=== PATIENT | female | born 1935 | race Caucasian/White ===

== ENCOUNTER 2018-04-29 09:46 | Inpatient (IN) | payer MEDICARE ==
--- NOTE | 2018-04-29 10:28 | ED ---
GI/ HPI - HPI Summary HPI Summary: An 82 y/o female presents to [facility] with a chief complaint of blood in her stool since 04/17/18. She describes the color of her blood as bright-red. She rates her pain as 0/10. She also c/o diarrhea, but states that she has had formed stools as well. She also c/o rectal pain and intermittent abd pain which she describes as cramping. She notes that this pain usually starts before she has a bowel movement. She denies blood without stool or N/V. She has a Hx of GI bleed and ulcer. She had a colonoscopy done 3 years [employer]. Hx of GI bleed and ulcer. - History of Current Complaint Chief Complaint: EDRectalPain Stated Complaint: RECTAL BLEEDING Hx Obtained From: Patient Onset/Duration: Started Days Ago, Still Present Timing: Intermittent, Lasting Days Severity: Mild Current Severity: Mild Pain Intensity: 0 - out of 10 Location of Pain: Diffuse Pain Characteristics: Cramping - abd pain Associated Signs and Symptoms: Positive: Rectal Pain, Blood w/Stool, Diarrhea, Abdominal Pain. Negative: Hematemesis, Nausea, Vomiting, Fever - Allergy/Home Medications Allergies/Adverse Reactions: Allergies Allergy/AdvReac Type Severity Reaction Status Date / Time Egg Derived AdvReac Intermediate Stomach Verified 04/29/18 09:50 Cramps Penicillins AdvReac Intermediate See Comment Verified 04/29/18 09:50 crab Allergy Vomiting Uncoded 04/29/18 09:50 lexascan Allergy cardiac Uncoded 04/29/18 09:50 issue, "flatlined" stress test med Allergy Unknown Uncoded 04/29/18 09:50 Reaction Details Home Medications: Home Medications Acetaminophen with Codeine [Acetaminophen-Cod #2 Tablet] 1 tab PO Q6H 04/29/18 [ History Confirmed 04/29/18] Aspirin [Aspirin EC] 81 mg PO DAILY 04/29/18 [History Confirmed 04/29/18] Atenolol 75 mg PO DAILY 04/29/18 [History Confirmed 04/29/18] Biotin 1 tab PO DAILY 04/29/18 [History Confirmed 04/29/18] Cyclobenzaprine TAB* [Flexeril 10 MG TAB*] 10 mg PO BEDTIME PRN 04/29/18 [ History Confirmed 04/29/18] Hydrochlorothiazide TAB* [Hydrodiuril TAB*] 25 mg PO DAILY 04/29/18 [History Confirmed 04/29/18] Omeprazole 20 mg PO DAILY 04/29/18 [History Confirmed 04/29/18] Sitagliptin Phosphate [Januvia] 100 mg PO DAILY 04/29/18 [History Confirmed ] Warfarin Sodium 4 - 6 mg PO SEE INSTRUCTIONS 04/29/18 [History Confirmed ] PMH/Surg Hx/FS Hx/Imm Hx Endocrine/Hematology History: Reports: Hx Anticoagulant Therapy, Hx Blood Transfusions, Hx Diabetes, Hx Anemia, Hx Unexplained Bleeding - GI Bleed admission Dx Denies: Hx Systemic Lupus Erythematosus, Hx Sickle Cell Disease, Hx Thyroid Disease, Other Endocrine/Hematological Disorders Cardiovascular History: Reports: Hx Angioplasty, Hx Coronary Artery Disease, Hx Hypercholesterolemia, Hx Hypertension Denies: Hx Aneurysm, Hx Angina, Hx Auto Implanted Cardiovert Defib, Hx Cardiac Arrest, Hx Cardiomegaly, Hx Congenital Heart Disease, Hx Congestive Heart Failure, Hx Deep Vein Thrombosis, Hx Embolism, Hx Hypotension, Hx Pacemaker/ICD, Hx Peripheral Vascular Disease, Hx Rheumatic Fever, Hx Syncope, Hx Valvular Heart Disease Respiratory History: Reports: Hx Pneumonia Denies: Hx Asthma, Hx Chronic Bronchitis, Hx Chronic Obstructive Pulmonary Disease (COPD), Hx Cystic Fibrosis, Hx Lung Cancer, Hx Pleural Effusion, Hx Pulmonary Edema, Hx Pulmonary Embolism, Hx Seasonal Allergies, Hx Sleep Apnea, Other Respiratory Problems/Disorders GI History: Reports: Hx Gastrointestinal Bleed - Admission Dx, Hx Ulcer Denies: Hx Cirrhosis, Hx Crohn's Disease, Hx Diverticulosis, Hx Gall Bladder Disease, Hx Gastroesophageal Reflux Disease, Hx Hiatal Hernia, Hx Irritable Bowel, Hx Jaundice, Hx Obstructive Bowel, Hx Ileostomy, Hx Pyloric Stenosis, Other GI Disorders History: Reports: Other Problems/Disorders - urinary urgency Denies: Hx Acute Renal Failure, Hx Benign Prostatic Hyperplasia, Hx Chronic Renal Failure, Hx Dialysis, Hx Kidney Infection, Hx Kidney Stones Musculoskeletal History: Reports: Hx Arthritis, Hx Back Problems, Hx Bursitis Denies: Hx Rheumatoid Arthritis, Hx Congenital Bone Abnormalities, Hx Fibromyalgia, Hx Gout, Hx Orthopedic Injury - right hip replaced, Hx Osteoporosis, Hx Scoliosis, Hx Tendonitis Sensory History: Reports: Hx Contacts or Glasses Denies: Hx Cataracts, Hx Eye Injury, Hx Eye Prosthesis, Hx Glaucoma, Hx Legally Blind, Hx Macular Degeneration, Hx Vision Problem, Hx Deafness, Hx Hearing Aid, Hx Hearing Problem, Other Sensory Impairments Opthamlomology History: Reports: Hx Contacts or Glasses Denies: Hx Cataracts, Hx Eye Injury, Hx Eye Prosthesis, Hx Glaucoma, Hx Legally Blind, Hx Macular Degeneration, Hx Vision Problem, Other Sensory Impairments Psychiatric History: Reports: Hx Anxiety - Cancer History Hx Chemotherapy: No Hx Radiation Therapy: No Hx Palliative Cancer Treatment: No - Surgical History Surgery Procedure, Year, and Place: right hip replacement several years ago, angiogram. barium study of intestines 10/27/14 Hx Anesthesia Reactions: No Infectious Disease History: No Infectious Disease History: Denies: Hx Clostridium Difficile, Hx Hepatitis, Hx Human Immunodeficiency Virus (HIV), Hx of Known/Suspected MRSA, Hx Shingles, Hx Tuberculosis, Hx Known/ Suspected VRE, Hx Known/Suspected VRSA, History Other Infectious Disease, Traveled Outside the [place] in Last 30 Days - Family History Known Family History: Positive: Cardiac Disease - father Negative: Diabetes - Social History Alcohol Use: None Substance Use Type: Reports: None Smoking Status (MU): Former Smoker Type: Cigarettes Amount Used/How Often: 2 PPD Length of Time of Smoking/Using Tobacco: 15 years Have You Smoked in the Last Year: No Review of Systems Negative: Fever Gastrointestinal: Negative - bleeding without stool Positive: Abdominal Pain, Diarrhea, Other - Positive: Blood in stool, rectal pain. Negative: Vomiting, Nausea All Other Systems Reviewed And Are Negative: Yes Physical Exam - Summary Physical Exam Summary: Appearance: The patient is well-nourished in no acute distress and in no acute pain. Skin: The skin is warm and dry and skin color reflects adequate perfusion. HEENT: The head is normocephalic and atraumatic. The pupils are equal and reactive. The conjunctivae are clear and without drainage. Nares are patent and without drainage. Mouth reveals moist mucous membranes and the throat is without erythema and exudate. The external ears are intact. The ear canals are patent and without drainage. The tympanic membranes are intact. Neck: The neck is supple with full range of motion and non-tender. There are no carotid bruits. There is no neck vein distension. Respiratory: Chest is non-tender. Lungs are clear to auscultation and breath sounds are symmetrical and equal. Cardiovascular: Heart is regular rate and rhythm. There is no murmur or rub auscultated. There is no peripheral edema and pulses are symmetrical and equal. Abdomen: The abdomen is soft and non-tender. There are normal bowel sounds heard in all four quadrants and there is no organomegaly palpated. Musculoskeletal: There is no back tenderness noted. Extremities are non-tender with full range of motion. There is good capillary refill. There is no peripheral edema or calf tenderness elicited. Neurological: Patient is alert and oriented to person, place and time. The patient has symmetrical motor strength in all four extremities. Cranial nerves are grossly intact. Deep tendon reflexes are symmetrical and equal in all four extremities. Psychiatric: The patient has an appropriate affect and does not exhibit any anxiety or depression. Triage Information Reviewed: Yes Vital Signs On Initial Exam: Initial Vitals Temp Pulse Resp BP Pulse Ox 98.0 F 66 20 128/85 97 04/29/18 09:50 04/29/18 09:50 04/29/18 09:50 04/29/18 09:50 04/29/18 09:50 Vital Signs Reviewed: Yes Diagnostics - Vital Signs Vital Signs Temp Pulse Resp BP Pulse Ox 04/29/18 09:50 98.0 F 66 20 128/85 97 - Laboratory Result Diagrams: 04/29/18 17:59 04/29/18 10:43 Lab Statement: Any lab studies that have been ordered have been reviewed, and results considered in the medical decision making process. - CT abdomen/pelvis CT Interpretation Completed By: Radiologist Summary of CT Findings: 1. No renal calculi or signs of obstructive uropathy are identified. 2. Diverticulosis, most severely affecting the rectosigmoid colon without definite focal. inflammatory change characteristic of acute diverticulitis. There is no definite wall. thickening or pericolonic drainable fluid. 3. Questionable identification of the appendix. Please correlate to details of the. patient's surgical history. 4. Calcified atherosclerosis of the aortoiliac arteries. 5. Additional chronic, degenerative and iatrogenic findings described in body the report. unlikely to be related to the patient's current clinical presentation. ED provider has reviewed this imaging report. - EKG 11:18 Cardiac Rate: Other Rate - Atrial Fibrillation at 64 bpm EKG Rhythm: Atrial Fibrillation Summary of EKG Findings: Atrial Fibrillation at 64 bpm with diffuse T wave inversion and ST depressions consistent with EKGs done on 10/23/14 and 09/27/14. Re-Evaluation - Re-Evaluation First Eval Re-Evaluation Time: 13:10 Change: Unchanged Comment: Informed patient of results and plan. GIGU Course/Dx - Course Course Of Treatment: Ms. Coughlin presented to the emergency department with episodes of crampy low left quadrant pain, diarrhea and hematochezia. She was nontoxic in appearance, her vitals are stable and she had no episodes of stool here. She was found to be significantly anemic compared to last summer and the hospitalists were contacted for admission. Dr. Giron was contacted for GI for background information when he gets consulted. She has a history of atrial fibrillation and is on Coumadin. Her INR was 4.5 and she was given subcutaneous vitamin K. - Diagnoses Provider Diagnoses: GI bleed - Physician Notifications Discussed Care Of Patient With: Yaquelin Jean-Baptiste Time Discussed With Above Provider: 12:55 Instructed by Provider To: Admit As Inpatient - Critical Care Time Critical Care Time: 30-74 min Discharge - Sign-Out/Discharge Documenting (check all that apply): Patient Departure - admit - Discharge Plan Condition: Fair Disposition: ADMITTED TO [facility] - Billing Disposition and Condition Condition: FAIR Disposition: Admitted to [facility] - Attestation Statements Document Initiated by Scribe: Yes Documenting Scribe: Abdiel Velázquez Provider For Whom Lady is Documenting (Include Credential): Aaron Thornton MD Scribe Attestation: Abdiel Foss, scribed for Aaron Thornton MD on 04/29/18 at 2059. Scribe Documentation Reviewed: Yes Provider Attestation: The documentation as recorded by the Abdiel blancas accurately reflects the service I personally performed and the decisions made by me, Aaron Thornton MD Status of Scribe Document: Viewed Consult Consult: At 13:[address] Giron, Gastro, about the patient.
[2018-04-29 10:57] LABS: ABS Basophils 0.1 10^3/ul (0-0.2); ABS Eosinophils 0 10^3/ul (0-0.6); ABS Lymphocytes 1.1 10^3/ul (1.0-4.8); ABS Monocytes 0.5 10^3/ul (0-0.8); ABS Neutrophils 6.1 10^3/ul (1.5-7.7); ABS Nucleated RBC 0 10^3/ul; Eosinophil % 0.5 %; Hematocrit 26 % (35-47); Hemoglobin 8.4 g/dl (12.0-16.0); Lymphocyte % 14.4 %; Mean Corpuscular HGB Conc 33 g/dl (31-36); Mean Corpuscular Hemoglobin 29 pg (27-31); Mean Corpuscular Volume 88 fL (80-97); Mean Platelet Volume 9.2 fL (7.4-10.4); Nucleated Red Blood Cells % 0; Platelet Count 220 10^3/ul (150-450); Red Blood Count 2.92 10^6/ul (4.00-5.40); Red Cell Distribution Width 15 % (10.5-15); White Blood Count 7.9 10^3/ul (3.5-10.8)
[2018-04-29 11:09] LABS: INR 4.56 (0.77-1.02)
[2018-04-29 11:16] LABS: Albumin 3.7 g/dL (3.2-5.2); Albumin/Globulin Ratio 1.3 (1-3); BUN/Creatinine Ratio 28.4 (8-20); C Reactive Protein 4.06 mg/L (<8.01); Calcium 11.8 mg/dL (8.6-10.3); EGFR Non-African American 52.1 (>60); Globulin 2.8 g/dL (2-4); Total Bilirubin 0.8 mg/dL (0.2-1.0); Total Protein 6.5 g/dL (6.4-8.9)
[2018-04-29] MEDS ORDERED: Phytonadione SUBCUT/IM Adult* 10 MG/ML AMP (IM or SQ not preferred route) SUBCUT ONE (11:22)
[2018-04-29 12:39] LABS: Urine Appearance Clear; Urine Bacteria Absent (Absent); Urine Bilirubin Negative (Negative); Urine Blood 1+ (Negative); Urine Color Yellow; Urine Glucose Negative (Negative); Urine Ketones Negative (Negative); Urine Nitrite Negative (Negative); Urine Protein Negative (Negative); Urine Red Blood Cell Trace(0-2/hpf) (Absent); Urine Urobilinogen Negative (Negative); Urine White Blood Cell Trace(0-5/hpf) (Absent)
[2018-04-29] MEDS ORDERED: Acetaminophen TAB* 325 MG PO PRN (13:37)
[2018-04-29] MEDS ORDERED: Cyclobenzaprine TAB* 10 MG PO PRN (13:38)
[2018-04-29] MEDS ORDERED: Dextrose 50% Syringe 50 ML* 25 GM/50 ML SYRINGE IV PUSH PRN (13:38)
[2018-04-29] MEDS ORDERED: Ondansetron INJ* 2 MG/ML VIAL IV PRN (13:39)
[2018-04-29] MEDS: NS 0.9% 1000 ML* 1,000 ML IV SCH (16:03)
--- NOTE | 2018-04-29 17:14 | CONS ---
CONSULTATION REPORT: DATE OF CONSULT: 04/29/18 REQUESTING PHYSICIAN: Dr. Thornton in the emergency room. TIME OF CONSULT: A consult was performed in the emergency room at approximately 2:25 p.m. NARRATIVE: Ms. Coughlin is an 82-year-old female who has a history of atrial fibrillation, type 2 diabetes, hypertension, history of prepyloric gastric ulcer and anemia, who presents with 3 to 4 days of bright red blood per rectum. She states that 3 days ago she developed left lower quadrant abdominal cramping and an urge to have a bowel movement and passed bright red blood per rectum. The pain continued for 1 to 2 days intermittently. It was colicky in nature. It was located in the left lower quadrant. She continued to have bowel movement. They were loose in nature. They all contained bright red blood per rectum. There had been no black stools. No maroon or darker stools. She denies any dizziness or lightheadedness. Today, she has had 2 bowel movements; the first one was a large amount of blood and this prompted her to come to the emergency room. She denies pain currently. Her past medical history is significant for gastrointestinal bleeding in 2014 and 2015. At that time, she was found to be anemic. She was now passing blood per rectum. She underwent an endoscopy initially in 2014, which revealed a prepyloric channel ulcer. It was felt that this could be cause of her anemia; however, repeat exam a month or two later showed at least a 50% healing and at that point it was felt that there was some other cause for her anemia. At that point, she underwent a colonoscopy, which revealed diverticulosis and a small polyp. Dr. Dickens did not feel that the source could be from either of those. Thus, he pursued with a capsule endoscope. The capsule endoscopy revealed proximal jejunal bleeding. She underwent a balloon enteroscopy at that time and a polyp was seen and removed. She had a followup enteroscopy in 2016, which showed a healed jejunal polyp. In 2016, she had her Coumadin restarted. She has been doing well she tells me up until just a few days ago. She states that her INR is checked every month and it has been stable between 2 and 2.5. She denies any leafy green vegetables or new antibiotics. Currently, her INR is 4.56. Again, at this point, she is denying any abdominal pain. She is still passing bright red blood per rectum. She takes a baby aspirin every day. She denies any other nonsteroidals. No other new medications. PAST MEDICAL HISTORY: Please see the HPI. PAST SURGICAL HISTORY: Includes a right hip replacement. MEDICATIONS UPON ADMISSION: Include, 1. Aspirin. 2. Atenolol. 3. Atorvastatin. 4. Detrol. 5. Glimepiride. 6. Hydrochlorothiazide. 7. Lisinopril. 8. Omeprazole. 9. Tramadol. ALLERGIES: To PENICILLIN. FAMILY HISTORY: Significant for cardiovascular disease, no GI malignancies in the family. SOCIAL HISTORY: She denies any recent tobacco, rare alcohol. REVIEW OF SYSTEMS: Twelve systems reviewed, other than that mentioned in the HPI were unremarkable. PHYSICAL EXAM: Temperature is 98.0, blood pressure is 149/56, pulse is 65. General: Well-appearing female, appears younger than her stated age, alert, oriented, pleasant, fluent. HEENT: Mucous membranes are moist without lesions , ulcers, or exudate. Neck is supple. Trachea is midline. Head is normocephalic, atraumatic. Heart: Irregular rate and rhythm. No murmurs, rubs or gallops. Lungs: Clear to auscultation bilaterally. No wheezes, rales or rhonchi. Abdomen is obese. Positive bowel sounds. Soft, nontender, nondistended. No hepatosplenomegaly, masses, rebound or guarding. Skin is warm and dry. Musculoskeletal: No CVA or spinal tenderness to palpation. DIAGNOSTIC STUDIES/LAB DATA: Of note, her hemoglobin is 8.4, down from 13.8, 13.8 was in November 2016; platelets of 220. INR is 4.56. BUN is 29, up from 22 in January of this year; creatinine is 1.02. She also has abdominal CT, which shows diverticulosis. ASSESSMENT AND PLAN: This is a pleasant 82-year-old female who has been having bright red blood per rectum over the past few days, initially some crampy abdominal pain that has resolved. She comes in now with an INR of 4.56 and a hemoglobin of 8.4. Her BUN is likely elevated. She does have a history of peptic ulcer disease in the past in addition to small bowel polyps that had bled in the past. She also has diverticulosis. At this point, her deferential is very broad. Given the bright red blood per rectum, my first thought would be diverticular bleeding, usually this is painless. She did have some pain a couple of days ago and intermittent cramping, it could be ischemic colitis. I doubt anything more ominous within the colon given the fact she had a colonoscopy in September 2014. This could be a small bowel pathology or small bowel lesion. She has had polyps in the past, which had bled significantly. She is hemodynamically stable, which points somewhat against it given the fact that the stool is bright red blood, not maroon or black. Additionally, peptic ulcer disease should be in the differential but again, that should give her black stools. Vital signs seem too good for this to be a brisk upper gastrointestinal bleed. Likely, all of this is complicated by the fact that her INR is 4.56. At this point, I recommend that we correct her abnormal INR. She will need frequent CBC checks. She may need some blood in the future. I would like to see how she does over the next 24 hours. She may benefit from a flexible sigmoidoscopy to evaluate her diverticulosis for any diverticular bleeding and/or ischemic colitis. At this point, she can have clears today, but then n.p.o. after midnight and the GI doctor on-call tomorrow will follow up with the patient. Obviously, aspirin should be held also. We will continue to follow along. [id number]/[facility] #: [id number] LEMUEL
[2018-04-29 18:05] LABS: Hematocrit 26 % (35-47); Hemoglobin 8.7 g/dl (12.0-16.0)
[2018-04-29] MEDS: Insulin LISPRO* 1 UNITS UNIT SUBCUT SCH (18:25)
--- NOTE | 2018-04-29 19:33 | HP ---
CC: Dr. Lai; Dr. Nickerson * HOSPITAL MEDICINE HISTORY AND PHYSICAL: DATE OF ADMISSION: 04/29/18 PRIMARY CARE PHYSICIAN: Dr. Lai. HOLD WORKER: Dr. Nickerson. ATTENDING PHYSICIAN: Dr. Yaquelin Lea * (dictation provided by Rubia Ch NP ) CHIEF COMPLAINT: Bright red blood per rectum. HISTORY OF PRESENT ILLNESS: Ms. Coughlin is an 82-year-old female with a past medical history of AFib, on Coumadin therapy as well as history of a GI bleed attributed to an ulcer in 2014, which had required blood transfusion and diabetes, who presents today to the hospital with concern for bight red blood per rectum. Ms. Coughlin states that she has been in her normal state of health. She confirms that she had a GI bleed back in 2014 that was attributed to an ulcer. 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 The patient states she has done well on that for the past 2 years and has been therapeutic with her INR. Ms. Coughlin states that 2 to 3 days ago, she started developing bright red blood per rectum. She has had up to 2 to 3 bowel movements per day. She denies any dizziness or lightheadedness. She has had some left lower quadrant crampy pain, but no other abdominal pain and no nausea or vomiting. She has had no chest pain or shortness of breath. She reviewed this bleeding with her daughter today and they decided that she should come to the hospital for evaluation. In the emergency room, Ms. Coughlin had labs, which showed her hemoglobin was 8.4. Her last check with us was on 11/28/16 and at that time, it was 13.8. Her INR was 4.56 on last check here. On 04/09/18, it was 2.36. Her BUN and creatinine are very mildly elevated at 29 and 1.02 respectively. Her vitals were stable with blood pressure running systolically 110s to 130s and a heart rate in the 60s. PAST MEDICAL HISTORY: 1. GI bleed in 2014 requiring blood transfusion. 2. Atrial fibrillation, on Coumadin therapy. 3. History of diabetes. 4. History of chronic hip pain. 5. Hypertension. MEDICATIONS OUTPATIENT: 1. Aspirin 81 mg p.o. daily. 2. Sitagliptin 100 mg p.o. daily. 3. [place]-3 fatty acids 3000 mg p.o. daily. 4. Biotin 1 tab p.o. daily. 5. Atorvastatin 10 mg p.o. q.p.m. 6. Atenolol 75 mg p.o. daily. 7. Magnesium oxide 400 mg p.o. daily. 8. Cyanocobalamin 500 mcg p.o. daily. 9. Cholecalciferol 400 units p.o. daily. 10. Tylenol With Codeine 1 tab p.o. q.6 hours. 11. Glimepiride one and a half tabs in the a.m. and half tab in the p.m. 12. Detrol LA 4 mg p.o. daily. 13. Hydrochlorothiazide 25 mg p.o. daily. 14. Lisinopril 20 mg p.o. daily. 15. Cyclobenzaprine 10 mg p.o. at bedtime p.r.n. 16. Omeprazole 20 mg p.o. daily. 17. Warfarin 4 mg on Sunday, Sunday, Sunday, Sunday, Sunday and 6 mg on Sunday and . ALLERGIES: To EGGS, PENICILLIN, CRAB, LEXISCAN. FAMILY HISTORY: The patient reports her father at 82 after gallbladder surgery. Mother related to an unknown sickness. SOCIAL HISTORY: The patient smoked briefly for many, many years ago. No report of alcohol or drug use. The patient states that her daughter, Betty and her daughter, Emilie would be the healthcare proxies. REVIEW OF SYSTEMS: A 14-point review of systems was completed with Ms. Coughlin and all those not mentioned above were negative. PHYSICAL EXAMINATION GENERAL: Ms. Coughlin is lying in the bed with her daughter, Betty at the bedside. She is in no acute distress. VITAL SIGNS: Temperature 98.0, pulse rate 55, respiratory rate 17, O2 saturation 96% on room air, blood pressure 113/59. LUNGS: Clear to auscultation bilaterally with no accessory muscle use and good aeration. HEART: S1, S2. No murmur, rub, or gallop and irregular. ABDOMEN: Soft, nontender with bowel sounds positive x4. EXTREMITIES: No cyanosis or edema. NEURO: She is alert. She is oriented x3. She moves all extremities equally. There is no facial asymmetry or focal weakness. Extraocular movements are intact. SKIN: Intact. DIAGNOSTIC STUDIES/LAB DATA: Abdomen and pelvis CT shows no renal calculi or signs of obstructive uropathy identified, diverticulosis most severely affecting the rectosigmoid colon without definite focal inflammatory change, characteristic of acute diverticulitis. There is no definite wall thickening or pericolonic drainable fluid, questionable identification of the appendix, calcified atherosclerosis of the aortoiliac arteries. Labs show urine with no evidence of infection. White blood cell count of 7, hemoglobin 8.4, hematocrit 26, platelet count 220. INR 4.56. Sodium 138, potassium 4.0, chloride 103, serum bicarbonate 28, BUN 29, creatinine 1.02, glucose 170. Lactic acid 1.1. CRP 4.06. EKG shows atrial fibrillation with T-wave inversions that are unchanged from previous and a heart rate of about 60. ASSESSMENT AND PLAN: Ms. Coughlin is an 82-year-old female with a past medical history of [id number] diabetes, gastrointestinal bleed in 2014 requiring blood transfusion and atrial fibrillation, currently on Coumadin who presents to the hospital with concern for bright red blood per rectum. Our plans are for inpatient admission as expected length of stay to be greater than 2 days for the followin. Gastrointestinal bleed: The patient has bright red blood per rectum, likely consistent with a lower gastrointestinal bleed. Plan is for 2 large- bore IVs at all time. The patient will have normal saline at 75 mL per hour. If her hemoglobin falls below 8, we will initiate blood transfusion. Her next hemoglobin check is for 1800 hours today. The patient is currently asymptomatic. She has a stable blood pressure and she is not tachycardic, though she is on a beta-girma chronically. Dr. Prescott has been contacted by Dr. Thornton from the emergency department. The patient does have a supratherapeutic INR and vitamin K has been administered appropriately here in the ED. We will follow up with repeat INR in the a.m. If the patient has more significant bleeding or become symptomatic, we can consider the initiation of FFP or additional vitamin K as needed. The patient will also be on pantoprazole IV b.i.d. 2. Atrial fibrillation, on Coumadin. Again, discontinue Coumadin. Plan to continue atenolol with hold parameters. The patient has never had a history of transient ischemic attack or stroke. 3. Type 2 diabetes. Plan to hold glimepiride and Januvia. The patient will have blood glucoses q.a.c. with lispro sliding scale. Low dose Lantus starting at 5 units tonight as the patient's oral intake is likely to be low as she will be on clear liquids. 4. Hypertension. Plan to continue atenolol, but hold hydrochlorothiazide and lisinopril. 5. Gastroesophageal reflux disease. The patient will be on pantoprazole. 6. Incontinence. The patient will have Detrol LA provided from home per her request. 7. Chronic hip pain. Continue Flexeril p.r.n. 8. Code status is full code. This was reviewed with the patient and her daughter at the bedside. 9. Disposition to medical floor with telemetry monitoring. TIME SPENT: Approximately 60 minutes was spent on the admission of this patient , more than half the time spent with her at the bedside reviewing the events leading up to this hospitalization, performing the physical examination, and reviewing my plan of care. RUBIA CH NP [id number]/[facility] #: [id number] LEMUEL
--- NOTE | 2018-04-29 19:33 | PN ---
Progress Note - Progress Note Date of Service: 04/29/18 Note: Called regarding asymptomatic bradycardia with 2 second pauses. Atenolol held for now. K > 4, checking mag now.
[2018-04-29 20:03] LABS: Magnesium 1.5 mg/dL (1.9-2.7)
[2018-04-29] MEDS: Pantoprazole IV* 40 MG IV SCH (20:45)
[2018-04-29] MEDS: Insulin GLARGINE(*) 1 UNITS UNIT SUBCUT SCH (20:46)
[2018-04-29] MEDS ORDERED: Magnesium Sulfate IV* 3 GM in NS 0.9% 100 ML* 100 ML IVPB ONE (21:00)
[2018-04-29] MEDS ORDERED: NS 0.9% 100 ML* 100 ML ONE (22:02)
[2018-04-30] MEDS: NS 0.9% 1000 ML* 1,000 ML IV SCH (06:06)
[2018-04-30 06:13] LABS: INR 2.71 (0.77-1.02)
[2018-04-30 06:14] LABS: ABS Basophils 0 10^3/ul (0-0.2); ABS Eosinophils 0.1 10^3/ul (0-0.6); ABS Lymphocytes 1.2 10^3/ul (1.0-4.8); ABS Monocytes 0.5 10^3/ul (0-0.8); ABS Neutrophils 4.5 10^3/ul (1.5-7.7); ABS Nucleated RBC 0 10^3/ul; Eosinophil % 1.2 %; Hematocrit 21 % (35-47); Hemoglobin 7.1 g/dl (12.0-16.0); Lymphocyte % 19.3 %; Mean Corpuscular HGB Conc 33 g/dl (31-36); Mean Corpuscular Hemoglobin 29 pg (27-31); Mean Corpuscular Volume 89 fL (80-97); Mean Platelet Volume 9.5 fL (7.4-10.4); Nucleated Red Blood Cells % 0; Platelet Count 177 10^3/ul (150-450); Red Blood Count 2.42 10^6/ul (4.00-5.40); Red Cell Distribution Width 15 % (10.5-15); White Blood Count 6.3 10^3/ul (3.5-10.8)
[2018-04-30 06:25] LABS: BUN/Creatinine Ratio 29.8 (8-20); Calcium 10.7 mg/dL (8.6-10.3); EGFR Non-African American 57.3 (>60); Magnesium 2.2 mg/dL (1.9-2.7); Potassium 3.5 mmol/L (3.5-5.0)
[2018-04-30] MEDS: Insulin LISPRO* 1 UNITS UNIT SUBCUT SCH ×3 (08:15→17:47)
[2018-04-30] MEDS ORDERED: Atenolol TAB* 25 MG PO SCH (09:00)
[2018-04-30] MEDS: Pantoprazole IV* 40 MG IV SCH ×2 (09:41→20:51)
[2018-04-30] MEDS: Oxybutynin XL TAB* 5 MG PO SCH ×2 (09:41→09:43)
[2018-04-30] MEDS: Acetaminop/Codeine 30 MG TAB* 1 TAB (300 MG/30 MG) PO PRN ×2 (10:40→18:32)
--- NOTE | 2018-04-30 13:45 | PN ---
Progress Note - Progress Note Date of Service: 04/30/18 Note: GASTROENTEROLOGY FOLLOW-UP Reviewed chart and spoke with primary team. Met with patient. IE: Bleeding has lessened significantly. Some trips to bathroom now with no or only few drops of blood. Few episodes with some more bleeding resulting in pink- tinged liquid in toilet. Hct down from 26 to 21. Receiving 2 units of blood. VSS. S: No significant abdominal pain. No other complaints. O: VS: AF. VS WNL. Gen: Tired-appearing woman. NAD. CV: RRR Pulm: Breathing comfortably. Abd: +BS. Soft, non-tender, non-distended. LABS: Reviewed. Hct down from 26 to 21. INR 2.71 (from 4.56 after Vit K 5 mg). BUN 28 (from 29). Cr 0.94 (from 1.02). A/P: 82yF with history of GIB in 2015 (gastric ulcer on EGD, diverticulosis on colonoscopy, VCE: jejunal bleeding with subsequent balloon enteroscopy with removal of jejunal polyp), who is admitted with hematochezia and LLQ pain. Hematochezia seems to have lessened significantly. Hct now down to 21, which may represent re-equilibration from earlier heavier bleeding vs ongoing blood loss. Patient remains hemodynamically stable. - Agree with blood transfusions (2 units pending). Monitor CBC every 8 hours. - Monitor INR daily. - Recommend starting colonoscopy prep this afternoon. Clear diet today OK (no red liquids). - Will tentatively plan for colonoscopy +/- EGD tomorrow to evaluate for possible sources of blood loss. INR will hopefully be lower tomorrow. GI will continue to follow. Jennifer Prescott MD
--- NOTE | 2018-04-30 14:26 | PN ---
Subjective Date of Service: 04/30/18 Interval History: HOSPITALIST PROGRESS NOTE Patient seen and examined at bedside. Care reviewed and d/w Leighann Salmon RN. She had 2 small bloody BMs earlier today. Denies abdominal pain or any other complaints. Family History: Unchanged from Admission Social History: Unchanged from Admission Past Medical History: Unchanged from Admission Objective Active Medications: Acetaminophen (Tylenol Tab*) 650 mg PO Q6H PRN PRN Reason: PAIN Acetaminophen/Codeine Phosphate (Tylenol/Codeine 30 Mg Tab*) 1 tab PO Q6H PRN PRN Reason: PAIN Last Admin: 04/30/18 10:40 Dose: 1 tab Cyclobenzaprine HCl (Flexeril Tab*) 10 mg PO BEDTIME PRN PRN Reason: SPASMS Dextrose (D50w Syringe 50 Ml*) 12.5 gm IV PUSH .FOR FS < 60 - SS PRN PRN Reason: FS < 60 Sodium Chloride (Ns 0.9% 1000 Ml*) 1,000 mls @ 75 mls/hr IV PER RATE ON [facility] OF [facility] Last Admin: 04/30/18 06:06 Dose: 75 mls/hr Insulin Glargine (Lantus(*)) 5 units SUBCUT BEDTIME ON LICENSE OF [facility] Last Admin: 04/29/18 20:46 Dose: 5 units Insulin Human Lispro (Humalog*) 0 units SUBCUT AC ON LICENSE OF [facility]; Protocol Last Admin: 04/30/18 08:15 Dose: Not Given Ondansetron HCl (Zofran Inj*) 4 mg IV Q6H PRN PRN Reason: NAUSEA Oxybutynin Chloride (Ditropan Xl Tab*) 10 mg PO DAILY ON [facility] OF [facility] Last Admin: 04/30/18 09:43 Dose: Not Given Pantoprazole Sodium (Protonix Iv*) 40 mg IV BID ON LICENSE OF [facility] Last Admin: 04/30/18 09:41 Dose: 40 mg Vital Signs - 8 hr 04/30/18 04/30/18 04/30/18 07:23 08:00 10:40 Temperature 97.7 F Pulse Rate 62 Respiratory 16 18 20 Rate Blood Pressure 127/40 (mmHg) O2 Sat by Pulse 100 Oximetry Oxygen Devices in Use Now: None Appearance: Pleasant elderly lady lying in bed in NAD. Eyes: No Scleral Icterus Ears/Nose/Mouth/Throat: Mucous Membranes Moist Neck: Trachea Midline Respiratory: Symmetrical Chest Expansion and Respiratory Effort, Clear to Auscultation Cardiovascular: RRR - Normal S1 and S2 Abdominal: NL Sounds; No Tenderness; No Distention Neurological: Alert and Oriented x 3, NL Muscle Strength and Tone Result Diagrams: 04/30/18 05:48 04/30/18 05:48 Assess/Plan/Problems-Billing Assessment: Mrs Coughlin is an 82yo F with PMH of Afib on Warfarin, GI bleed in 2014 ( gastric ulcer on EGD, diverticulosis on colonoscopy, jejunal bleeding on capsule endoscopy with enteroscopy with removal of jejunal polyp), HTN, type 2 DM, chronic pain, who presented to ED with c/o bright red blood per rectum. - Patient Problems (1) Lower GI bleed Comment: - Patient presents with painless hematochezia, suspect diverticular in nature. - GI input appreciated - plan for colonoscopy +/- EGD tomorrow. (2) Blood loss anemia Comment: - H/H down to 7/ - will transfuse 2 PRBC and monitor H/H. (3) Type 2 diabetes mellitus Comment: - Continue low dose Lantus and Lispro SS. (4) HTN (hypertension) Comment: - BP low normal - antihypertensives on hold. (5) Afib Comment: - Coumadin held due to acute bleed. - Got vitamin K in the ED and INR is 2.7 today - will allow it to drift down. (6) DVT prophylaxis Comment: - Pharmacological prophylaxis contraindicated in the setting of GI bleed. - SCDs. (7) Full code status
[2018-04-30] MEDS ORDERED: Oxybutynin XL TAB* 5 MG PO SCH (16:00)
[2018-04-30] MEDS ORDERED: PEG 3000 GI LAVAGE* 1 GALLON PO ONE (17:00)
[2018-04-30] MEDS: TOLTERODINE 4 MG PO SCH (17:04)
[2018-04-30 18:59] LABS: Hematocrit 28 % (35-47); Hemoglobin 9.3 g/dl (12.0-16.0)
[2018-04-30] MEDS: Insulin GLARGINE(*) 1 UNITS UNIT SUBCUT SCH (20:51)
[2018-05-01 06:35] LABS: ABS Basophils 0.1 10^3/ul (0-0.2); ABS Eosinophils 0.1 10^3/ul (0-0.6); ABS Lymphocytes 1.6 10^3/ul (1.0-4.8); ABS Monocytes 0.5 10^3/ul (0-0.8); ABS Neutrophils 5.7 10^3/ul (1.5-7.7); ABS Nucleated RBC 0 10^3/ul; Eosinophil % 1.7 %; Hematocrit 31 % (35-47); Hemoglobin 10.4 g/dl (12.0-16.0); Lymphocyte % 19.6 %; Mean Corpuscular HGB Conc 34 g/dl (31-36); Mean Corpuscular Hemoglobin 29 pg (27-31); Mean Corpuscular Volume 87 fL (80-97); Mean Platelet Volume 8.8 fL (7.4-10.4); Nucleated Red Blood Cells % 0; Platelet Count 187 10^3/ul (150-450); Red Blood Count 3.55 10^6/ul (4.00-5.40); Red Cell Distribution Width 15 % (10.5-15)
[2018-05-01] MEDS: NS 0.9% 1000 ML* 1,000 ML IV SCH (06:51)
[2018-05-01] MEDS ORDERED: PEG 3000 GI LAVAGE* 1 GALLON PO ONE (07:00)
[2018-05-01 07:31] LABS: BUN/Creatinine Ratio 24.1 (8-20); Calcium 10.8 mg/dL (8.6-10.3); EGFR Non-African American 62.6 (>60); Potassium 3.3 mmol/L (3.5-5.0)
[2018-05-01] MEDS: Insulin LISPRO* 1 UNITS UNIT SUBCUT SCH ×3 (08:05→18:37)
[2018-05-01] MEDS: Pantoprazole IV* 40 MG IV SCH ×2 (08:22→20:27)
[2018-05-01] MEDS ORDERED: Potassium Chloride LIQUID* 20 MEQ PACKET PO ONE (09:06)
[2018-05-01] MEDS: KCL 10 MEQ/50 ML IVPREMIX* 10 MEQ/50 ML BAG IV SCH ×2 (09:58→11:03)
[2018-05-01 10:10] LABS: INR 1.4 (0.77-1.02)
[2018-05-01] MEDS ORDERED: fentaNYL* 50 MCG/ML 2 ML VIAL (100 MCG VIAL) ONE (14:26)
[2018-05-01] MEDS ORDERED: Midazolam* 1 MG/ML 10 ML VIAL (10 MG) ONE (14:27)
--- NOTE | 2018-05-01 17:26 | PN ---
Subjective Date of Service: 05/01/18 Interval History: HOSPITALIST PROGRESS NOTE Patient seen and examined at bedside. Care reviewed and d/w Mirela Cartwright RN. She offers no new complaints today. Family History: Unchanged from Admission Social History: Unchanged from Admission Past Medical History: Unchanged from Admission Objective Active Medications: Acetaminophen (Tylenol Tab*) 650 mg PO Q6H PRN PRN Reason: PAIN Acetaminophen/Codeine Phosphate (Tylenol/Codeine 30 Mg Tab*) 1 tab PO Q6H PRN PRN Reason: PAIN Last Admin: 04/30/18 18:32 Dose: 1 tab Aspirin (Aspirin Ec Tab*) 81 mg PO DAILY [facility] Cyclobenzaprine HCl (Flexeril Tab*) 10 mg PO BEDTIME PRN PRN Reason: SPASMS Dextrose (D50w Syringe 50 Ml*) 12.5 gm IV PUSH .FOR FS < 60 - SS PRN PRN Reason: FS < 60 Sodium Chloride (Ns 0.9% 1000 Ml*) 1,000 mls @ 75 mls/hr IV PER RATE [facility] Last Admin: 05/01/18 06:51 Dose: 75 mls/hr Insulin Glargine (Lantus(*)) 5 units SUBCUT BEDTIME [facility] Last Admin: 04/30/18 20:51 Dose: 5 units Insulin Human Lispro (Humalog*) 0 units SUBCUT AC [facility]; Protocol Last Admin: 05/01/18 11:59 Dose: Not Given Ondansetron HCl (Zofran Inj*) 4 mg IV Q6H PRN PRN Reason: NAUSEA Pantoprazole Sodium (Protonix Iv*) 40 mg IV BID [facility] Last Admin: 05/01/18 08:22 Dose: 40 mg Tolterodine Tartrate (Detrol La (Nf)) 4 mg PO DAILY@1500 [facility]; Protocol Last Admin: 04/30/18 17:04 Dose: 4 mg Vital Signs - 8 hr 05/01/18 11:14 Temperature 97.8 F Pulse Rate 93 Respiratory 16 Rate Blood Pressure 136/48 (mmHg) O2 Sat by Pulse 99 Oximetry Oxygen Devices in Use Now: None Appearance: Elderly pleasant lady sitting up in bed in NAD. Eyes: No Scleral Icterus Ears/Nose/Mouth/Throat: Mucous Membranes Moist Neck: Trachea Midline Respiratory: Symmetrical Chest Expansion and Respiratory Effort, Clear to Auscultation Cardiovascular: RRR - Normal S1 and S2 Abdominal: NL Sounds; No Tenderness; No Distention Neurological: Alert and Oriented x 3, NL Muscle Strength and Tone Result Diagrams: 05/01/18 06:18 05/01/18 06:18 Assess/Plan/Problems-Billing Assessment: Mrs Coughlin is an 82yo F with PMH of Afib on Warfarin, GI bleed in 2014 ( gastric ulcer on EGD, diverticulosis on colonoscopy, jejunal bleeding on capsule endoscopy with enteroscopy with removal of jejunal polyp), HTN, type 2 DM, chronic pain, who presented to ED with c/o bright red blood per rectum. - Patient Problems (1) Lower GI bleed Comment: - Patient presents with painless hematochezia, suspect diverticular in nature. - GI input appreciated - colonoscopy showed some old blood, no active bleeding. - Plan for EGD tomorrow. (2) Acute blood loss anemia Comment: - H/H down to 11/17, received 2 PRBC and now up to 02/27. - Continue to monitor H/H. (3) Hypercalcemia Comment: - Present on prior admission, with normal PTH, felt to be secondary to thiazide use and dehydration at that time. - This could be the same explanation this time - check PTH intact. (4) Type 2 diabetes mellitus Comment: - Continue low dose Lantus and Lispro SS. (5) HTN (hypertension) Comment: - BP trending up - resume low dose Atenolol and monitor. (6) Afib Comment: - Coumadin held due to acute bleed. - Got vitamin K in the ED and INR is 1.4. (7) DVT prophylaxis Comment: - Pharmacological prophylaxis contraindicated in the setting of GI bleed. - SCDs. (8) Full code status
[2018-05-01] MEDS: Acetaminop/Codeine 30 MG TAB* 1 TAB (300 MG/30 MG) PO PRN (17:38)
[2018-05-01] MEDS: TOLTERODINE 4 MG PO SCH (17:38)
[2018-05-01 17:52] LABS: Hematocrit 30 % (35-47)
[2018-05-01 17:58] LABS: BUN/Creatinine Ratio 19.5 (8-20); Calcium 10.8 mg/dL (8.6-10.3); EGFR Non-African American 67.1 (>60); Potassium 3.8 mmol/L (3.5-5.0)
[2018-05-01] MEDS ORDERED: Atenolol TAB* 25 MG PO SCH (18:00)
[2018-05-01] MEDS: Insulin GLARGINE(*) 1 UNITS UNIT SUBCUT SCH (20:30)
--- NOTE | 2018-05-01 22:50 | PN ---
Progress Note - Progress Note Date of Service: 05/01/18 Note: Patient here for GI bleed - Tele showing HR <40 with frequent pauses, afib. Will hold AM atenolol
--- NOTE | 2018-05-02 01:04 | PRO ---
CC: Dr. Lea; Sudarshan Lai MD * DATE OF PROCEDURE: 05/01/2018 - ROOM #411 PROCEDURE: Colonoscopy. REQUESTING PROVIDER: Dr. Lea PRIMARY CARE PROVIDER: Sudarshan Lai MD * INDICATION: Patient presents with rectal bleeding and anemia requiring transfusions. She has a history of bleeding in the past with upper endoscopy demonstrating gastric ulcer, colonoscopy demonstrating diverticulosis, and a video capsule endoscopy demonstrating jejunal bleeding with followup enteroscopy notable for a jejunal polyp. This last episode of bleeding was in [id number]. Blood counts have responded to transfusions overnight. MEDICATIONS GIVEN: Midazolam 7 mg IV, Fentanyl 100 mcg IV. DESCRIPTION OF PROCEDURE: Full disclosure of risks was reviewed with the patient as detailed on the consent form. The patient was placed in the left lateral decubitus position and monitored with continuous pulse oximetry, capnography, interval blood pressure monitoring, and direct observation. After anorectal examination was performed, the pediatric colonoscope was inserted into the rectum and advanced under direct observation to the level of the terminal ileum. Cecum was fully inflated allowing complete view including the medial wall between the IC valve and the appendiceal orifice. Quality of the prep was fair to poor with areas of retained clot and old blood as well as food debris. Careful inspection was made as the colonoscope was withdrawn. Retroflex view of the rectum was performed. Findings and interventions are described below. FINDINGS: Anorectal exam was unremarkable. Scope was slowly and carefully advanced to the level of the cecum. Abdominal pressure was required to help the scope to move forward in the colon. The patient was quite sensitive in the area of the left colon within segment of diverticulosis. There was old blood with fibrous clot-like material and scattered food and stool debris seen throughout the colon. There seemed to be more old blood and clot in the right colon as compared to the left colon. There was no fresh or active bleeding. Once in the cecum, the terminal ileum was intubated. The terminal ileum was normal in appearance without any evidence of old blood. Scope was then withdrawn into cecum and then throughout length of colon. The mucosa underlying the areas of clotted material was washed extensively and no sources were identified. In the left colon, patient had moderate diverticulosis. Each diverticulum was washed, and there was no evidence of clot or active bleeding seen. Retroflexion in the rectum was largely remarkable. There were no significant internal hemorrhoids. Scope was then withdrawn from the patient. The patient tolerated the procedure well and was recovered in the GI recovery area. IMPRESSION: Evidence of old blood with clot seen throughout colon, particularly on the right side. There does not appear to be any fresh or active bleeding, so I suspect the bleeding has stopped. The terminal ileum did not demonstrate any old blood; however, I am suspicious that patient may have small bowel source of bleeding given the distribution of old blood seen on today 's exam. I am doubtful that diverticular-related bleeding could account for the concentration of old blood seen in the right colon. FOLLOWUP: 1. Can restart diet now. Keep n.p.o. after midnight. 2. Will plan for an EGD tomorrow to ensure no upper GI source of bleeding given history of PUD. 3. If tomorrow's EGD is negative, then we will plan for an outpatient capsule to evaluate for possible small bowel source of bleeding, particularly given history of bleeding jejunal polyp. 4. Continue to monitor CBC. 5. Continue aspirin for now, Coumadin on hold. Thank you very much for this consult. GI will continue to follow. [id number]/[facility] #: [id number] LEMUEL
[2018-05-02] MEDS: NS 0.9% 1000 ML* 1,000 ML IV SCH ×2 (01:28→15:49)
[2018-05-02 08:09] LABS: ABS Basophils 0.1 10^3/ul (0-0.2); ABS Eosinophils 0.2 10^3/ul (0-0.6); ABS Lymphocytes 1.1 10^3/ul (1.0-4.8); ABS Monocytes 0.6 10^3/ul (0-0.8); ABS Nucleated RBC 0 10^3/ul; Eosinophil % 2.1 %; Hematocrit 28 % (35-47); Hemoglobin 9.5 g/dl (12.0-16.0); Lymphocyte % 14.5 %; Mean Corpuscular HGB Conc 34 g/dl (31-36); Mean Corpuscular Hemoglobin 29 pg (27-31); Mean Corpuscular Volume 87 fL (80-97); Mean Platelet Volume 8.9 fL (7.4-10.4); Nucleated Red Blood Cells % 0.1; Platelet Count 171 10^3/ul (150-450); Red Blood Count 3.24 10^6/ul (4.00-5.40); Red Cell Distribution Width 15 % (10.5-15); White Blood Count 7.9 10^3/ul (3.5-10.8)
[2018-05-02] MEDS: Pantoprazole IV* 40 MG IV SCH ×2 (08:13→21:03)
[2018-05-02] MEDS: Insulin LISPRO* 1 UNITS UNIT SUBCUT SCH ×3 (08:13→17:08)
[2018-05-02 08:19] LABS: BUN/Creatinine Ratio 16.7 (8-20); Calcium 10.5 mg/dL (8.6-10.3); EGFR Non-African American 55.9 (>60); Potassium 3.9 mmol/L (3.5-5.0)
--- NOTE | 2018-05-02 13:44 | PN ---
Subjective Date of Service: 05/02/18 Interval History: HOSPITALIST PROGRESS NOTE Patient seen and examined at bedside. Care reviewed and d/w Roque Sanchez RN. She offers no new complaints today. No bowel movements after colonoscopy. Tolerating diet well. Family History: Unchanged from Admission Social History: Unchanged from Admission Past Medical History: Unchanged from Admission Objective Active Medications: Acetaminophen (Tylenol Tab*) 650 mg PO Q6H PRN PRN Reason: PAIN Acetaminophen/Codeine Phosphate (Tylenol/Codeine 30 Mg Tab*) 1 tab PO Q6H PRN PRN Reason: PAIN Last Admin: 05/01/18 17:38 Dose: 1 tab Aspirin (Aspirin Ec Tab*) 81 mg PO DAILY [facility] Cyclobenzaprine HCl (Flexeril Tab*) 10 mg PO BEDTIME PRN PRN Reason: SPASMS Dextrose (D50w Syringe 50 Ml*) 12.5 gm IV PUSH .FOR FS < 60 - SS PRN PRN Reason: FS < 60 Sodium Chloride (Ns 0.9% 1000 Ml*) 1,000 mls @ 75 mls/hr IV PER RATE [facility] Last Admin: 05/02/18 01:28 Dose: 75 mls/hr Insulin Glargine (Lantus(*)) 5 units SUBCUT BEDTIME [facility] Last Admin: 05/01/18 20:30 Dose: 5 units Insulin Human Lispro (Humalog*) 0 units SUBCUT AC [facility]; Protocol Last Admin: 05/02/18 11:52 Dose: Not Given Ondansetron HCl (Zofran Inj*) 4 mg IV Q6H PRN PRN Reason: NAUSEA Pantoprazole Sodium (Protonix Iv*) 40 mg IV BID [facility] Last Admin: 05/02/18 08:13 Dose: 40 mg Tolterodine Tartrate (Detrol La (Nf)) 4 mg PO DAILY@1500 [facility]; Protocol Last Admin: 05/01/18 17:38 Dose: 4 mg Vital Signs - 8 hr 05/02/18 05/02/18 05/02/18 07:52 08:00 11:28 Temperature 98.6 F 98.1 F Pulse Rate 79 92 Respiratory 16 16 16 Rate Blood Pressure 136/48 138/55 (mmHg) O2 Sat by Pulse 97 99 Oximetry Oxygen Devices in Use Now: None Appearance: Pleasant elderly lady sitting up in bed in NAD. Eyes: No Scleral Icterus Ears/Nose/Mouth/Throat: Mucous Membranes Moist Neck: Trachea Midline Respiratory: Symmetrical Chest Expansion and Respiratory Effort, Clear to Auscultation Cardiovascular: - - Normal S1 and S2, irregularly irregular Abdominal: NL Sounds; No Tenderness; No Distention Extremities: - - Bilateral LE edema Neurological: Alert and Oriented x 3, NL Muscle Strength and Tone Result Diagrams: 05/02/18 07:44 05/02/18 07:44 Assess/Plan/Problems-Billing Assessment: Mrs Coughlin is an 82yo F with PMH of Afib on Warfarin, GI bleed in 2014 ( gastric ulcer on EGD, diverticulosis on colonoscopy, jejunal bleeding on capsule endoscopy with enteroscopy with removal of jejunal polyp), HTN, type 2 DM, chronic pain, who presented to ED with c/o bright red blood per rectum. - Patient Problems (1) Lower GI bleed Comment: - Patient presents with painless hematochezia, suspect diverticular in nature. - GI input appreciated - colonoscopy showed some old blood, no active bleeding. - Plan for EGD today. (2) Acute blood loss anemia Comment: - H/H stable at 9.5/28. - Continue to monitor. (3) Hypercalcemia Comment: - Present in the past - PTH elevated now - Endocrinology consult requested with Dr Jane. (4) Type 2 diabetes mellitus Comment: - Continue low dose Lantus and Lispro SS. (5) HTN (hypertension) Comment: - Continue low dose Atenolol. (6) Afib Comment: - Coumadin held due to acute bleed. - Got vitamin K in the ED and INR is 1.4. - Tentative plan for capsule endoscopy next week to then decide when to resume Warfarin. (7) DVT prophylaxis Comment: - Pharmacological prophylaxis contraindicated in the setting of GI bleed. - SCDs. (8) Full code status
[2018-05-02] MEDS ORDERED: Midazolam* 1 MG/ML 10 ML VIAL (10 MG) ONE (14:32)
[2018-05-02] MEDS ORDERED: fentaNYL* 50 MCG/ML 2 ML VIAL (100 MCG VIAL) ONE (14:32)
[2018-05-02] MEDS: Aspirin EC TAB* 81 MG TAB.EC PO SCH (15:49)
[2018-05-02] MEDS: TOLTERODINE 4 MG PO SCH (17:09)
[2018-05-02] MEDS: Acetaminop/Codeine 30 MG TAB* 1 TAB (300 MG/30 MG) PO PRN (17:09)
[2018-05-02] MEDS: Insulin GLARGINE(*) 1 UNITS UNIT SUBCUT SCH (21:05)
--- NOTE | 2018-05-02 22:19 | PN ---
Progress Note - Progress Note Date of Service: 05/02/18 Note: called for 4 second pause while patient is sleeping
--- NOTE | 2018-05-02 22:56 | PRO ---
CC: Dr. Hugo Schaffer; Dr. Jennifer Prescott * EGD REPORT: DATE OF SERVICE: 05/02/18 - ROOM #411 INDICATION FOR PROCEDURE: Rectal bleeding, history of peptic ulcer disease. PROCEDURE PERFORMED: Complete esophagogastroduodenoscopy. MEDICATIONS GIVEN: Include IV midazolam 5 mg, IV fentanyl 50 mcg. DESCRIPTION OF PROCEDURE: After the EGD procedure including the risks, benefits , and alternatives with the risks not limited to perforation, surgery, missed lesions, and/or were explained to the patient, written informed consent was obtained. IV medication was given and a bite-block was placed between the teeth. The adult Olympus gastroscope was inserted into the patient's oropharynx and advanced very carefully through the entirety of the tubular esophagus into the lower esophageal sphincter. This was grossly normal in appearance. The GE junction was at 40 cm. The scope was advanced through the lower esophageal sphincter into the stomach. The stomach had mild wang gastritis. On retroflexion, there was a small Patel erosion that was evident and a 2-cm hiatal hernia appreciated. There was no active bleeding. The scope was then advanced to the widely patent pylorus into the duodenal bulb, C-loop, distal duodenum. I then pushed as far as I could into the small bowel. There was no evidence of fresh or old blood that was visualized. The scope was then removed from the patient. She tolerated the procedure well. She returned to the recovery room in stable condition. IMPRESSION: 1. Complete esophagogastroduodenoscopy. 2. A 2-cm hiatal hernia. 3. Non-bleeding Patel erosions. 4. Mild gastritis. RECOMMENDATIONS: No etiology of the patient's hematochezia was identified. At this point, her hemoglobin has remained stable. There has been no evidence of re- bleeding. I suspect that her acute GI bleeding has resolved and was likely secondary to her supratherapeutic INR. I would recommend close monitoring of INR as outpatient, consideration of just pure observation alone versus consideration for repeat capsule endoscopy; however, the patient had 2 enteroscopies in the past for a small bowel polyp that was removed. Likely sources of anemia would be diverticular versus AVM versus the Dieulafoy lesion that opened up. I discussed with the family that we unlikely would not find the acute source on this admission and observation versus capsule endoscopy would be prudent. [id number]/CPS #: [id number] MTDMeg
[2018-05-03] MEDS: NS 0.9% 1000 ML* 1,000 ML IV SCH (05:48)
[2018-05-03 07:14] LABS: Hematocrit 29 % (35-47); Hemoglobin 9.5 g/dl (12.0-16.0)
[2018-05-03] MEDS: Aspirin EC TAB* 81 MG TAB.EC PO SCH (08:12)
[2018-05-03] MEDS: Insulin LISPRO* 1 UNITS UNIT SUBCUT SCH ×3 (08:12→16:53)
[2018-05-03] MEDS: Pantoprazole IV* 40 MG IV SCH ×2 (08:12→21:15)
[2018-05-03] MEDS: Acetaminop/Codeine 30 MG TAB* 1 TAB (300 MG/30 MG) PO PRN (11:51)
--- NOTE | 2018-05-03 15:52 | PN ---
Subjective Date of Service: 05/03/18 Interval History: Pt seen and examined. Meds and labs reviewed. Other than asymptomatic 4 second pause reported, no other O/N issues. CC: N/A ROS: Denied PARKS/dizziness, F/C, N/V, CP, SOB, increased cough, sputum production , abd pain, diarrhea, constipation, dysuria, myalgias, arthralgias, throat pain , and new skin lesions. The rest of the 14 point ROS are unremarkable. PHYSICAL EXAM: GEN APPEARANCE: Awake, not in acute distress HEENT: NC/AT, PERRLA, moist oral mucosa, (-) throat erythema NECK: Soft, supple, (-) cervical LAD, (-)JVD HEART: S1S2 WNL, RRR, No MRG CHEST: CTA, BL, GAE, No W/R/R ABD: Soft, ND/NT, NABS 4x Q EXT: No C/C/BLLE edema +2 SKIN: Warm to touch PSYCH: No active psychosis, hallucinations, depression, SI/HI Family History: Unchanged from Admission Social History: Unchanged from Admission Past Medical History: Unchanged from Admission Objective Active Medications: Acetaminophen (Tylenol Tab*) 650 mg PO Q6H PRN PRN Reason: PAIN Acetaminophen/Codeine Phosphate (Tylenol/Codeine 30 Mg Tab*) 1 tab PO Q6H PRN PRN Reason: PAIN Last Admin: 05/03/18 11:51 Dose: 1 tab Aspirin (Aspirin Ec Tab*) 81 mg PO DAILY [facility] Last Admin: 05/03/18 08:12 Dose: 81 mg Atenolol (Tenormin Tab*) 75 mg PO DAILY [facility] Cyclobenzaprine HCl (Flexeril Tab*) 10 mg PO BEDTIME PRN PRN Reason: SPASMS Dextrose (D50w Syringe 50 Ml*) 12.5 gm IV PUSH .FOR FS < 60 - SS PRN PRN Reason: FS < 60 Sodium Chloride (Ns 0.9% 1000 Ml*) 1,000 mls @ 75 mls/hr IV PER RATE [facility] Last Admin: 05/03/18 05:48 Dose: 75 mls/hr Insulin Glargine (Lantus(*)) 5 units SUBCUT BEDTIME [facility] Last Admin: 05/02/18 21:05 Dose: 5 units Insulin Human Lispro (Humalog*) 0 units SUBCUT AC [facility]; Protocol Last Admin: 05/03/18 11:52 Dose: 3 units Ondansetron HCl (Zofran Inj*) 4 mg IV Q6H PRN PRN Reason: NAUSEA Pantoprazole Sodium (Protonix Iv*) 40 mg IV BID [facility] Last Admin: 05/03/18 08:12 Dose: 40 mg Tolterodine Tartrate (Detrol La (Nf)) 4 mg PO DAILY@1500 [facility]; Protocol Last Admin: 05/02/18 17:09 Dose: 4 mg Vital Signs - 8 hr 05/03/18 05/03/18 11:51 11:53 Temperature 97.7 F Pulse Rate 91 Respiratory 16 18 Rate Blood Pressure 180/71 (mmHg) O2 Sat by Pulse 99 Oximetry Oxygen Devices in Use Now: None Result Diagrams: 05/03/18 06:57 05/02/18 07:44 Microbiology and Other Data: Microbiology 04/29/18 10:38 Urine Culture - Final Urine No Growth (<1,000 CFU/mL) Assess/Plan/Problems-Billing Assessment: Mrs Coughlni is an 82yo F with PMH of Afib on Warfarin, GI bleed in 2014 ( gastric ulcer on EGD, diverticulosis on colonoscopy, jejunal bleeding on capsule endoscopy with enteroscopy with removal of jejunal polyp), HTN, type 2 DM, chronic pain, who presented to ED with c/o bright red blood per rectum. - Patient Problems (1) GI bleed Current Visit: Yes Status: Acute Code(s): K92.2 - GASTROINTESTINAL HEMORRHAGE, UNSPECIFIED SNOMED Code(s): 36807686 Comment: -Per Dr. Khan assessment, likely due to diverticular bleed vs. AVM in the setting of mildly supratherapeutic INR -EGD, however, reveals mild gastritis and non-bleeding Patel erosions (2) Afib Current Visit: Yes Status: Chronic Code(s): I48.91 - UNSPECIFIED ATRIAL FIBRILLATION SNOMED Code(s): 11714397 Comment: -Off of Coumadin for now given above -Continue ASA for now given H&H is stable despite being on it -Will re-start Atenolol today. Please see discussion below. (3) Diabetes 1.5, managed as type 2 Current Visit: Yes Status: Acute Code(s): E13.9 - OTHER SPECIFIED DIABETES MELLITUS WITHOUT COMPLICATIONS SNOMED Code(s): 101492245 Comment: -Well-controlled -Continue current regimen -Continue watchful waiting (4) HTN (hypertension) Current Visit: Yes Status: Chronic Code(s): I10 - ESSENTIAL (PRIMARY) HYPERTENSION SNOMED Code(s): 88020257 Comment: -Uncontrolled -Will re-order Atenolol with appropriate holding orders -Will continue watchful waiting (5) DVT prophylaxis Current Visit: Yes Status: Acute Code(s): RJD8925 - SNOMED Code(s): 519073115 Comment: -Continue SCDs Status and Disposition: -Appreciate PT eval; PT recommends to continue PT at this time and re-eval in AM
[2018-05-03] MEDS ORDERED: Atenolol TAB* 25 MG PO SCH (16:00)
[2018-05-03] MEDS: TOLTERODINE 4 MG PO SCH (16:54)
[2018-05-03] MEDS: Insulin GLARGINE(*) 1 UNITS UNIT SUBCUT SCH (21:14)
--- NOTE | 2018-05-03 22:18 | PN ---
Hospitalist Progress Note Date of Service: 05/03/18 Notified by [facility] staff of a 4.1 second pause while sleeping. Patient is asymptomatic. She was started on atenolol today and then this was discontinued. Will continue to monitor.
[2018-05-04] MEDS: NS 0.9% 1000 ML* 1,000 ML IV SCH ×2 (04:46→21:54)
[2018-05-04 07:02] LABS: ABS Basophils 0 10^3/ul (0-0.2); ABS Eosinophils 0.2 10^3/ul (0-0.6); ABS Monocytes 0.7 10^3/ul (0-0.8); ABS Neutrophils 6.2 10^3/ul (1.5-7.7); ABS Nucleated RBC 0 10^3/ul; Eosinophil % 1.9 %; Hematocrit 29 % (35-47); Hemoglobin 9.6 g/dl (12.0-16.0); Lymphocyte % 12.7 %; Mean Corpuscular HGB Conc 33 g/dl (31-36); Mean Corpuscular Hemoglobin 29 pg (27-31); Mean Corpuscular Volume 88 fL (80-97); Nucleated Red Blood Cells % 0; Platelet Count 168 10^3/ul (150-450); Red Cell Distribution Width 15 % (10.5-15); White Blood Count 8.1 10^3/ul (3.5-10.8)
[2018-05-04 07:20] LABS: Albumin 3.1 g/dL (3.2-5.2); Albumin/Globulin Ratio 1.1 (1-3); Calcium 10.6 mg/dL (8.6-10.3); EGFR Non-African American 74.4 (>60); Globulin 2.8 g/dL (2-4); Magnesium 1.3 mg/dL (1.9-2.7); Phosphorus 1.8 mg/dL (2.5-5.0); Potassium 4.2 mmol/L (3.5-5.0); Total Bilirubin 0.8 mg/dL (0.2-1.0); Total Protein 5.9 g/dL (6.4-8.9)
[2018-05-04] MEDS: Insulin LISPRO* 1 UNITS UNIT SUBCUT SCH ×3 (09:15→16:10)
[2018-05-04] MEDS: Lisinopril TAB* 10 MG PO SCH (09:15)
[2018-05-04] MEDS: Aspirin EC TAB* 81 MG TAB.EC PO SCH (09:15)
[2018-05-04] MEDS: Acetaminop/Codeine 30 MG TAB* 1 TAB (300 MG/30 MG) PO PRN ×2 (09:15→17:40)
[2018-05-04] MEDS: Pantoprazole IV* 40 MG IV SCH ×2 (09:16→20:39)
[2018-05-04] MEDS ORDERED: Sodium Phosphate INJ* 15 MMOLE in NS 0.9% 250 ML* 250 ML IVPB ONE (09:34)
[2018-05-04] MEDS ORDERED: Magnesium Sulf 4 GM/100 ML IV* 4,000 MG/100 ML BAG IVPB ONE (09:34)
[2018-05-04] MEDS: TOLTERODINE 4 MG PO SCH (15:59)
--- NOTE | 2018-05-04 16:47 | PN ---
Subjective Date of Service: 05/04/18 Interval History: Pt seen and examined. Meds and labs reviewed. CC: N/A ROS: Denied PARKS/dizziness, F/C, N/V, CP, SOB, increased cough, sputum production , abd pain, diarrhea, constipation, dysuria, myalgias, arthralgias, throat pain , and new skin lesions. The rest of the 14 point ROS are unremarkable. PHYSICAL EXAM: GEN APPEARANCE: Awake, not in acute distress HEENT: NC/AT, PERRLA, moist oral mucosa, (-) throat erythema NECK: Soft, supple, (-) cervical LAD, (-)JVD HEART: S1S2 WNL, RRR, No MRG CHEST: CTA, BL, GAE, No W/R/R ABD: Soft, ND/NT, NABS 4x Q EXT: No C/C/BLLE edema +2 SKIN: Warm to touch PSYCH: No active psychosis, hallucinations, depression, SI/H Family History: Unchanged from Admission Social History: Unchanged from Admission Past Medical History: Unchanged from Admission Objective Active Medications: Acetaminophen (Tylenol Tab*) 650 mg PO Q6H PRN PRN Reason: PAIN Acetaminophen/Codeine Phosphate (Tylenol/Codeine 30 Mg Tab*) 1 tab PO Q6H PRN PRN Reason: PAIN Last Admin: 05/04/18 09:15 Dose: 1 tab Aspirin (Aspirin Ec Tab*) 81 mg PO DAILY [facility] Last Admin: 05/04/18 09:15 Dose: 81 mg Cyclobenzaprine HCl (Flexeril Tab*) 10 mg PO BEDTIME PRN PRN Reason: SPASMS Dextrose (D50w Syringe 50 Ml*) 12.5 gm IV PUSH .FOR FS < 60 - SS PRN PRN Reason: FS < 60 Sodium Chloride (Ns 0.9% 1000 Ml*) 1,000 mls @ 75 mls/hr IV PER RATE [facility] Last Admin: 05/04/18 04:46 Dose: 75 mls/hr Insulin Glargine (Lantus(*)) 5 units SUBCUT BEDTIME [facility] Last Admin: 05/03/18 21:14 Dose: 5 units Insulin Human Lispro (Humalog*) 0 units SUBCUT AC [facility]; Protocol Last Admin: 05/04/18 16:10 Dose: Not Given Lisinopril (Prinivil Tab*) 20 mg PO DAILY [facility] Last Admin: 05/04/18 09:15 Dose: 20 mg Ondansetron HCl (Zofran Inj*) 4 mg IV Q6H PRN PRN Reason: NAUSEA Pantoprazole Sodium (Protonix Iv*) 40 mg IV BID [facility] Last Admin: 05/04/18 09:16 Dose: 40 mg Tolterodine Tartrate (Detrol La (Nf)) 4 mg PO DAILY@1500 [facility]; Protocol Last Admin: 05/04/18 15:59 Dose: 4 mg Vital Signs - 8 hr 05/04/18 05/04/18 05/04/18 09:15 11:45 12:15 Temperature 98.5 F Pulse Rate 67 Respiratory 18 20 18 Rate Blood Pressure 129/59 (mmHg) O2 Sat by Pulse 100 Oximetry 05/04/18 15:34 Temperature 97.9 F Pulse Rate 62 Respiratory 20 Rate Blood Pressure 138/53 (mmHg) O2 Sat by Pulse 99 Oximetry Oxygen Devices in Use Now: None Result Diagrams: 05/04/18 06:42 05/04/18 06:42 Microbiology and Other Data: Microbiology 04/29/18 10:38 Urine Culture - Final Urine No Growth (<1,000 CFU/mL) Assess/Plan/Problems-Billing Assessment: Mrs Coughlin is an 82yo F with PMH of Afib on Warfarin, GI bleed in 2014 ( gastric ulcer on EGD, diverticulosis on colonoscopy, jejunal bleeding on capsule endoscopy with enteroscopy with removal of jejunal polyp), HTN, type 2 DM, chronic pain, who presented to ED with c/o bright red blood per rectum. - Patient Problems (1) GI bleed Current Visit: Yes Status: Acute Code(s): K92.2 - GASTROINTESTINAL HEMORRHAGE, UNSPECIFIED SNOMED Code(s): 73848128 Comment: -Per Dr. Khan assessment, likely due to diverticular bleed vs. AVM in the setting of mildly supratherapeutic INR -EGD, however, reveals mild gastritis and non-bleeding Patel erosions (2) Afib Current Visit: Yes Status: Chronic Code(s): I48.91 - UNSPECIFIED ATRIAL FIBRILLATION SNOMED Code(s): 85045915 Comment: -Off of Coumadin for now given above -Continue ASA for now given H&H is stable despite being on it -D/Cd Atenolol yesterday due to pauses that subsequently became symptomatic and placed on Lisinopril instead for uncontrolled HTN -Touch base w/GI in AM prior to planned D/C to determine when Coumadin can be best restarted (3) Diabetes 1.5, managed as type 2 Current Visit: Yes Status: Acute Code(s): E13.9 - OTHER SPECIFIED DIABETES MELLITUS WITHOUT COMPLICATIONS SNOMED Code(s): 291079345 Comment: -Well-controlled -Continue current regimen -Continue watchful waiting (4) HTN (hypertension) Current Visit: Yes Status: Chronic Code(s): I10 - ESSENTIAL (PRIMARY) HYPERTENSION SNOMED Code(s): 64310570 Comment: -Improved -Please see above discussion -Continue Lisinopril as discussed above -Will continue watchful waiting (5) DVT prophylaxis Current Visit: Yes Status: Acute Code(s): BFX0272 - SNOMED Code(s): 530963129 Comment: -Continue SCDs Status and Disposition: -Appreciate PT eval; PT recommends to continue PT at this time and re-eval in AM -Possible D/C in AM
[2018-05-04] MEDS: Insulin GLARGINE(*) 1 UNITS UNIT SUBCUT SCH (20:39)
[2018-05-05] MEDS: Insulin LISPRO* 1 UNITS UNIT SUBCUT SCH ×3 (08:29→17:27)
[2018-05-05] MEDS: Aspirin EC TAB* 81 MG TAB.EC PO SCH (08:29)
[2018-05-05] MEDS: Lisinopril TAB* 10 MG PO SCH (08:29)
[2018-05-05] MEDS: Pantoprazole IV* 40 MG IV SCH (08:30)
[2018-05-05] MEDS: Acetaminop/Codeine 30 MG TAB* 1 TAB (300 MG/30 MG) PO PRN (08:42)
[2018-05-05 08:50] LABS: ABS Basophils 0.1 10^3/ul (0-0.2); ABS Eosinophils 0.1 10^3/ul (0-0.6); ABS Lymphocytes 0.8 10^3/ul (1.0-4.8); ABS Monocytes 0.7 10^3/ul (0-0.8); ABS Neutrophils 7.3 10^3/ul (1.5-7.7); ABS Nucleated RBC 0 10^3/ul; Eosinophil % 0.8 %; Hematocrit 30 % (35-47); Hemoglobin 9.9 g/dl (12.0-16.0); Lymphocyte % 8.5 %; Mean Corpuscular HGB Conc 33 g/dl (31-36); Mean Corpuscular Hemoglobin 29 pg (27-31); Mean Corpuscular Volume 88 fL (80-97); Mean Platelet Volume 8.8 fL (7.4-10.4); Nucleated Red Blood Cells % 0.1; Platelet Count 178 10^3/ul (150-450); Red Blood Count 3.36 10^6/ul (4.00-5.40); Red Cell Distribution Width 15 % (10.5-15); White Blood Count 8.9 10^3/ul (3.5-10.8)
[2018-05-05 09:04] LABS: Albumin 3.2 g/dL (3.2-5.2); Albumin/Globulin Ratio 1.1 (1-3); BUN/Creatinine Ratio 17.3 (8-20); Calcium 10.2 mg/dL (8.6-10.3); EGFR Non-African American 74.4 (>60); Magnesium 1.6 mg/dL (1.9-2.7); Phosphorus 1.7 mg/dL (2.5-5.0); Total Protein 6.2 g/dL (6.4-8.9)
[2018-05-05] MEDS ORDERED: Potassium & Sodium Phos 250MG* = 1 PACKET PO STA (14:46)
[2018-05-05] MEDS ORDERED: Magnesium Oxide TAB* 400 MG PO STA (14:47)
[2018-05-05] MEDS: TOLTERODINE 4 MG PO SCH (15:22)
[2018-05-05 15:56] VITALS: BP 124/90
--- NOTE | 2018-05-06 01:12 | DS ---
CC: Dr. Ma; Dr. Aaron Thornton; Dr. Jennifer Prescott; Dr. Gardner; Dr. Giron; Dr. Donte Jane; Dr. Hugo Schaffer * DISCHARGE SUMMARY: DATE OF ADMISSION: 04/29/18 DATE OF DISCHARGE: 05/05/18 DISCHARGE DIAGNOSES: 1. Gastrointestinal bleed, likely due to diverticular cause versus arteriovenous malformation in the setting of mildly supratherapeutic INR on admission. 2. Mild gastritis and nonbleeding Patel erosions on EGD. 3. History of atrial fibrillation, the patient instructed to continue to hold Coumadin until reevaluated by patient's PCP. 4. Type 2 diabetes mellitus. 5. History of hypertension. DISCHARGE MEDICATIONS: Are as follows: 1. Aspirin 81 mg p.o. daily. 2. Cyclobenzaprine 10 mg p.o. q.h.s. 3. Tylenol with codeine No. 2 one tab p.o. q.6. 4. Atorvastatin 10 mg p.o. daily. 5. Biotin 1 tab p.o. daily. 6. Cholecalciferol 400 units p.o. daily. 7. Cyanocobalamin 500 mcg p.o. daily. 8. Glimepiride 1 tablet p.o. daily. 9. HCTZ 25 mg p.o. daily 10. Lisinopril 20 mg p.o. daily. 11. Magnesium oxide 400 mg p.o. daily. 12. [place]-3 fatty acids 3000 mg p.o. daily. 13. Pantoprazole 40 mg p.o. b.i.d. 90 tabs dispensed with 0 refills. 14. Sitagliptin 100 mg p.o. daily. 15. Tolterodine tartrate 4 mg p.o. daily. 16. Polyethylene glycol 17 g p.o. daily p.r.n. 17. Senna plus 2 tabs p.o. daily. HISTORY OF PRESENT ILLNESS AND HOSPITAL COURSE: The patient is an 82-year-old lady with a history of AFib, on Coumadin, as well as history of GI bleed attributed to an ulcer back in 2014, who was admitted for bright red blood per rectum on 04/29/18. She was seen in consultation by Dr. Giron and Dr. Gardner as well as Dr. Prescott of GI service and upon EGD on 05/02/18, nonbleeding Patel erosions as well as 2 cm hiatal hernia with mild gastritis was found, although this was thought not to be the source of bright red blood per rectum but likely due to AVM versus Dieulafoy lesion versus a diverticular cause given the Patel erosions as well as mild gastritis were not found to be bleeding at the time of EGD. Her Coumadin was withheld throughout her hospitalization stay and upon transfusion with subsequent stabilization of H and H, aspirin was reordered although Coumadin was continued to be withheld. I have touched base with Dr. Giron in regards to her Coumadin therapy, who mentioned an advice that the patient should continue to hold Coumadin until reevaluated by patient's PCP and will thus defer until such evaluation transpires. The patient is aware of this plan and agrees with the above assessment and plan. She was also seen by physical therapy two days prior to this discharge who recommended to continue to work with patient with physical as an inpatient prior to planned discharge as well as further correction of her electrolytes. Her electrolytes, especially her magnesium was repleted prior to her discharge as well as her phosphorus and she will be placed back on her magnesium supplementations and patient is also aware that she will have a repeat blood draw to determine if anymore supplementations are necessary. Patient was advised to follow up and call her PCP within 3 days post discharge, to continue to hold her Coumadin until reevaluated by her PCP and I told her to restart it. She was advised to make sure to repeat her blood draws in 3 days to check her magnesium levels and to make sure to call her PCP to discuss the results to see if see needs further supplementation. She was advised to continue holding her atenolol until she is reevaluated by her PCP. This is because her BP and heart rates sometimes may be in the lower limits of normal and her HCTZ is currently just being restarted on her discharge. She was advised that if her symptoms resume or develop new ones or feel unwell for any reason to call her PCP first and if her PCP cannot entertain her due to scheduling issues alone, to call [facility] if the issue is not emergent. She was advised to call my office regarding any questions, concerns, or further clarifications regarding her discharge plans and her prescriptions and to take her medications as prescribed. REVIEW OF SYSTEMS: The patient denied any recent headaches, dizziness, fevers, chills, nausea, vomiting, chest pain, shortness of breath, increased coughing or sputum production, abdominal pain, diarrhea, pain, and/or increased frequency on urination, myalgias, arthralgias, throat pain, or new skin lesions. The patient complained of constipation for the first time. She has not had a bowel movement since she was admitted. Unfortunately, this is the first time that she had mentioned this despite previous enquiries in the past. Hence, she will be placed on Senna plus as well as MiraLAX daily p.r.n. The rest of the 14-point review of systems are otherwise unremarkable. PHYSICAL EXAMINATION: Shows the most recent vital signs of records with blood pressure of 146/81 from 110/30, 99.1 degrees Fahrenheit, 91 beats per minute heart rate, 20 per minute respiratory rate, saturating at 96% at room air. General Appearance: The patient is awake, alert, and oriented x3; not in acute distress. HEENT: Normocephalic and atraumatic. PERRLA. Extraocular muscles intact. Negative for icterus. Moist oral mucosa. Negative throat erythema. Neck: Soft, supple with no cervical lymphadenopathy, no JVD. Heart: S1 and S2 within normal limits. Regular rate and rhythm. No murmurs, rubs, or gallops. Chest: Clear to auscultation bilaterally. Good air entry. No wheezes, rales, or rhonchi. Abdomen: Soft, nondistended, nontender. Normoactive bowel sounds x4 quadrants. Extremities: No cyanosis, clubbing, or edema. Psychiatric: No active psychoses, depression, suicidal or homicidal ideation. Skin is warm to touch. TIME SPENT: The total time spent evaluating the patient, reviewing pertinent data and appropriate documentation is 65 minutes. [id number]/CPS #: [id number] MTDD
== END 2018-05-05 18:35 | disposition home or self-care (01) | DRG 378 ==
LOC: ED 09:46 → MED 13:34
PROVIDERS: ADMIT Internal Medicine; ATTEND Student in an Organized Health Care Education/Training Program
PROC: 30233N1 Transfusion of Nonautologous Red Blood Cells into Peripheral Vein, Percutaneous Approach (ICD-10-PCS; principal; 2018-04-30)
PROC: 0DJD8ZZ Inspection of Lower Intestinal Tract, Via Natural or Artificial Opening Endoscopic (ICD-10-PCS; 2018-05-01)
PROC: 0DJ08ZZ Inspection of Upper Intestinal Tract, Via Natural or Artificial Opening Endoscopic (ICD-10-PCS; 2018-05-02)
DX: K57.31 Diverticulosis of large intestine without perforation or abscess with bleeding (principal); D62 Acute posthemorrhagic anemia; K92.1 Melena; I48.91 Unspecified atrial fibrillation; E83.52 Hypercalcemia; E11.9 Type 2 diabetes mellitus without complications; R00.1 Bradycardia, unspecified; I10 Essential (primary) hypertension; K21.9 Gastro-esophageal reflux disease without esophagitis; M25.559 Pain in unspecified hip; K29.70 Gastritis, unspecified, without bleeding; R79.1 Abnormal coagulation profile; K44.9 Diaphragmatic hernia without obstruction or gangrene; Q27.33 Arteriovenous malformation of digestive system vessel; Z79.01 Long term (current) use of anticoagulants; Z96.641 Presence of right artificial hip joint; Z88.0 Allergy status to penicillin; Z82.49 Family history of ischemic heart disease and other diseases of the circulatory system; Z79.1 Long term (current) use of non-steroidal anti-inflammatories (NSAID); Z79.82 Long term (current) use of aspirin; Z79.899 Other long term (current) drug therapy; Z88.8 Allergy status to other drugs, medicaments and biological substances; Z91.012 Allergy to eggs; Z91.013 Allergy to seafood; Z87.891 Personal history of nicotine dependence; Z79.84 Long term (current) use of oral hypoglycemic drugs; R32 Unspecified urinary incontinence
CPT/HCPCS: 36415; 74176; 80048; 80053; 81003; 81015; 83605; 83690; 83735; 83970; 84100; 85014; 85018; 85025; 85610; 86078; 86140; 86850; 86900; 86901; 86922; 87086; 93005; 99156; 99157; 99284; A9270-GY; G8978-GP-CJ; G8979-GP-CH; J2250; J3010; J3430; J3475; J3480; P9016

== ENCOUNTER 2018-05-08 18:19 | Inpatient (IN) | payer MEDICARE ==
[2018-05-08 19:14] LABS: Urine Appearance Clear; Urine Bilirubin Negative (Negative); Urine Blood Negative (Negative); Urine Color Yellow; Urine Glucose Negative (Negative); Urine Ketones Negative (Negative); Urine Nitrite Negative (Negative); Urine Protein Negative (Negative); Urine Specific Gravity 1.006 (1.010-1.030); Urine Urobilinogen Negative (Negative)
--- NOTE | 2018-05-08 19:32 | ED ---
Lower Extremity - HPI Summary HPI Summary: The patient is an 82 y/o F presenting to [facility] arriving by ambulance with a chief complaint of gradual onset BLE edema with pain starting approximately three days ago. She was admitted to [facility] for GI bleed last week, and since discharge, her legs have began to swell. The aching pain is currently rated 8/ 10 in severity. She additionally c/o SOB, but she denies CP. She has hx of Afib , HTN, HLD, and diabetes, and she is currently not taking blood thinners due to the recent admission. - History of Current Complaint Chief Complaint: EDExtremityLower Stated Complaint: SHORT OF BREATH Time Seen by Provider: 05/08/18 19:06 Hx Obtained From: Patient Mechanism Of Injury: Unknown Onset of Pain: Days Onset/Duration: Days Severity Initially: Mild Severity Currently: Moderate Pain Intensity: 8 Pain Scale Used: 0-10 Numeric Timing: Lasting Days - three Location: Is Discrete @ - BLE Character Of Pain: Aching Associated Signs And Symptoms: Positive: Swelling - BLE Aggravating Factor(s): Nothing Alleviating Factor(s): Nothing - Allergies/Home Medications Allergies/Adverse Reactions: Allergies Allergy/AdvReac Type Severity Reaction Status Date / Time regadenoson [From Lexiscan] Allergy See Comment Verified 05/05/18 14:05 Egg Derived AdvReac Intermediate Stomach Verified 04/29/18 09:50 Cramps Penicillins AdvReac Intermediate See Comment Verified 04/29/18 09:50 crab AdvReac Vomiting Verified 05/05/18 14:04 stress test med Allergy Unknown Uncoded 04/29/18 09:50 Reaction Details PMH/Surg Hx/FS Hx/Imm Hx Endocrine/Hematology History: Reports: Hx Anticoagulant Therapy, Hx Blood Transfusions, Hx Diabetes, Hx Anemia, Hx Unexplained Bleeding - GI Bleed admission Dx Denies: Hx Systemic Lupus Erythematosus, Hx Sickle Cell Disease, Hx Thyroid Disease, Other Endocrine/Hematological Disorders Cardiovascular History: Reports: Hx Angioplasty, Hx Coronary Artery Disease, Hx Hypercholesterolemia, Hx Hypertension Denies: Hx Aneurysm, Hx Angina, Hx Auto Implanted Cardiovert Defib, Hx Cardiac Arrest, Hx Cardiomegaly, Hx Congenital Heart Disease, Hx Congestive Heart Failure, Hx Deep Vein Thrombosis, Hx Embolism, Hx Hypotension, Hx Pacemaker/ICD, Hx Peripheral Vascular Disease, Hx Rheumatic Fever, Hx Syncope, Hx Valvular Heart Disease Respiratory History: Reports: Hx Pneumonia Denies: Hx Asthma, Hx Chronic Bronchitis, Hx Chronic Obstructive Pulmonary Disease (COPD), Hx Cystic Fibrosis, Hx Lung Cancer, Hx Pleural Effusion, Hx Pulmonary Edema, Hx Pulmonary Embolism, Hx Seasonal Allergies, Hx Sleep Apnea, Other Respiratory Problems/Disorders GI History: Reports: Hx Gastrointestinal Bleed - Admission Dx, Hx Ulcer Denies: Hx Cirrhosis, Hx Crohn's Disease, Hx Diverticulosis, Hx Gall Bladder Disease, Hx Gastroesophageal Reflux Disease, Hx Hiatal Hernia, Hx Irritable Bowel, Hx Jaundice, Hx Obstructive Bowel, Hx Ileostomy, Hx Pyloric Stenosis, Other GI Disorders History: Reports: Other Problems/Disorders - urinary urgency Denies: Hx Acute Renal Failure, Hx Benign Prostatic Hyperplasia, Hx Chronic Renal Failure, Hx Dialysis, Hx Kidney Infection, Hx Kidney Stones Musculoskeletal History: Reports: Hx Arthritis, Hx Back Problems, Hx Bursitis Denies: Hx Rheumatoid Arthritis, Hx Congenital Bone Abnormalities, Hx Fibromyalgia, Hx Gout, Hx Orthopedic Injury - right hip replaced, Hx Osteoporosis, Hx Scoliosis, Hx Tendonitis Sensory History: Reports: Hx Contacts or Glasses Denies: Hx Cataracts, Hx Eye Injury, Hx Eye Prosthesis, Hx Glaucoma, Hx Legally Blind, Hx Macular Degeneration, Hx Vision Problem, Hx Deafness, Hx Hearing Aid, Hx Hearing Problem, Other Sensory Impairments Opthamlomology History: Reports: Hx Contacts or Glasses Denies: Hx Cataracts, Hx Eye Injury, Hx Eye Prosthesis, Hx Glaucoma, Hx Legally Blind, Hx Macular Degeneration, Hx Vision Problem, Other Sensory Impairments Psychiatric History: Reports: Hx Anxiety - Cancer History Hx Chemotherapy: No Hx Radiation Therapy: No Hx Palliative Cancer Treatment: No - Surgical History Surgery Procedure, Year, and Place: right hip replacement several years ago, angiogram. barium study of intestines 10/27/14 Hx Anesthesia Reactions: No Infectious Disease History: No Infectious Disease History: Denies: Hx Clostridium Difficile, Hx Hepatitis, Hx Human Immunodeficiency Virus (HIV), Hx of Known/Suspected MRSA, Hx Shingles, Hx Tuberculosis, Hx Known/ Suspected VRE, Hx Known/Suspected VRSA, History Other Infectious Disease, Traveled Outside the [place] in Last 30 Days - Family History Known Family History: Positive: Cardiac Disease - father Negative: Diabetes - Social History Alcohol Use: None Hx Substance Use: No Substance Use Type: Reports: None Hx Tobacco Use: Yes Smoking Status (MU): Former Smoker Type: Cigarettes Amount Used/How Often: 2 PPD Length of Time of Smoking/Using Tobacco: 15 years Have You Smoked in the Last Year: No Review of Systems Negative: Chest Pain Positive: Shortness Of Breath Positive: Edema - with pain in BLE All Other Systems Reviewed And Are Negative: Yes Physical Exam - Summary Physical Exam Summary: VITAL SIGNS: Reviewed. GENERAL: Patient is a well-developed and nourished female who is lying comfortable in the stretcher. Patient is not in any acute respiratory distress. HEAD AND FACE: No signs of trauma. No ecchymosis, hematomas or skull depressions. No sinus tenderness. EYES: PERRLA, EOMI x 2, No injected conjunctiva, no nystagmus. EARS: Hearing grossly intact. Ear canals and tympanic membranes are within normal limits. MOUTH: Oropharynx within normal limits. NECK: Supple, trachea is midline, no adenopathy, no JVD, no carotid bruit, no c- spine tenderness, neck with full ROM. CHEST: Symmetric, no tenderness at palpation LUNGS: Clear to auscultation bilaterally. No wheezing or crackles. CVS: Regular rate and rhythm, S1 and S2 present, no murmurs or gallops appreciated. ABDOMEN: Soft, non-tender. No signs of distention. No rebound no guarding, and no masses palpated. Bowel sounds are normal. EXTREMITIES: FROM in all major joints, 2+ BLE edema, no cyanosis or clubbing. NEURO: Alert and oriented x 3. No acute neurological deficits. Speech is normal and follows commands. SKIN: Dry and warm. Triage Information Reviewed: Yes Vital Signs On Initial Exam: Initial Vitals Temp Pulse Resp BP Pulse Ox 98.2 F 96 18 163/65 96 05/08/18 18:26 05/08/18 18:26 05/08/18 18:26 05/08/18 18:26 05/08/18 18:26 Vital Signs Reviewed: Yes Diagnostics - Vital Signs Vital Signs Temp Pulse Resp BP Pulse Ox 05/08/18 18:26 98.2 F 96 18 163/65 96 - Laboratory Lab Results: Lab Results 05/08/18 Range/Units 16:05 Urine Color Yellow Urine Appearance Clear Urine pH 5.0 (5-9) Ur Specific [place] 1.006 L (1.010-1.030) Urine Protein Negative (Negative) Urine Ketones Negative (Negative) Urine Blood Negative (Negative) Urine Nitrate Negative (Negative) Urine Bilirubin Negative (Negative) Urine Urobilinogen Negative (Negative) Ur Leukocyte Esterase Negative (Negative) Urine Glucose Negative (Negative) Result Diagrams: 05/08/18 18:48 05/08/18 18:48 Lab Statement: Any lab studies that have been ordered have been reviewed, and results considered in the medical decision making process. - Radiology CXR Radiology Interpretation Completed By: Radiologist Summary of Radiographic Findings: Interstitial congestion. ED physician has reviewed this report. - Ultrasound No standard instances Ultrasound Interpretation Completed By: Radiologist Summary of Ultrasound Findings: US Bilateral Duplex Lower Extremity Veins: No evidence of DVT in the right or left leg. However, somewhat limited by swelling and patient's inability to tolerate pain. ED physician has reviewed this report. - EKG 20:37 Cardiac Rate: NL - 91 BPM EKG Rhythm: Atrial Fibrillation EKG Comparison: No Significant Change - Similar to 04/29/18 EKG reading. Summary of EKG Findings: ST depressions in 1, 3, aVF, and V4-V6 leads. Lower Extremity Course/Dx - Course Course Of Treatment: The patient was found to have increased BP in the ED. Assessment/Plan: The patient is an 82 y/o F presenting to [facility] arriving by ambulance with a chief complaint of gradual onset BLE edema with pain starting approximately three days ago. She was admitted to [facility] for GI bleed last week, and since discharge, her legs have began to swell. The aching pain is currently rated 8/10 in severity. She additionally c/o SOB, but she denies CP. She has hx of Afib, HTN, HLD, and diabetes, and she is currently not taking blood thinners due to the recent admission. Blood work shows a hemoglobin of 10.2 hematocrit of 31, calcium 11.9, troponin 0.3, CRP of 10.9. EKG shows atrial fibrillation. Chest x-ray impression: interstitial congestion. I discussed the case with Dr. Mendiola from cardiology and he really does not recommend anticoagulation at this point. He recommends chest CT to rule out PE since the patient has history of fibrillation, and she is not taking any blood thinners. Patient was also given Lasix for the CHF exacerbation of bilateral lower extremity edema. She was given Aspirin and Lopressor. Held the nitroglycerin since patient is not complaining of CP. I discussed the case with Dr. Cedeño from in hospital services who will admit the patient to his services for further workup and management. DR. Cedeño will F/U CTA chest result - Diagnoses Provider Diagnoses: NSTEMI (non-ST elevated myocardial infarction), CHF exacerbation - Physician Notifications Discussed Care Of Patient With: Maykel Mendiola - cardiology Time Discussed With Above Provider: 20:35 Instructed by Provider To: Other - I consulted with Dr. Mendiola concerning patient 's condition; he recommends chest CT. I also spoke with Dr. Cedeño, hospitalist, who accepts the patient for admission at 20:51. - Critical Care Time Critical Care Time: 75-104 min Discharge - Sign-Out/Discharge Documenting (check all that apply): Patient Departure - Patient will be admitted to [facility] for further care by Dr. Cedeño. - Discharge Plan Condition: Stable Disposition: ADMITTED TO [facility] Referrals: Sudarshan Lai MD [Primary Care Provider] - 3 Days Additional Instructions: FOLLOW UP WITH YOUR PRIMARY CARE PROVIDER WITHIN 2-3 DAYS FOR HIGH BLOOD PRESSURE NOTED TODAY. RETURN TO THE ED FOR ANY WORSENING OR NEW SYMPTOMS. - Billing Disposition and Condition Condition: STABLE Disposition: Admitted to [facility] - Attestation Statements Document Initiated by Lady: Yes Documenting Scribe: Marilou Pride Provider For Whom Lady is Documenting (Include Credential): Dr. Kranthi Izaguirre MD Scribe Attestation: Marilou Foss, scribed for Dr. Kranthi Izaguirre MD on 05/08/18 at 2152. Scribe Documentation Reviewed: Yes Provider Attestation: The documentation as recorded by the Marilou blancas accurately reflects the service I personally performed and the decisions made by me, Dr. Kranthi Izaguirre MD Status of Scribgladis Document: Viewed
[2018-05-08 19:50] LABS: ABS Basophils 0.1 10^3/ul (0-0.2); ABS Eosinophils 0.2 10^3/ul (0-0.6); ABS Lymphocytes 1.4 10^3/ul (1.0-4.8); ABS Monocytes 0.8 10^3/ul (0-0.8); ABS Neutrophils 5.5 10^3/ul (1.5-7.7); ABS Nucleated RBC 0 10^3/ul; Hematocrit 31 % (35-47); Hemoglobin 10.2 g/dl (12.0-16.0); Lymphocyte % 17.3 %; Mean Corpuscular HGB Conc 33 g/dl (31-36); Mean Corpuscular Hemoglobin 29 pg (27-31); Mean Corpuscular Volume 88 fL (80-97); Mean Platelet Volume 8.7 fL (7.4-10.4); Nucleated Red Blood Cells % 0; Platelet Count 219 10^3/ul (150-450); Red Cell Distribution Width 15 % (10.5-15); White Blood Count 7.8 10^3/ul (3.5-10.8)
[2018-05-08 20:03] LABS: Albumin 3.6 g/dL (3.2-5.2); Albumin/Globulin Ratio 1.3 (1-3); BUN/Creatinine Ratio 13.6 (8-20); C Reactive Protein 10.97 mg/L (<8.01); Calcium 11.9 mg/dL (8.6-10.3); Globulin 2.8 g/dL (2-4); Total Bilirubin 0.9 mg/dL (0.2-1.0); Total Protein 6.4 g/dL (6.4-8.9)
[2018-05-08] MEDS ORDERED: Furosemide IV* 10 MG/ML VIAL (40 MG) IV ONE (20:36)
[2018-05-08] MEDS ORDERED: Iodixanol* (CONTRAST) 320 MG/ML 100 ML SDV IV ONE (20:39)
[2018-05-08] MEDS ORDERED: Aspirin 81 mg CHEW TAB* 81 MG TAB.CHEW PO ONE (20:53)
[2018-05-08] MEDS ORDERED: Metoprolol Tartrate TAB* 25 MG PO ONE (20:54)
[2018-05-08] MEDS ORDERED: Acetaminop/Codeine 30 MG TAB* 1 TAB (300 MG/30 MG) PO ONE (20:59)
[2018-05-08] MEDS ORDERED: Aspirin EC TAB* 81 MG TAB.EC ONE (21:08)
[2018-05-08] MEDS: CMCS:Glimepiride (NF) 2 MG TAB PO SCH (23:52)
[2018-05-09] MEDS: Oxybutynin XL TAB* 5 MG PO SCH ×2 (00:01→09:08)
--- NOTE | 2018-05-09 01:47 | HP ---
HISTORY AND PHYSICAL: DATE OF ADMISSION: 05/08/18 ADMITTING PROVIDER: Minh Cedeño MD PRIMARY CARE PHYSICIAN: Margot Dolan MD OUTPATIENT MANAGER REIMBURSEMENT: Dr. Nickerson. CHIEF COMPLAINT: Lower extremity edema, dyspnea on exertion and orthopnea. HISTORY OF PRESENT ILLNESS: Avelina Coughlin is an 82-year-old female with past medical history of atrial fibrillation (on Coumadin), hypertension, non-insulin dependent diabetes type 2, left hip osteoarthritis, diverticulosis, GIB(2013- 2014 w/ proximal jejunal bleeding polyp on enteroscopy) and recent admission for GI bleed 04/29/18-05/05/18 where EGD demonstrated 2cm hiatal hernia,non- bleeding Patel erosions, and mild gastritis. The etiology was suspected diverticular vs AVM vs Dieulafoy's lesion; in setting of supratherapeutic INR 4.6; no colonoscopy performed]. Her Coumadin has since been held. She states that she noticed her legs getting swollen on the third day of last admission(05/01) and notably, her hydrochlorothiazide had been held during that time in the setting of the GI bleed. Of note there were no actual measured weights during that admission, instead just a stated suspected weight of 175 pounds. Since discharge she has had much more difficulty ambulating especially with stairs which she attributes to by far the worst lower extremity edema she has ever had. Complaints of dyspnea on exertion and orthopnea. She props head up with 3 pillows. Day of admission, she had discharge follow up with PCP Dr. Margot Dolan , who suspected acute CHF exacerbation and referred directly to [facility] via EMS. Outpatient office weights climbed to 178 pounds and 8 ounces today compared to 169 pounds on 04/17/18. Initial workup was significant for a BNP of 1238 and a troponin of 0.30. She had chronic EKG changes including ST depressions including in V4 through V6, I, II - similar 04/29/18 and prior 2014 studies. Given elevated tropoin, [employer] Dr. Mendiola was consulted by emergency room physician, Dr. Izaguirre, and he recommended getting a CT chest angiogram to rule out a pulmonary embolism. She has been ruled out for DVT with b/l duplex Dopplers and was referred to hospitalist service for admission for suspected acute CHF exacerbation. Her CTA has since returned negative for pulmonary embolism. She is not hypoxic. She does have a scale at home but does not use. On review of outpatient cardiology records - she had echocardiogram on 11/02/17 which showed ejection fraction of 60% to 65%, moderate aortic valve stenosis, mild to moderate mitral valve regurgitation, and mild to moderate pulmonary hypertension with RVSP of 44.8. PAST MEDICAL HISTORY: Includes: 1. Hypertension. 2. Cre-aogypfr-jwsriifgm diabetes. 3. Atrial fibrillation, previously on Coumadin but held in the setting of recent GI bleed. 4. Chronic left hip osteoarthritis & status post right hip replacement. 5. Moderate aortic valve stenosis. 6. Mild to moderate pulmonary hypertension. 7. GIB (1150-8442); diverticulosis; bleeding proximal jejunal polyp 8. 2 cm hiatal hernia with Patel Lesions(nonbleeding) MEDICATIONS: Include: 1. Tolterodine tartrate 4 mg p.o. daily. 2. Sitagliptin phosphate 100 mg p.o. daily. 3. Pantoprazole 40 mg p.o. b.i.d. 4. [place]-3 DHA EPA fish oil 500 softgel 3000 mg p.o. daily. 5. Magnesium oxide 400 mg p.o. daily. 6. Lisinopril 20 mg p.o. daily. 7. Hydrochlorothiazide 25 mg p.o. daily. 8. Glimepiride 1 and 1-1/2 tab in a.m., 1-1/2 tab in p.m. 9. Flexeril 10 mg at bedtime p.r.n. 10. Cyanocobalamin 500 mcg p.o. daily. 11. Cholecalciferol 400 units p.o. daily. 12. Atorvastatin 10 mg p.o. nightly. 13. Aspirin 81 mg daily. 14. Acetaminophen with codeine 1 tab p.o. q.6 hours. ALLERGIES: Include PENICILLIN (syncope), CRAB (vomiting), EGG (stomach cramps) , and LEXISCAN (asystole). FAMILY HISTORY: Father at approximately age 83, complications of a gallbladder surgery. He also had hypertension. Mother age 65, they do not know why. SOCIAL HISTORY: The patient smoked 15-pack years, quit 30 years ago. No alcohol or drug use. Does desire to be full code. Her daughter, Betty Mcclelland , is in agreement and is her medical surrogate. REVIEW OF SYSTEMS: Complete 14-point review of systems negative except as per HPI. She denies any fevers, chills, abdominal pain, rectal bleeding, headaches, sick contacts. Does attest to orthopnea, dyspnea on exertion, lower extremity edema which has been painful and poor mobility including required 3 people to help assist her to her doctor's appointment today. PHYSICAL EXAMINATION GENERAL APPEARANCE: No acute distress, lying in the [facility]. VITAL SIGNS: Temperature 98.2, heart rate 85, respiratory rate 19, satting 96% on room air, blood pressure 156/117. HEENT: Normocephalic, atraumatic. Pupils equally round and reactive to light. Extraocular motions intact. No scleral icterus. Moist mucous membranes. NECK: Supple. No cervical lymphadenopathy. LUNGS: Slight rales at right base, otherwise clear to auscultation with no rhonchi or wheezing. CARDIOVASCULAR: Irregularly irregular with a 3/6 pansystolic murmur across the precordium. No rubs or gallops. ABDOMEN: Soft, nontender. EXTREMITIES: Warm, well perfused. 3+ pitting edema bilaterally. NEUROLOGIC: Cranial nerves II through XII intact. Moving all extremities. SKIN: no lesions. LABORATORY DATA: White count 7.8, hemoglobin 10.2, hematocrit 31, platelets 219,000. Sodium 140, potassium 4.0, chloride 106, carbon dioxide 29, BUN 11, creatinine 0.81, glucose 84, lactic acid 1.1, calcium 11.9, AST 23, ALT 23, troponin 0.30, CRP 10.9, BNP 1238. Urinalysis within normal limits except specific gravity 1.006 which is low. IMAGING: Chest x-ray pending direct read. No acute infiltrates noted. Venous Doppler: No DVTs in the right or left but limited study due to pain and swelling. CT chest angiogram: No pulmonary embolism but evidence of probable early CHF with some ground-glass opacities mainly in the bases likely representing edema. EKG demonstrating atrial fibrillation with ST depressions in V4 through V5, I, II, and ST elevations in aVR. Similar to 04/29/18 study. T-wave inversions in those same distributions + aVL, aVF. Rate 91. ASSESSMENT AND PLAN: 1. Avelina Coughlin is an 82-year-old female with past medical history of hypertension, snz-jgexfql-ujhtqtkrx diabetes mellitus, atrial fibrillation, off Coumadin recently in the setting of setting of GI bleed, presenting with 10- pound weight gain since 3 weeks ago, lower extremity edema, elevated BNP, dyspnea, orthopnea with likely acute congestive heart failure exacerbation in the setting of holding her hydrochlorothiazide during the 7 day admission (was restarted on d/c) and along with IV fluid resuscitated in the setting of a GI bleed. She is going to get 40 of intravenous Lasix now and continue b.i.d dosing., strict I's and O's, daily weights. She had a recent echo on 11/02/17 with EF of 60% to 65% and moderate aortic valve stenosis, mild to moderate pulmonary hypertension, no note of diastolic dysfunction at that study, but she likely has a component of that. Her outpatient assistant import manager is Dr. Nickerson. Will repeat echocardiogram given the acute congestive heart failure exacerbation - It has been 5 months since the last one. 2. Atrial fibrillation. Telemonitor. Keep lytes, magnesium above 2, potassium above 4 4. Continue to hold Coumadin as per PCP's plan in the setting of recent GI bleed. She has a high CHADS/VASc of 5 score given her age, female sex, hypertension, and congestive heart failure. 3. Hypertension. Continue her lisinopril. She is, of note, on no beta- blockers which would be indicated if systolic dysfunction found on ECHO. Holding her hydrochlorothiazide and start giving her loop diuretics twice a day. 4. Tqt-bczcfwv-zvrclrhyk diabetes mellitus. Continue her glimepiride and sitagliptin. Get xexti-tj-oumo testing glucose daily in the [facility]. Her last A1c was 7.1 on 12/06/17. She will continue to get consistent carbohydrate diet along with heart healthy as well. 5. GI bleed(recent but resolved). Continue her pantoprazole 40 mg p.o. b.i.d. Continue to hold her Coumadin. Get CBC daily. 6. Continue her home medications of tolterodine, aspirin 81 mg daily, acetaminophen/codeine, cholecalciferol,Flexeril, aspirin 81 daily. 7. DVT PPx: will cautiously start heparin 5000 TID. 8. She is a full code. Medical surrogate is daughter, Betty Mcclelland. [id number]/CPS #: [id number] LEMUEL
[2018-05-09 06:15] LABS: ABS Basophils 0 10^3/ul (0-0.2); ABS Eosinophils 0.1 10^3/ul (0-0.6); ABS Lymphocytes 1.1 10^3/ul (1.0-4.8); ABS Monocytes 0.7 10^3/ul (0-0.8); ABS Neutrophils 4.4 10^3/ul (1.5-7.7); ABS Nucleated RBC 0 10^3/ul; Eosinophil % 2.2 %; Hematocrit 26 % (35-47); Hemoglobin 8.9 g/dl (12.0-16.0); Lymphocyte % 16.5 %; Mean Corpuscular HGB Conc 34 g/dl (31-36); Mean Corpuscular Hemoglobin 29 pg (27-31); Mean Corpuscular Volume 87 fL (80-97); Mean Platelet Volume 9.3 fL (7.4-10.4); Nucleated Red Blood Cells % 0; Platelet Count 202 10^3/ul (150-450); Red Blood Count 3.04 10^6/ul (4.00-5.40); Red Cell Distribution Width 15 % (10.5-15); White Blood Count 6.4 10^3/ul (3.5-10.8)
[2018-05-09 06:30] LABS: BUN/Creatinine Ratio 12.2 (8-20); Calcium 11.1 mg/dL (8.6-10.3); EGFR Non-African American 54.6 (>60); Magnesium 1.4 mg/dL (1.9-2.7); Potassium 3.5 mmol/L (3.5-5.0)
[2018-05-09] MEDS ORDERED: Magnesium Sulfate IV* 3 GM in NS 0.9% 100 ML* 100 ML IVPB ONE (07:22)
[2018-05-09] MEDS ORDERED: Aspirin EC TAB* 81 MG TAB.EC PO SCH (09:00)
[2018-05-09] MEDS ORDERED: Lisinopril TAB* 10 MG PO SCH (09:00)
[2018-05-09] MEDS: Cyanocobalamin TAB* 500 MCG PO SCH (09:05)
[2018-05-09] MEDS: Cholecalciferol TAB* 400 UNIT PO SCH (09:05)
[2018-05-09] MEDS: Magnesium Oxide TAB* 400 MG PO SCH (09:05)
[2018-05-09] MEDS: Pantoprazole TAB * 40 MG TAB PO SCH ×2 (09:06→21:09)
[2018-05-09] MEDS: CMCS:Glimepiride (NF) 2 MG TAB PO SCH ×2 (09:07→17:16)
[2018-05-09] MEDS: CMCS:SitaGLIPtin (NF) 100 MG TAB PO SCH (09:08)
[2018-05-09] MEDS: Furosemide IV* 10 MG/ML VIAL (40 MG) IV SCH ×2 (09:09→15:31)
--- NOTE | 2018-05-09 09:17 | ECHO ---
Patient: NICOLE CROW [facility] Rec#: [id number] : 1935 Date: 05/09/2018 Age: 82y Height: 152 cm / 59.8 in Weight: 82.2 kg / 181.2 lbs Sex: F BSA: 1.79 Room#: 433 Admit Date#: 05/08/2018 Type: Inpatient Referring: Minh Cedeño Reading: Jamal Alexander DO Retail Performance Coach: Padmini Wiggins RDCS CC: Sudarshan Lai MD Transthoracic Echocardiogram Indication: Congestive heart failure, shortness of breath, edema BP: 104/33 HR: 69 Rhythm: A-Fib Findings History: HTN, HLD, DM, , a-fib, CAD, hiatal hernia, former smoker. Technical Comments: The study quality is fair. Completed at 0850. Left Ventricle: The left ventricular chamber size is normal. Moderate concentric left ventricular hypertrophy is observed. There is normal left ventricular systolic function. The estimated ejection fraction is 60-65%. There is septal flattening of the interventricular septum consistent with right ventricular volume or pressure overload. The assessment of diastolic function is non-diagnostic. Left Atrium: The left atrium is severely dilated. Right Ventricle: The right ventricle is moderately dilated. The right ventricular global systolic function is moderately reduced. Right Atrium: The right atrial cavity size is severely dilated. Aortic Valve: Moderate aortic leaflet calcification is visualized. Systolic excursion of the aortic valve cusps is reduced. There is trace to mild aortic regurgitation. There is severe aortic stenosis. The mean gradient of the aortic valve is 26.93 mmHg. Mitral Valve: There is mitral annular calcification. Mild mitral leaflet calcification is visualized. There is mild to moderate mitral regurgitation. There is no evidence of mitral stenosis. Tricuspid Valve: The tricuspid valve leaflets are normal. There is mild tricuspid regurgitation. The right ventricular systolic pressure is estimated at 42 mmHg. There is evidence of mild pulmonary hypertension. There is no tricuspid stenosis. Pulmonic Valve: The pulmonic valve appears normal. There is a trace pulmonic regurgitation. There is no pulmonic stenosis. Pericardium: There is no significant pericardial effusion. Aorta: There is no dilatation of the ascending aorta. The aortic arch is not well visualized. The aortic root is normal in size. Pulmonary Artery: The main pulmonary artery is not well visualized. Venous: The inferior vena cava is dilated. There is less than 50% respiratory change in the inferior vena cava dimension. Conclusions The left ventricular chamber size is normal. Moderate concentric left ventricular hypertrophy is observed. There is normal left ventricular systolic function. The estimated ejection fraction is 60-65%. There is septal flattening of the interventricular septum consistent with right ventricular volume or pressure overload. The left atrium is severely dilated. The right ventricle is moderately dilated. The right ventricular global systolic function is moderately reduced.' There is severe, normal LVEF, low gradient aortic stenosis. Peak velocity 4.1 m/s, mean gradient 27 mmHg Compared to prior study from 10/2017, the peak velocity/mean gradient has increased from 3.3 m/s and 23 mmHg respectively. Measurements Name Value Normal Range RVIDd (AP) 2D 3.6 cm (0.9 - 2.6) RVDdMajor (2D) 4.8 cm (2.2 - 4.4) RVAW (2D) 0.9 cm (0.2 - 0.5) RAd ISD 4CH 6.4 cm (3.4 - 4.9) RA (A4C)W 5 cm (2.9 - 4.6) IVSd (2D) 1.4 cm (0.6 - 1) LVPWd (2D) 1.5 cm (0.6 - 1) LVIDd (2D) 3.8 cm (3.6 - 5.4) LVIDs (2D) 2.7 cm - LV FS (2D) 31 % (25 - 45) Aortic Annulus 1.9 cm (1.4 - 2.6) Ao root diameter (2D) 2.8 cm (2.1 - 3.5) Ascending Ao 3.2 cm (2.1 - 3.4) LA dimension (AP) 2D 5.2 cm (2.3 - 3.8) LAd ISD 4CH 6.9 cm (2.9 - 5.3) LA ISD 4CH W 5.6 cm (2.5 - 4.5) Name Value Normal Range LA ESV BP (A/L) index 73 ml/m2 - Name Value Normal Range MV E-wave Vmax 1.24 m/sec - MV deceleration time 134 msec - LV septal e' Vmax 0.04 m/sec - LV lateral e' Vmax 0.05 m/sec - LV E:e' septal ratio 31 ratio - LV E:e' lateral ratio 24.8 ratio - Name Value Normal Range AV Vmax 4.1 m/sec - AV VTI 92.38 cm - AV peak gradient 64.99 mmHg - AV mean gradient 26.93 mmHg - LVOT diameter 2 cm - LVOT Vmax 0.7 m/sec - LVOT VTI 20.5 cm - LVOT peak gradient 2 mmHg - LVOT mean gradient 1 mmHg - DOI (VTI) 0.22 ratio - IFTIKHAR Vmax 1 m/sec - Name Value Normal Range MV Vmax 1.3 m/sec - MV VTI 34 cm - MV peak gradient 7 mmHg - MV mean gradient 1 mmHg - MV PHT 90 msec - MVA (PHT) 2.4 cm2 - Name Value Normal Range TR Vmax 2.6 m/sec - TR peak gradient 27 mmHg - RAP 15 mmHg - RVSP 42 mmHg - IVC diameter 2.2 cm - Name Value Normal Range PV Vmax 0.8 m/sec - PV peak gradient 3 mmHg -
[2018-05-09] MEDS: Acetaminop/Codeine 30 MG TAB* 1 TAB (300 MG/30 MG) PO PRN (09:21)
--- NOTE | 2018-05-09 11:08 | PN ---
Subjective Date of Service: 05/09/18 Interval History: Pt feels "bad" . Has gained approx 20 lbs in the past 2 weeks. Legs very swollen and painful due to that Objective Active Medications: Acetaminophen/Codeine Phosphate (Tylenol/Codeine 30 Mg Tab*) 1 tab PO Q6H PRN PRN Reason: PAIN Last Admin: 05/09/18 09:21 Dose: 1 tab Aspirin (Aspirin Ec Tab*) 81 mg PO DAILY [facility] Last Admin: 05/09/18 09:04 Dose: 81 mg Atorvastatin Calcium (Lipitor*) 10 mg PO 2100 [facility] Cholecalciferol (Vitamin D Tab*) 400 unit PO DAILY [facility] Last Admin: 05/09/18 09:05 Dose: 400 unit Cyanocobalamin (Vitamin B12 Tab*) 500 mcg PO DAILY [facility] Last Admin: 05/09/18 09:05 Dose: 500 mcg Cyclobenzaprine HCl (Flexeril Tab*) 10 mg PO BEDTIME PRN PRN Reason: SPASMS Furosemide (Lasix Iv*) 40 mg IV 0800,1500 [facility] Last Admin: 05/09/18 09:09 Dose: 40 mg Glimepiride (Glimepiride (Nf)) 1 mg PO QPM [facility]; Protocol Last Admin: 05/08/18 23:52 Dose: 1 mg Glimepiride (Glimepiride (Nf)) 3 mg PO QAM [facility] Last Admin: 05/09/18 09:07 Dose: 3 mg Heparin Sodium (Porcine) (Heparin Vial(*)) 5,000 units SUBCUT Q8HR [facility] Lisinopril (Prinivil Tab*) 20 mg PO DAILY [facility] Last Admin: 05/09/18 09:05 Dose: 20 mg Magnesium Oxide (Magox 400 Tab*) 400 mg PO DAILY [facility] Last Admin: 05/09/18 09:05 Dose: 400 mg Oxybutynin Chloride (Ditropan Xl Tab*) 10 mg PO DAILY [facility]; Protocol Last Admin: 05/09/18 09:08 Dose: 10 mg Pantoprazole Sodium (Protonix Tab *) 40 mg PO BID [facility] Last Admin: 05/09/18 09:06 Dose: 40 mg Sitagliptin Phosphate (Januvia (Nf)) 100 mg PO DAILY [facility]; Protocol Last Admin: 05/09/18 09:08 Dose: 100 mg Vital Signs - 8 hr 05/09/18 05/09/18 03:27 09:21 Temperature 98.5 F Pulse Rate 62 Respiratory 16 14 Rate Blood Pressure 104/33 (mmHg) O2 Sat by Pulse 95 Oximetry Oxygen Devices in Use Now: None Appearance: 82 yo F in nAD, AAOx3 Eyes: No Scleral Icterus, PERRLA Ears/Nose/Mouth/Throat: NL Teeth, Lips, Gums, Mucous Membranes Moist Neck: NL Appearance and Movements; NL JVP, Trachea Midline Respiratory: Symmetrical Chest Expansion and Respiratory Effort, Clear to Auscultation, - - faint bibasiliar crackles Cardiovascular: - - irregular Abdominal: NL Sounds; No Tenderness; No Distention, No Hepatosplenomegaly Lymphatic: No Cervical Adenopathy Extremities: No Clubbing, Cyanosis, - - large b/l entire LE's edema +2 Skin: No Rash or Ulcers, No Nodules or Sclerosis Neurological: Alert and Oriented x 3, NL Muscle Strength and Tone Result Diagrams: 05/09/18 05:28 05/09/18 05:28 Additional Lab and Data: Lab Results 05/08/18 Range/Units 16:05 Urine Color Yellow Urine Appearance Clear Urine pH 5.0 (5-9) Ur Specific [place] 1.006 L (1.010-1.030) Urine Protein Negative (Negative) Urine Ketones Negative (Negative) Urine Blood Negative (Negative) Urine Nitrate Negative (Negative) Urine Bilirubin Negative (Negative) Urine Urobilinogen Negative (Negative) Ur Leukocyte Esterase Negative (Negative) Urine Glucose Negative (Negative) Assess/Plan/Problems-Billing Assessment: Mrs Coughlin is an 82yo F with PMH of Afib on Warfarin till it was stopped last week due to GI bleed. H/o GI bleed in 2014 (gastric ulcer on EGD, diverticulosis on colonoscopy, jejunal bleeding on capsule endoscopy with enteroscopy with removal of jejunal polyp), HTN, type 2 DM, chronic pain, who presented to ED with c/o leg edema - Patient Problems (1) Acute diastolic (congestive) heart failure Comment: cont Lasix IV BID. Echo pending Elevated troponin likely due to demand ischemia, but will await Echo (2) GI bleed Comment: Per Dr. Khan assessment, likely due to diverticular bleed vs. AVM in the setting of mildly supratherapeutic INR EGD- mild gastritis and non-bleeding Patel erosions. Pt c/o no more blood in stool since d/c. will obtain stool guiaiac (3) Type 2 diabetes mellitus Comment: - Continue home meds PO. morning sugars well controlled (4) Afib Comment: -Off of Coumadin for now , as per d/w Dr. Alexander pt can be started on Eliguis 2.5 mg BID once tool neg for blod (5) Hypomagnesemia Comment: replacing PO and IV (6) DVT prophylaxis Comment: HSQ Status and Disposition: inpatient
--- NOTE | 2018-05-09 11:19 | CONSULT ---
Subjective Date of Service: 05/09/18 Interval History: PMD: Dr. Lai [employer] Supervisor Dr. Nickerson Service: Hospitalist CC: edema, dysnea, orthopnea Reason for consult: CHF HPI: Avelina Coughlin is an 82 year old woman with a history as below. She was admitted with dyspnea, orthopnea and edema and is receiving IV diuresis for CHF. Her echocardiogram showed a normal LVEF, low gradient severe and RV dysfunction. She was recently admitted with a GIB (on coumadin with inr 4.6 and aspirin - coumadin held, suspected diverticular vs. avm vs. dieulafoy) and coumadin was stopped and medications were changed (hctz held). No palpitations , chest discomfort or recent syncope PAST MEDICAL HISTORY: Includes: 1. Hypertension. 2. Tcd-hxammnq-decwdpgru diabetes. 3. Atrial fibrillation, chronic 4. Chronic left hip osteoarthritis & status post right hip replacement. 5. aortic valve stenosis. 6. pulmonary hypertension with RV failure 7. GIB ([id number]); diverticulosis; bleeding proximal jejunal polyp 8. 2 cm hiatal hernia with Patel Lesions(nonbleeding) ALLERGIES: Include PENICILLIN (syncope), CRAB (vomiting), EGG (stomach cramps) , and LEXISCAN (asystole). FAMILY HISTORY: Father at approximately age 83, complications of a gallbladder surgery. He also had hypertension. Mother age 65, they do not know why. SOCIAL HISTORY: The patient smoked 15-pack years, quit 30 years ago. No alcohol or drug use. Does desire to be full code. Her daughter, Betty Mcclelland, is in agreement and is her medical surrogate. Allergies: Penicillins 07/18/12 Lexiscan 08/13/14 - asystole Crab 08/25/14 Eggs or Egg-derived Products 09/10/14 allergy list reviewed on 10/12/2017 FH: Father: Diabetes, Non Insulin Dependent, Hypertension. due to GI Disorder - complications cholecystectomy. Mother: due to Unknown Causes - (age 62 Years). Siblings:1 - now . Medications Active Medications: Acetaminophen/Codeine Phosphate (Tylenol/Codeine 30 Mg Tab*) 1 tab PO Q6H PRN PRN Reason: PAIN Last Admin: 05/09/18 09:21 Dose: 1 tab Aspirin (Aspirin Ec Tab*) 81 mg PO DAILY [facility] Last Admin: 05/09/18 09:04 Dose: 81 mg Atorvastatin Calcium (Lipitor*) 10 mg PO 2100 [facility] Cholecalciferol (Vitamin D Tab*) 400 unit PO DAILY [facility] Last Admin: 05/09/18 09:05 Dose: 400 unit Cyanocobalamin (Vitamin B12 Tab*) 500 mcg PO DAILY [facility] Last Admin: 05/09/18 09:05 Dose: 500 mcg Cyclobenzaprine HCl (Flexeril Tab*) 10 mg PO BEDTIME PRN PRN Reason: SPASMS Furosemide (Lasix Iv*) 40 mg IV 0800,1500 [facility] Last Admin: 05/09/18 09:09 Dose: 40 mg Glimepiride (Glimepiride (Nf)) 1 mg PO QPM [facility]; Protocol Last Admin: 05/08/18 23:52 Dose: 1 mg Glimepiride (Glimepiride (Nf)) 3 mg PO QAM [facility] Last Admin: 05/09/18 09:07 Dose: 3 mg Heparin Sodium (Porcine) (Heparin Vial(*)) 5,000 units SUBCUT Q8HR [facility] Lisinopril (Prinivil Tab*) 20 mg PO DAILY [facility] Last Admin: 05/09/18 09:05 Dose: 20 mg Magnesium Oxide (Magox 400 Tab*) 400 mg PO DAILY [facility] Last Admin: 05/09/18 09:05 Dose: 400 mg Oxybutynin Chloride (Ditropan Xl Tab*) 10 mg PO DAILY [facility]; Protocol Last Admin: 05/09/18 09:08 Dose: 10 mg Pantoprazole Sodium (Protonix Tab *) 40 mg PO BID [facility] Last Admin: 05/09/18 09:06 Dose: 40 mg Sitagliptin Phosphate (Januvia (Nf)) 100 mg PO DAILY [facility]; Protocol Last Admin: 05/09/18 09:08 Dose: 100 mg Home Medications: Cholecalciferol TAB* [Vitamin D TAB*] 400 unit PO DAILY 10/23/14 [History Confirmed 05/08/18] Cyanocobalamin (Vitamin B-12) [Vitamin B-12] 500 mcg PO DAILY 10/23/14 [History Confirmed 05/08/18] [place]-3/Dha/Epa/Fish Oil [Fish Oil 500 mg Softgel] 3,000 mg PO DAILY 10/23/14 [ History Confirmed 05/08/18] Tolterodine Tartrate [Detrol LA] 4 mg PO DAILY 10/23/14 [History Confirmed 05/08] Magnesium Oxide TAB* [MagOx 400 TAB*] 400 mg PO DAILY 10/28/14 [History Confirmed 05/08/18] Atorvastatin* [Lipitor 10 MG*] 10 mg PO 2100 11/26/14 [History Confirmed ] Glimepiride [Amaryl] 1 tab PO SEE INSTRUCTIONS 11/26/14 [History Confirmed 05/08] Lisinopril TAB* [Prinivil TAB 10 MG*] 20 mg PO DAILY 12/23/14 [History Confirmed 05/08/18] Acetaminophen with Codeine [Acetaminophen-Cod #2 Tablet] 1 tab PO Q6H 04/29/18 [ History Confirmed 05/08/18] Aspirin [Aspirin EC] 81 mg PO DAILY 04/29/18 [History Confirmed 05/08/18] Cyclobenzaprine TAB* [Flexeril 10 MG TAB*] 10 mg PO BEDTIME PRN 04/29/18 [ History Confirmed 05/08/18] Sitagliptin Phosphate [Januvia] 100 mg PO DAILY 04/29/18 [History Confirmed 01/16] Pantoprazole TAB * [Protonix TAB *] 40 mg PO BID #90 tab 05/05/18 [Rx Confirmed 05/08/18] Review of Systems - Measurements Intake and Output: Intake and Output Last 24 Hours 05/07/18 05/08/18 05/09/18 05/10/18 06:59 06:59 06:59 06:59 Intake Total 0 120 Output Total 200 Balance -200 120 Weight 185 lb 9.6 oz Intake: Oral 0 120 Output: Urine 200 - Review of Systems Constitutional Symptoms: Positive: Fatigue Negative: Unexplained Falls Dermatology: Negative: Rash, Skin Lesions HEENT: Negative: Change in Hearing, Vertigo Eyes: Negative: Change in Vision, Double Vision Thyroid: Negative: Weight Loss, Weight Gain, Change in Skin/Hair Pulmonary: Positive: Shortness of Breath, Exercise Intolerance Negative: Sputum, Hemoptysis, COPD, Asthma, Home Oxygen Cardiology: Positive: Shortness of Breath, Swelling of Ankles, Edema, Orthopnea Negative: Chest Pain, Palpitations, Peripheral Vascular Dis, Syncope, Claudication Gastroenterology: Negative: Abdominal Pain, Nausea, Vomiting, Blood in Stools, Change in Bowel Habits Genital - Urinary: Negative: Dysuria, Hematuria, Nocturia Musculoskeletal: Negative: Joint Pain, Joint Stiffness Endocrinology: Positive: Obesity, Diabetes Hematologic/Lymphatic: Positive: Anemia, Use of Antiplatelet Drugs Negative: Use of Anticoagulant Neurology: Negative: Change in Balancing, Change in Coordination, Change in Memory Psychiatry: Negative: Guilt Feelings, Tearfulness, Unusual Anxiety Allergic/Immunologic: Negative: Hx HIV, Immunocompromise Review of Systems Statement: All other review of systems negative, unless stated above. Objective Vital Signs: Temp Pulse Resp BP Pulse Ox 98.5 F 62 14 104/33 95 05/09/18 03:27 05/09/18 03:27 05/09/18 09:21 05/09/18 03:27 05/09/18 03:27 Oxygen Devices in Use Now: None Appearance: nad, pleasant Ears/Nose/Mouth/Throat: Clear Oropharnyx Neck: Trachea Midline, - - uncertain jvp Respiratory: Symmetrical Chest Expansion and Respiratory Effort, Clear to Auscultation Cardiovascular: - - irregularly irregular, 3/6 high pitched systolic murmur, uncertain about split s2 Abdominal: NL Sounds; No Tenderness; No Distention Extremities: No Clubbing, Cyanosis, - - 3+edema Skin: No Rash or Ulcers Neurological: Alert and Oriented x 3 Laboratory Results: 05/09/18 05:28 05/09/18 05:28 APTT 33.3 seconds (26.0-36.3) 05/08/18 18:48 Total Bilirubin 0.90 mg/dL (0.2-1.0) 05/08/18 18:48 AST 23 U/L (13-39) 05/08/18 18:48 ALT 23 U/L (7-52) 05/08/18 18:48 Alkaline Phosphatase 58 U/L (34-104) 05/08/18 18:48 CK-MB (CK-2) 6.5 ng/mL (0.6-6.3) H 05/08/18 18:48 B-Natriuretic Peptide 1238 pg/mL (<=100) H 05/08/18 18:48 Total Protein 6.4 g/dL (6.4-8.9) 05/08/18 18:48 Albumin 3.6 g/dL (3.2-5.2) 05/08/18 18:48 Globulin 2.8 g/dL (2-4) 05/08/18 18:48 Albumin/Globulin Ratio 1.3 (1-3) 05/08/18 18:48 05/08/18 05/08/18 05/09/18 18:48 23:17 02:12 Troponin I 0.30 H* 0.28 H* 0.20 H* mg 1.4 Diagnostic Imaging: Cardiac Testing Stress Test - (08/13/2014) Regadenoson 0.4mg injected intravenously per protocol. The patient developed approximately 10 seconds asystole with LOC Myoview trace was not injected. Reversed of 100mg Aminophylline was injected IV. Holter Monitor - (04/26/2012) Chronic A fib Good HR control Cardiac Procedures: Cardiac Catheterization - (08/17/2014) PASP 49/18 Moderate mean Grad 25 mmHg Calc valve area 1.3 cm2. Normal LV function Mild RCA disease. Normal LM, LAD, LCx CTA chest 05/08/2018 No PE Probable early CHF (mild groundlass opaciteis mainly in bases) c-scope 05/01/2018 Suspected small bowel source of bleeding EGD : mild gastritis and nonbleeding patel erosions ekg today afib 91 bpm, incomplete rbbb, diffuse downsloping ST depression/twi grossly unchanged from 09/2017 echo 05/09/2018: LVEF 60-65% with septal flattening of RV pressure/volume overload, moderate RV dilation/dysfunction, mildly estimated PASP severe LA dilation Severe (peak velocity 4.1 m/s, mean gradient 27 mmHg, 0.7 cm^2 by SADIE VTI) Assessment/Plan 1. ADHF, primarily right sided clinically 2. Severe low gradient, normal LVEF - Peak velocity/mean gradient could be higher than prior due to anemia - Elevated cTnI appears related to CHF 3. Obesity 4. Chronic atrial fibrillation 5. Recent GIB while on coumadin and aspirin 6. HTN 7. DM - Continue IV diuresis and change to PO loop diuretic at discharge, needs electrolytes checked and replaced - Recommend to stop aspirin and start low dose eliquis 2.5 mg po bid (reviewed with Dr. Nickerson and he is in agreement) if ok from a medical standpoint and would d/c sq heparin if this is done - Patient should follow up with Dr. Nickerson regarding the aortic stenosis Thank you for allowing me to participate in the cardiovascular care of this patient. Please do not hesitate to contact me with questions or concerns.
[2018-05-09] MEDS: Heparin VIAL(*) 5000 UNITS/ML VIAL (FIVE THOUSAND) SUBCUT SCH ×2 (17:17→21:09)
[2018-05-09] MEDS: Atorvastatin* 10 MG TAB PO SCH (21:08)
[2018-05-09 22:01] LABS: TSH (Thyroid Stimulating Horm) 1.79 mcIU/mL (0.34-5.60)
[2018-05-10] MEDS: Heparin VIAL(*) 5000 UNITS/ML VIAL (FIVE THOUSAND) SUBCUT SCH (05:31)
[2018-05-10 06:33] LABS: ABS Basophils 0 10^3/ul (0-0.2); ABS Eosinophils 0.1 10^3/ul (0-0.6); ABS Monocytes 0.7 10^3/ul (0-0.8); ABS Neutrophils 5.8 10^3/ul (1.5-7.7); ABS Nucleated RBC 0 10^3/ul; Eosinophil % 1.9 %; Hematocrit 28 % (35-47); Hemoglobin 9.3 g/dl (12.0-16.0); Lymphocyte % 12.8 %; Mean Corpuscular HGB Conc 34 g/dl (31-36); Mean Corpuscular Hemoglobin 29 pg (27-31); Mean Corpuscular Volume 87 fL (80-97); Nucleated Red Blood Cells % 0; Platelet Count 199 10^3/ul (150-450); Red Blood Count 3.19 10^6/ul (4.00-5.40); Red Cell Distribution Width 15 % (10.5-15); White Blood Count 7.6 10^3/ul (3.5-10.8)
[2018-05-10 07:00] LABS: BUN/Creatinine Ratio 15.6 (8-20); Calcium 11.5 mg/dL (8.6-10.3); EGFR Non-African American 55.9 (>60); Magnesium 1.8 mg/dL (1.9-2.7); Potassium 3.6 mmol/L (3.5-5.0)
[2018-05-10] MEDS ORDERED: Magnesium Hydroxide LIQ* 30 ML UDC PO ONE (07:21)
[2018-05-10] MEDS: Cyanocobalamin TAB* 500 MCG PO SCH (08:17)
[2018-05-10] MEDS: Cholecalciferol TAB* 400 UNIT PO SCH (08:17)
[2018-05-10] MEDS: Furosemide IV* 10 MG/ML VIAL (40 MG) IV SCH ×2 (08:17→15:08)
[2018-05-10] MEDS: CMCS:SitaGLIPtin (NF) 100 MG TAB PO SCH (08:17)
[2018-05-10] MEDS: Pantoprazole TAB * 40 MG TAB PO SCH ×2 (08:17→19:45)
[2018-05-10] MEDS: Magnesium Oxide TAB* 400 MG PO SCH (08:17)
[2018-05-10] MEDS: CMCS:Glimepiride (NF) 2 MG TAB PO SCH ×2 (08:17→18:13)
[2018-05-10] MEDS: Oxybutynin XL TAB* 5 MG PO SCH (08:21)
--- NOTE | 2018-05-10 08:32 | PN ---
Subjective Date of Service: 05/10/18 Interval History: f/u CHF, , AFib Remains markedly volume overloaded, IV lasix held yesterday evening for asymptomatic low BP, lisinopril now held Had asymptomatic 4.5 second R-R interval pause while sleeping overnight. Suspect untreated sleep apnea apnea. This is not an indication for pacemaker Medications Active Medications: Acetaminophen/Codeine Phosphate (Tylenol/Codeine 30 Mg Tab*) 1 tab PO Q6H PRN PRN Reason: PAIN Last Admin: 05/09/18 09:21 Dose: 1 tab Atorvastatin Calcium (Lipitor*) 10 mg PO 2100 [facility] Last Admin: 05/09/18 21:08 Dose: 10 mg Cholecalciferol (Vitamin D Tab*) 400 unit PO DAILY [facility] Last Admin: 05/10/18 08:17 Dose: 400 unit Cyanocobalamin (Vitamin B12 Tab*) 500 mcg PO DAILY [facility] Last Admin: 05/10/18 08:17 Dose: 500 mcg Cyclobenzaprine HCl (Flexeril Tab*) 10 mg PO BEDTIME PRN PRN Reason: SPASMS Furosemide (Lasix Iv*) 40 mg IV 0800,1500 [facility] Last Admin: 05/10/18 08:17 Dose: 40 mg Glimepiride (Glimepiride (Nf)) 1 mg PO QPM [facility]; Protocol Last Admin: 05/09/18 17:16 Dose: 1 mg Glimepiride (Glimepiride (Nf)) 3 mg PO QAM [facility] Last Admin: 05/10/18 08:17 Dose: 3 mg Heparin Sodium (Porcine) (Heparin Vial(*)) 5,000 units SUBCUT Q8HR [facility] Last Admin: 05/10/18 05:31 Dose: 5,000 units Magnesium Oxide (Magox 400 Tab*) 400 mg PO DAILY [facility] Last Admin: 05/10/18 08:17 Dose: 400 mg Oxybutynin Chloride (Ditropan Xl Tab*) 10 mg PO DAILY [facility]; Protocol Last Admin: 05/10/18 08:21 Dose: 10 mg Pantoprazole Sodium (Protonix Tab *) 40 mg PO BID [facility] Last Admin: 05/10/18 08:17 Dose: 40 mg Sitagliptin Phosphate (Januvia (Nf)) 100 mg PO DAILY [facility]; Protocol Last Admin: 05/10/18 08:17 Dose: 100 mg Objective Vital Signs: Temp Pulse Resp BP Pulse Ox 98.2 F 66 16 100/73 97 05/10/18 07:22 05/10/18 07:22 05/10/18 07:22 05/10/18 07:22 05/10/18 07:22 Oxygen Devices in Use Now: None Appearance: nad, pleasant Ears/Nose/Mouth/Throat: Clear Oropharnyx Neck: Trachea Midline, - - uncertain jvp Respiratory: Symmetrical Chest Expansion and Respiratory Effort, - - bilateral rales Cardiovascular: - - irregularly irregular, 3/6 high pitched systolic murmur, uncertain about split s2 Abdominal: NL Sounds; No Tenderness; No Distention Extremities: No Clubbing, Cyanosis, - - 3+edema Skin: No Rash or Ulcers Neurological: Alert and Oriented x 3 Laboratory Results: 05/10/18 06:15 05/10/18 06:15 APTT 33.3 seconds (26.0-36.3) 05/08/18 18:48 Total Bilirubin 0.90 mg/dL (0.2-1.0) 05/08/18 18:48 AST 23 U/L (13-39) 05/08/18 18:48 ALT 23 U/L (7-52) 05/08/18 18:48 Alkaline Phosphatase 58 U/L (34-104) 05/08/18 18:48 CK-MB (CK-2) 6.5 ng/mL (0.6-6.3) H 05/08/18 18:48 B-Natriuretic Peptide 1238 pg/mL (<=100) H 05/08/18 18:48 Total Protein 6.4 g/dL (6.4-8.9) 05/08/18 18:48 Albumin 3.6 g/dL (3.2-5.2) 05/08/18 18:48 Globulin 2.8 g/dL (2-4) 05/08/18 18:48 Albumin/Globulin Ratio 1.3 (1-3) 05/08/18 18:48 TSH Cancelled 05/09/18 05:28 05/08/18 05/08/18 05/09/18 18:48 23:17 02:12 Troponin I 0.30 H* 0.28 H* 0.20 H* Diagnostic Imaging: Cardiac Testing Stress Test - (08/13/2014) Regadenoson 0.4mg injected intravenously per protocol. The patient developed approximately 10 seconds asystole with LOC Myoview trace was not injected. Reversed of 100mg Aminophylline was injected IV. Holter Monitor - (04/26/2012) Chronic A fib Good HR control Cardiac Procedures: Cardiac Catheterization - (08/17/2014) PASP 49/18 Moderate mean Grad 25 mmHg Calc valve area 1.3 cm2. Normal LV function Mild RCA disease. Normal LM, LAD, LCx CTA chest 05/08/2018 No PE Probable early CHF (mild groundlass opaciteis mainly in bases) c-scope 05/01/2018 Suspected small bowel source of bleeding EGD : mild gastritis and nonbleeding melia erosions ekg today afib 91 bpm, incomplete rbbb, diffuse downsloping ST depression/twi grossly unchanged from 09/2017 echo 05/09/2018: LVEF 60-65% with septal flattening of RV pressure/volume overload, moderate RV dilation/dysfunction, mildly estimated PASP severe LA dilation Severe (peak velocity 4.1 m/s, mean gradient 27 mmHg, 0.7 cm^2 by SADIE VTI) Assessment/Plan 1. ADHF, primarily right sided clinically 2. Severe low gradient, normal LVEF - Peak velocity/mean gradient could be higher than prior due to anemia - Elevated cTnI appears related to CHF 3. Obesity 4. Chronic atrial fibrillation 5. Recent GIB while on coumadin and aspirin 6. HTN 7. DM 8. Suspected sleep apnea - Continue IV diuresis and change to PO loop diuretic at discharge, needs electrolytes checked and replaced. Remains decompensated - Recommend to stop aspirin and start low dose eliquis 2.5 mg po bid - Patient should follow up with Dr. Nickerson regarding the aortic stenosis - Change diet to regular with caffeine ok (verbal order given) Thank you for allowing me to participate in the cardiovascular care of this patient. Please do not hesitate to contact me with questions or concerns.
[2018-05-10] MEDS: Acetaminop/Codeine 30 MG TAB* 1 TAB (300 MG/30 MG) PO PRN ×2 (08:47→18:17)
[2018-05-10] MEDS ORDERED: Magnesium Sulfate 2 GM IV* 2 GM/50 ML BAG IVPB ONE (10:57)
[2018-05-10] MEDS ORDERED: Potassium Chlor TAB* 20 MEQ TAB.ER PO ONE (11:12)
--- NOTE | 2018-05-10 11:17 | PN ---
Subjective Date of Service: 05/10/18 Interval History: pt feels well. legs still very swollen. No c/o SOB. Had asymptomatic aleks with sinus pause at 4.7 sec. A. fib on telem. Wt down 6 lbs today Objective Active Medications: Acetaminophen/Codeine Phosphate (Tylenol/Codeine 30 Mg Tab*) 1 tab PO Q6H PRN PRN Reason: PAIN Last Admin: 05/10/18 08:47 Dose: 1 tab Apixaban (Eliquis*) 2.5 mg PO BID [facility] Atorvastatin Calcium (Lipitor*) 10 mg PO 2100 [facility] Last Admin: 05/09/18 21:08 Dose: 10 mg Cholecalciferol (Vitamin D Tab*) 400 unit PO DAILY [facility] Last Admin: 05/10/18 08:17 Dose: 400 unit Cyanocobalamin (Vitamin B12 Tab*) 500 mcg PO DAILY [facility] Last Admin: 05/10/18 08:17 Dose: 500 mcg Cyclobenzaprine HCl (Flexeril Tab*) 10 mg PO BEDTIME PRN PRN Reason: SPASMS Furosemide (Lasix Iv*) 40 mg IV 0800,1500 [facility] Last Admin: 05/10/18 08:17 Dose: 40 mg Glimepiride (Glimepiride (Nf)) 1 mg PO QPM [facility]; Protocol Last Admin: 05/09/18 17:16 Dose: 1 mg Glimepiride (Glimepiride (Nf)) 3 mg PO QAM [facility] Last Admin: 05/10/18 08:17 Dose: 3 mg Magnesium Sulfate (Magnesium Sulfate 2 Gm Iv*) 2 gm in 50 mls @ 50 mls/hr IVPB ONCE ONE Stop: 05/10/18 11:56 Magnesium Oxide (Magox 400 Tab*) 400 mg PO DAILY [facility] Last Admin: 05/10/18 08:17 Dose: 400 mg Oxybutynin Chloride (Ditropan Xl Tab*) 10 mg PO DAILY [facility]; Protocol Last Admin: 05/10/18 08:21 Dose: 10 mg Pantoprazole Sodium (Protonix Tab *) 40 mg PO BID [facility] Last Admin: 05/10/18 08:17 Dose: 40 mg Sitagliptin Phosphate (Januvia (Nf)) 100 mg PO DAILY [facility]; Protocol Last Admin: 05/10/18 08:17 Dose: 100 mg Vital Signs - 8 hr 05/10/18 05/10/18 05/10/18 07:22 08:00 08:47 Temperature 98.2 F Pulse Rate 66 Respiratory 16 18 18 Rate Blood Pressure 100/73 (mmHg) O2 Sat by Pulse 97 Oximetry Oxygen Devices in Use Now: None Appearance: 82 yo F in nAD, aAOx3 Eyes: No Scleral Icterus, PERRLA Ears/Nose/Mouth/Throat: NL Teeth, Lips, Gums, Mucous Membranes Moist Neck: NL Appearance and Movements; NL JVP, Trachea Midline Respiratory: Symmetrical Chest Expansion and Respiratory Effort, Clear to Auscultation Cardiovascular: - - irregular Abdominal: NL Sounds; No Tenderness; No Distention, No Hepatosplenomegaly Lymphatic: No Cervical Adenopathy Extremities: No Clubbing, Cyanosis, - - large +2 b/l pitting LE's edema Skin: No Nodules or Sclerosis Neurological: Alert and Oriented x 3, NL Muscle Strength and Tone Result Diagrams: 05/10/18 06:15 05/10/18 06:15 Additional Lab and Data: Lab Results 05/08/18 Range/Units 16:05 Urine Color Yellow Urine Appearance Clear Urine pH 5.0 (5-9) Ur Specific [place] 1.006 L (1.010-1.030) Urine Protein Negative (Negative) Urine Ketones Negative (Negative) Urine Blood Negative (Negative) Urine Nitrate Negative (Negative) Urine Bilirubin Negative (Negative) Urine Urobilinogen Negative (Negative) Ur Leukocyte Esterase Negative (Negative) Urine Glucose Negative (Negative) Assess/Plan/Problems-Billing Assessment: Mrs Coughlin is an 82yo F with PMH of Afib on Warfarin till it was stopped last week due to GI bleed. H/o GI bleed in 2014 (gastric ulcer on EGD, diverticulosis on colonoscopy, jejunal bleeding on capsule endoscopy with enteroscopy with removal of jejunal polyp), HTN, type 2 DM, chronic pain, who presented to ED with c/o leg edema - Patient Problems (1) Acute diastolic (congestive) heart failure Comment: cont Lasix IV BID. Echo shows EF 65%, severe Elevated troponin likely due to demand ischemia (2) GI bleed Comment: Per Dr. Khan assessment, likely due to diverticular bleed vs. AVM in the setting of mildly supratherapeutic INR EGD- mild gastritis and non-bleeding Patel erosions. Pt c/o no more blood in stool since d/c. (3) Type 2 diabetes mellitus Comment: - Continue home meds PO. morning sugars well controlled (4) Afib Comment: -Off of Coumadin for now , as per d/w Dr. Alexander pt can be started on Eliguis 2.5 mg BID, holding ASA once on anticoagulation sinus pause noted at night-pt is asymptomatic, pause <5 sec-no indication for pacer as per d/w cardiology (5) Hypomagnesemia Comment: replacing PO and IV (6) DVT prophylaxis Comment: HSQ Status and Disposition: inpatient
[2018-05-10] MEDS: Apixaban* 2.5 MG TAB PO SCH ×2 (11:19→19:45)
[2018-05-10] MEDS: Atorvastatin* 10 MG TAB PO SCH (19:45)
[2018-05-11 05:20] LABS: ABS Basophils 0.1 10^3/ul (0-0.2); ABS Eosinophils 0.1 10^3/ul (0-0.6); ABS Lymphocytes 1.2 10^3/ul (1.0-4.8); ABS Monocytes 0.7 10^3/ul (0-0.8); ABS Neutrophils 3.8 10^3/ul (1.5-7.7); ABS Nucleated RBC 0 10^3/ul; Eosinophil % 2.4 %; Hematocrit 27 % (35-47); Mean Corpuscular HGB Conc 33 g/dl (31-36); Mean Corpuscular Hemoglobin 29 pg (27-31); Mean Corpuscular Volume 87 fL (80-97); Mean Platelet Volume 8.9 fL (7.4-10.4); Nucleated Red Blood Cells % 0; Platelet Count 207 10^3/ul (150-450); Red Blood Count 3.15 10^6/ul (4.00-5.40); Red Cell Distribution Width 15 % (10.5-15); White Blood Count 5.9 10^3/ul (3.5-10.8)
[2018-05-11 05:39] LABS: BUN/Creatinine Ratio 16.1 (8-20); Calcium 11.6 mg/dL (8.6-10.3); Magnesium 2.1 mg/dL (1.9-2.7); Potassium 3.9 mmol/L (3.5-5.0)
[2018-05-11] MEDS: CMCS:Glimepiride (NF) 2 MG TAB PO SCH (07:44)
[2018-05-11] MEDS: Furosemide IV* 10 MG/ML VIAL (40 MG) IV SCH ×2 (08:00→15:33)
[2018-05-11] MEDS: Acetaminop/Codeine 30 MG TAB* 1 TAB (300 MG/30 MG) PO PRN ×2 (08:07→16:54)
[2018-05-11] MEDS: Cyanocobalamin TAB* 500 MCG PO SCH (08:47)
[2018-05-11] MEDS: Pantoprazole TAB * 40 MG TAB PO SCH ×2 (08:47→19:30)
[2018-05-11] MEDS: Oxybutynin XL TAB* 5 MG PO SCH (08:47)
[2018-05-11] MEDS: Magnesium Oxide TAB* 400 MG PO SCH (08:47)
[2018-05-11] MEDS: CMCS:SitaGLIPtin (NF) 100 MG TAB PO SCH (08:50)
[2018-05-11] MEDS: Apixaban* 2.5 MG TAB PO SCH ×2 (08:50→19:30)
[2018-05-11] MEDS: Cholecalciferol TAB* 400 UNIT PO SCH (08:50)
--- NOTE | 2018-05-11 12:48 | PN ---
Subjective Date of Service: 05/11/18 Interval History: Pt feels better today. Edema is slowly resolving. Had several sinsu pauses 4- 6.7 sec-no symptoms, sleeping Objective Active Medications: Acetaminophen/Codeine Phosphate (Tylenol/Codeine 30 Mg Tab*) 1 tab PO Q6H PRN PRN Reason: PAIN Last Admin: 05/11/18 08:07 Dose: 1 tab Apixaban (Eliquis*) 2.5 mg PO BID [facility] Last Admin: 05/11/18 08:50 Dose: 2.5 mg Atorvastatin Calcium (Lipitor*) 10 mg PO 2100 [facility] Last Admin: 05/10/18 19:45 Dose: 10 mg Cholecalciferol (Vitamin D Tab*) 400 unit PO DAILY [facility] Last Admin: 05/11/18 08:50 Dose: 400 unit Cyanocobalamin (Vitamin B12 Tab*) 500 mcg PO DAILY [facility] Last Admin: 05/11/18 08:47 Dose: 500 mcg Cyclobenzaprine HCl (Flexeril Tab*) 10 mg PO BEDTIME PRN PRN Reason: SPASMS Furosemide (Lasix Iv*) 40 mg IV 0800,1500 [facility] Last Admin: 05/11/18 08:00 Dose: 40 mg Glimepiride (Glimepiride (Nf)) 1 mg PO QPM [facility]; Protocol Last Admin: 05/10/18 18:13 Dose: 1 mg Glimepiride (Glimepiride (Nf)) 3 mg PO QAM [facility] Last Admin: 05/11/18 07:44 Dose: Not Given Magnesium Oxide (Magox 400 Tab*) 400 mg PO DAILY [facility] Last Admin: 05/11/18 08:47 Dose: 400 mg Oxybutynin Chloride (Ditropan Xl Tab*) 10 mg PO DAILY [facility]; Protocol Last Admin: 05/11/18 08:47 Dose: 10 mg Pantoprazole Sodium (Protonix Tab *) 40 mg PO BID [facility] Last Admin: 05/11/18 08:47 Dose: 40 mg Sitagliptin Phosphate (Januvia (Nf)) 100 mg PO DAILY [facility]; Protocol Last Admin: 05/11/18 08:50 Dose: 100 mg Vital Signs - 8 hr 05/11/18 05/11/18 05/11/18 03:07 07:16 08:07 Temperature 97.4 F 97.8 F Pulse Rate 67 75 Respiratory 16 16 18 Rate Blood Pressure 111/60 155/61 (mmHg) O2 Sat by Pulse 96 98 Oximetry 05/11/18 09:42 Temperature Pulse Rate Respiratory 18 Rate Blood Pressure (mmHg) O2 Sat by Pulse Oximetry Oxygen Devices in Use Now: None Appearance: 82 yo F in nAD, aAOx3 Eyes: No Scleral Icterus, PERRLA Ears/Nose/Mouth/Throat: NL Teeth, Lips, Gums, Mucous Membranes Moist Neck: NL Appearance and Movements; NL JVP, Trachea Midline Respiratory: Symmetrical Chest Expansion and Respiratory Effort, Clear to Auscultation Cardiovascular: - - irregular, 2/6 FANG Abdominal: NL Sounds; No Tenderness; No Distention, No Hepatosplenomegaly Lymphatic: No Cervical Adenopathy Extremities: No Clubbing, Cyanosis, - - +2 pitting pedal edma b/l up to b/l thighs-improving Skin: No Rash or Ulcers, No Nodules or Sclerosis Neurological: Alert and Oriented x 3, NL Muscle Strength and Tone Result Diagrams: 05/11/18 04:54 05/11/18 04:54 Additional Lab and Data: Lab Results 05/08/18 Range/Units 16:05 Urine Color Yellow Urine Appearance Clear Urine pH 5.0 (5-9) Ur Specific [place] 1.006 L (1.010-1.030) Urine Protein Negative (Negative) Urine Ketones Negative (Negative) Urine Blood Negative (Negative) Urine Nitrate Negative (Negative) Urine Bilirubin Negative (Negative) Urine Urobilinogen Negative (Negative) Ur Leukocyte Esterase Negative (Negative) Urine Glucose Negative (Negative) Microbiology and Other Data: Microbiology 05/10/18 16:00 Stool Occult Blood (THAD) - Final Stool Assess/Plan/Problems-Billing Assessment: Mrs Coughlin is an 82yo F with PMH of Afib on Warfarin till it was stopped last week due to GI bleed. H/o GI bleed in 2014 (gastric ulcer on EGD, diverticulosis on colonoscopy, jejunal bleeding on capsule endoscopy with enteroscopy with removal of jejunal polyp), HTN, type 2 DM, chronic pain, who presented to ED with c/o leg edema - Patient Problems (1) Acute diastolic (congestive) heart failure Comment: cont Lasix IV BID. Echo shows EF 65%, severe Elevated troponin likely due to demand ischemia (2) GI bleed Comment: on 05/03/18. Per Dr. Khan assessment, likely due to diverticular bleed vs. AVM in the setting of mildly supratherapeutic INR EGD- mild gastritis and non-bleeding Patel erosions. Pt c/o no more blood in stool since d/c on 05/05/18 (3) Type 2 diabetes mellitus Comment: - Continue home meds PO. morning sugar was low-will hold glimepride (4) Afib Comment: -Off Coumadin since 05/03/18 due to GI bleed. , as per d/w Dr. Alexander pt was started on Eliguis 2.5 mg BID, holding ASA once on anticoagulation sinus pause noted at night-pt is asymptomatic, pause longest at 6.7 sec-d/w DR. Alexander, will eval with overnight pulse oximetry to r/o MARISEL (5) Hypomagnesemia Comment: replaced (6) DVT prophylaxis Comment: eliquis (7) Hypercalcemia Comment: - Present in the past - PTH elevated -likely hyperparathyroidism, pt follows up with Dr Augustin holding HCTZ. Calcium levels at pt's baseline Status and Disposition: inpatient
--- NOTE | 2018-05-11 13:51 | PN ---
Subjective Date of Service: 05/11/18 Interval History: f/u CHF, , AFib Remains markedly volume overloaded but responding very well to IV lasix Had another AV node pause last night 6.8 seconds while sleeping. with RV dysfunction on echo and this I very strongly suspect untreated MARISEL causing this. Medications Active Medications: Acetaminophen/Codeine Phosphate (Tylenol/Codeine 30 Mg Tab*) 1 tab PO Q6H PRN PRN Reason: PAIN Last Admin: 05/11/18 08:07 Dose: 1 tab Apixaban (Eliquis*) 2.5 mg PO BID [facility] Last Admin: 05/11/18 08:50 Dose: 2.5 mg Atorvastatin Calcium (Lipitor*) 10 mg PO 2100 [facility] Last Admin: 05/10/18 19:45 Dose: 10 mg Cholecalciferol (Vitamin D Tab*) 400 unit PO DAILY [facility] Last Admin: 05/11/18 08:50 Dose: 400 unit Cyanocobalamin (Vitamin B12 Tab*) 500 mcg PO DAILY [facility] Last Admin: 05/11/18 08:47 Dose: 500 mcg Cyclobenzaprine HCl (Flexeril Tab*) 10 mg PO BEDTIME PRN PRN Reason: SPASMS Furosemide (Lasix Iv*) 40 mg IV 0800,1500 [facility] Last Admin: 05/11/18 08:00 Dose: 40 mg Glimepiride (Glimepiride (Nf)) 1 mg PO QPM [facility]; Protocol Last Admin: 05/10/18 18:13 Dose: 1 mg Glimepiride (Glimepiride (Nf)) 3 mg PO QAM [facility] Last Admin: 05/11/18 07:44 Dose: Not Given Magnesium Oxide (Magox 400 Tab*) 400 mg PO DAILY [facility] Last Admin: 05/11/18 08:47 Dose: 400 mg Oxybutynin Chloride (Ditropan Xl Tab*) 10 mg PO DAILY [facility]; Protocol Last Admin: 05/11/18 08:47 Dose: 10 mg Pantoprazole Sodium (Protonix Tab *) 40 mg PO BID [facility] Last Admin: 05/11/18 08:47 Dose: 40 mg Sitagliptin Phosphate (Januvia (Nf)) 100 mg PO DAILY [facility]; Protocol Last Admin: 05/11/18 08:50 Dose: 100 mg Objective Vital Signs: Temp Pulse Resp BP Pulse Ox 97.8 F 82 16 111/62 99 05/11/18 11:28 05/11/18 11:28 05/11/18 11:28 05/11/18 11:28 05/11/18 11:28 Oxygen Devices in Use Now: None Appearance: nad, pleasant Ears/Nose/Mouth/Throat: Clear Oropharnyx Neck: Trachea Midline, - - uncertain jvp Respiratory: Symmetrical Chest Expansion and Respiratory Effort, - - bilateral rales Cardiovascular: - - irregularly irregular, 3/6 high pitched systolic murmur, uncertain about split s2 Abdominal: NL Sounds; No Tenderness; No Distention Extremities: No Clubbing, Cyanosis, - - 3+edema Skin: No Rash or Ulcers Neurological: Alert and Oriented x 3 Laboratory Results: 05/11/18 04:54 05/11/18 04:54 APTT 33.3 seconds (26.0-36.3) 05/08/18 18:48 Total Bilirubin 0.90 mg/dL (0.2-1.0) 05/08/18 18:48 AST 23 U/L (13-39) 05/08/18 18:48 ALT 23 U/L (7-52) 05/08/18 18:48 Alkaline Phosphatase 58 U/L (34-104) 05/08/18 18:48 CK-MB (CK-2) 6.5 ng/mL (0.6-6.3) H 05/08/18 18:48 B-Natriuretic Peptide 1238 pg/mL (<=100) H 05/08/18 18:48 Total Protein 6.4 g/dL (6.4-8.9) 05/08/18 18:48 Albumin 3.6 g/dL (3.2-5.2) 05/08/18 18:48 Globulin 2.8 g/dL (2-4) 05/08/18 18:48 Albumin/Globulin Ratio 1.3 (1-3) 05/08/18 18:48 TSH Cancelled 05/09/18 05:28 mg 2.1 05/08/18 05/08/18 05/09/18 18:48 23:17 02:12 Troponin I 0.30 H* 0.28 H* 0.20 H* Diagnostic Imaging: Cardiac Testing Stress Test - (08/13/2014) Regadenoson 0.4mg injected intravenously per protocol. The patient developed approximately 10 seconds asystole with LOC Myoview trace was not injected. Reversed of 100mg Aminophylline was injected IV. Holter Monitor - (04/26/2012) Chronic A fib Good HR control Cardiac Procedures: Cardiac Catheterization - (08/17/2014) PASP 49/18 Moderate mean Grad 25 mmHg Calc valve area 1.3 cm2. Normal LV function Mild RCA disease. Normal LM, LAD, LCx CTA chest 05/08/2018 No PE Probable early CHF (mild groundlass opaciteis mainly in bases) c-scope 05/01/2018 Suspected small bowel source of bleeding EGD : mild gastritis and nonbleeding melia erosions ekg today afib 91 bpm, incomplete rbbb, diffuse downsloping ST depression/twi grossly unchanged from 09/2017 echo 05/09/2018: LVEF 60-65% with septal flattening of RV pressure/volume overload, moderate RV dilation/dysfunction, mildly estimated PASP severe LA dilation Severe (peak velocity 4.1 m/s, mean gradient 27 mmHg, 0.7 cm^2 by SADIE VTI) Assessment/Plan 1. ADHF, primarily right sided clinically 2. Severe low gradient, normal LVEF - Peak velocity/mean gradient could be higher than prior due to anemia - Elevated cTnI appears related to CHF 3. Obesity 4. Chronic atrial fibrillation - Nocturnal asymptomatic prolonged pauses 5. Recent GIB while on coumadin and aspirin 6. HTN 7. DM 8. Suspected sleep apnea - Continue IV diuresis and change to PO loop diuretic at discharge, needs electrolytes checked and replaced. Remains decompensated - Continue low dose eliquis 2.5 mg po bid without aspirin - Check nocturnal oximetry tonight Thank you for allowing me to participate in the cardiovascular care of this patient. Please do not hesitate to contact me with questions or concerns.
[2018-05-11] MEDS: Atorvastatin* 10 MG TAB PO SCH (19:31)
[2018-05-12 06:48] LABS: ABS Basophils 0.1 10^3/ul (0-0.2); ABS Eosinophils 0.2 10^3/ul (0-0.6); ABS Lymphocytes 1.6 10^3/ul (1.0-4.8); ABS Monocytes 0.8 10^3/ul (0-0.8); ABS Neutrophils 4.7 10^3/ul (1.5-7.7); ABS Nucleated RBC 0 10^3/ul; Eosinophil % 2.7 %; Hematocrit 28 % (35-47); Hemoglobin 9.4 g/dl (12.0-16.0); Lymphocyte % 21.3 %; Mean Corpuscular HGB Conc 33 g/dl (31-36); Mean Corpuscular Hemoglobin 29 pg (27-31); Mean Corpuscular Volume 86 fL (80-97); Mean Platelet Volume 9.1 fL (7.4-10.4); Nucleated Red Blood Cells % 0; Platelet Count 235 10^3/ul (150-450); Red Blood Count 3.25 10^6/ul (4.00-5.40); Red Cell Distribution Width 15 % (10.5-15); White Blood Count 7.3 10^3/ul (3.5-10.8)
[2018-05-12 07:03] LABS: Calcium 12.2 mg/dL (8.6-10.3); EGFR Non-African American 49.9 (>60); Potassium 4.1 mmol/L (3.5-5.0)
[2018-05-12] MEDS: CMCS:SitaGLIPtin (NF) 100 MG TAB PO SCH (08:40)
[2018-05-12] MEDS: Cyanocobalamin TAB* 500 MCG PO SCH (08:41)
[2018-05-12] MEDS: Acetaminop/Codeine 30 MG TAB* 1 TAB (300 MG/30 MG) PO PRN ×2 (08:41→20:01)
[2018-05-12] MEDS: Oxybutynin XL TAB* 5 MG PO SCH (08:41)
[2018-05-12] MEDS: Cholecalciferol TAB* 400 UNIT PO SCH (08:41)
[2018-05-12] MEDS: Furosemide IV* 10 MG/ML VIAL (40 MG) IV SCH (08:42)
[2018-05-12] MEDS: Pantoprazole TAB * 40 MG TAB PO SCH ×2 (08:42→20:02)
--- NOTE | 2018-05-12 10:47 | PN ---
Subjective Date of Service: 05/12/18 Interval History: f/u CHF, , AFib, AV node disease Remains volume overloaded but responding very well to IV lasix Yesterday while awake she had a sustained (< 1 minute) HR in the 20's due to AV block with narrow complex (could have been conducted vs. junctional escape). This morning when talking with her she states that she was in fact lightheaded during this but there was no syncope. She is on no rate control medications. This is a pacemaker indication. She also continues to have pauses (up to 9 seconds) while sleeping although sleep apnea (nocturnal oximetry suggestive of this but no desats less than 80%) could be contributing to this. Medications Active Medications: Acetaminophen/Codeine Phosphate (Tylenol/Codeine 30 Mg Tab*) 1 tab PO Q6H PRN PRN Reason: PAIN Last Admin: 05/12/18 08:41 Dose: 1 tab Atorvastatin Calcium (Lipitor*) 10 mg PO 2100 [facility] Last Admin: 05/11/18 19:31 Dose: 10 mg Cholecalciferol (Vitamin D Tab*) 400 unit PO DAILY [facility] Last Admin: 05/12/18 08:41 Dose: 400 unit Cyanocobalamin (Vitamin B12 Tab*) 500 mcg PO DAILY [facility] Last Admin: 05/12/18 08:41 Dose: 500 mcg Cyclobenzaprine HCl (Flexeril Tab*) 10 mg PO BEDTIME PRN PRN Reason: SPASMS Furosemide (Lasix Iv*) 60 mg IV 0800,1500 [facility] Oxybutynin Chloride (Ditropan Xl Tab*) 10 mg PO DAILY [facility]; Protocol Last Admin: 05/12/18 08:41 Dose: 10 mg Pantoprazole Sodium (Protonix Tab *) 40 mg PO BID [facility] Last Admin: 05/12/18 08:42 Dose: 40 mg Sitagliptin Phosphate (Januvia (Nf)) 100 mg PO DAILY [facility]; Protocol Last Admin: 05/12/18 08:40 Dose: 100 mg Objective Vital Signs: Temp Pulse Resp BP Pulse Ox 98.5 F 62 18 144/44 96 05/12/18 07:21 05/12/18 07:21 05/12/18 10:11 05/12/18 07:21 05/12/18 07:21 Oxygen Devices in Use Now: None Appearance: nad, pleasant Ears/Nose/Mouth/Throat: Clear Oropharnyx Neck: Trachea Midline, - - uncertain jvp Respiratory: Symmetrical Chest Expansion and Respiratory Effort, - - bilateral rales Cardiovascular: - - irregularly irregular, 3/6 high pitched systolic murmur, uncertain about split s2 Abdominal: NL Sounds; No Tenderness; No Distention Extremities: No Clubbing, Cyanosis, - - 3+edema of legs Skin: No Rash or Ulcers Neurological: Alert and Oriented x 3 Laboratory Results: 05/12/18 06:00 05/12/18 06:00 APTT 33.3 seconds (26.0-36.3) 05/08/18 18:48 Total Bilirubin 0.90 mg/dL (0.2-1.0) 05/08/18 18:48 AST 23 U/L (13-39) 05/08/18 18:48 ALT 23 U/L (7-52) 05/08/18 18:48 Alkaline Phosphatase 58 U/L (34-104) 05/08/18 18:48 CK-MB (CK-2) 6.5 ng/mL (0.6-6.3) H 05/08/18 18:48 B-Natriuretic Peptide 1238 pg/mL (<=100) H 05/08/18 18:48 Total Protein 6.4 g/dL (6.4-8.9) 05/08/18 18:48 Albumin 3.6 g/dL (3.2-5.2) 05/08/18 18:48 Globulin 2.8 g/dL (2-4) 05/08/18 18:48 Albumin/Globulin Ratio 1.3 (1-3) 05/08/18 18:48 TSH Cancelled 05/09/18 05:28 05/08/18 05/08/18 05/09/18 18:48 23:17 02:12 Troponin I 0.30 H* 0.28 H* 0.20 H* Diagnostic Imaging: Cardiac Testing Stress Test - (08/13/2014) Regadenoson 0.4mg injected intravenously per protocol. The patient developed approximately 10 seconds asystole with LOC Myoview trace was not injected. Reversed of 100mg Aminophylline was injected IV. Holter Monitor - (04/26/2012) Chronic A fib Good HR control Cardiac Procedures: Cardiac Catheterization - (08/17/2014) PASP 49/18 Moderate mean Grad 25 mmHg Calc valve area 1.3 cm2. Normal LV function Mild RCA disease. Normal LM, LAD, LCx CTA chest 05/08/2018 No PE Probable early CHF (mild groundlass opaciteis mainly in bases) c-scope 05/01/2018 Suspected small bowel source of bleeding EGD : mild gastritis and nonbleeding melia erosions ekg today afib 91 bpm, incomplete rbbb, diffuse downsloping ST depression/twi grossly unchanged from 09/2017 echo 05/09/2018: LVEF 60-65% with septal flattening of RV pressure/volume overload, moderate RV dilation/dysfunction, mildly estimated PASP severe LA dilation Severe (peak velocity 4.1 m/s, mean gradient 27 mmHg, 0.7 cm^2 by SAIDE VTI) Assessment/Plan 1. ADHF, primarily right sided clinically 2. Severe low gradient, normal LVEF - Peak velocity/mean gradient could be higher than prior due to anemia - Elevated cTnI appears related to CHF 3. Obesity 4. Chronic atrial fibrillation with symptomatic AV node disease/bradycardia ( see above) 5. Recent GIB while on coumadin and aspirin 6. HTN 7. DM 8. Suspected sleep apnea - Nocturnal oximetry suggestive of this. - Continue IV diuresis needs electrolytes checked and replaced. - Low dose eliquis 2.5 mg po bid (last dose Sunday05/11/2018 PM - now held) - Plan for pacemaker tomorrow with Dr. Nickerson, NPO order placed Thank you for allowing me to participate in the cardiovascular care of this patient. Please do not hesitate to contact me with questions or concerns.
--- NOTE | 2018-05-12 10:52 | PN ---
Subjective Date of Service: 05/12/18 Interval History: Pt's last night dose of Lasix was held due to low SBP's. Wt loss only 2 lbs in 24H. Noted to have sinus pauses with HR in 20 when awake last night. Pt spoke with DR. Alexander about possible pacemaker. Objective Active Medications: Acetaminophen/Codeine Phosphate (Tylenol/Codeine 30 Mg Tab*) 1 tab PO Q6H PRN PRN Reason: PAIN Last Admin: 05/12/18 08:41 Dose: 1 tab Atorvastatin Calcium (Lipitor*) 10 mg PO 2100 [facility] Last Admin: 05/11/18 19:31 Dose: 10 mg Cholecalciferol (Vitamin D Tab*) 400 unit PO DAILY [facility] Last Admin: 05/12/18 08:41 Dose: 400 unit Cyanocobalamin (Vitamin B12 Tab*) 500 mcg PO DAILY [facility] Last Admin: 05/12/18 08:41 Dose: 500 mcg Cyclobenzaprine HCl (Flexeril Tab*) 10 mg PO BEDTIME PRN PRN Reason: SPASMS Furosemide (Lasix Iv*) 60 mg IV 0800,1700 [facility] Oxybutynin Chloride (Ditropan Xl Tab*) 10 mg PO DAILY [facility]; Protocol Last Admin: 05/12/18 08:41 Dose: 10 mg Pantoprazole Sodium (Protonix Tab *) 40 mg PO BID [facility] Last Admin: 05/12/18 08:42 Dose: 40 mg Sitagliptin Phosphate (Januvia (Nf)) 100 mg PO DAILY [facility]; Protocol Last Admin: 05/12/18 08:40 Dose: 100 mg Vital Signs - 8 hr 05/12/18 05/12/18 05/12/18 03:13 07:21 07:45 Temperature 98.0 F 98.5 F Pulse Rate 67 62 Respiratory 16 16 18 Rate Blood Pressure 122/52 144/44 (mmHg) O2 Sat by Pulse 95 96 Oximetry 05/12/18 05/12/18 08:41 10:11 Temperature Pulse Rate Respiratory 18 18 Rate Blood Pressure (mmHg) O2 Sat by Pulse Oximetry Oxygen Devices in Use Now: None Appearance: 82 yo f in nAD, aAOx3 Eyes: No Scleral Icterus, PERRLA Ears/Nose/Mouth/Throat: NL Teeth, Lips, Gums, Mucous Membranes Moist Neck: NL Appearance and Movements; NL JVP, Trachea Midline Respiratory: Symmetrical Chest Expansion and Respiratory Effort, Clear to Auscultation Cardiovascular: - - irregular, 2/6 FANG Abdominal: NL Sounds; No Tenderness; No Distention, No Hepatosplenomegaly Lymphatic: No Cervical Adenopathy Extremities: No Clubbing, Cyanosis, - - large pedal edema b/l stll present Skin: No Nodules or Sclerosis Neurological: Alert and Oriented x 3, NL Muscle Strength and Tone Result Diagrams: 05/12/18 06:00 05/12/18 06:00 Additional Lab and Data: Lab Results 05/08/18 Range/Units 16:05 Urine Color Yellow Urine Appearance Clear Urine pH 5.0 (5-9) Ur Specific [place] 1.006 L (1.010-1.030) Urine Protein Negative (Negative) Urine Ketones Negative (Negative) Urine Blood Negative (Negative) Urine Nitrate Negative (Negative) Urine Bilirubin Negative (Negative) Urine Urobilinogen Negative (Negative) Ur Leukocyte Esterase Negative (Negative) Urine Glucose Negative (Negative) Microbiology and Other Data: Microbiology 05/10/18 16:00 Stool Occult Blood (THAD) - Final Stool Assess/Plan/Problems-Billing Assessment: Mrs Coughlin is an 82yo F with PMH of Afib on Warfarin till it was stopped last week due to GI bleed. H/o GI bleed in 2014 (gastric ulcer on EGD, diverticulosis on colonoscopy, jejunal bleeding on capsule endoscopy with enteroscopy with removal of jejunal polyp), HTN, type 2 DM, chronic pain, who presented to ED with c/o leg edema - Patient Problems (1) Acute diastolic (congestive) heart failure Comment: cont Lasix IV BID. will increase dose for 40 to 60 mg. Echo shows EF 65%, severe Elevated troponin likely due to demand ischemia (2) GI bleed Comment: on 05/03/18. Per Dr. Khan assessment, likely due to diverticular bleed vs. AVM in the setting of mildly supratherapeutic INR EGD- mild gastritis and non-bleeding Patel erosions. Pt c/o no more blood in stool since d/c on 05/05/18 Stool occult neg 05/10/18 (3) Type 2 diabetes mellitus Comment: - Cont Januvia, glimepride held due to hypoglycemia (4) Afib Comment: -Off Coumadin since 05/03/18 due to GI bleed, as per d/w Dr. Alexander pt was started on Eliguis 2.5 mg BID (Held 05/12/18 for possible pacer), holding ASA once on anticoagulation (5) Hypomagnesemia Comment: replaced (6) Hypercalcemia Comment: - Present in the past - PTH elevated -likely hyperparathyroidism, pt follows up with Dr Augustin holding HCTZ. Calcium levels at pt's baseline (7) Bradycardia Comment: pt had been in a. fib with significant pauses last night-HR down to 20/ min, asymptomatic For possible pacer in AM. Overnight pulse ox noted desaturations of <88% only for a minute (8) DVT prophylaxis Comment: eliquis held for possible pacer Status and Disposition: inpatient
[2018-05-12] MEDS ORDERED: Calamine LOTION* 120 ML TOPICAL PRN (10:56)
[2018-05-12] MEDS ORDERED: Furosemide IV* 10 MG/ML 10 ML VIAL (100 MG) IV SCH (15:00)
[2018-05-12] MEDS: Furosemide IV* 10 MG/ML 10 ML VIAL (100 MG) IV SCH (16:18)
[2018-05-12] MEDS: Cyclobenzaprine TAB* 10 MG PO PRN (20:01)
[2018-05-12] MEDS: Atorvastatin* 10 MG TAB PO SCH (20:02)
[2018-05-12] MEDS ORDERED: NS 0.9% 1000 ML* 1,000 ML IV SCH (21:45)
[2018-05-13 05:42] LABS: ABS Basophils 0.1 10^3/ul (0-0.2); ABS Eosinophils 0.2 10^3/ul (0-0.6); ABS Lymphocytes 1.5 10^3/ul (1.0-4.8); ABS Monocytes 0.6 10^3/ul (0-0.8); ABS Nucleated RBC 0 10^3/ul; Eosinophil % 3.5 %; Hematocrit 31 % (35-47); Lymphocyte % 22.8 %; Mean Corpuscular HGB Conc 32 g/dl (31-36); Mean Corpuscular Hemoglobin 28 pg (27-31); Mean Corpuscular Volume 87 fL (80-97); Mean Platelet Volume 9.2 fL (7.4-10.4); Nucleated Red Blood Cells % 0; Platelet Count 239 10^3/ul (150-450); Red Blood Count 3.57 10^6/ul (4.00-5.40); Red Cell Distribution Width 15 % (10.5-15); White Blood Count 6.4 10^3/ul (3.5-10.8)
[2018-05-13 05:54] LABS: BUN/Creatinine Ratio 16.5 (8-20); Calcium 12.5 mg/dL (8.6-10.3); EGFR Non-African American 48.3 (>60); Magnesium 1.9 mg/dL (1.9-2.7); Potassium 3.8 mmol/L (3.5-5.0)
[2018-05-13] MEDS ORDERED: Diazepam TAB(*) 5 MG PO ONE (08:00)
[2018-05-13] MEDS ORDERED: Clindamycin 900 MG IVPREMIX(* 900 MG/50 ML SDV IV ONE (08:00)
--- NOTE | 2018-05-13 11:30 | PN ---
Subjective Date of Service: 05/13/18 Interval History: Pt feels well. Diuresed 2400ml in the past 24H and leg edema improving. She is seen before her pacemaker procedure today Objective Active Medications: Acetaminophen/Codeine Phosphate (Tylenol/Codeine 30 Mg Tab*) 1 tab PO Q6H PRN PRN Reason: PAIN Last Admin: 05/12/18 20:01 Dose: 1 tab Atorvastatin Calcium (Lipitor*) 10 mg PO 2100 [facility] Last Admin: 05/12/18 20:02 Dose: 10 mg Calamine (Calamine Lotion*) 1 applic TOPICAL TID PRN PRN Reason: itchy skin Cholecalciferol (Vitamin D Tab*) 400 unit PO DAILY [facility] Last Admin: 05/12/18 08:41 Dose: 400 unit Cyanocobalamin (Vitamin B12 Tab*) 500 mcg PO DAILY [facility] Last Admin: 05/12/18 08:41 Dose: 500 mcg Cyclobenzaprine HCl (Flexeril Tab*) 10 mg PO BEDTIME PRN PRN Reason: SPASMS Last Admin: 05/12/18 20:01 Dose: 10 mg Furosemide (Lasix Iv*) 60 mg IV 0800,1700 [facility] Last Admin: 05/12/18 16:18 Dose: 60 mg Sodium Chloride (Ns 0.9% 1000 Ml*) 1,000 mls @ 75 mls/hr IV PER RATE [facility] Oxybutynin Chloride (Ditropan Xl Tab*) 10 mg PO DAILY [facility]; Protocol Last Admin: 05/12/18 08:41 Dose: 10 mg Pantoprazole Sodium (Protonix Tab *) 40 mg PO BID [facility] Last Admin: 05/12/18 20:02 Dose: 40 mg Sitagliptin Phosphate (Januvia (Nf)) 100 mg PO DAILY [facility]; Protocol Last Admin: 05/12/18 08:40 Dose: 100 mg Vital Signs - 8 hr 05/13/18 05/13/18 05/13/18 03:42 07:44 10:49 Temperature 98.6 F 98.4 F Pulse Rate 62 80 Respiratory 20 14 18 Rate Blood Pressure 143/34 136/31 (mmHg) O2 Sat by Pulse 100 97 Oximetry Oxygen Devices in Use Now: None Appearance: 82 yo f in nAD, aAOx3 Eyes: No Scleral Icterus, PERRLA Ears/Nose/Mouth/Throat: NL Teeth, Lips, Gums, Mucous Membranes Moist Neck: NL Appearance and Movements; NL JVP, Trachea Midline Respiratory: Symmetrical Chest Expansion and Respiratory Effort, - - bibasiliar crackles noted Cardiovascular: - - irregular Abdominal: NL Sounds; No Tenderness; No Distention, No Hepatosplenomegaly Lymphatic: No Cervical Adenopathy Extremities: No Clubbing, Cyanosis, - - +1 b/l LE's pitting edema improving Skin: No Nodules or Sclerosis Neurological: Alert and Oriented x 3, NL Muscle Strength and Tone Result Diagrams: 05/13/18 05:13 05/13/18 05:13 Additional Lab and Data: Lab Results 05/08/18 Range/Units 16:05 Urine Color Yellow Urine Appearance Clear Urine pH 5.0 (5-9) Ur Specific [place] 1.006 L (1.010-1.030) Urine Protein Negative (Negative) Urine Ketones Negative (Negative) Urine Blood Negative (Negative) Urine Nitrate Negative (Negative) Urine Bilirubin Negative (Negative) Urine Urobilinogen Negative (Negative) Ur Leukocyte Esterase Negative (Negative) Urine Glucose Negative (Negative) Microbiology and Other Data: Microbiology 05/10/18 16:00 Stool Occult Blood (THAD) - Final Stool Assess/Plan/Problems-Billing Assessment: Mrs Coughlin is an 82yo F with PMH of Afib on Warfarin till it was stopped last week due to GI bleed. H/o GI bleed in 2014 (gastric ulcer on EGD, diverticulosis on colonoscopy, jejunal bleeding on capsule endoscopy with enteroscopy with removal of jejunal polyp), HTN, type 2 DM, chronic pain, who presented to ED with c/o leg edema - Patient Problems (1) Acute diastolic (congestive) heart failure Comment: cont Lasix IV BID 60 mg. Echo shows EF 65%, severe Elevated troponin likely due to demand ischemia (2) GI bleed Comment: on 05/03/18. Per Dr. Khan assessment, likely due to diverticular bleed vs. AVM in the setting of mildly supratherapeutic INR EGD- mild gastritis and non-bleeding Patel erosions. Pt c/o no more blood in stool since d/c on 05/05/18 Stool occult neg 05/10/18 (3) Type 2 diabetes mellitus Comment: - Cont Januvia, glimepride held due to hypoglycemia (4) Afib Comment: -Off Coumadin since 05/03/18 due to GI bleed, as per d/w Dr. Alexander pt was started on Eliguis 2.5 mg BID (Held 05/12/18 for possible pacer), holding ASA once on anticoagulation (5) Hypomagnesemia Comment: replaced (6) Hypercalcemia Comment: - Present in the past - PTH elevated 05/01/18-likely hyperparathyroidism , pt follows up with Dr Jane.d/w Dr. Jane. Hypercalcemia id increasing likley due to diuresis. holding HCTZ. eren get PTH and vit D levels. Dr. Jane will se pt in consult re: possible Sensipar tx Vit D PO supplement d/c'd (7) Bradycardia Comment: pt had been in a. fib with significant pauses past 2 nights-HR down to 20/min, asymptomatic For pacer today Overnight pulse ox noted desaturations of <88% only for a minute (8) DVT prophylaxis Comment: eliquis held for possible pacer Status and Disposition: inpatient
[2018-05-13] MEDS ORDERED: Cinacalcet TAB* 30 MG PO SCH ×2 (12:00→21:00)
[2018-05-13] MEDS ORDERED: fentaNYL* 50 MCG/ML 2 ML VIAL (100 MCG VIAL) ONE (14:32)
[2018-05-13] MEDS ORDERED: Midazolam* 1 MG/ML 5 ML VIAL (5 MG) ONE (14:32)
[2018-05-13] MEDS ORDERED: Lidocaine 1% INJ* 10 MG/ML 30 ML SDV ONE (14:32)
[2018-05-13] MEDS ORDERED: Acetaminophen TAB* 325 MG PO PRN (15:36)
[2018-05-13] MEDS: Furosemide IV* 10 MG/ML 10 ML VIAL (100 MG) IV SCH ×2 (16:14→16:25)
[2018-05-13] MEDS: Oxybutynin XL TAB* 5 MG PO SCH (16:26)
[2018-05-13] MEDS: Cyanocobalamin TAB* 500 MCG PO SCH (16:26)
[2018-05-13] MEDS: CMCS:SitaGLIPtin (NF) 100 MG TAB PO SCH (16:26)
[2018-05-13] MEDS: Pantoprazole TAB * 40 MG TAB PO SCH ×2 (16:26→21:38)
[2018-05-13] MEDS: Acetaminop/Codeine 30 MG TAB* 1 TAB (300 MG/30 MG) PO PRN (16:36)
[2018-05-13] MEDS: Cholecalciferol TAB* 400 UNIT PO SCH (16:41)
[2018-05-13] MEDS: Clindamycin CAP* 150 MG PO SCH (21:38)
[2018-05-13] MEDS: oxyCODONE/Acetamin 5/325 MG* TAB PO PRN (21:38)
[2018-05-13] MEDS: Cyclobenzaprine TAB* 10 MG PO PRN (21:39)
[2018-05-13] MEDS: Atorvastatin* 10 MG TAB PO SCH (21:39)
--- NOTE | 2018-05-14 01:44 | OP ---
DATE OF OPERATION: 05/13/18 - ROOM #433 DATE OF : 39 SURGEON: Vincent Nickerson MD ANESTHESIA: Local anesthesia with conscious sedation. PRE-OP DIAGNOSIS: Chronic atrial fibrillation, bradycardia. POST-OP DIAGNOSIS: Chronic atrial fibrillation, bradycardia. OPERATIVE PROCEDURE: Single-chamber pacemaker implantation. ESTIMATED BLOOD LOSS: Nil. COMPLICATIONS: None. INDICATIONS: The patient is an 82-year-old female with a history of chronic atrial fibrillation and now with severe aortic stenosis who is observed to have significant bradycardia and up to 9 second pauses, permanent pacemaker was recommended. DESCRIPTION OF PROCEDURE: The patient was brought to the procedure room in a fasting state. Informed consent had been obtained prior to the procedure. All labs were reviewed. The patient was placed supine on the procedure table. The patient's left deltopectoral area was cleaned and draped in the usual fashion. 1% lidocaine was used for local anesthesia. The axillary vein was entered by modified Seldinger technique using ultrasound guidance and a guidewire was placed. A 3 cm incision was made in the pectoral area, blunt dissection was carried down to the pectoral fascia, and a pocket was fashioned for the pacemaker. Over the guidewire, a 7-Romansh sheath introducer was placed through which a right ventricular lead was advanced to the septum. The right ventricular ICD lead is a Medtronic, model 5076, serial number [id number], had a R-wave sensitivity of 16, impendence 911 ohms, threshold 0.4 volts at 0.5 milliseconds. The ventricular lead was sutured to the pectoral fascia. A generator was attached to the ventricular lead. The generator was a Medtronic, model W3SR01, serial number [id number]. Device was placed in the pocket. The surgical incision was closed in three layers. The patient tolerated the procedure well with no complications. [id number]/[facility] #: [id number] [facility]
[2018-05-14 05:40] LABS: Hematocrit 29 % (35-47); Hemoglobin 9.6 g/dl (12.0-16.0); Mean Corpuscular HGB Conc 33 g/dl (31-36); Mean Corpuscular Hemoglobin 29 pg (27-31); Mean Corpuscular Volume 86 fL (80-97); Mean Platelet Volume 8.5 fL (7.4-10.4); Platelet Count 230 10^3/ul (150-450); Red Blood Count 3.34 10^6/ul (4.00-5.40); Red Cell Distribution Width 14 % (10.5-15); White Blood Count 7.7 10^3/ul (3.5-10.8)
[2018-05-14] MEDS: Clindamycin CAP* 150 MG PO SCH ×3 (05:43→21:29)
[2018-05-14] MEDS: Acetaminop/Codeine 30 MG TAB* 1 TAB (300 MG/30 MG) PO PRN ×2 (05:47→21:28)
[2018-05-14 05:54] LABS: BUN/Creatinine Ratio 16.3 (8-20); Calcium 12.5 mg/dL (8.6-10.3); Potassium 3.8 mmol/L (3.5-5.0)
--- NOTE | 2018-05-14 07:48 | CONSULT ---
Consult Consult: [facility] Inpatient Consult Note Date of Consult: 05/13/18 Reason for Consult: hyperacalcemia Reason for Admission: heart failure ASSESSMENT: 82 F with long-standing PTH-mediated hypercalcemia of unclear etiology -- primary hyperpara vs FHH vs thiazide -- and recent admission for GI bleed, who re-presented to [facility] with symptoms of acute congestive heart failure. Her labs this admission confirm PTH-mediated hypercalcemia that is more severe than previous measurements. Normally, change from thiazide to loop diuretic would be expected to lower calcium, but the reverse has occurred during this admission, possibly due to aggressive diuresis and relative intravascular volume depletion. The failure to suppress PTH strongly suggests primary hyperparathyroidism, however. Her urinary Ca:Cr clearance ratio was extremely low when tested in January 2018, consistent with either FHH or the combination of thiazide effect + primary hyperparathyroidism; vitamin D deficiency, inadequate calcium intake and mild renal insufficiency have been excluded. She is not a surgical candidate for parathyroidectomy at this time; therefore medical therapy with calcimimetic therapy is appropriate. PLAN: - check thyroid ultrasound (for parathyroid adenoma) - start Sensipar 30mg twice daily - check Ca daily while inpatient - encourage free water intake, as tolerated - follow-up with endocrine 2 weeks SUBJECTIVE: History of Present Illness: 82 with h/o type 2 diabetes, atrial fibrillation, aortic stenosis and mild hypercalcemia, now admitted for acute congestive heart failure. She was initially referred to endocrine in December 2017 for evaluation of hypercalcemia (10-11 range) and elevated PTH in setting of osteopenia. Further workup revealed extremely low urine calcium (<50mg) and mild hypercalcemia (10.5-11.8 range), results consistent with either thiazide diuretic effect or a benign condition such as a familial hypocalciuric hypercalcemia. Her thiazide was continued, as she had been experiencing hypertension despite 3-drug regimen for hypertension. From a calcium standpoint , she was asymptomatic and had no indications for further investigation of primary hyperparathyroidism. She was hospitalized for acute lower GI bleed attributed to bleeding AVM vs tic in setting of warfarin. Due to hypotension, her HCTZ was held during the 7-day admission and restarted for 2 days after discharge. Unfortunately, she developed progressive dyspnea, orthopnea and edema consistent with acute acute RHF in setting of "severe low gradient with normal LVEF" in setting of AF. She was started on IV diuretic therapy and Eliquis for anticoagulation. She has been hospitalized for the past 6 days. At the present time, she complains of moderate SOB at rest. She denies abdominal pain, muscle irritability or mental fogginess. She has lost >20 lbs in the past 5 days and is now back to her dry weight. Past Medical History: 1. PTH-dependent hypercalcemia 2. T2DM, A1c 6.7% 3. HTN 4. 5. AF Medications Prior to Admission: Cholecalciferol TAB* [Vitamin D TAB*] 400 unit PO DAILY 10/23/14 [History Confirmed 05/08/18] Cyanocobalamin (Vitamin B-12) [Vitamin B-12] 500 mcg PO DAILY 10/23/14 [History Confirmed 05/08/18] [place]-3/Dha/Epa/Fish Oil [Fish Oil 500 mg Softgel] 3,000 mg PO DAILY 10/23/14 [ History Confirmed 05/08/18] Tolterodine Tartrate [Detrol LA] 4 mg PO DAILY 10/23/14 [History Confirmed 05/08] Magnesium Oxide TAB* [MagOx 400 TAB*] 400 mg PO DAILY 10/28/14 [History Confirmed 05/08/18] Atorvastatin* [Lipitor 10 MG*] 10 mg PO 2100 11/26/14 [History Confirmed ] Glimepiride [Amaryl] 1 tab PO SEE INSTRUCTIONS 11/26/14 [History Confirmed 05/08] Lisinopril TAB* [Prinivil TAB 10 MG*] 20 mg PO DAILY 12/23/14 [History Confirmed 05/08/18] Acetaminophen with Codeine [Acetaminophen-Cod #2 Tablet] 1 tab PO Q6H 04/29/18 [ History Confirmed 05/08/18] Aspirin [Aspirin EC] 81 mg PO DAILY 04/29/18 [History Confirmed 05/08/18] Cyclobenzaprine TAB* [Flexeril 10 MG TAB*] 10 mg PO BEDTIME PRN 04/29/18 [ History Confirmed 05/08/18] Hydrochlorothiazide TAB* [Hydrodiuril TAB*] 25 mg PO DAILY 04/29/18 [History Confirmed 05/08/18] Sitagliptin Phosphate [Januvia] 100 mg PO DAILY 04/29/18 [History Confirmed 01/16] Pantoprazole TAB * [Protonix TAB (NF)] 40 mg PO BID #90 tab 05/05/18 [Rx Confirmed 05/08/18] Inpatient Medications: Acetaminophen (Tylenol Tab*) 650 mg PO Q4H PRN PRN Reason: FEVER/PAIN Acetaminophen/Codeine Phosphate (Tylenol/Codeine 30 Mg Tab*) 1 tab PO Q6H PRN PRN Reason: PAIN Last Admin: 05/14/18 05:47 Dose: 1 tab Atorvastatin Calcium (Lipitor*) 10 mg PO 2100 [facility] Last Admin: 05/13/18 21:39 Dose: 10 mg Calamine (Calamine Lotion*) 1 applic TOPICAL TID PRN PRN Reason: itchy skin Clindamycin HCl (Cleocin Cap*) 150 mg PO Q8HR [facility] Last Admin: 05/14/18 05:43 Dose: 150 mg Cyanocobalamin (Vitamin B12 Tab*) 500 mcg PO DAILY [facility] Last Admin: 05/14/18 08:33 Dose: 500 mcg Cyclobenzaprine HCl (Flexeril Tab*) 10 mg PO BEDTIME PRN PRN Reason: SPASMS Last Admin: 05/13/18 21:39 Dose: 10 mg Diazepam (Valium Tab(*)) 5 mg PO ONCE PRN PRN Reason: superintendent greens to Form Maker Plaster Diphenhydramine HCl (Benadryl Po*) 25 mg PO ONCE PRN PRN Reason: superintendent greens to Form Maker Plaster Oxybutynin Chloride (Ditropan Xl Tab*) 10 mg PO DAILY [facility]; Protocol Last Admin: 05/14/18 09:56 Dose: Not Given Oxycodone/Acetaminophen (Percocet 5/325 Tab*) 1 tab PO Q4H PRN PRN Reason: PAIN Last Admin: 05/13/18 21:38 Dose: 1 tab Pantoprazole Sodium (Protonix Tab *) 40 mg PO BID [facility] Last Admin: 05/14/18 08:33 Dose: 40 mg Sitagliptin Phosphate (Januvia (Nf)) 100 mg PO DAILY [facility]; Protocol Last Admin: 05/14/18 09:56 Dose: Not Given Allergies/Intolerances: egg, PCN, shellfish Social History: , retired, lives alone. Distant smoking history. No alcohol. Family History: HTN, DM, RA. Review of Systems: As above. 12 system review is otherwise negative. OBJECTIVE: Temp Pulse Resp BP Pulse Ox 98.1 F 50 18 100/39 93 05/14/18 07:51 05/14/18 08:35 05/14/18 08:32 05/14/18 08:35 05/14/18 08:35 General: alert, pleasant, oriented, no distress ENT: neck supple, no thyromegaly, no bruit is heard Chest: CTAB, no wheezing or crackles CV: RRR, no murmur Abdomen: soft, non-tender Extremities: trace edema, distal pulses intact Skin: warm, dry, no rash Neuro: grossly intact motor/sensory in extremities Psych: restricted affect, pleasant Labs: WBC 7.7 10^3/ul (3.5-10.8) 05/14/18 05:22 RBC 3.34 10^6/ul (4.00-5.40) L 05/14/18 05:22 Hgb 9.6 g/dl (12.0-16.0) L 05/14/18 05:22 Hct 29 % (35-47) L 05/14/18 05:22 MCV 86 fL (80-97) 05/14/18 05:22 MCH 29 pg (27-31) 05/14/18 05:22 MCHC 33 g/dl (31-36) 05/14/18 05:22 RDW 14 % (10.5-15) 05/14/18 05:22 Plt Count 230 10^3/ul (150-450) 05/14/18 05:22 MPV 8.5 fL (7.4-10.4) 05/14/18 05:22 Neut % (Auto) 62.9 % 05/13/18 05:13 Lymph % (Auto) 22.8 % 05/13/18 05:13 [place] % (Auto) 9.7 % 05/13/18 05:13 Eos % (Auto) 3.5 % 05/13/18 05:13 Baso % (Auto) 1.1 % 05/13/18 05:13 Absolute Neuts (auto) 4.0 10^3/ul (1.5-7.7) 05/13/18 05:13 Absolute Lymphs (auto) 1.5 10^3/ul (1.0-4.8) 05/13/18 05:13 Absolute Monos (auto) 0.6 10^3/ul (0-0.8) 05/13/18 05:13 Absolute Eos (auto) 0.2 10^3/ul (0-0.6) 05/13/18 05:13 Absolute Basos (auto) 0.1 10^3/ul (0-0.2) 05/13/18 05:13 Absolute Nucleated RBC 0 10^3/ul 05/13/18 05:13 Nucleated RBC % 0 05/13/18 05:13 APTT 33.3 seconds (26.0-36.3) 05/08/18 18:48 Sodium 137 mmol/L (135-145) 05/14/18 05:22 Potassium 3.8 mmol/L (3.5-5.0) 05/14/18 05:22 Chloride 103 mmol/L (101-111) 05/14/18 05:22 Carbon Dioxide 31 mmol/L (22-32) 05/14/18 05:22 Anion Gap 3 mmol/L (2-11) 05/14/18 05:22 BUN 17 mg/dL (6-24) 05/14/18 05:22 Creatinine 1.04 mg/dL (0.51-0.95) H 05/14/18 05:22 Est GFR ( Amer) 61.7 (>60) 05/14/18 05:22 Est GFR (Non-Af Amer) 51.0 (>60) 05/14/18 05:22 BUN/Creatinine Ratio 16.3 (8-20) 05/14/18 05:22 Glucose 105 mg/dL (70-100) H 05/14/18 05:22 POC Glucose (mg/dL) 128 mg/dL (70-100) H 05/14/18 08:32 Lactic Acid 1.1 mmol/L (0.5-2.0) 05/08/18 18:48 Calcium 12.5 mg/dL (8.6-10.3) H 05/14/18 05:22 Ionized Calcium 1.74 mmol/L (1.16-1.32) H* 05/14/18 05:22 Magnesium 1.9 mg/dL (1.9-2.7) 05/13/18 05:13 Total Bilirubin 0.90 mg/dL (0.2-1.0) 05/08/18 18:48 AST 23 U/L (13-39) 05/08/18 18:48 ALT 23 U/L (7-52) 05/08/18 18:48 Alkaline Phosphatase 58 U/L (34-104) 05/08/18 18:48 CK-MB (CK-2) 6.5 ng/mL (0.6-6.3) H 05/08/18 18:48 Troponin I 0.20 ng/mL (<0.04) H* 05/09/18 02:12 C-Reactive Protein 10.97 mg/L (<8.01) H 05/08/18 18:48 B-Natriuretic Peptide 1238 pg/mL (<=100) H 05/08/18 18:48 Total Protein 6.4 g/dL (6.4-8.9) 05/08/18 18:48 Albumin 3.6 g/dL (3.2-5.2) 05/08/18 18:48 Globulin 2.8 g/dL (2-4) 05/08/18 18:48 Albumin/Globulin Ratio 1.3 (1-3) 05/08/18 18:48 25-OH Vitamin D Total 23.8 ng/mL (20-50) 05/13/18 05:08 TSH Cancelled 05/09/18 05:28 PTH Intact 23.3 pmol/L (1.3-9.3) H 05/13/18 05:08 Calcium (PTH Intact) 12.5 mg/dL (8.6-10.3) H D 05/13/18 05:08 Urine Color Yellow 05/08/18 16:05 Urine Appearance Clear 05/08/18 16:05 Urine pH 5.0 (5-9) 05/08/18 16:05 Ur Specific [place] 1.006 (1.010-1.030) L 05/08/18 16:05 Urine Protein Negative (Negative) 05/08/18 16:05 Urine Ketones Negative (Negative) 05/08/18 16:05 Urine Blood Negative (Negative) 05/08/18 16:05 Urine Nitrate Negative (Negative) 05/08/18 16:05 Urine Bilirubin Negative (Negative) 05/08/18 16:05 Urine Urobilinogen Negative (Negative) 05/08/18 16:05 Ur Leukocyte Esterase Negative (Negative) 05/08/18 16:05 Urine Glucose Negative (Negative) 05/08/18 16:05
[2018-05-14] MEDS ORDERED: Furosemide IV* 10 MG/ML 10 ML VIAL (100 MG) IV SCH (08:00)
[2018-05-14] MEDS: Pantoprazole TAB * 40 MG TAB PO SCH ×2 (08:33→21:28)
[2018-05-14] MEDS: Cyanocobalamin TAB* 500 MCG PO SCH (08:33)
[2018-05-14] MEDS ORDERED: Diazepam TAB(*) 5 MG PO PRN (09:51)
[2018-05-14] MEDS ORDERED: diPHENhydraMINE PO* 25 MG PO PRN (09:51)
[2018-05-14] MEDS: Oxybutynin XL TAB* 5 MG PO SCH (09:56)
[2018-05-14] MEDS: CMCS:SitaGLIPtin (NF) 100 MG TAB PO SCH (09:56)
--- NOTE | 2018-05-14 13:43 | PN ---
Subjective Date of Service: 05/14/18 Interval History: Pt feels well. Is basically back to her baseline weight today -162 lbs. Pt was seen by Dr. Nickerson today and the decision was made for pt to have cath for further evaluation of . Cath planned later on today Objective Active Medications: Acetaminophen (Tylenol Tab*) 650 mg PO Q4H PRN PRN Reason: FEVER/PAIN Acetaminophen/Codeine Phosphate (Tylenol/Codeine 30 Mg Tab*) 1 tab PO Q6H PRN PRN Reason: PAIN Last Admin: 05/14/18 05:47 Dose: 1 tab Atorvastatin Calcium (Lipitor*) 10 mg PO 2100 [facility] Last Admin: 05/13/18 21:39 Dose: 10 mg Calamine (Calamine Lotion*) 1 applic TOPICAL TID PRN PRN Reason: itchy skin Cinacalcet (Sensipar Tab*) 30 mg PO BID [facility] Clindamycin HCl (Cleocin Cap*) 150 mg PO Q8HR [facility] Last Admin: 05/14/18 13:15 Dose: Not Given Cyanocobalamin (Vitamin B12 Tab*) 500 mcg PO DAILY [facility] Last Admin: 05/14/18 08:33 Dose: 500 mcg Cyclobenzaprine HCl (Flexeril Tab*) 10 mg PO BEDTIME PRN PRN Reason: SPASMS Last Admin: 05/13/18 21:39 Dose: 10 mg Diazepam (Valium Tab(*)) 5 mg PO ONCE PRN PRN Reason: call or contact centre operator to Rigging Supervisor Diphenhydramine HCl (Benadryl Po*) 25 mg PO ONCE PRN PRN Reason: call or contact centre operator to Rigging Supervisor Oxybutynin Chloride (Ditropan Xl Tab*) 10 mg PO DAILY [facility]; Protocol Last Admin: 05/14/18 09:56 Dose: Not Given Oxycodone/Acetaminophen (Percocet 5/325 Tab*) 1 tab PO Q4H PRN PRN Reason: PAIN Last Admin: 05/13/18 21:38 Dose: 1 tab Pantoprazole Sodium (Protonix Tab *) 40 mg PO BID [facility] Last Admin: 05/14/18 08:33 Dose: 40 mg Sitagliptin Phosphate (Januvia (Nf)) 100 mg PO DAILY [facility]; Protocol Last Admin: 05/14/18 09:56 Dose: Not Given Vital Signs - 8 hr 0105/14/18 05/14/18 05:47 07:00 07:51 Temperature 98.1 F Pulse Rate 79 Respiratory 18 16 Rate Blood Pressure (mmHg) O2 Sat by Pulse 95 95 Oximetry 05/14/18 05/14/18 05/14/18 08:00 08:32 08:35 Temperature Pulse Rate 50 Respiratory 18 18 Rate Blood Pressure 100/39 (mmHg) O2 Sat by Pulse 93 Oximetry 05/14/18 11:22 Temperature 98.0 F Pulse Rate 71 Respiratory 16 Rate Blood Pressure 93/48 (mmHg) O2 Sat by Pulse 98 Oximetry Oxygen Devices in Use Now: None Appearance: 82 yo f in nAD, aAOx3 Eyes: No Scleral Icterus, PERRLA Ears/Nose/Mouth/Throat: NL Teeth, Lips, Gums, Mucous Membranes Moist Neck: NL Appearance and Movements; NL JVP, Trachea Midline Respiratory: Symmetrical Chest Expansion and Respiratory Effort, Clear to Auscultation Cardiovascular: - - irregular, 3/6 FANG Abdominal: NL Sounds; No Tenderness; No Distention, No Hepatosplenomegaly Lymphatic: No Cervical Adenopathy Extremities: No Clubbing, Cyanosis, - - trace b/l pedal edema Skin: No Rash or Ulcers, No Nodules or Sclerosis Neurological: Alert and Oriented x 3, NL Muscle Strength and Tone Result Diagrams: 05/14/18 05:22 05/14/18 05:22 Additional Lab and Data: Lab Results 05/08/18 Range/Units 16:05 Urine Color Yellow Urine Appearance Clear Urine pH 5.0 (5-9) Ur Specific [place] 1.006 L (1.010-1.030) Urine Protein Negative (Negative) Urine Ketones Negative (Negative) Urine Blood Negative (Negative) Urine Nitrate Negative (Negative) Urine Bilirubin Negative (Negative) Urine Urobilinogen Negative (Negative) Ur Leukocyte Esterase Negative (Negative) Urine Glucose Negative (Negative) Microbiology and Other Data: Microbiology 05/10/18 16:00 Stool Occult Blood (THAD) - Final Stool Assess/Plan/Problems-Billing Assessment: Mrs Coughlin is an 82yo F with PMH of Afib on Warfarin till it was stopped last week due to GI bleed. H/o GI bleed in 2014 (gastric ulcer on EGD, diverticulosis on colonoscopy, jejunal bleeding on capsule endoscopy with enteroscopy with removal of jejunal polyp), HTN, type 2 DM, chronic pain, who presented to ED with c/o leg edema - Patient Problems (1) Aortic stenosis Comment: For cath to eval further today. (2) Acute diastolic (congestive) heart failure Comment: will d/c Lasix prior to cath , pt is close to her baseline weight today Echo shows EF 65%, severe Elevated troponin likely due to demand ischemia (3) GI bleed Comment: on 05/03/18. Per Dr. Khan assessment, likely due to diverticular bleed vs. AVM in the setting of mildly supratherapeutic INR EGD- mild gastritis and non-bleeding Patel erosions. Pt c/o no more blood in stool since d/c on 05/05/18 Stool occult neg 05/10/18. D/w DR. Jane-pt is going to be started on Sensipar that has upper GI bleed as potential side effect, but pt has h/o blood in stool which makes UGI bleed lower on differential. At this point pt's calcium is >12 and Sensipar will be started. will monitor CBC daily (4) Type 2 diabetes mellitus Comment: - Cont Januvia, glimepride held due to hypoglycemia (5) Afib Comment: -Off Coumadin since 05/03/18 due to GI bleed, as per d/w Dr. Alexander pt was started on Eliguis 2.5 mg BID (Held 05/12/18 for possible pacer), holding ASA once on anticoagulation (6) Hypomagnesemia Comment: replaced (7) Hypercalcemia Comment: - Present in the past - PTH elevated 05/01/18-likely hyperparathyroidism , pt follows up with Dr Jane.d/w Dr. Jane. Hypercalcemia id increasing likley due to diuresis. holding HCTZ. Dr. Jane saw pt in consult re: possible Sensipar tx. will start Sensipar today. Vit D PO supplement d/c'd Thyroid US to eval for parathyroid adenoma pending (8) Bradycardia Comment: pt had been in a. fib with significant pauses past 2 nights-HR down to 20/min, asymptomatic S/p pacemaker placement on 05/13/18 by -doing well. Overnight pulse ox noted desaturations of <88% only for a minute (9) DVT prophylaxis Comment: eliquis held for cath today. Status and Disposition: inpatient
[2018-05-14] MEDS ORDERED: Midazolam* 1 MG/ML 10 ML VIAL (10 MG) ONE (14:43)
[2018-05-14] MEDS ORDERED: Heparin 2 UNITS/ML IVPREMIX* 2,000 ML IV ONE (14:43)
[2018-05-14] MEDS ORDERED: fentaNYL* 50 MCG/ML 2 ML VIAL (100 MCG VIAL) ONE (14:43)
[2018-05-14] MEDS ORDERED: VERAPAMIL 2.5 MG/ML 2 ML VIAL ** 5 mg/2 ml ONE (14:43)
[2018-05-14] MEDS ORDERED: Heparin(*) 1000 UNIT/ML 10 ML VIAL CATH LAB IV ONE (14:43)
[2018-05-14] MEDS ORDERED: nitroGLYCERIN DRIP* 25,000 MCG/250 ML BTL ONE (14:44)
[2018-05-14] MEDS ORDERED: Iohexol 350 (CONTRAST) 200 ML MDV IV ONE (14:44)
[2018-05-14] MEDS ORDERED: Lidocaine 1% INJ* 10 MG/ML 30 ML SDV ONE (14:44)
[2018-05-14] MEDS ORDERED: Iodixanol 320 (CONTRAST) 100 ML SDV ONE ×2 (14:46→16:15)
[2018-05-14] MEDS: Atorvastatin* 10 MG TAB PO SCH (21:29)
[2018-05-14] MEDS: Cinacalcet TAB* 30 MG PO SCH (21:29)
[2018-05-14] MEDS: Apixaban* 2.5 MG TAB PO SCH (21:29)
--- NOTE | 2018-05-15 00:46 | CATH ---
CC: Dr. Sudarshan Lai; Dr. Jamie Kaminski, [facility] * CARDIAC CATHETERIZATION REPORT: DATE OF PROCEDURE: 05/14/18 - ROOM #[id number] PROCEDURE: Cardiac catheterization including coronary angiography. INDICATION: Aortic stenosis, congestive heart failure. HISTORY: The patient is an 82-year-old female with a history of chronic atrial fibrillation, history of known aortic stenosis, who was admitted to the hospital with congestive heart failure. The patient also had severe bradycardia. The patient underwent a single-chamber pacemaker implantation yesterday. Cardiac catheterization was recommended in preparation for aortic valve replacement. DESCRIPTION OF PROCEDURE: The patient was brought to the procedure room in a fasting state. Informed consent had been obtained prior to the procedure. All labs had been reviewed. The patient was placed supine on the procedure table. Her right radial area was prepped and draped in the usual fashion. Lidocaine 1 % was used for local anesthesia. The radial artery was entered by a Seldinger technique and a guidewire was placed. Over the guidewire, a 6-Finnish hydrophilic sheath was placed. The patient underwent coronary angiography using a 6-Finnish TIG catheter and a 6-Finnish Sones catheter. At the end of the procedure, all sheaths and catheters were removed. The patient tolerated the procedure well with no complications. A total of 150 cc of Visipaque dye was used. A total of 12 minutes of fluoro time was used. FINDINGS: 1. Left main: The left main was very short and bifurcated into the LAD and circumflex and there is no evidence of stenosis. There was heavy calcification of the ostium of the left main artery. 2. Left anterior descending artery: The LAD was normal in size. It gave off 2 diagonal vessels. There was no evidence of stenosis. 3. Left circumflex artery: The circumflex artery was normal in size. It gave off 3 obtuse marginal branches. There was no evidence of stenosis. 4. Right coronary artery: The right coronary artery was very difficult to engage. Multiple attempts were made with multiple catheters. The optimum catheter would have been an AR1 catheter, but this could not be traversed through her severe stenosis of her innominate artery. A Sones catheter was sub- selectively engaged to the right coronary artery. There was no evidence of stenosis. There was moderate calcification of the proximal vessel. On the way out of the artery, an injection of the innominate artery showed a critical stenosis and heavy calcification of the innominate artery. IMPRESSION: 1. No critical coronary artery disease. 2. Heavy calcification of the proximal left main and proximal right coronary artery. 3. Severe stenosis of the innominate artery. RECOMMENDATIONS: The patient will continue on maximum medical therapy. The patient will be considered for aortic valve replacement, likely TAVR. [id number]/[facility] #: [id number] LEMUEL
[2018-05-15] MEDS: Clindamycin CAP* 150 MG PO SCH ×3 (05:37→21:23)
[2018-05-15 05:49] LABS: Hematocrit 30 % (35-47); Hemoglobin 10.2 g/dl (12.0-16.0); Mean Corpuscular HGB Conc 34 g/dl (31-36); Mean Corpuscular Hemoglobin 29 pg (27-31); Mean Corpuscular Volume 85 fL (80-97); Mean Platelet Volume 8.9 fL (7.4-10.4); Platelet Count 220 10^3/ul (150-450); Red Blood Count 3.52 10^6/ul (4.00-5.40); Red Cell Distribution Width 14 % (10.5-15); White Blood Count 8.8 10^3/ul (3.5-10.8)
[2018-05-15 06:09] LABS: Potassium 3.2 mmol/L (3.5-5.0)
[2018-05-15 06:11] LABS: Calcium 13.3 mg/dL (8.6-10.3)
[2018-05-15] MEDS: Oxybutynin XL TAB* 5 MG PO SCH (07:58)
[2018-05-15] MEDS: CMCS:SitaGLIPtin (NF) 100 MG TAB PO SCH (07:58)
[2018-05-15] MEDS: Cyanocobalamin TAB* 500 MCG PO SCH (07:58)
[2018-05-15] MEDS: Cinacalcet TAB* 30 MG PO SCH ×2 (07:58→21:23)
[2018-05-15] MEDS: Pantoprazole TAB * 40 MG TAB PO SCH ×2 (07:58→21:23)
[2018-05-15] MEDS: Apixaban* 2.5 MG TAB PO SCH ×2 (07:58→21:23)
[2018-05-15] MEDS: Acetaminop/Codeine 30 MG TAB* 1 TAB (300 MG/30 MG) PO PRN (08:05)
--- NOTE | 2018-05-15 08:11 | PN ---
Progress Note - Progress Note Date of Service: 05/15/18 Note: [facility] Inpatient Follow-Up Note ASSESSMENT: 82 yo F with PTH-mediated hypercalcemia, now admitted for decompensated CHF, AF s/p pacemaker this admission. Calcium continues to rise despite discontinuation of IV furosemide and initiation of cinacalcet. Her calcium is difficult to manage in the setting of heart failure and diuretic therapy. She is awaiting disposition for TAVR, as it is likely that this is a primary problem underlying HF, HTN and volume overload. She is now below her dry weight of ~165lbs and 25lbs below her admission weight -- I suspect that aggressive diuresis this admission has unmasked hyperparathyroidism that was previously compensated at home on thiazide diuretic. It is likely that hypercalcemia is causing some of the nausea/malaise symptoms. Therefore, I recommend more aggressive measures to lower this, including: - adequate hydration of at least six to eight glasses of water per day - volume expansion with IV isotonic saline + PRN Lasix to maintain the urine output at >100mL/hour - calcitonin 250 units IM once if Ca >13.3 on next check, followed by repeat measurement of serum Ca in 6-8 hours and scheduled dosing if Ca<13 - zoledronic acid 4mg IV once if Ca >14 PLAN: - PO or IV volume repletion as tolerated - continue cinacalcet 30mg BID - check Ca + albumin this afternoon - start 24h urine collection for calcium:creatinine SUBJECTIVE: Feels poorly -- queasy, nauseated, dry mouth. Legs still feel swollen. May have injured LEFT foot yesterday during cath, which adds to her situation and frustration. Inpatient Medications: Acetaminophen (Tylenol Tab*) 650 mg PO Q4H PRN PRN Reason: FEVER/PAIN Acetaminophen/Codeine Phosphate (Tylenol/Codeine 30 Mg Tab*) 1 tab PO Q6H PRN PRN Reason: PAIN Last Admin: 05/14/18 21:28 Dose: 1 tab Apixaban (Eliquis*) 2.5 mg PO BID MELLISA Last Admin: 05/14/18 21:29 Dose: 2.5 mg Atorvastatin Calcium (Lipitor*) 10 mg PO 2100 MELLISA Last Admin: 05/14/18 21:29 Dose: 10 mg Calamine (Calamine Lotion*) 1 applic TOPICAL TID PRN PRN Reason: itchy skin Cinacalcet (Sensipar Tab*) 30 mg PO BID [facility] Last Admin: 05/14/18 21:29 Dose: 30 mg Clindamycin HCl (Cleocin Cap*) 150 mg PO Q8HR MELLISA Last Admin: 05/15/18 05:37 Dose: 150 mg Cyanocobalamin (Vitamin B12 Tab*) 500 mcg PO DAILY [facility] Last Admin: 05/14/18 08:33 Dose: 500 mcg Cyclobenzaprine HCl (Flexeril Tab*) 10 mg PO BEDTIME PRN PRN Reason: SPASMS Last Admin: 05/13/18 21:39 Dose: 10 mg Oxybutynin Chloride (Ditropan Xl Tab*) 10 mg PO DAILY [facility]; Protocol Last Admin: 05/14/18 09:56 Dose: Not Given Oxycodone/Acetaminophen (Percocet 5/325 Tab*) 1 tab PO Q4H PRN PRN Reason: PAIN Last Admin: 05/13/18 21:38 Dose: 1 tab Pantoprazole Sodium (Protonix Tab *) 40 mg PO BID [facility] Last Admin: 05/14/18 21:28 Dose: 40 mg Sitagliptin Phosphate (Januvia (Nf)) 100 mg PO DAILY [facility]; Protocol Last Admin: 05/14/18 09:56 Dose: Not Given OBJECTIVE: Temp Pulse Resp BP Pulse Ox 97.5 F 73 18 154/67 94 05/15/18 07:24 05/15/18 07:24 05/15/18 07:24 05/15/18 07:24 05/15/18 07:24 General: alert, pleasant, oriented, no distress ENT: neck supple, no thyromegaly, no bruit is heard Chest: CTAB, no wheezing or crackles CV: RRR, no murmur Labs: WBC 8.8 10^3/ul (3.5-10.8) 05/15/18 05:26 RBC 3.52 10^6/ul (4.00-5.40) L 05/15/18 05:26 Hgb 10.2 g/dl (12.0-16.0) L 05/15/18 05:26 Hct 30 % (35-47) L 05/15/18 05:26 MCV 85 fL (80-97) 05/15/18 05:26 MCH 29 pg (27-31) 05/15/18 05:26 MCHC 34 g/dl (31-36) 05/15/18 05:26 RDW 14 % (10.5-15) 05/15/18 05:26 Plt Count 220 10^3/ul (150-450) 05/15/18 05:26 MPV 8.9 fL (7.4-10.4) 05/15/18 05:26 Neut % (Auto) 62.9 % 05/13/18 05:13 Lymph % (Auto) 22.8 % 05/13/18 05:13 [place] % (Auto) 9.7 % 05/13/18 05:13 Eos % (Auto) 3.5 % 05/13/18 05:13 Baso % (Auto) 1.1 % 05/13/18 05:13 Absolute Neuts (auto) 4.0 10^3/ul (1.5-7.7) 05/13/18 05:13 Absolute Lymphs (auto) 1.5 10^3/ul (1.0-4.8) 05/13/18 05:13 Absolute Monos (auto) 0.6 10^3/ul (0-0.8) 05/13/18 05:13 Absolute Eos (auto) 0.2 10^3/ul (0-0.6) 05/13/18 05:13 Absolute Basos (auto) 0.1 10^3/ul (0-0.2) 05/13/18 05:13 Absolute Nucleated RBC 0 10^3/ul 05/13/18 05:13 Nucleated RBC % 0 05/13/18 05:13 APTT 33.3 seconds (26.0-36.3) 05/08/18 18:48 Sodium 136 mmol/L (135-145) 05/15/18 05:26 Potassium 3.2 mmol/L (3.5-5.0) L 05/15/18 05:26 Chloride 100 mmol/L (101-111) L 05/15/18 05:26 Carbon Dioxide 29 mmol/L (22-32) 05/15/18 05:26 Anion Gap 7 mmol/L (2-11) 05/15/18 05:26 BUN 13 mg/dL (6-24) 05/15/18 05:26 Creatinine 0.93 mg/dL (0.51-0.95) 05/15/18 05:26 Est GFR ( Amer) 70.2 (>60) 05/15/18 05:26 Est GFR (Non-Af Amer) 58.0 (>60) 05/15/18 05:26 BUN/Creatinine Ratio 14.0 (8-20) 05/15/18 05:26 Glucose 138 mg/dL (70-100) H 05/15/18 05:26 POC Glucose (mg/dL) 128 mg/dL (70-100) H 05/14/18 08:32 Lactic Acid 1.1 mmol/L (0.5-2.0) 05/08/18 18:48 Calcium 13.3 mg/dL (8.6-10.3) H* 05/15/18 05:26 Ionized Calcium 1.74 mmol/L (1.16-1.32) H* 05/14/18 05:22 Magnesium 1.9 mg/dL (1.9-2.7) 05/13/18 05:13 Total Bilirubin 0.90 mg/dL (0.2-1.0) 05/08/18 18:48 AST 23 U/L (13-39) 05/08/18 18:48 ALT 23 U/L (7-52) 05/08/18 18:48 Alkaline Phosphatase 58 U/L (34-104) 05/08/18 18:48 CK-MB (CK-2) 6.5 ng/mL (0.6-6.3) H 05/08/18 18:48 Troponin I 0.20 ng/mL (<0.04) H* 05/09/18 02:12 C-Reactive Protein 10.97 mg/L (<8.01) H 05/08/18 18:48 B-Natriuretic Peptide 1238 pg/mL (<=100) H 05/08/18 18:48 Total Protein 6.4 g/dL (6.4-8.9) 05/08/18 18:48 Albumin 3.6 g/dL (3.2-5.2) 05/08/18 18:48 Globulin 2.8 g/dL (2-4) 05/08/18 18:48 Albumin/Globulin Ratio 1.3 (1-3) 05/08/18 18:48 25-OH Vitamin D Total 23.8 ng/mL (20-50) 05/13/18 05:08 TSH Cancelled 05/09/18 05:28 PTH Intact 23.3 pmol/L (1.3-9.3) H 05/13/18 05:08 Calcium (PTH Intact) 12.5 mg/dL (8.6-10.3) H D 05/13/18 05:08 Urine Color Yellow 05/08/18 16:05 Urine Appearance Clear 05/08/18 16:05 Urine pH 5.0 (5-9) 05/08/18 16:05 Ur Specific [place] 1.006 (1.010-1.030) L 05/08/18 16:05 Urine Protein Negative (Negative) 05/08/18 16:05 Urine Ketones Negative (Negative) 05/08/18 16:05 Urine Blood Negative (Negative) 05/08/18 16:05 Urine Nitrate Negative (Negative) 05/08/18 16:05 Urine Bilirubin Negative (Negative) 05/08/18 16:05 Urine Urobilinogen Negative (Negative) 05/08/18 16:05 Ur Leukocyte Esterase Negative (Negative) 05/08/18 16:05 Urine Glucose Negative (Negative) 05/08/18 16:05
--- NOTE | 2018-05-15 08:57 | PN ---
Subjective Date of Service: 05/15/18 Interval History: Feels "blah." Poor appetite. L hip hurts, is "bone on bone" according to pt. No SOB. Objective Active Medications: Acetaminophen (Tylenol Tab*) 650 mg PO Q4H PRN PRN Reason: FEVER/PAIN Acetaminophen/Codeine Phosphate (Tylenol/Codeine 30 Mg Tab*) 1 tab PO Q6H PRN PRN Reason: PAIN Last Admin: 05/15/18 08:05 Dose: 1 tab Apixaban (Eliquis*) 2.5 mg PO BID [facility] Last Admin: 05/15/18 07:58 Dose: 2.5 mg Atorvastatin Calcium (Lipitor*) 10 mg PO 2100 [facility] Last Admin: 05/14/18 21:29 Dose: 10 mg Calamine (Calamine Lotion*) 1 applic TOPICAL TID PRN PRN Reason: itchy skin Cinacalcet (Sensipar Tab*) 30 mg PO BID [facility] Last Admin: 05/15/18 07:58 Dose: 30 mg Clindamycin HCl (Cleocin Cap*) 150 mg PO Q8HR [facility] Last Admin: 05/15/18 05:37 Dose: 150 mg Cyanocobalamin (Vitamin B12 Tab*) 500 mcg PO DAILY [facility] Last Admin: 05/15/18 07:58 Dose: 500 mcg Cyclobenzaprine HCl (Flexeril Tab*) 10 mg PO BEDTIME PRN PRN Reason: SPASMS Last Admin: 05/13/18 21:39 Dose: 10 mg Furosemide (Lasix Iv*) 20 mg IV BID [facility] Potassium Chloride/Sodium Chloride (Ns 0.9% W/ 20 Meq Kcl 1000 Ml*) 1,000 mls @ 175 mls/hr IV PER RATE [facility] Oxybutynin Chloride (Ditropan Xl Tab*) 10 mg PO DAILY [facility]; Protocol Last Admin: 05/15/18 07:58 Dose: 10 mg Oxycodone/Acetaminophen (Percocet 5/325 Tab*) 1 tab PO Q4H PRN PRN Reason: PAIN Last Admin: 05/13/18 21:38 Dose: 1 tab Pantoprazole Sodium (Protonix Tab *) 40 mg PO BID [facility] Last Admin: 05/15/18 07:58 Dose: 40 mg Sitagliptin Phosphate (Januvia (Nf)) 100 mg PO DAILY [facility]; Protocol Last Admin: 05/15/18 07:58 Dose: 100 mg Vital Signs - 8 hr 05/15/18 05/15/18 05/15/18 03:38 07:24 08:05 Temperature 98.6 F 97.5 F Pulse Rate 81 73 Respiratory 20 18 19 Rate Blood Pressure 130/43 154/67 (mmHg) O2 Sat by Pulse 92 94 Oximetry Oxygen Devices in Use Now: None Appearance: Alert, in recliner chair with legs elevated. Looks discouraged, otherwise comfortable. Ears/Nose/Mouth/Throat: Clear Oropharnyx, Mucous Membranes Moist Neck: NL Appearance and Movements; NL JVP, No Thyroid Enlargement, Masses Respiratory: Symmetrical Chest Expansion and Respiratory Effort, Clear to Auscultation, Clear to Percussion Cardiovascular: RRR, No Edema, - Skin: No Rash or Ulcers, No Nodules or Sclerosis Neurological: Alert and Oriented x 3, NL Sensation Result Diagrams: 05/15/18 05:26 05/15/18 05:26 Additional Lab and Data: Lab Results 05/08/18 Range/Units 16:05 Urine Color Yellow Urine Appearance Clear Urine pH 5.0 (5-9) Ur Specific [place] 1.006 L (1.010-1.030) Urine Protein Negative (Negative) Urine Ketones Negative (Negative) Urine Blood Negative (Negative) Urine Nitrate Negative (Negative) Urine Bilirubin Negative (Negative) Urine Urobilinogen Negative (Negative) Ur Leukocyte Esterase Negative (Negative) Urine Glucose Negative (Negative) Microbiology and Other Data: Microbiology 05/10/18 16:00 Stool Occult Blood (THAD) - Final Stool Assess/Plan/Problems-Billing Assessment: Mrs Coughlin is an 82yo F with PMH of Afib on Warfarin till it was stopped last week due to GI bleed. 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 Dr. Nickerson recommends TAVR.. (2) Primary hyperparathyroidism Current Visit: Yes Status: Acute Code(s): E21.0 - PRIMARY HYPERPARATHYROIDISM SNOMED Code(s): 93631567 Comment: Cinacalcet started 2100 hrs 05/14. Start IV NS with KCL, IV furosemide 9 AM 05/15, repeat BM 1500 hrs. May need to increase cinacalcet dose. (3) Anemia Current Visit: Yes Status: Acute Code(s): D64.9 - ANEMIA, UNSPECIFIED SNOMED Code(s): 922411487 Comment: Ferritin level add on. Hgb 10.2 05/15/18. (4) Gastric ulcer Current Visit: No Status: Chronic Code(s): K25.9 - GASTRIC ULCER, UNSP ACUTE OR CHRONIC, W/O HEMOR OR PERF SNOMED Code(s): 879533911 Comment: Past hx. Continue PPI. (5) Bradycardia Current Visit: Yes Status: Acute Code(s): R00.1 - BRADYCARDIA, UNSPECIFIED SNOMED Code(s): 25054909 Comment: pt had been in a. fib with significant pauses past 2 nights-HR down to 20/min, asymptomatic S/p pacemaker placement on 05/13/18 by -doing well. (6) Type 2 diabetes mellitus Current Visit: No Status: Chronic Comment: - Cont Januvia, glimepride held due to hypoglycemia Status and Disposition: inpatient
[2018-05-15] MEDS: NS 0.9% w/ 20 Meq KCL 1000 ML* 1,000 ML IV SCH ×2 (08:59→15:49)
[2018-05-15] MEDS ORDERED: Furosemide IV* 10 MG/ML 2 ML VIAL (20 MG) IV SCH (09:00)
[2018-05-15 14:46] LABS: Calcitriol 15 pg/mL (18-78)
[2018-05-15 15:29] LABS: Potassium 3.3 mmol/L (3.5-5.0)
[2018-05-15 15:31] LABS: Calcium 13.7 mg/dL (8.6-10.3)
[2018-05-15] MEDS ORDERED: Zoledronic Acid* 4 MG in NS 0.9% 100 ML* 95 ML IVPB ONE (17:15)
[2018-05-15] MEDS: Furosemide IV* 10 MG/ML 2 ML VIAL (20 MG) IV SCH (17:39)
[2018-05-15] MEDS: Atorvastatin* 10 MG TAB PO SCH (21:23)
[2018-05-15] MEDS: Cyclobenzaprine TAB* 10 MG PO PRN (21:23)
[2018-05-16] MEDS: NS 0.9% w/ 20 Meq KCL 1000 ML* 1,000 ML IV SCH ×4 (00:08→22:35)
[2018-05-16 00:09] LABS: EGFR Non-African American 63.5 (>60); Potassium 3.1 mmol/L (3.5-5.0)
[2018-05-16] MEDS: Acetaminop/Codeine 30 MG TAB* 1 TAB (300 MG/30 MG) PO PRN ×2 (00:58→11:24)
[2018-05-16] MEDS: Furosemide IV* 10 MG/ML 2 ML VIAL (20 MG) IV SCH ×3 (00:59→19:51)
[2018-05-16] MEDS: Clindamycin CAP* 150 MG PO SCH ×2 (06:05→14:10)
[2018-05-16] MEDS: Cyanocobalamin TAB* 500 MCG PO SCH (07:49)
[2018-05-16] MEDS: CMCS:SitaGLIPtin (NF) 100 MG TAB PO SCH (07:49)
[2018-05-16] MEDS: Pantoprazole TAB * 40 MG TAB PO SCH ×2 (07:49→19:54)
[2018-05-16] MEDS: Cinacalcet TAB* 30 MG PO SCH ×2 (07:49→19:53)
[2018-05-16] MEDS: Oxybutynin XL TAB* 5 MG PO SCH (07:49)
[2018-05-16] MEDS: Apixaban* 2.5 MG TAB PO SCH ×2 (07:49→19:55)
[2018-05-16 09:54] LABS: Hematocrit 36 % (35-47); Hemoglobin 11.7 g/dl (12.0-16.0); Mean Corpuscular HGB Conc 33 g/dl (31-36); Mean Corpuscular Hemoglobin 28 pg (27-31); Mean Corpuscular Volume 86 fL (80-97); Mean Platelet Volume 9.3 fL (7.4-10.4); Platelet Count 233 10^3/ul (150-450); Red Blood Count 4.19 10^6/ul (4.00-5.40); Red Cell Distribution Width 15 % (10.5-15); White Blood Count 12.6 10^3/ul (3.5-10.8)
[2018-05-16 09:59] LABS: Potassium 3.1 mmol/L (3.5-5.0)
[2018-05-16 10:01] LABS: Calcium 14.8 mg/dL (8.6-10.3)
[2018-05-16] MEDS ORDERED: Cinacalcet TAB* 30 MG PO ONE (10:13)
[2018-05-16] MEDS: Calcitonin (Salmon) INJ* 200 UNITS/ML 2 ML VIAL SUBCUT ONE ×2 (11:13→11:25)
[2018-05-16] MEDS ORDERED: Zoledronic Acid* 4 MG in NS 0.9% 100 ML* 95 ML IVPB ONE (11:45)
--- NOTE | 2018-05-16 12:58 | PN ---
Progress Note - Progress Note Date of Service: 05/16/18 Note: [facility] Inpatient Follow-Up Note ASSESSMENT: 82 yo F with PTH-mediated hypercalcemia, now admitted for decompensated CHF, AF s/p pacemaker this admission. Calcium and PTH to rise despite rehydration, increased cinacalcet and initiation of IV Zometa. Her nausea and malaise symptoms are likely due to hypercalcemia, which is now at a critical level. The reasons for this drastic change are not clear, but are likely related to heart failure and its treatment. Recommend aggressive therapies below to reduce calcium <13 in next 24 hours. PLAN: - START calcitonin 300 units IM once today; if Ca goes down within 12 hours, start 300 units q12h - continue volume expansion with IVNS + Lasix to maintain urine output at >150mL /hour - continue cinacalcet 60mg BID - CONSIDER denosumab 60mg SQ once if Ca>15 today or >14.5 tomorrow after starting calcitonin - avoid glucocorticoids for now, which are only useful in vitamin D-1,25- dependent hypercalcemia SUBJECTIVE: Still feels poorly -- queasy, nauseated, dry mouth. Legs still feel swollen and LEFT foot painful. Received IV Zometa last night, along with increased dose of Sensipar OBJECTIVE: Temp Pulse Resp BP Pulse Ox 97.8 F 81 21 167/48 93 05/16/18 11:18 05/16/18 11:18 05/16/18 11:24 05/16/18 11:18 05/16/18 11:18 UOP: >3000ml/24h General: alert, restricted affect, ill-appearing Chest: CTAB, no wheezing or crackles CV: RRR, FANG present Abdomen: soft, non-tender Extremities: (+) edema, distal pulses intact, pain in L forefoot Skin: warm, dry, no rash Labs: WBC 12.6 10^3/ul (3.5-10.8) H 05/16/18 09:30 RBC 4.19 10^6/ul (4.00-5.40) 05/16/18 09:30 Hgb 11.7 g/dl (12.0-16.0) L 05/16/18 09:30 Hct 36 % (35-47) 05/16/18 09:30 MCV 86 fL (80-97) 05/16/18 09:30 MCH 28 pg (27-31) 05/16/18 09:30 MCHC 33 g/dl (31-36) 05/16/18 09:30 RDW 15 % (10.5-15) 05/16/18 09:30 Plt Count 233 10^3/ul (150-450) 05/16/18 09:30 MPV 9.3 fL (7.4-10.4) 05/16/18 09:30 Neut % (Auto) 62.9 % 05/13/18 05:13 Lymph % (Auto) 22.8 % 05/13/18 05:13 [place] % (Auto) 9.7 % 05/13/18 05:13 Eos % (Auto) 3.5 % 05/13/18 05:13 Baso % (Auto) 1.1 % 05/13/18 05:13 Absolute Neuts (auto) 4.0 10^3/ul (1.5-7.7) 05/13/18 05:13 Absolute Lymphs (auto) 1.5 10^3/ul (1.0-4.8) 05/13/18 05:13 Absolute Monos (auto) 0.6 10^3/ul (0-0.8) 05/13/18 05:13 Absolute Eos (auto) 0.2 10^3/ul (0-0.6) 05/13/18 05:13 Absolute Basos (auto) 0.1 10^3/ul (0-0.2) 05/13/18 05:13 Absolute Nucleated RBC 0 10^3/ul 05/13/18 05:13 Nucleated RBC % 0 05/13/18 05:13 APTT 33.3 seconds (26.0-36.3) 05/08/18 18:48 Sodium 139 mmol/L (135-145) 05/16/18 09:30 Potassium 3.1 mmol/L (3.5-5.0) L 05/16/18 09:30 Chloride 98 mmol/L (101-111) L 05/16/18 09:30 Carbon Dioxide 31 mmol/L (22-32) 05/16/18 09:30 Anion Gap 10 mmol/L (2-11) 05/16/18 09:30 BUN 12 mg/dL (6-24) 05/16/18 09:30 Creatinine 0.80 mg/dL (0.51-0.95) 05/16/18 09:30 Est GFR ( Amer) 83.5 (>60) 05/16/18 09:30 Est GFR (Non-Af Amer) 69.0 (>60) 05/16/18 09:30 BUN/Creatinine Ratio 15.0 (8-20) 05/16/18 09:30 Glucose 173 mg/dL (70-100) H 05/16/18 09:30 POC Glucose (mg/dL) 129 mg/dL (70-100) H 05/16/18 07:59 Lactic Acid 1.1 mmol/L (0.5-2.0) 05/08/18 18:48 Calcium 14.8 mg/dL (8.6-10.3) H* 05/16/18 09:30 Ionized Calcium 1.74 mmol/L (1.16-1.32) H* 05/14/18 05:22 Magnesium 1.9 mg/dL (1.9-2.7) 05/13/18 05:13 Ferritin 28.0 ng/mL (11-307) 05/15/18 05:26 Total Bilirubin 0.90 mg/dL (0.2-1.0) 05/08/18 18:48 AST 23 U/L (13-39) 05/08/18 18:48 ALT 23 U/L (7-52) 05/08/18 18:48 Alkaline Phosphatase 58 U/L (34-104) 05/08/18 18:48 CK-MB (CK-2) 6.5 ng/mL (0.6-6.3) H 05/08/18 18:48 Troponin I 0.20 ng/mL (<0.04) H* 05/09/18 02:12 C-Reactive Protein 10.97 mg/L (<8.01) H 05/08/18 18:48 B-Natriuretic Peptide 1238 pg/mL (<=100) H 05/08/18 18:48 Total Protein 6.4 g/dL (6.4-8.9) 05/08/18 18:48 Albumin 3.6 g/dL (3.2-5.2) 05/08/18 18:48 Globulin 2.8 g/dL (2-4) 05/08/18 18:48 Albumin/Globulin Ratio 1.3 (1-3) 05/08/18 18:48 25-OH Vitamin D Total 23.8 ng/mL (20-50) 05/13/18 05:08 Vit D 1,25-Dihydroxy 15 pg/mL (18-78) L 05/13/18 05:30 TSH Cancelled 05/09/18 05:28 PTH Intact 58.8 pmol/L (1.3-9.3) H 05/16/18 09:30 Calcium (PTH Intact) 14.8 mg/dL (8.6-10.3) H* D 05/16/18 09:30 Urine Color Yellow 05/08/18 16:05 Urine Appearance Clear 05/08/18 16:05 Urine pH 5.0 (5-9) 05/08/18 16:05 Ur Specific [place] 1.006 (1.010-1.030) L 05/08/18 16:05 Urine Protein Negative (Negative) 05/08/18 16:05 Urine Ketones Negative (Negative) 05/08/18 16:05 Urine Blood Negative (Negative) 05/08/18 16:05 Urine Nitrate Negative (Negative) 05/08/18 16:05 Urine Bilirubin Negative (Negative) 05/08/18 16:05 Urine Urobilinogen Negative (Negative) 05/08/18 16:05 Ur Leukocyte Esterase Negative (Negative) 05/08/18 16:05 Urine Glucose Negative (Negative) 05/08/18 16:05
[2018-05-16 16:08] LABS: BUN/Creatinine Ratio 15.2 (8-20); Potassium 2.9 mmol/L (3.5-5.0)
[2018-05-16 16:10] LABS: Calcium 13.3 mg/dL (8.6-10.3)
[2018-05-16] MEDS: Potassium Chlor TAB* 20 MEQ TAB.ER PO SCH ×3 (17:08→19:54)
[2018-05-16] MEDS: oxyCODONE/Acetamin 5/325 MG* TAB PO PRN (17:08)
--- NOTE | 2018-05-16 19:48 | PN ---
Hospitalist Progress Note Date of Service: 05/16/18 HOSPITALIST ADDENDUM Chest xray shows right PICC is appropriately placed - can use it.
[2018-05-16] MEDS: Atorvastatin* 10 MG TAB PO SCH (19:55)
[2018-05-17] MEDS: Furosemide IV* 10 MG/ML 2 ML VIAL (20 MG) IV SCH ×2 (02:59→09:43)
[2018-05-17] MEDS: NS 0.9% w/ 20 Meq KCL 1000 ML* 1,000 ML IV SCH ×2 (04:47→11:38)
[2018-05-17 04:58] LABS: Hematocrit 33 % (35-47); Hemoglobin 10.9 g/dl (12.0-16.0); Mean Corpuscular HGB Conc 33 g/dl (31-36); Mean Corpuscular Hemoglobin 28 pg (27-31); Mean Corpuscular Volume 85 fL (80-97); Mean Platelet Volume 9.1 fL (7.4-10.4); Platelet Count 231 10^3/ul (150-450); Red Blood Count 3.87 10^6/ul (4.00-5.40); Red Cell Distribution Width 15 % (10.5-15); White Blood Count 8.9 10^3/ul (3.5-10.8)
[2018-05-17 05:13] LABS: BUN/Creatinine Ratio 16.3 (8-20); Calcium 12.6 mg/dL (8.6-10.3); Potassium 3.2 mmol/L (3.5-5.0)
[2018-05-17] MEDS: Potassium Chlor TAB* 20 MEQ TAB.ER PO SCH ×3 (09:43→20:36)
[2018-05-17] MEDS: Cyanocobalamin TAB* 500 MCG PO SCH (09:44)
[2018-05-17] MEDS: Cinacalcet TAB* 30 MG PO SCH ×2 (09:44→20:36)
[2018-05-17] MEDS: Acetaminop/Codeine 30 MG TAB* 1 TAB (300 MG/30 MG) PO PRN (09:45)
[2018-05-17] MEDS: Apixaban* 2.5 MG TAB PO SCH ×2 (09:45→20:36)
[2018-05-17] MEDS: CMCS:SitaGLIPtin (NF) 100 MG TAB PO SCH (09:46)
[2018-05-17] MEDS: Oxybutynin XL TAB* 5 MG PO SCH (09:46)
[2018-05-17] MEDS: Pantoprazole TAB * 40 MG TAB PO SCH ×2 (10:03→20:36)
--- NOTE | 2018-05-17 11:37 | PN ---
Subjective Date of Service: 05/17/18 Interval History: Poor appetite. No pain. Objective Active Medications: Acetaminophen (Tylenol Tab*) 650 mg PO Q4H PRN PRN Reason: FEVER/PAIN Acetaminophen/Codeine Phosphate (Tylenol/Codeine 30 Mg Tab*) 1 tab PO Q6H PRN PRN Reason: PAIN Last Admin: 05/17/18 09:45 Dose: 1 tab Apixaban (Eliquis*) 2.5 mg PO BID [facility] Last Admin: 05/17/18 09:45 Dose: 2.5 mg Atorvastatin Calcium (Lipitor*) 10 mg PO 2100 [facility] Last Admin: 05/16/18 19:55 Dose: 10 mg Calamine (Calamine Lotion*) 1 applic TOPICAL TID PRN PRN Reason: itchy skin Calcitonin [place] (Miacalcin Inj*) 300 units SUBCUT Q12H [facility] Cinacalcet (Sensipar Tab*) 90 mg PO BID [facility] Last Admin: 05/17/18 09:44 Dose: 90 mg Cyanocobalamin (Vitamin B12 Tab*) 500 mcg PO DAILY [facility] Last Admin: 05/17/18 09:44 Dose: 500 mcg Cyclobenzaprine HCl (Flexeril Tab*) 10 mg PO BEDTIME PRN PRN Reason: SPASMS Last Admin: 05/15/18 21:23 Dose: 10 mg Furosemide (Lasix Iv*) 20 mg IV Q8H [facility] Last Admin: 05/17/18 09:43 Dose: 20 mg Heparin Sodium (Porcine) (Heparin Flush Picc/Ml/Cvc(*)) 1 - 3 ml FLUSH 0600, 1800 [facility]; Protocol Last Admin: 05/17/18 04:43 Dose: 1 ml Potassium Chloride/Sodium Chloride (Ns 0.9% W/ 20 Meq Kcl 1000 Ml*) 1,000 mls @ 75 mls/hr IV PER RATE [facility] Stop: 05/18/18 10:00 Oxybutynin Chloride (Ditropan Xl Tab*) 10 mg PO DAILY [facility]; Protocol Last Admin: 05/17/18 09:46 Dose: 10 mg Oxycodone/Acetaminophen (Percocet 5/325 Tab*) 1 tab PO Q4H PRN PRN Reason: PAIN Last Admin: 05/16/18 17:08 Dose: 1 tab Pantoprazole Sodium (Protonix Tab *) 40 mg PO BID [facility] Last Admin: 05/17/18 10:03 Dose: 40 mg Potassium Chloride (Klor Con Er Tab*) 20 meq PO TID [facility] Last Admin: 05/17/18 09:43 Dose: 20 meq Sitagliptin Phosphate (Januvia (Nf)) 100 mg PO DAILY [facility]; Protocol Last Admin: 05/17/18 09:46 Dose: 100 mg Vital Signs - 8 hr 05/17/18 05/17/18 05/17/18 07:00 07:13 07:35 Temperature 98.0 F Pulse Rate 87 Respiratory 16 16 Rate Blood Pressure 154/52 (mmHg) O2 Sat by Pulse 95 95 Oximetry 05/17/18 05/17/18 09:45 11:00 Temperature Pulse Rate Respiratory 18 Rate Blood Pressure (mmHg) O2 Sat by Pulse 95 Oximetry Oxygen Devices in Use Now: None Appearance: Lethargic, in recliner chair. Looks comfortable. Eyes: No Scleral Icterus Cardiovascular: RRR, - - 3-4/6 systolic murmur across precordium Extremities: - - Tr edema BL Skin: No Rash or Ulcers, No Nodules or Sclerosis, - Neurological: Alert and Oriented x 3, NL Sensation Result Diagrams: 05/17/18 04:49 05/17/18 04:49 Additional Lab and Data: Lab Results 05/08/18 Range/Units 16:05 Urine Color Yellow Urine Appearance Clear Urine pH 5.0 (5-9) Ur Specific [place] 1.006 L (1.010-1.030) Urine Protein Negative (Negative) Urine Ketones Negative (Negative) Urine Blood Negative (Negative) Urine Nitrate Negative (Negative) Urine Bilirubin Negative (Negative) Urine Urobilinogen Negative (Negative) Ur Leukocyte Esterase Negative (Negative) Urine Glucose Negative (Negative) Microbiology and Other Data: Microbiology 05/10/18 16:00 Stool Occult Blood (THAD) - Final Stool Assess/Plan/Problems-Billing Assessment: Mrs Coughlin is an 82yo F with PMH of Afib on Warfarin till it was stopped last week due to GI bleed. 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 Dr. Nickerson recommends TAVR. Patient has appt to see Dr. Nickerson 05/21/18 1:45 PM in the MOB to discuss possible TAVR. The local sister can accompany her. (2) Primary hyperparathyroidism Current Visit: Yes Status: Acute Code(s): E21.0 - PRIMARY HYPERPARATHYROIDISM SNOMED Code(s): 34180718 Comment: Continue cinacalcet 90 mg bid. Received 1 dose calcitonin 05/16, start q12 hr AM 05/17. Reduce JSS to 75 ml/hr, furosemide to 20 mg IV once daily. Stop IV fluids 05/18 if calcium continues to decline. Continue po and IV KCL for now. May need IV zoledronic acid every few weeks if cinacalcet and calcitonin not enough. (3) Anemia Current Visit: Yes Status: Acute Code(s): D64.9 - ANEMIA, UNSPECIFIED SNOMED Code(s): 926665168 Comment: Ferritin level add on. Hgb 10.2 05/15/18. (4) Gastric ulcer Current Visit: No Status: Chronic Code(s): K25.9 - GASTRIC ULCER, UNSP ACUTE OR CHRONIC, W/O HEMOR OR PERF SNOMED Code(s): 056032948 Comment: Past hx. Continue PPI. (5) Bradycardia Current Visit: Yes Status: Acute Code(s): R00.1 - BRADYCARDIA, UNSPECIFIED SNOMED Code(s): 34397930 Comment: pt had been in a. fib with significant pauses past 2 nights-HR down to 20/min, asymptomatic S/p pacemaker placement on 05/13/18 by -doing well. (6) Type 2 diabetes mellitus Current Visit: No Status: Chronic Comment: - Cont Januvia, glimepride held due to hypoglycemia Status and Disposition: inpatient
--- NOTE | 2018-05-17 11:51 | PN ---
Subjective Date of Service: 05/16/18 Interval History: Note for 05/16/2018: Ptient offers no c/o. Appetite poor. No pain, SOB. Objective Active Medications: Acetaminophen (Tylenol Tab*) 650 mg PO Q4H PRN PRN Reason: FEVER/PAIN Acetaminophen/Codeine Phosphate (Tylenol/Codeine 30 Mg Tab*) 1 tab PO Q6H PRN PRN Reason: PAIN Last Admin: 05/17/18 09:45 Dose: 1 tab Apixaban (Eliquis*) 2.5 mg PO BID [facility] Last Admin: 05/17/18 09:45 Dose: 2.5 mg Atorvastatin Calcium (Lipitor*) 10 mg PO 2100 [facility] Last Admin: 05/16/18 19:55 Dose: 10 mg Calamine (Calamine Lotion*) 1 applic TOPICAL TID PRN PRN Reason: itchy skin Calcitonin [place] (Miacalcin Inj*) 300 units SUBCUT Q12H [facility] Cinacalcet (Sensipar Tab*) 90 mg PO BID [facility] Last Admin: 05/17/18 09:44 Dose: 90 mg Cyanocobalamin (Vitamin B12 Tab*) 500 mcg PO DAILY [facility] Last Admin: 05/17/18 09:44 Dose: 500 mcg Cyclobenzaprine HCl (Flexeril Tab*) 10 mg PO BEDTIME PRN PRN Reason: SPASMS Last Admin: 05/15/18 21:23 Dose: 10 mg Furosemide (Lasix Iv*) 20 mg IV DAILY [facility] Heparin Sodium (Porcine) (Heparin Flush Picc/Ml/Cvc(*)) 1 - 3 ml FLUSH 0600, 1800 [facility]; Protocol Last Admin: 05/17/18 04:43 Dose: 1 ml Potassium Chloride/Sodium Chloride (Ns 0.9% W/ 20 Meq Kcl 1000 Ml*) 1,000 mls @ 75 mls/hr IV PER RATE [facility] Stop: 05/18/18 10:00 Last Admin: 05/17/18 11:38 Dose: 75 mls/hr Oxybutynin Chloride (Ditropan Xl Tab*) 10 mg PO DAILY [facility]; Protocol Last Admin: 05/17/18 09:46 Dose: 10 mg Oxycodone/Acetaminophen (Percocet 5/325 Tab*) 1 tab PO Q4H PRN PRN Reason: PAIN Last Admin: 05/16/18 17:08 Dose: 1 tab Pantoprazole Sodium (Protonix Tab *) 40 mg PO BID [facility] Last Admin: 05/17/18 10:03 Dose: 40 mg Potassium Chloride (Klor Con Er Tab*) 20 meq PO TID [facility] Last Admin: 05/17/18 09:43 Dose: 20 meq Sitagliptin Phosphate (Januvia (Nf)) 100 mg PO DAILY [facility]; Protocol Last Admin: 05/17/18 09:46 Dose: 100 mg Vital Signs - 8 hr 05/17/18 05/17/18 05/17/18 07:00 07:13 07:35 Temperature 98.0 F Pulse Rate 87 Respiratory 16 16 Rate Blood Pressure 154/52 (mmHg) O2 Sat by Pulse 95 95 Oximetry 05/17/18 05/17/18 09:45 11:00 Temperature Pulse Rate Respiratory 18 Rate Blood Pressure (mmHg) O2 Sat by Pulse 95 Oximetry Oxygen Devices in Use Now: None Appearance: In recliner chair, lethargic bur responds appropriately. Looks comfortable. Eyes: No Scleral Icterus Respiratory: Symmetrical Chest Expansion and Respiratory Effort, Clear to Auscultation, Clear to Percussion Cardiovascular: RRR, - Result Diagrams: 05/17/18 04:49 05/17/18 04:49 Additional Lab and Data: Lab Results 05/08/18 Range/Units 16:05 Urine Color Yellow Urine Appearance Clear Urine pH 5.0 (5-9) Ur Specific [place] 1.006 L (1.010-1.030) Urine Protein Negative (Negative) Urine Ketones Negative (Negative) Urine Blood Negative (Negative) Urine Nitrate Negative (Negative) Urine Bilirubin Negative (Negative) Urine Urobilinogen Negative (Negative) Ur Leukocyte Esterase Negative (Negative) Urine Glucose Negative (Negative) Microbiology and Other Data: Microbiology 05/10/18 16:00 Stool Occult Blood (THAD) - Final Stool Assess/Plan/Problems-Billing Assessment: Mrs Coughlin is an 82yo F with PMH of Afib on Warfarin till it was stopped last week due to GI bleed. H/o GI bleed in 2014 (gastric ulcer on EGD, diverticulosis on colonoscopy, jejunal bleeding on capsule endoscopy with enteroscopy with removal of jejunal polyp), HTN, type 2 DM, chronic pain, who presented to ED with c/o leg edema - Patient Problems (1) Aortic stenosis Current Visit: Yes Status: Acute Code(s): I35.0 - NONRHEUMATIC AORTIC (VALVE ) STENOSIS SNOMED Code(s): 49427976 Comment: Cath showed high grade stenosis of inominate artery which is heavily calcified. Dr. Nickerson recommends TAVR. Patient has appt to see Dr. Nickerson 05/21/18 1:45 PM in the MOB to discuss possible TAVR. The local sister can accompany her. (2) Primary hyperparathyroidism Current Visit: Yes Status: Acute Code(s): E21.0 - PRIMARY HYPERPARATHYROIDISM SNOMED Code(s): 06115363 Comment: Continue cinacalcet 90 mg bid. Received 1 dose calcitonin 05/16, start q12 hr AM 05/17. Reduce JSS to 75 ml/hr, furosemide to 20 mg IV once daily. Stop IV fluids 05/18 if calcium continues to decline. Continue po and IV KCL for now. May need IV zoledronic acid every few weeks if cinacalcet and calcitonin not enough. (3) Anemia Current Visit: Yes Status: Acute Code(s): D64.9 - ANEMIA, UNSPECIFIED SNOMED Code(s): 448794753 Comment: Ferritin level add on. Hgb 10.2 05/15/18. (4) Gastric ulcer Current Visit: No Status: Chronic Code(s): K25.9 - GASTRIC ULCER, UNSP ACUTE OR CHRONIC, W/O HEMOR OR PERF SNOMED Code(s): 968445512 Comment: Past hx. Continue PPI. (5) Bradycardia Current Visit: Yes Status: Acute Code(s): R00.1 - BRADYCARDIA, UNSPECIFIED SNOMED Code(s): 16206811 Comment: pt had been in a. fib with significant pauses past 2 nights-HR down to 20/min, asymptomatic S/p pacemaker placement on 05/13/18 by -doing well. (6) Type 2 diabetes mellitus Current Visit: No Status: Chronic Comment: - Cont Januvia, glimepride held due to hypoglycemia Status and Disposition: inpatient
[2018-05-17] MEDS: Calcitonin (Salmon) INJ* 200 UNITS/ML 2 ML VIAL SUBCUT SCH (12:16)
--- NOTE | 2018-05-17 16:38 | PN ---
Progress Note - Progress Note Date of Service: 05/17/18 Note: [facility] Inpatient Follow-Up Note ASSESSMENT: 82 yo F with PTH-mediated hypercalcemia, now admitted for decompensated CHF, AF s/p pacemaker this admission. Serum calcium is improving with, high-dose Sensipar, caltinonin, IVF+diuretic and and Zometa given this admission. Her nausea and mental status are improving, although she remains weak and tired. PLAN: - d/c calcium carbonate PRN - continue calcitonin 300 units q12h IM until 05/19/18, then STOP - continue volume expansion with IVNS + Lasix to maintain urine output at >100mL /hour - start PO water 6-8 glasses/day when patient tolerating PO intake - continue cinacalcet 90mg BID - if Ca<11.5 on 05/19/18, reduce cincalcet to 30mg BID - call with questions -- [phone] SUBJECTIVE: Improved mental alertness today, according to family. Appetite still poor with moderate nausea, no vomiting. PICC placed yesterday. Good I/O with NS fluid replacement. INPATIENT MEDS: Acetaminophen (Tylenol Tab*) 650 mg PO Q4H PRN PRN Reason: FEVER/PAIN Last Admin: 05/17/18 12:30 Dose: 650 mg Acetaminophen/Codeine Phosphate (Tylenol/Codeine 30 Mg Tab*) 1 tab PO Q6H PRN PRN Reason: PAIN Last Admin: 05/17/18 09:45 Dose: 1 tab Apixaban (Eliquis*) 2.5 mg PO BID [facility] Last Admin: 05/17/18 09:45 Dose: 2.5 mg Atorvastatin Calcium (Lipitor*) 10 mg PO 2100 [facility] Last Admin: 05/16/18 19:55 Dose: 10 mg Calamine (Calamine Lotion*) 1 applic TOPICAL TID PRN PRN Reason: itchy skin Calcitonin [place] (Miacalcin Inj*) 300 units SUBCUT Q12H [facility] Last Admin: 05/17/18 12:16 Dose: 300 units Calcium Carbonate (Tums*) 500 mg PO Q4H PRN PRN Reason: DYSPEPSIA Cinacalcet (Sensipar Tab*) 90 mg PO BID [facility] Last Admin: 05/17/18 09:44 Dose: 90 mg Cyanocobalamin (Vitamin B12 Tab*) 500 mcg PO DAILY [facility] Last Admin: 05/17/18 09:44 Dose: 500 mcg Cyclobenzaprine HCl (Flexeril Tab*) 10 mg PO BEDTIME PRN PRN Reason: SPASMS Last Admin: 05/15/18 21:23 Dose: 10 mg Furosemide (Lasix Iv*) 20 mg IV DAILY [facility] Heparin Sodium (Porcine) (Heparin Flush Picc/Ml/Cvc(*)) 1 - 3 ml FLUSH 0600, 1800 [facility]; Protocol Last Admin: 05/17/18 04:43 Dose: 1 ml Potassium Chloride/Sodium Chloride (Ns 0.9% W/ 20 Meq Kcl 1000 Ml*) 1,000 mls @ 75 mls/hr IV PER RATE [facility] Stop: 05/18/18 10:00 Last Admin: 05/17/18 11:38 Dose: 75 mls/hr Oxybutynin Chloride (Ditropan Xl Tab*) 10 mg PO DAILY [facility]; Protocol Last Admin: 05/17/18 09:46 Dose: 10 mg Oxycodone/Acetaminophen (Percocet 5/325 Tab*) 1 tab PO Q4H PRN PRN Reason: PAIN Last Admin: 05/16/18 17:08 Dose: 1 tab Pantoprazole Sodium (Protonix Tab *) 40 mg PO BID [facility] Last Admin: 05/17/18 10:03 Dose: 40 mg Potassium Chloride (Klor Con Er Tab*) 20 meq PO TID [facility] Last Admin: 05/17/18 14:32 Dose: 20 meq Sitagliptin Phosphate (Januvia (Nf)) 100 mg PO DAILY [facility]; Protocol Last Admin: 05/17/18 09:46 Dose: 100 mg OBJECTIVE: Temp Pulse Resp BP Pulse Ox 98.0 F 69 16 110/37 97 05/17/18 11:35 05/17/18 11:35 05/17/18 12:17 05/17/18 11:35 05/17/18 11:35 UOP: >4000ml/24h General: sleepy, restricted affect Chest: CTAB, no wheezing or crackles CV: RRR, FANG present Abdomen: soft, non-tender Extremities: (+) edema, distal pulses intact, pain in L forefoot Skin: warm, dry, no rash WBC 8.9 10^3/ul (3.5-10.8) 05/17/18 04:49 RBC 3.87 10^6/ul (4.00-5.40) L 05/17/18 04:49 Hgb 10.9 g/dl (12.0-16.0) L 05/17/18 04:49 Hct 33 % (35-47) L 05/17/18 04:49 MCV 85 fL (80-97) 05/17/18 04:49 MCH 28 pg (27-31) 05/17/18 04:49 MCHC 33 g/dl (31-36) 05/17/18 04:49 RDW 15 % (10.5-15) 05/17/18 04:49 Plt Count 231 10^3/ul (150-450) 05/17/18 04:49 MPV 9.1 fL (7.4-10.4) 05/17/18 04:49 Neut % (Auto) 62.9 % 05/13/18 05:13 Lymph % (Auto) 22.8 % 05/13/18 05:13 [place] % (Auto) 9.7 % 05/13/18 05:13 Eos % (Auto) 3.5 % 05/13/18 05:13 Baso % (Auto) 1.1 % 05/13/18 05:13 Absolute Neuts (auto) 4.0 10^3/ul (1.5-7.7) 05/13/18 05:13 Absolute Lymphs (auto) 1.5 10^3/ul (1.0-4.8) 05/13/18 05:13 Absolute Monos (auto) 0.6 10^3/ul (0-0.8) 05/13/18 05:13 Absolute Eos (auto) 0.2 10^3/ul (0-0.6) 05/13/18 05:13 Absolute Basos (auto) 0.1 10^3/ul (0-0.2) 05/13/18 05:13 Absolute Nucleated RBC 0 10^3/ul 05/13/18 05:13 Nucleated RBC % 0 05/13/18 05:13 APTT 33.3 seconds (26.0-36.3) 05/08/18 18:48 Sodium 136 mmol/L (135-145) 05/17/18 04:49 Potassium 3.2 mmol/L (3.5-5.0) L 05/17/18 04:49 Chloride 99 mmol/L (101-111) L 05/17/18 04:49 Carbon Dioxide 30 mmol/L (22-32) 05/17/18 04:49 Anion Gap 7 mmol/L (2-11) 05/17/18 04:49 BUN 13 mg/dL (6-24) 05/17/18 04:49 Creatinine 0.80 mg/dL (0.51-0.95) 05/17/18 04:49 Est GFR ( Amer) 83.5 (>60) 05/17/18 04:49 Est GFR (Non-Af Amer) 69.0 (>60) 05/17/18 04:49 BUN/Creatinine Ratio 16.3 (8-20) 05/17/18 04:49 Glucose 182 mg/dL (70-100) H 05/17/18 04:49 POC Glucose (mg/dL) 129 mg/dL (70-100) H 05/16/18 07:59 Lactic Acid 1.1 mmol/L (0.5-2.0) 05/08/18 18:48 Calcium 12.6 mg/dL (8.6-10.3) H 05/17/18 04:49 Ionized Calcium 1.74 mmol/L (1.16-1.32) H* 05/14/18 05:22 Magnesium 1.9 mg/dL (1.9-2.7) 05/13/18 05:13 Ferritin 28.0 ng/mL (11-307) 05/15/18 05:26 Total Bilirubin 0.90 mg/dL (0.2-1.0) 05/08/18 18:48 AST 23 U/L (13-39) 05/08/18 18:48 ALT 23 U/L (7-52) 05/08/18 18:48 Alkaline Phosphatase 58 U/L (34-104) 05/08/18 18:48 CK-MB (CK-2) 6.5 ng/mL (0.6-6.3) H 05/08/18 18:48 Troponin I 0.20 ng/mL (<0.04) H* 05/09/18 02:12 C-Reactive Protein 10.97 mg/L (<8.01) H 05/08/18 18:48 B-Natriuretic Peptide 1238 pg/mL (<=100) H 05/08/18 18:48 Total Protein 6.4 g/dL (6.4-8.9) 05/08/18 18:48 Albumin 3.6 g/dL (3.2-5.2) 05/08/18 18:48 Globulin 2.8 g/dL (2-4) 05/08/18 18:48 Albumin/Globulin Ratio 1.3 (1-3) 05/08/18 18:48 25-OH Vitamin D Total 23.8 ng/mL (20-50) 05/13/18 05:08 Vit D 1,25-Dihydroxy 15 pg/mL (18-78) L 05/13/18 05:30 TSH Cancelled 05/09/18 05:28 PTH Intact 58.8 pmol/L (1.3-9.3) H 05/16/18 09:30 Calcium (PTH Intact) 14.8 mg/dL (8.6-10.3) H* D 05/16/18 09:30 Urine Color Yellow 05/08/18 16:05 Urine Appearance Clear 05/08/18 16:05 Urine pH 5.0 (5-9) 05/08/18 16:05 Ur Specific [place] 1.006 (1.010-1.030) L 05/08/18 16:05 Urine Protein Negative (Negative) 05/08/18 16:05 Urine Ketones Negative (Negative) 05/08/18 16:05 Urine Blood Negative (Negative) 05/08/18 16:05 Urine Nitrate Negative (Negative) 05/08/18 16:05 Urine Bilirubin Negative (Negative) 05/08/18 16:05 Urine Urobilinogen Negative (Negative) 05/08/18 16:05 Ur Leukocyte Esterase Negative (Negative) 05/08/18 16:05 Urine Glucose Negative (Negative) 05/08/18 16:05
[2018-05-17] MEDS ORDERED: Ondansetron ODT TAB* 4 MG ONE (17:05)
[2018-05-17] MEDS: Ondansetron ODT TAB* 4 MG SL PRN (17:06)
[2018-05-17] MEDS: Atorvastatin* 10 MG TAB PO SCH (20:35)
[2018-05-18] MEDS: Calcium Carbonate CHEW TAB* 500 MG (TUMS) PO PRN (00:49)
[2018-05-18] MEDS: NS 0.9% w/ 20 Meq KCL 1000 ML* 1,000 ML IV SCH (00:49)
[2018-05-18] MEDS: Calcitonin (Salmon) INJ* 200 UNITS/ML 2 ML VIAL SUBCUT SCH ×3 (00:49→23:51)
[2018-05-18 05:03] LABS: BUN/Creatinine Ratio 18.8 (8-20); Calcium 10.7 mg/dL (8.6-10.3); Potassium 3.9 mmol/L (3.5-5.0)
[2018-05-18] MEDS: Potassium Chlor TAB* 20 MEQ TAB.ER PO SCH ×3 (09:18→20:46)
[2018-05-18] MEDS: Apixaban* 2.5 MG TAB PO SCH ×2 (09:18→20:47)
[2018-05-18] MEDS: Cyanocobalamin TAB* 500 MCG PO SCH (09:19)
[2018-05-18] MEDS: Pantoprazole TAB * 40 MG TAB PO SCH ×2 (09:19→20:46)
[2018-05-18] MEDS: Cinacalcet TAB* 30 MG PO SCH ×2 (09:19→20:47)
[2018-05-18] MEDS: CMCS:SitaGLIPtin (NF) 100 MG TAB PO SCH (09:20)
[2018-05-18] MEDS: Furosemide IV* 10 MG/ML 2 ML VIAL (20 MG) IV SCH (09:20)
[2018-05-18] MEDS: Oxybutynin XL TAB* 5 MG PO SCH (09:20)
[2018-05-18] MEDS: oxyCODONE/Acetamin 5/325 MG* TAB PO PRN (10:06)
[2018-05-18] MEDS: Ondansetron ODT TAB* 4 MG SL PRN (10:06)
[2018-05-18] MEDS: Acetaminop/Codeine 30 MG TAB* 1 TAB (300 MG/30 MG) PO PRN ×2 (12:06→20:47)
--- NOTE | 2018-05-18 15:49 | PN ---
Subjective Date of Service: 05/18/18 Interval History: Patient feels weak all over. Can walk to bathroom. No nausea now, has dysguisia. Had some nausea earlier today, no vomiting. No ash rectal bleeding. Family History: Unchanged from Admission Social History: Unchanged from Admission Past Medical History: Unchanged from Admission Objective Active Medications: Acetaminophen (Tylenol Tab*) 650 mg PO Q4H PRN PRN Reason: FEVER/PAIN Last Admin: 05/17/18 12:30 Dose: 650 mg Acetaminophen/Codeine Phosphate (Tylenol/Codeine 30 Mg Tab*) 1 tab PO Q6H PRN PRN Reason: PAIN Last Admin: 05/18/18 12:06 Dose: 1 tab Apixaban (Eliquis*) 2.5 mg PO BID [facility] Last Admin: 05/18/18 09:18 Dose: 2.5 mg Atorvastatin Calcium (Lipitor*) 10 mg PO 2100 [facility] Last Admin: 05/17/18 20:35 Dose: 10 mg Calamine (Calamine Lotion*) 1 applic TOPICAL TID PRN PRN Reason: itchy skin Calcitonin [place] (Miacalcin Inj*) 300 units SUBCUT Q12H [facility] Last Admin: 05/18/18 09:20 Dose: 300 units Calcium Carbonate (Tums*) 500 mg PO Q4H PRN PRN Reason: DYSPEPSIA Last Admin: 05/18/18 00:49 Dose: 500 mg Cinacalcet (Sensipar Tab*) 90 mg PO BID [facility] Last Admin: 05/18/18 09:19 Dose: 90 mg Cyanocobalamin (Vitamin B12 Tab*) 500 mcg PO DAILY [facility] Last Admin: 05/18/18 09:19 Dose: 500 mcg Cyclobenzaprine HCl (Flexeril Tab*) 10 mg PO BEDTIME PRN PRN Reason: SPASMS Last Admin: 05/15/18 21:23 Dose: 10 mg Furosemide (Lasix Iv*) 20 mg IV DAILY [facility] Last Admin: 05/18/18 09:20 Dose: 20 mg Heparin Sodium (Porcine) (Heparin Flush Picc/Ml/Cvc(*)) 1 - 3 ml FLUSH 0600, 1800 [facility]; Protocol Last Admin: 05/18/18 04:38 Dose: 1 ml Ondansetron HCl (Zofran Odt Tab*) 4 mg SL Q6H PRN PRN Reason: NAUSEA/VOMITING Last Admin: 05/18/18 10:06 Dose: 4 mg Oxybutynin Chloride (Ditropan Xl Tab*) 10 mg PO DAILY [facility]; Protocol Last Admin: 05/18/18 09:20 Dose: 10 mg Oxycodone/Acetaminophen (Percocet 5/325 Tab*) 1 tab PO Q4H PRN PRN Reason: PAIN Last Admin: 05/18/18 10:06 Dose: 1 tab Pantoprazole Sodium (Protonix Tab *) 40 mg PO BID [facility] Last Admin: 05/18/18 09:19 Dose: 40 mg Potassium Chloride (Klor Con Er Tab*) 20 meq PO TID [facility] Last Admin: 05/18/18 13:34 Dose: 20 meq Sitagliptin Phosphate (Januvia (Nf)) 100 mg PO DAILY [facility]; Protocol Last Admin: 05/18/18 09:20 Dose: 100 mg Vital Signs - 8 hr 05/18/18 05/18/18 05/18/18 07:52 10:06 12:06 Temperature 36.1 C Pulse Rate 86 Respiratory 18 16 20 Rate Blood Pressure 153/43 (mmHg) O2 Sat by Pulse 96 Oximetry Oxygen Devices in Use Now: None Appearance: alert, no distress Eyes: No Scleral Icterus Ears/Nose/Mouth/Throat: Clear Oropharnyx Neck: NL Appearance and Movements; NL JVP Respiratory: Symmetrical Chest Expansion and Respiratory Effort, Clear to Auscultation Cardiovascular: RRR, - - 3/6 systolic murmur, regular Abdominal: NL Sounds; No Tenderness; No Distention Extremities: No Edema Skin: No Rash or Ulcers Neurological: Alert and Oriented x 3 Lines/Tubes/Other Access: Clean, Dry and Intact Peripheral IV Nutrition: Taking PO's Result Diagrams: 05/17/18 04:49 05/18/18 04:35 Additional Lab and Data: Laboratory Tests 05/16/18 05/16/18 05/16/18 09:30 09:30 15:41 Calcium 14.8 H* 13.3 H* PTH Intact 58.8 H Calcium (PTH Intact) 14.8 H* D 05/17/18 05/18/18 04:49 04:35 Calcium 12.6 H 10.7 H PTH Intact Calcium (PTH Intact) Microbiology and Other Data: Microbiology Assess/Plan/Problems-Billing Assessment: Mrs Coughlin is an 82yo F recently on warfarin, stopped due to GI bleed, post 2 transfusion PRBC on admission 04/29/18-05/05/18, now here with severe hypercalcemia, hyperparathyroid, and bradycardia requiring pacer. - Patient Problems (1) Primary hyperparathyroidism Current Visit: Yes Status: Acute Priority: High Code(s): E21.0 - PRIMARY HYPERPARATHYROIDISM SNOMED Code(s): 34972650 Comment: -responded well to cincalcet and calcitonin -continue furosemide to 20 mg IV once daily due to h/o CHF -May need IV zoledronic acid every few weeks if cinacalcet and calcitonin not enough. (2) GI bleed Current Visit: No Status: Acute Priority: Medium Code(s): K92.2 - GASTROINTESTINAL HEMORRHAGE, UNSPECIFIED SNOMED Code(s): 70835059 Comment: -EGD- mild gastritis and non-bleeding Patel erosions. -bleeding appears to have stabilized post transfusion and off warfarin. (3) Bradycardia Current Visit: Yes Status: Acute Priority: Medium Code(s): R00.1 - BRADYCARDIA, UNSPECIFIED SNOMED Code(s): 35444053 Comment: -prior to pacemaker HR down to 20/min, asymptomatic -S/p pacemaker placement on 05/13/18 by -doing well. (4) Aortic stenosis Current Visit: Yes Status: Acute Priority: High Code(s): I35.0 - NONRHEUMATIC AORTIC (VALVE) STENOSIS SNOMED Code(s): 45451042 Comment: - severe on cath and echo - Patient has appt to see Dr. Nickerson 05/21/18 1:45 PM in the MOB to discuss possible TAVR. (5) DVT prophylaxis Current Visit: No Status: Acute Priority: Low Code(s): KKK9858 - SNOMED Code(s): 090431422 Comment: -Continue SCDs Status and Disposition: inpatient, possible discharge in 1-2 days
[2018-05-18] MEDS: Atorvastatin* 10 MG TAB PO SCH (20:46)
[2018-05-19 05:02] LABS: ABS Basophils 0.1 10^3/ul (0-0.2); ABS Eosinophils 0.1 10^3/ul (0-0.6); ABS Lymphocytes 1.1 10^3/ul (1.0-4.8); ABS Monocytes 0.8 10^3/ul (0-0.8); ABS Neutrophils 5.8 10^3/ul (1.5-7.7); ABS Nucleated RBC 0 10^3/ul; Eosinophil % 1.6 %; Hematocrit 30 % (35-47); Hemoglobin 9.8 g/dl (12.0-16.0); Lymphocyte % 13.4 %; Mean Corpuscular HGB Conc 33 g/dl (31-36); Mean Corpuscular Hemoglobin 28 pg (27-31); Mean Corpuscular Volume 86 fL (80-97); Mean Platelet Volume 9.1 fL (7.4-10.4); Nucleated Red Blood Cells % 0.1; Platelet Count 230 10^3/ul (150-450); Red Blood Count 3.46 10^6/ul (4.00-5.40); Red Cell Distribution Width 15 % (10.5-15); White Blood Count 7.9 10^3/ul (3.5-10.8)
[2018-05-19 05:16] LABS: BUN/Creatinine Ratio 19.7 (8-20); Calcium 9.8 mg/dL (8.6-10.3); EGFR Non-African American 73.2 (>60); Potassium 4.1 mmol/L (3.5-5.0)
[2018-05-19 06:55] LABS: Magnesium 1.1 mg/dL (1.9-2.7)
[2018-05-19] MEDS ORDERED: Magnesium Sulfate IV* 3 GM in NS 0.9% 100 ML* 100 ML IVPB ONE (08:00)
[2018-05-19] MEDS ORDERED: NS 0.9% 100 ML* 100 ML ONE (08:58)
[2018-05-19] MEDS: Cinacalcet TAB* 30 MG PO SCH ×2 (09:10→22:17)
[2018-05-19] MEDS: Oxybutynin XL TAB* 5 MG PO SCH (09:11)
[2018-05-19] MEDS: Acetaminop/Codeine 30 MG TAB* 1 TAB (300 MG/30 MG) PO PRN (09:11)
[2018-05-19] MEDS: CMCS:SitaGLIPtin (NF) 100 MG TAB PO SCH (09:11)
[2018-05-19] MEDS: Apixaban* 2.5 MG TAB PO SCH ×2 (09:12→22:17)
[2018-05-19] MEDS: Calcium Carbonate CHEW TAB* 500 MG (TUMS) PO PRN ×2 (09:12→16:10)
[2018-05-19] MEDS: Pantoprazole TAB * 40 MG TAB PO SCH ×2 (09:13→22:16)
[2018-05-19] MEDS: Magnesium Oxide TAB* 400 MG PO SCH ×2 (09:13→22:16)
[2018-05-19] MEDS: Potassium Chlor TAB* 20 MEQ TAB.ER PO SCH ×3 (09:13→22:14)
[2018-05-19] MEDS: Cyanocobalamin TAB* 500 MCG PO SCH (09:13)
[2018-05-19] MEDS: Calcitonin (Salmon) INJ* 200 UNITS/ML 2 ML VIAL SUBCUT SCH ×2 (09:13→22:19)
[2018-05-19] MEDS: Furosemide IV* 10 MG/ML 2 ML VIAL (20 MG) IV SCH (09:14)
--- NOTE | 2018-05-19 15:19 | PN ---
Subjective Date of Service: 05/19/18 Interval History: Patient feels washed out, weak. She can walk to bathroom w/ walker. 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 Has disgust when seeing food. Also has GERD, using Tums PRN, and on protonix. Family History: Unchanged from Admission Social History: Unchanged from Admission Past Medical History: Unchanged from Admission Objective Active Medications: Acetaminophen (Tylenol Tab*) 650 mg PO Q4H PRN PRN Reason: FEVER/PAIN Last Admin: 05/17/18 12:30 Dose: 650 mg Acetaminophen/Codeine Phosphate (Tylenol/Codeine 30 Mg Tab*) 1 tab PO Q6H PRN PRN Reason: PAIN Last Admin: 05/19/18 09:11 Dose: 1 tab Apixaban (Eliquis*) 2.5 mg PO BID [facility] Last Admin: 05/19/18 09:12 Dose: 2.5 mg Atorvastatin Calcium (Lipitor*) 10 mg PO 2100 [facility] Last Admin: 05/18/18 20:46 Dose: 10 mg Calamine (Calamine Lotion*) 1 applic TOPICAL TID PRN PRN Reason: itchy skin Calcitonin [place] (Miacalcin Inj*) 300 units SUBCUT Q12H [facility] Last Admin: 05/19/18 09:13 Dose: 300 units Calcium Carbonate (Tums*) 500 mg PO Q4H PRN PRN Reason: DYSPEPSIA Last Admin: 05/19/18 09:12 Dose: 500 mg Cinacalcet (Sensipar Tab*) 90 mg PO BID [facility] Last Admin: 05/19/18 09:10 Dose: 90 mg Cyanocobalamin (Vitamin B12 Tab*) 500 mcg PO DAILY [facility] Last Admin: 05/19/18 09:13 Dose: 500 mcg Cyclobenzaprine HCl (Flexeril Tab*) 10 mg PO BEDTIME PRN PRN Reason: SPASMS Last Admin: 05/15/18 21:23 Dose: 10 mg Furosemide (Lasix Iv*) 20 mg IV DAILY [facility] Last Admin: 05/19/18 09:14 Dose: 20 mg Heparin Sodium (Porcine) (Heparin Flush Picc/Ml/Cvc(*)) 1 - 3 ml FLUSH 0600, 1800 [facility]; Protocol Last Admin: 05/19/18 04:50 Dose: 2 ml Magnesium Oxide (Magox 400 Tab*) 400 mg PO BID [facility] Last Admin: 05/19/18 09:13 Dose: 400 mg Ondansetron HCl (Zofran Odt Tab*) 4 mg SL Q6H PRN PRN Reason: NAUSEA/VOMITING Last Admin: 05/18/18 10:06 Dose: 4 mg Oxybutynin Chloride (Ditropan Xl Tab*) 10 mg PO DAILY [facility]; Protocol Last Admin: 05/19/18 09:11 Dose: 10 mg Oxycodone/Acetaminophen (Percocet 5/325 Tab*) 1 tab PO Q4H PRN PRN Reason: PAIN Last Admin: 05/18/18 10:06 Dose: 1 tab Pantoprazole Sodium (Protonix Tab *) 40 mg PO BID [facility] Last Admin: 05/19/18 09:13 Dose: 40 mg Potassium Chloride (Klor Con Er Tab*) 20 meq PO TID [facility] Last Admin: 05/19/18 13:59 Dose: 20 meq Sitagliptin Phosphate (Januvia (Nf)) 100 mg PO DAILY [facility]; Protocol Last Admin: 05/19/18 09:11 Dose: 100 mg Vital Signs - 8 hr 05/19/18 05/19/18 05/19/18 07:24 07:31 09:11 Temperature 36.3 C Pulse Rate 78 Respiratory 18 18 18 Rate Blood Pressure 124/44 (mmHg) O2 Sat by Pulse 98 Oximetry 05/19/18 05/19/18 05/19/18 10:00 11:52 11:57 Temperature 36.8 C Pulse Rate 77 Respiratory 20 14 Rate Blood Pressure 122/39 (mmHg) O2 Sat by Pulse 97 97 Oximetry 05/19/18 14:00 Temperature Pulse Rate Respiratory Rate Blood Pressure (mmHg) O2 Sat by Pulse 97 Oximetry Oxygen Devices in Use Now: None Appearance: fatigued appearing, sitting in chair. Ears/Nose/Mouth/Throat: NL Teeth, Lips, Gums Neck: NL Appearance and Movements; NL JVP Respiratory: Symmetrical Chest Expansion and Respiratory Effort Cardiovascular: No Edema, - - 3/6 systolic murmur Lymphatic: No Cervical Adenopathy Neurological: Alert and Oriented x 3 Lines/Tubes/Other Access: Clean, Dry and Intact Peripheral IV Nutrition: Taking PO's Result Diagrams: 05/19/18 04:45 05/19/18 04:45 Additional Lab and Data: Laboratory Tests 05/17/18 05/18/1805/18/19 04:49 04:35 09:43 Glucose 182 H 129 H POC Glucose (mg/dL) 154 H Calcium 12.6 H 10.7 H Magnesium 05/19/18 04:45 Glucose POC Glucose (mg/dL) Calcium 9.8 Magnesium 1.1 L Microbiology and Other Data: Microbiology 05/10/18 16:00 Stool Stool Occult Blood (THAD) - Final Assess/Plan/Problems-Billing Assessment: Mrs Coughlin is an 82yo F recently on warfarin, stopped due to GI bleed, post 2 transfusion PRBC on admission 04/29/18-05/05/18, now here with severe hypercalcemia, hyperparathyroid, and bradycardia requiring pacer. - Patient Problems (1) Primary hyperparathyroidism Current Visit: Yes Status: Acute Priority: High Code(s): E21.0 - PRIMARY HYPERPARATHYROIDISM SNOMED Code(s): 40114785 Comment: -responded well to cincalcet and calcitonin -continue furosemide to 20 mg IV once daily due to h/o CHF -appears does not need IV zoledronic acid every few weeks (2) GI bleed Current Visit: No Status: Acute Priority: Medium Code(s): K92.2 - GASTROINTESTINAL HEMORRHAGE, UNSPECIFIED SNOMED Code(s): 55286631 Comment: -EGD- mild gastritis and non-bleeding Patel erosions. -HGB slowly drifting down -bleeding appears to have stabilized post transfusion and off warfarin. (3) Bradycardia Current Visit: Yes Status: Acute Priority: Medium Code(s): R00.1 - BRADYCARDIA, UNSPECIFIED SNOMED Code(s): 06264433 Comment: -prior to pacemaker HR down to 20/min, asymptomatic -S/p pacemaker placement on 05/13/18 by -doing well. (4) Aortic stenosis Current Visit: Yes Status: Acute Priority: High Code(s): I35.0 - NONRHEUMATIC AORTIC (VALVE) STENOSIS SNOMED Code(s): 34467569 Comment: - severe on cath and echo - Patient has appt to see Dr. Nickerson 05/21/18 1:45 PM in the MOB to discuss possible TAVR. (5) DVT prophylaxis Current Visit: No Status: Acute Priority: Low Code(s): UHW3856 - SNOMED Code(s): 672725549 Comment: -Continue SCDs Status and Disposition: inpatient, possible discharge in 1-2 days
[2018-05-19] MEDS: Atorvastatin* 10 MG TAB PO SCH (22:16)
[2018-05-20 06:31] LABS: BUN/Creatinine Ratio 17.1 (8-20); Calcium 9.4 mg/dL (8.6-10.3); EGFR Non-African American 73.2 (>60); Magnesium 1.8 mg/dL (1.9-2.7)
[2018-05-20] MEDS: Apixaban* 2.5 MG TAB PO SCH ×2 (08:26→20:59)
[2018-05-20] MEDS: Magnesium Oxide TAB* 400 MG PO SCH ×2 (08:26→21:00)
[2018-05-20] MEDS: Oxybutynin XL TAB* 5 MG PO SCH (08:26)
[2018-05-20] MEDS: CMCS:SitaGLIPtin (NF) 100 MG TAB PO SCH (08:27)
[2018-05-20] MEDS: Cyanocobalamin TAB* 500 MCG PO SCH (08:27)
[2018-05-20] MEDS: Furosemide IV* 10 MG/ML 2 ML VIAL (20 MG) IV SCH (08:27)
[2018-05-20] MEDS: Potassium Chlor TAB* 20 MEQ TAB.ER PO SCH ×3 (08:27→20:57)
[2018-05-20] MEDS: Pantoprazole TAB * 40 MG TAB PO SCH ×2 (08:27→21:00)
[2018-05-20] MEDS: Cinacalcet TAB* 30 MG PO SCH ×2 (08:27→20:58)
[2018-05-20] MEDS: Acetaminop/Codeine 30 MG TAB* 1 TAB (300 MG/30 MG) PO PRN ×3 (08:36→20:59)
--- NOTE | 2018-05-20 08:50 | PN ---
Progress Note - Progress Note Date of Service: 05/20/18 Note: [facility] Inpatient Follow-Up Note ASSESSMENT: Patient not seen or examined. Appreciate hospitalist input on this case. 82 yo F with PTH-mediated hypercalcemia, admitted for decompensated CHF after GI bleed, AF s/p pacemaker this admission. She is now eucalcemic after receiving IV Zometa last week, but remains on Sensipar and calcitonin. Recommend reducing or stopping medications as below. Her weight is stable, but she remains weak and will need short-term rehab after discharge. If Ca remains < 10 tomorrow after these changes, recommend discharge on this regimen. RECOMMENDATIONS: - d/c calcitonin - REDUCE Sensipar to 30mg BID - RESTART vitamin D 1000 units daily - check PTH 1 week after discharge INPATIENT MEDS: Acetaminophen (Tylenol Tab*) 650 mg PO Q4H PRN PRN Reason: FEVER/PAIN Last Admin: 05/17/18 12:30 Dose: 650 mg Acetaminophen/Codeine Phosphate (Tylenol/Codeine 30 Mg Tab*) 1 tab PO Q6H PRN PRN Reason: PAIN Last Admin: 05/20/18 08:36 Dose: 1 tab Apixaban (Eliquis*) 2.5 mg PO BID [facility] Last Admin: 05/20/18 08:26 Dose: 2.5 mg Atorvastatin Calcium (Lipitor*) 10 mg PO 2100 [facility] Last Admin: 05/19/18 22:16 Dose: 10 mg Calamine (Calamine Lotion*) 1 applic TOPICAL TID PRN PRN Reason: itchy skin Calcitonin [place] (Miacalcin Inj*) 300 units SUBCUT Q12H [facility] Last Admin: 05/19/18 22:19 Dose: 300 units Calcium Carbonate (Tums*) 500 mg PO Q4H PRN PRN Reason: DYSPEPSIA Last Admin: 05/19/18 16:10 Dose: 500 mg Cinacalcet (Sensipar Tab*) 90 mg PO BID [facility] Last Admin: 05/20/18 08:27 Dose: 90 mg Cyanocobalamin (Vitamin B12 Tab*) 500 mcg PO DAILY [facility] Last Admin: 05/20/18 08:27 Dose: 500 mcg Cyclobenzaprine HCl (Flexeril Tab*) 10 mg PO BEDTIME PRN PRN Reason: SPASMS Last Admin: 05/15/18 21:23 Dose: 10 mg Furosemide (Lasix Iv*) 20 mg IV DAILY [facility] Last Admin: 05/20/18 08:27 Dose: 20 mg Heparin Sodium (Porcine) (Heparin Flush Picc/Ml/Cvc(*)) 1 - 3 ml FLUSH 0600, 1800 [facility]; Protocol Last Admin: 05/20/18 05:46 Dose: 2 ml Magnesium Oxide (Magox 400 Tab*) 400 mg PO BID [facility] Last Admin: 05/20/18 08:26 Dose: 400 mg Ondansetron HCl (Zofran Odt Tab*) 4 mg SL Q6H PRN PRN Reason: NAUSEA/VOMITING Last Admin: 05/18/18 10:06 Dose: 4 mg Oxybutynin Chloride (Ditropan Xl Tab*) 10 mg PO DAILY [facility]; Protocol Last Admin: 05/20/18 08:26 Dose: 10 mg Oxycodone/Acetaminophen (Percocet 5/325 Tab*) 1 tab PO Q4H PRN PRN Reason: PAIN Last Admin: 05/18/18 10:06 Dose: 1 tab Pantoprazole Sodium (Protonix Tab *) 40 mg PO BID [facility] Last Admin: 05/20/18 08:27 Dose: 40 mg Potassium Chloride (Klor Con Er Tab*) 20 meq PO TID [facility] Last Admin: 05/20/18 08:27 Dose: 20 meq Sitagliptin Phosphate (Januvia (Nf)) 100 mg PO DAILY [facility]; Protocol Last Admin: 05/20/18 08:27 Dose: 100 mg 05/18/18 05/19/18 05/20/18 05/21/18 06:59 06:59 06:59 06:59 Intake Total 8230 2935 2588 Output Total 3980 1970 2450 Balance -803 965 138 Weight 155 lb 155 lb 8 oz 154 lb 11.2 oz Intake: IV Fluids 2016 NS (0.9%) 20 meq KCL 2017 IVPB 1000 103 MG 2GM 103 NS (0.9%) 20 meq KCL 1000 Oral 1160 1935 2485 Output: Urine 3980 1970 2450 Other: Estimated Void Medium # Bowel Movements 1 Estimated Stool Amount Small # Voids 2 2 2 Temp Pulse Resp BP Pulse Ox 98.2 F 74 20 125/46 99 05/20/18 07:31 05/20/18 07:31 05/20/18 08:36 05/20/18 07:31 05/20/18 07:31 2 WBC 7.9 10^3/ul (3.5-10.8) 05/19/18 04:45 RBC 3.46 10^6/ul (4.00-5.40) L 05/19/18 04:45 Hgb 9.8 g/dl (12.0-16.0) L 05/19/18 04:45 Hct 30 % (35-47) L 05/19/18 04:45 MCV 86 fL (80-97) 05/19/18 04:45 MCH 28 pg (27-31) 05/19/18 04:45 MCHC 33 g/dl (31-36) 05/19/18 04:45 RDW 15 % (10.5-15) 05/19/18 04:45 Plt Count 230 10^3/ul (150-450) 05/19/18 04:45 MPV 9.1 fL (7.4-10.4) 05/19/18 04:45 Neut % (Auto) 73.8 % 05/19/18 04:45 Lymph % (Auto) 13.4 % 05/19/18 04:45 Bryan % (Auto) 10.2 % 05/19/18 04:45 Eos % (Auto) 1.6 % 05/19/18 04:45 Baso % (Auto) 1.0 % 05/19/18 04:45 Absolute Neuts (auto) 5.8 10^3/ul (1.5-7.7) 05/19/18 04:45 Absolute Lymphs (auto) 1.1 10^3/ul (1.0-4.8) 05/19/18 04:45 Absolute Monos (auto) 0.8 10^3/ul (0-0.8) 05/19/18 04:45 Absolute Eos (auto) 0.1 10^3/ul (0-0.6) 05/19/18 04:45 Absolute Basos (auto) 0.1 10^3/ul (0-0.2) 05/19/18 04:45 Absolute Nucleated RBC 0 10^3/ul 05/19/18 04:45 Nucleated RBC % 0.1 05/19/18 04:45 APTT 33.3 seconds (26.0-36.3) 05/08/18 18:48 Sodium 134 mmol/L (135-145) L 05/20/18 05:45 Potassium 4.0 mmol/L (3.5-5.0) 05/20/18 05:45 Chloride 103 mmol/L (101-111) 05/20/18 05:45 Carbon Dioxide 26 mmol/L (22-32) 05/20/18 05:45 Anion Gap 5 mmol/L (2-11) 05/20/18 05:45 BUN 13 mg/dL (6-24) 05/20/18 05:45 Creatinine 0.76 mg/dL (0.51-0.95) 05/20/18 05:45 Est GFR ( Amer) 88.6 (>60) 05/20/18 05:45 Est GFR (Non-Af Amer) 73.2 (>60) 05/20/18 05:45 BUN/Creatinine Ratio 17.1 (8-20) 05/20/18 05:45 Glucose 106 mg/dL (70-100) H 05/20/18 05:45 POC Glucose (mg/dL) 92 mg/dL (70-100) 05/19/18 11:52 Lactic Acid 1.1 mmol/L (0.5-2.0) 05/08/18 18:48 Calcium 9.4 mg/dL (8.6-10.3) 05/20/18 05:45 Ionized Calcium 1.74 mmol/L (1.16-1.32) H* 05/14/18 05:22 Magnesium 1.8 mg/dL (1.9-2.7) L 05/20/18 05:45 Ferritin 28.0 ng/mL (11-307) 05/15/18 05:26 Total Bilirubin 0.90 mg/dL (0.2-1.0) 05/08/18 18:48 AST 23 U/L (13-39) 05/08/18 18:48 ALT 23 U/L (7-52) 05/08/18 18:48 Alkaline Phosphatase 58 U/L (34-104) 05/08/18 18:48 CK-MB (CK-2) 6.5 ng/mL (0.6-6.3) H 05/08/18 18:48 Troponin I 0.20 ng/mL (<0.04) H* 05/09/18 02:12 C-Reactive Protein 10.97 mg/L (<8.01) H 05/08/18 18:48 B-Natriuretic Peptide 1238 pg/mL (<=100) H 05/08/18 18:48 Total Protein 6.4 g/dL (6.4-8.9) 05/08/18 18:48 Albumin 3.6 g/dL (3.2-5.2) 05/08/18 18:48 Globulin 2.8 g/dL (2-4) 05/08/18 18:48 Albumin/Globulin Ratio 1.3 (1-3) 05/08/18 18:48 25-OH Vitamin D Total 23.8 ng/mL (20-50) 05/13/18 05:08 Vit D 1,25-Dihydroxy 15 pg/mL (18-78) L 05/13/18 05:30 TSH Cancelled 05/09/18 05:28 PTH Intact 58.8 pmol/L (1.3-9.3) H 05/16/18 09:30 Calcium (PTH Intact) 14.8 mg/dL (8.6-10.3) H* D 05/16/18 09:30 Urine Color Yellow 05/08/18 16:05 Urine Appearance Clear 05/08/18 16:05 Urine pH 5.0 (5-9) 05/08/18 16:05 Ur Specific [place] 1.006 (1.010-1.030) L 05/08/18 16:05 Urine Protein Negative (Negative) 05/08/18 16:05 Urine Ketones Negative (Negative) 05/08/18 16:05 Urine Blood Negative (Negative) 05/08/18 16:05 Urine Nitrate Negative (Negative) 05/08/18 16:05 Urine Bilirubin Negative (Negative) 05/08/18 16:05 Urine Urobilinogen Negative (Negative) 05/08/18 16:05 Ur Leukocyte Esterase Negative (Negative) 05/08/18 16:05 Urine Glucose Negative (Negative) 05/08/18 16:05
[2018-05-20] MEDS: Calcitonin (Salmon) INJ* 200 UNITS/ML 2 ML VIAL SUBCUT SCH (11:06)
--- NOTE | 2018-05-20 18:11 | PN ---
Subjective Date of Service: 05/20/18 Interval History: Patient feels better than yesterday. Ambulated in win w. PT. Still has no appetite, w/ dysguisia. Daughter is filling out SNF paperwork. Family History: Unchanged from Admission Social History: Unchanged from Admission Past Medical History: Unchanged from Admission Objective Active Medications: Acetaminophen (Tylenol Tab*) 650 mg PO Q4H PRN PRN Reason: FEVER/PAIN Last Admin: 05/17/18 12:30 Dose: 650 mg Acetaminophen/Codeine Phosphate (Tylenol/Codeine 30 Mg Tab*) 1 tab PO Q6H PRN PRN Reason: PAIN Last Admin: 05/20/18 14:48 Dose: 1 tab Apixaban (Eliquis*) 2.5 mg PO BID [facility] Last Admin: 05/20/18 08:26 Dose: 2.5 mg Atorvastatin Calcium (Lipitor*) 10 mg PO 2100 [facility] Last Admin: 05/19/18 22:16 Dose: 10 mg Calamine (Calamine Lotion*) 1 applic TOPICAL TID PRN PRN Reason: itchy skin Calcium Carbonate (Tums*) 500 mg PO Q4H PRN PRN Reason: DYSPEPSIA Last Admin: 05/19/18 16:10 Dose: 500 mg Cholecalciferol (Vitamin D Tab*) 1,000 units PO DAILY [facility] Cinacalcet (Sensipar Tab*) 30 mg PO BID [facility] Cyanocobalamin (Vitamin B12 Tab*) 500 mcg PO DAILY [facility] Last Admin: 05/20/18 08:27 Dose: 500 mcg Cyclobenzaprine HCl (Flexeril Tab*) 10 mg PO BEDTIME PRN PRN Reason: SPASMS Last Admin: 05/15/18 21:23 Dose: 10 mg Furosemide (Lasix Iv*) 20 mg IV DAILY [facility] Last Admin: 05/20/18 08:27 Dose: 20 mg Heparin Sodium (Porcine) (Heparin Flush Picc/Ml/Cvc(*)) 1 - 3 ml FLUSH 0600, 1800 [facility]; Protocol Last Admin: 05/20/18 16:59 Dose: 2 ml Magnesium Oxide (Magox 400 Tab*) 400 mg PO BID [facility] Last Admin: 05/20/18 08:26 Dose: 400 mg Ondansetron HCl (Zofran Odt Tab*) 4 mg SL Q6H PRN PRN Reason: NAUSEA/VOMITING Last Admin: 05/18/18 10:06 Dose: 4 mg Oxybutynin Chloride (Ditropan Xl Tab*) 10 mg PO DAILY [facility]; Protocol Last Admin: 05/20/18 08:26 Dose: 10 mg Pantoprazole Sodium (Protonix Tab *) 40 mg PO BID [facility] Last Admin: 05/20/18 08:27 Dose: 40 mg Potassium Chloride (Klor Con Er Tab*) 20 meq PO TID [facility] Last Admin: 05/20/18 14:47 Dose: 20 meq Sitagliptin Phosphate (Januvia (Nf)) 100 mg PO DAILY [facility]; Protocol Last Admin: 05/20/18 08:27 Dose: 100 mg Vital Signs - 8 hr 05/20/18 05/20/18 05/20/18 11:04 11:33 14:48 Temperature 36.5 C Pulse Rate 87 Respiratory 20 18 16 Rate Blood Pressure 145/59 (mmHg) O2 Sat by Pulse 98 Oximetry 05/20/18 05/20/18 05/20/18 15:13 16:31 17:36 Temperature 36.6 C Pulse Rate 83 Respiratory 16 16 Rate Blood Pressure 128/40 (mmHg) O2 Sat by Pulse 98 98 Oximetry Oxygen Devices in Use Now: None Appearance: no acute distress Ears/Nose/Mouth/Throat: Clear Oropharnyx Respiratory: Symmetrical Chest Expansion and Respiratory Effort, Clear to Auscultation Cardiovascular: RRR, No Edema, - - 3/6 systolic murmur Neurological: Alert and Oriented x 3 Lines/Tubes/Other Access: Clean, Dry and Intact Peripheral IV Nutrition: Taking PO's Result Diagrams: 05/19/18 04:45 05/20/18 05:45 Additional Lab and Data: Laboratory Tests 05/18/18 05/19/18 05/19/18 04:35 04:45 07:16 POC Glucose (mg/dL) 100 Calcium 10.7 H 9.8 Magnesium 1.1 L 05/19/18 05/20/18 11:52 05:45 POC Glucose (mg/dL) 92 Calcium 9.4 Magnesium 1.8 L Assess/Plan/Problems-Billing Assessment: Mrs Coughlin is an 82yo F recently on warfarin, stopped due to GI bleed, post 2 transfusion PRBC on admission 04/29/18-05/05/18, now here with severe hypercalcemia, hyperparathyroid, and bradycardia requiring pacer. - Patient Problems (1) Primary hyperparathyroidism Current Visit: Yes Status: Acute Priority: High Code(s): E21.0 - PRIMARY HYPERPARATHYROIDISM SNOMED Code(s): 46757259 Comment: -responded well to cincalcet and calcitonin, doses decreased per input from Dr. Jane. -switching to PO furosemide due to h/o CHF (2) GI bleed Current Visit: No Status: Acute Priority: Medium Code(s): K92.2 - GASTROINTESTINAL HEMORRHAGE, UNSPECIFIED SNOMED Code(s): 34019132 Comment: -EGD- mild gastritis and non-bleeding Patel erosions. -HGB slowly drifting down -bleeding appears to have stabilized post transfusion and off warfarin, on DOAC (3) Bradycardia Current Visit: Yes Status: Acute Priority: Medium Code(s): R00.1 - BRADYCARDIA, UNSPECIFIED SNOMED Code(s): 53300564 Comment: -prior to pacemaker HR down to 20/min, asymptomatic -S/p pacemaker placement on 05/13/18 by -doing well. (4) Aortic stenosis Current Visit: Yes Status: Acute Priority: High Code(s): I35.0 - NONRHEUMATIC AORTIC (VALVE) STENOSIS SNOMED Code(s): 57163564 Comment: - severe on cath and echo - Patient has appt to see Dr. Nickerson 05/21/18 1:45 PM in the MOB to discuss possible TAVR. (5) DVT prophylaxis Current Visit: No Status: Acute Priority: Low Code(s): EWT7567 - SNOMED Code(s): 526875748 Comment: -Continue SCDs Status and Disposition: inpatient, for STR placement
[2018-05-20] MEDS: Atorvastatin* 10 MG TAB PO SCH (20:59)
[2018-05-21 06:36] LABS: Hematocrit 30 % (35-47); Mean Corpuscular HGB Conc 33 g/dl (31-36); Mean Corpuscular Hemoglobin 28 pg (27-31); Mean Corpuscular Volume 84 fL (80-97); Mean Platelet Volume 9.2 fL (7.4-10.4); Platelet Count 249 10^3/ul (150-450); Red Blood Count 3.61 10^6/ul (4.00-5.40); Red Cell Distribution Width 15 % (10.5-15); White Blood Count 7.6 10^3/ul (3.5-10.8)
[2018-05-21 06:54] LABS: BUN/Creatinine Ratio 15.9 (8-20); EGFR Non-African American 61.8 (>60); Magnesium 1.7 mg/dL (1.9-2.7); Potassium 4.1 mmol/L (3.5-5.0)
[2018-05-21 08:25] LABS: ABS Basophils 0.1 10^3/ul (0-0.2); ABS Eosinophils 0.2 10^3/ul (0-0.6); ABS Lymphocytes 1.2 10^3/ul (1.0-4.8); ABS Monocytes 0.9 10^3/ul (0-0.8); ABS Neutrophils 5.3 10^3/ul (1.5-7.7); ABS Nucleated RBC 0 10^3/ul; Eosinophil % 2.3 %; Lymphocyte % 15.1 %; Nucleated Red Blood Cells % 0
[2018-05-21] MEDS: CMCS:SitaGLIPtin (NF) 100 MG TAB PO SCH (08:45)
[2018-05-21] MEDS: Apixaban* 2.5 MG TAB PO SCH (08:45)
[2018-05-21] MEDS: Pantoprazole TAB * 40 MG TAB PO SCH (08:45)
[2018-05-21] MEDS: Magnesium Oxide TAB* 400 MG PO SCH (08:45)
[2018-05-21] MEDS: Cinacalcet TAB* 30 MG PO SCH (08:46)
[2018-05-21] MEDS: Potassium Chlor TAB* 20 MEQ TAB.ER PO SCH ×2 (08:46→14:26)
[2018-05-21] MEDS: Cyanocobalamin TAB* 500 MCG PO SCH (08:46)
[2018-05-21] MEDS: Acetaminop/Codeine 30 MG TAB* 1 TAB (300 MG/30 MG) PO PRN (08:46)
[2018-05-21] MEDS: Oxybutynin XL TAB* 5 MG PO SCH (08:47)
[2018-05-21] MEDS ORDERED: Furosemide TAB* 20 MG PO SCH (09:00)
[2018-05-21] MEDS ORDERED: Cholecalciferol TAB* 1000 UNITS PO SCH (09:00)
--- NOTE | 2018-05-21 12:38 | TRS ---
TRANSFER SUMMARY: DATE OF ADMISSION: 05/08/18 DATE OF DISCHARGE: 05/21/18 PRIMARY DIAGNOSIS: Hypercalcemia due to primary hyperparathyroidism. SECONDARY DIAGNOSES: 1. Tachybrady syndrome requiring pacemaker placement. 2. Atrial fibrillation. 3. Severe aortic stenosis. 4. Gastrointestinal bleed with 2 sources, jejunal polyp and Patel erosions. 5. Hiatal hernia. 6. Hypomagnesemia. 7. Peripheral vascular disease. 8. Hypertension. 9. Type 2 diabetes. 10. Osteoarthritis, left hip. 11. History of right hip replacement. 12. Nowa-jr-[id number] pulmonary hypertension. MEDICATIONS ON DISCHARGE: 1. Tylenol With Codeine q.6 hours as needed for pain. 2. Atorvastatin 10 mg p.o. q.h.s. 3. Vitamin B12 500 mcg p.o. daily. 4. Cyclobenzaprine 10 mg p.o. q.h.s. p.r.n. back spasms. 5. Januvia 100 mg p.o. daily. 6. Detrol LA 4 mg p.o. daily. 7. Tylenol 650 mg p.o. q.4 hours as needed during the day. 8. Eliquis 2.5 mg p.o. b.i.d. 9. Calamine lotion topically as needed. 10. Calcium carbonate 500 mg p.o. q.4 hours p.r.n. dyspepsia. 11. Vitamin D 1000 units p.o. daily. 12. Sensipar 30 mg p.o. b.i.d. 13. Lasix 20 mg p.o. daily. 14. IFerex Forte 1 tab p.o. q.a.m. 15. Magnesium oxide 400 mg p.o. b.i.d. 16. Zofran 4 mg sublingual q.6 hours p.r.n. nausea. 17. Pantoprazole 40 mg p.o. b.i.d. 18. Potassium chloride 20 mEq p.o. t.i.d. HOSPITAL COURSE: The patient presented with lower extremity edema, shortness of breath and was thought to be in exacerbation of diastolic congestive heart failure worsened by anemia. The patient was also found to have a calcium of 11.9 on admission and this nicolette to 14.8 on 05/16/18. The patient was seen in consultation by Dr. Jane of Endocrinology on 05/14/18. Hypercalcemia was treated with saline diuresis, Sensipar, calcitonin. Bisphosphonates were discussed, but not used. The patient's calcium corrected quickly to a level of 9.0 on the day of discharge. Other related blood test results would include a TSH of 1.79, PTH of 23.3 and 58.8, vitamin D 25-hydroxy of 23.8, vitamin D1 25-dihydroxy of 15. The patient shall be seen by Dr. Jane at outpatient clinic in 2 weeks. The patient has cardiac situation and was evaluated with initial consultation with Dr. Alexander and input from Dr. Nickerson. The heart failure was managed with diuresis. The patient has significant bradycardia and required placement of a single-chamber pacemaker on 05/13/[address] Nickerson. She tolerated this well and had the charleen removed day prior to discharge. The patient is restricted from using her left arm above her shoulder level for according to discharge instructions at least 2 weeks. She should have a cardiology followup within 2 weeks in the office. The patient also had a cardiac catheterization on 05/14/18 , which showed clean coronaries and stenosis of the innominate artery, which made catheterization of the right coronary artery difficult. Echocardiogram during the hospital stay also showed severe aortic stenosis, [id number] mitral regurgitation, ejection fraction of 60%. There were discussions made between Dr. Nickerson and the patient regarding TAVR procedure down the road. She will see Dr. Nickerson for followup of this in his office. The patient came with atrial fibrillation and GI bleed and history of being on warfarin. During the hospital stay, she was initiated on Eliquis and her hemoglobin initially dropped from 10 to 8.9, but then stabilized around 9.8 and 10 without any ash GI bleeding. She should continue her Protonix for Patel erosions and hiatal hernia. She has a history of jejunal polyp that was addressed by push enteroscopy in [place] and removed, but she may still have a small bowel bleeding source. She should remain on oral iron. She did have initial troponin of 0.3 on admission and it fell to 0.2 on the next day. This was worked up with a cardiac cath as above. Her diabetes was managed with holding her sulfonylurea due to hypoglycemia and continuing her Januvia. Her blood sugars have been in the range of 85 to 154. If she is feeling well, she should consider starting back on glimepiride. DISPOSITION: To [facility] for subacute rehab. DIET: Should be low-salt and diabetic. ACTIVITY: Should be to walk with a walker as tolerated and avoid raising her left arm over her shoulder level. TIME SPENT: I spent greater than 45 minutes coordinating discharge on this patient. [id number]/CPS #: [id number]
[2018-05-21 13:40] VITALS: BP 113/48
== END 2018-05-21 16:20 | DRG 242 ==
LOC: ED 18:19 → MEDTELE 22:01 → OBSVTOIN 05-09 11:00
PROVIDERS: ADMIT Internal Medicine; ATTEND Internal Medicine
PROC: 0JH604Z Insertion of Pacemaker, Single Chamber into Chest Subcutaneous Tissue and Fascia, Open Approach (ICD-10-PCS; 2018-05-13)
PROC: 02HK3JZ Insertion of Pacemaker Lead into Right Ventricle, Percutaneous Approach (ICD-10-PCS; 2018-05-13)
PROC: B2111ZZ Fluoroscopy of Multiple Coronary Arteries using Low Osmolar Contrast (ICD-10-PCS; 2018-05-14)
PROC: 02HV33Z Insertion of Infusion Device into Superior Vena Cava, Percutaneous Approach (ICD-10-PCS; principal; 2018-05-16)
DX: I48.2 Chronic atrial fibrillation (principal); I50.33 Acute on chronic diastolic (congestive) heart failure; I49.5 Sick sinus syndrome; E11.9 Type 2 diabetes mellitus without complications; E21.0 Primary hyperparathyroidism; K57.90 Diverticulosis of intestine, part unspecified, without perforation or abscess without bleeding; I08.0 Rheumatic disorders of both mitral and aortic valves; I27.20 Pulmonary hypertension, unspecified; Z96.641 Presence of right artificial hip joint; E78.5 Hyperlipidemia, unspecified; I25.10 Atherosclerotic heart disease of native coronary artery without angina pectoris; Z87.01 Personal history of pneumonia (recurrent); F41.9 Anxiety disorder, unspecified; Z83.3 Family history of diabetes mellitus; Z91.012 Allergy to eggs; Z91.013 Allergy to seafood; E66.9 Obesity, unspecified; Z88.0 Allergy status to penicillin; Z88.8 Allergy status to other drugs, medicaments and biological substances; Z82.49 Family history of ischemic heart disease and other diseases of the circulatory system; Z87.891 Personal history of nicotine dependence; Z68.30 Body mass index [BMI] 30.0-30.9, adult; E83.52 Hypercalcemia; G89.29 Other chronic pain; E83.42 Hypomagnesemia; I44.30 Unspecified atrioventricular block; K25.9 Gastric ulcer, unspecified as acute or chronic, without hemorrhage or perforation; I11.0 Hypertensive heart disease with heart failure; D64.9 Anemia, unspecified; Z79.01 Long term (current) use of anticoagulants
CPT/HCPCS: 33207; 36415; 71045; 71046; 71275; 80048; 80053; 81003; 82272; 82306; 82330; 82553; 82652; 82728; 83605; 83735; 83880; 83970; 84443; 84484; 85025; 85027; 85730; 86140; 93005; 93306; 93454; 93970; 94762; 99156; 99157; 99284; A9270-GY; C1786; C1887; C1898; G8978-GP-CJ; G8978-GP-CK; G8979-GP-CH; G8979-GP-CI; G8987-GO-CL; G8988-GO-CI; J0630; J1644; J1940; J2250; J3010; J3475; J3489; Q9967

== ENCOUNTER 2018-07-31 12:13 | Inpatient (IN) | payer MEDICARE ==
--- NOTE | 2018-07-31 12:29 | ED ---
Adult Trauma - HPI Summary HPI Summary: LEVEL 5 CAVEAT: HPI LIMITED DUE TO PT CONDITION, UNRELIABLE NARRATOR An 82 y/o F brought in by ambulance presents to ED s/p mechanical fall onset 0200 in her home. She says she tripped over something. She hit her arms when she fell, she was unable to get back up after the fall. Her family found her in the AM. She denies LOC. She denies drinking ETOH. Denies UE pain or limited ROM ; weakness prior to fall. She typically ambulates with a walker and cane. She has LLE pain per baseline. - History of Current Complaint Stated Complaint: FALL BEEN ON GROUND OVERNIGHT PER EMS Time Seen by Provider: 07/31/18 12:15 Hx Obtained From: Patient Mechanism of Injury: Fall Ambulatory at the Scene: No Loss of Consciousness: no loss of consciousness Onset/Duration: Started Hours Ago, Resolved - fall Onset Severity: Moderate Current Severity: Moderate Location: Extremities - upper Associated Signs & Symptoms: Negative: Loss of Consciousness, Numbness/Weakness - Additional Pertinent History Primary Care Physician: RALF - Allergy/Home Medications Allergies/Adverse Reactions: Allergies Allergy/AdvReac Type Severity Reaction Status Date / Time regadenoson [From Lexiscan] Allergy See Comment Verified 07/31/18 12:44 Egg Derived AdvReac Intermediate Stomach Verified 07/31/18 12:44 Cramps Penicillins AdvReac Intermediate See Comment Verified 07/31/18 12:44 crab AdvReac Vomiting Verified 07/31/18 12:44 PMH/Surg Hx/FS Hx/Imm Hx Previously Healthy: No Endocrine/Hematology History: Reports: Hx Anticoagulant Therapy, Hx Blood Transfusions, Hx Diabetes - NIDDM, Hx Anemia, Hx Unexplained Bleeding - GI Bleed admission Dx Denies: Hx Systemic Lupus Erythematosus, Hx Sickle Cell Disease, Hx Thyroid Disease, Other Endocrine/Hematological Disorders Cardiovascular History: Reports: Hx Angioplasty, Hx Coronary Artery Disease, Hx Hypercholesterolemia, Hx Hypertension, Hx Pacemaker/ICD Denies: Hx Aneurysm, Hx Angina, Hx Auto Implanted Cardiovert Defib, Hx Cardiac Arrest, Hx Cardiomegaly, Hx Congenital Heart Disease, Hx Congestive Heart Failure, Hx Deep Vein Thrombosis, Hx Embolism, Hx Hypotension, Hx Peripheral Vascular Disease, Hx Rheumatic Fever, Hx Syncope, Hx Valvular Heart Disease Respiratory History: Reports: Hx Pneumonia Denies: Hx Asthma, Hx Chronic Bronchitis, Hx Chronic Obstructive Pulmonary Disease (COPD), Hx Cystic Fibrosis, Hx Lung Cancer, Hx Pleural Effusion, Hx Pulmonary Edema, Hx Pulmonary Embolism, Hx Seasonal Allergies, Hx Sleep Apnea, Other Respiratory Problems/Disorders GI History: Reports: Hx Gastrointestinal Bleed - Admission Dx, Hx Ulcer Denies: Hx Cirrhosis, Hx Crohn's Disease, Hx Diverticulosis, Hx Gall Bladder Disease, Hx Gastroesophageal Reflux Disease, Hx Hiatal Hernia, Hx Irritable Bowel, Hx Jaundice, Hx Obstructive Bowel, Hx Ileostomy, Hx Pyloric Stenosis, Other GI Disorders History: Reports: Other Problems/Disorders - urinary urgency Denies: Hx Acute Renal Failure, Hx Benign Prostatic Hyperplasia, Hx Chronic Renal Failure, Hx Dialysis, Hx Kidney Infection, Hx Kidney Stones Musculoskeletal History: Reports: Hx Arthritis, Hx Back Problems, Hx Bursitis Denies: Hx Rheumatoid Arthritis, Hx Congenital Bone Abnormalities, Hx Fibromyalgia, Hx Gout, Hx Orthopedic Injury - right hip replaced, Hx Osteoporosis, Hx Scoliosis, Hx Tendonitis Sensory History: Reports: Hx Contacts or Glasses Denies: Hx Cataracts, Hx Eye Injury, Hx Eye Prosthesis, Hx Glaucoma, Hx Legally Blind, Hx Macular Degeneration, Hx Vision Problem, Hx Deafness, Hx Hearing Aid, Hx Hearing Problem, Other Sensory Impairments Opthamlomology History: Reports: Hx Contacts or Glasses Denies: Hx Cataracts, Hx Eye Injury, Hx Eye Prosthesis, Hx Glaucoma, Hx Legally Blind, Hx Macular Degeneration, Hx Vision Problem, Other Sensory Impairments Psychiatric History: Reports: Hx Anxiety - Cancer History Hx Chemotherapy: No Hx Radiation Therapy: No Hx Palliative Cancer Treatment: No - Surgical History Surgery Procedure, Year, and Place: right hip replacement several years ago, angiogram. barium study of intestines 10/27/14 Hx Anesthesia Reactions: No Infectious Disease History: Denies: Hx Clostridium Difficile, Hx Hepatitis, Hx Human Immunodeficiency Virus (HIV), Hx of Known/Suspected MRSA, Hx Shingles, Hx Tuberculosis, Hx Known/ Suspected VRE, Hx Known/Suspected VRSA, History Other Infectious Disease - Family History Known Family History: Positive: Cardiac Disease - father Negative: Diabetes - Social History Occupation: Unemployed Lives: Alone Alcohol Use: None Hx Substance Use: No Substance Use Type: Reports: None Hx Tobacco Use: Yes Smoking Status (MU): Former Smoker Type: Cigarettes Amount Used/How Often: 2 PPD Length of Time of Smoking/Using Tobacco: 15 years Have You Smoked in the Last Year: No Review of Systems - ROS Summary Review of Systems Summary: LEVEL 5 CAVEAT: HPI LIMITED DUE TO PT CONDITION, UNRELIABLE NARRATOR Negative: Decreased ROM - UE, Other - pain: UE Negative: Numbness All Other Systems Reviewed And Are Negative: No Physical Exam - Summary Physical Exam Summary: Appearance: Well appearing, no pain distress, comfortable Skin: warm, dry, reflects adequate perfusion Head/face: normal Eyes: EOMI, STEFANY ENT: mucous membranes dry Neck: supple, non-tender Respiratory: CTA, breath sounds present Cardiovascular: RRR, pulses symmetrical Abdomen: non-tender, soft, infra-umbilical surgical scars Bowel Sounds: present Musculoskeletal: Pain at greater trochanter on L, flexed hip on L, proximal humorous tenderness on R, generalized weakness in arms, 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 - Radiology CXR Radiology Interpretation Completed By: Radiologist Summary of Radiographic Findings: IMPRESSION: #. Probable mild pulmonary vascular congestion. ED provider has reviewed this report. HIP/PELVIS Radiology Interpretation Completed By: Radiologist Summary of Radiographic Findings: IMPRESSION: #. No radiographic evidence for LEFT hip or pelvic fracture. #. Severe osteoarthritis of the LEFT hip without change. ED provider has reviewed this report. HIP/PELVIS L Radiology Interpretation Completed By: Radiologist Summary of Radiographic Findings: IMPRESSION: #. No radiographic evidence for LEFT hip or pelvic fracture. #. Severe osteoarthritis of the LEFT hip without change. ED provider has reviewed this report. RUE Radiology Interpretation Completed By: Radiologist Summary of Radiographic Findings: REPORT AND IMPRESSION: #. No evidence for RIGHT humerus fracture. #. Osteoarthritis at the acromioclavicular and glenohumeral joints. #. Superior subluxation of the humeral head relative to the glenoid with decreased acromial humeral distance and chronic remodeling of the undersurface of the acromial process strongly favoring chronic advanced rotator cuff pathology. #. Unremarkable soft tissue contours. ED provider has reviewed this report. - CT BRAIN CT CT Interpretation Completed By: Radiologist Summary of CT Findings: IMPRESSION: NO EVIDENCE FOR ACUTE INTRACRANIAL ABNORMALITY. ED provider has reviewed this report. - EKG 1315 Summary of EKG Findings: Ventricularly paced. Right axis. Non-specific ST. Adult Trauma Course/Dx - Course Course Of Treatment: Nurse's notes reviewed. Chronically ill-appearing elderly patient with fall and generalized weakness. She has a flexed right hip that we are concerned for fracture. On x-rays this proved to not be true but she has significant sclerosis and degenerative change there. She has no acute fractures. Her urine is very cloudy-appearing and IV Rocephin was given. Her calcium is very high as it has been in the past which was treated with high- volume IV fluids. A Chris catheter was placed given her acute renal failure. Her CPK is approaching 1000 which may be from time on the floor. Head CT is negative. She will require admission for the hypercalcemia, acute renal failure and possible malignant process. - Diagnoses Differential Diagnosis/HQI/PQRI: Positive: Fracture, Dislocation, Hematoma(s), Other - Rhabdomyolysis, renal failure, dehydration Provider Diagnoses: Hypercalcemia, UTI (urinary tract infection), Acute renal failure, Rhabdomyolysis - Physician Notifications Discussed Care Of Patient With: Jovi Riggs - hospital Time Discussed With Above Provider: 15:48 Instructed by Provider To: Admit As Inpatient - Critical Care Time Critical Care Time: 30-74 min - CCT is EXCLUSIVE of separately billable procedures Discharge - Sign-Out/Discharge Documenting (check all that apply): Patient Departure - ADMIT Patient Received Moderate/Deep Sedation with Procedure: No - Discharge Plan Condition: Guarded Disposition: ADMITTED TO [facility] - Billing Disposition and Condition Condition: GUARDED Disposition: Admitted to [facility] - Attestation Statements Document Initiated by Vicibe: Yes Documenting Scribe: Osbaldo Hutchins Provider For Whom Lady is Documenting (Include Credential): Dr. Neal Mcclendon MD Scribe Attestation: Osbaldo Foss scribed for Dr. Neal Mcclendon MD on 07/31/18 at 1714. Scribe Documentation Reviewed: Yes Provider Attestation: The documentation as recorded by the Osbaldo blancask accurately reflects the service I personally performed and the decisions made by me, Dr. Neal Mcclendon MD Status of Scribgladis Document: Viewed
[2018-07-31] MEDS ORDERED: NS 0.9% 1000 ML** 1,000 ML IV ONE ×3 (12:34→15:45)
[2018-07-31] MEDS ORDERED: Morphine 4 MG/ML VIAL (1 ml) 4 MG/ML VIAL IV ONE (12:36)
[2018-07-31 15:02] LABS: Urine Appearance Turbid; Urine Bacteria Absent (Absent); Urine Bilirubin Negative (Negative); Urine Blood 2+ (Negative); Urine Color Yellow; Urine Glucose Negative (Negative); Urine Ketones Negative (Negative); Urine Nitrite Negative (Negative); Urine Protein 2+(100 mg/dL) (Negative); Urine Red Blood Cell 3+(>10/hpf) (Absent); Urine Urobilinogen Negative (Negative); Urine White Blood Cell 3+(>20/hpf) (Absent)
[2018-07-31 15:08] LABS: ABS Basophils 0.1 10^3/ul (0-0.2); ABS Eosinophils 0 10^3/ul (0-0.6); ABS Lymphocytes 1.3 10^3/ul (1.0-4.8); ABS Monocytes 1.2 10^3/ul (0-0.8); ABS Neutrophils 15.1 10^3/ul (1.5-7.7); ABS Nucleated RBC 0 10^3/ul; Eosinophil % 0.1 %; Hematocrit 39 % (33-41); Hemoglobin 12.9 g/dL (12.0-16.0); Lymphocyte % 7.1 %; Mean Corpuscular HGB Conc 33 g/dL (31-36); Mean Corpuscular Hemoglobin 28 pg (27-31); Mean Corpuscular Volume 83 fL (80-97); Mean Platelet Volume 9.7 fL (7.4-10.4); Nucleated Red Blood Cells % 0; Platelet Count 278 10^3/uL (150-450); Red Blood Count 4.67 10^6 /uL (3.70-4.87); Red Cell Distribution Width 16 % (10.5-15); White Blood Count 17.7 10^3/uL (3.5-10.8)
[2018-07-31] MEDS ORDERED: cefTRIAXone(*) 1 GM in NS 0.9% 50 ML* 50 ML IVPB ONE (15:22)
[2018-07-31 15:30] LABS: Troponin I 0.29 ng/mL (<0.04)
[2018-07-31 15:38] LABS: Activated Partial Thrombo Time 29.7 seconds (26.0-36.3); INR 1.44 (0.77-1.02)
[2018-07-31 15:41] LABS: ALT 30 U/L (7-52); AST 62 U/L (13-39); Albumin 4.1 g/dL (3.2-5.2); Alkaline Phosphatase 70 U/L (34-104); Anion Gap 13 mmol/L (2-11); BUN/Creatinine Ratio 15.9 (8-20); Blood Urea Nitrogen 59 mg/dL (6-24); CO2 Carbon Dioxide 30 mmol/L (22-32); Chloride 94 mmol/L (101-111); Creatine Kinase 958 U/L (10-223); EGFR African American 14.2 (>60); EGFR Non-African American 11.7 (>60); Globulin 4.1 g/dL (2-4); Glucose 61 mg/dL (70-100); Potassium 3.5 mmol/L (3.5-5.0); Sodium 137 mmol/L (135-145); Total Protein 8.2 g/dL (6.4-8.9)
[2018-07-31 15:43] LABS: Alcohol < 10 mg/dL (<10); Calcium 16.5 mg/dL (8.6-10.3)
[2018-07-31] MEDS ORDERED: Acetaminophen TAB* 325 MG PO PRN (16:11)
[2018-07-31] MEDS ORDERED: Ondansetron INJ* 2 MG/ML VIAL IV PRN (16:11)
[2018-07-31] MEDS ORDERED: NS 0.9% 1000 ML** 1,000 ML IV SCH (16:15)
[2018-07-31] MEDS ORDERED: Nystatin TOP POWDER* 15 GM BTL TOPICAL PRN (16:20)
[2018-07-31] MEDS ORDERED: Cyclobenzaprine TAB* 10 MG PO PRN (16:20)
[2018-07-31] MEDS ORDERED: Calcitonin (Salmon) INJ* 200 UNITS/ML 2 ML VIAL IM ONE (16:26)
[2018-07-31] MEDS ORDERED: Dextrose 50% Syringe 50 ML* 25 GM/50 ML SYRINGE IV PUSH ONE (17:10)
--- NOTE | 2018-07-31 17:11 | PN ---
Date of Service: 07/31/18 Vital Signs: Temp Pulse Resp BP SpO2 FiO2 97.1 F 61 21 96/59 96 07/31/18 12:37 07/31/18 16:15 07/31/18 16:15 07/31/18 16:15 07/31/18 15:45 Physical Exam: Gen: HEENT: Lungs: Cardiac: Abdomen: Extremities: Neuro: Fluid Balance (Past 24 Hours): I= O= Net Intake & Output 07/29/18 07/30/18 07/31/18 08/01/18 06:59 06:59 06:59 06:59 Intake Total 50 Balance 50 Weight 146 lb Intake: IV Fluids 50 ADLs: Meal Record Start: 07/31/18 16: 49 Freq: 09,13,18 Status: Active Protocol: Created 07/31/18 16:49 System (Rec: 07/31/18 16:49 System [id number]) Intake and Output Start: 07/31/18 12: 41 Freq: Status: Active Protocol: Created 07/31/18 12:41 System (Rec: 07/31/18 12:41 System [id number]) Intake and Output Start: 07/31/18 16: 49 Freq: Q1HR Status: Active Protocol: Created 07/31/18 16:49 System (Rec: 07/31/18 16:49 System [id number]) Labs: Laboratory Results - last 24 hr 07/31/18 07/31/18 07/31/18 12:36 15:00 15:00 WBC 17.7 H RBC 4.67 Hgb 12.9 Hct 39 MCV 83 MCH 28 MCHC 33 RDW 16 H Plt Count 278 MPV 9.7 Neut % (Auto) 85.4 Lymph % (Auto) 7.1 [place] % (Auto) 6.8 Eos % (Auto) 0.1 Baso % (Auto) 0.6 Absolute Neuts (auto) 15.1 H Absolute Lymphs (auto) 1.3 Absolute Monos (auto) 1.2 H Absolute Eos (auto) 0 Absolute Basos (auto) 0.1 Absolute Nucleated RBC 0 Nucleated RBC % 0 INR (Anticoag Therapy) 1.44 H APTT 29.7 Sodium Potassium Chloride Carbon Dioxide Anion Gap BUN Creatinine Est GFR ( Amer) Est GFR (Non-Af Amer) BUN/Creatinine Ratio Glucose Lactic Acid Calcium Total Bilirubin AST ALT Alkaline Phosphatase Total Creatine Kinase Troponin I B-Natriuretic Peptide Total Protein Albumin Globulin Albumin/Globulin Ratio Urine Color Yellow Urine Appearance Turbid Urine pH 7.0 Ur Specific [place] 1.010 Urine Protein 2+(100 mg/dl) A Urine Ketones Negative Urine Blood 2+ A Urine Nitrate Negative Urine Bilirubin Negative Urine Urobilinogen Negative Ur Leukocyte Esterase 2+ A Urine WBC (Auto) 3+(>20/hpf) A Urine RBC (Auto) 3+(>10/hpf) A Urine Bacteria Absent Urine Glucose Negative Serum Alcohol Blood Type Antibody Screen 07/31/18 07/31/18 07/31/18 15:00 15:00 15:00 WBC RBC Hgb Hct MCV MCH MCHC RDW Plt Count MPV Neut % (Auto) Lymph % (Auto) [place] % (Auto) Eos % (Auto) Baso % (Auto) Absolute Neuts (auto) Absolute Lymphs (auto) Absolute Monos (auto) Absolute Eos (auto) Absolute Basos (auto) Absolute Nucleated RBC Nucleated RBC % INR (Anticoag Therapy) APTT Sodium 137 Potassium 3.5 Chloride 94 L Carbon Dioxide 30 Anion Gap 13 H BUN 59 H Creatinine 3.72 H Est GFR ( Amer) 14.2 Est GFR (Non-Af Amer) 11.7 BUN/Creatinine Ratio 15.9 Glucose 61 L Lactic Acid 3.3 H* Calcium 16.5 H* Total Bilirubin 0.60 AST 62 H ALT 30 Alkaline Phosphatase 70 Total Creatine Kinase 958 H Troponin I 0.29 H* B-Natriuretic Peptide Total Protein 8.2 Albumin 4.1 Globulin 4.1 H Albumin/Globulin Ratio 1.0 Urine Color Urine Appearance Urine pH Ur Specific [place] Urine Protein Urine Ketones Urine Blood Urine Nitrate Urine Bilirubin Urine Urobilinogen Ur Leukocyte Esterase Urine WBC (Auto) Urine RBC (Auto) Urine Bacteria Urine Glucose Serum Alcohol < 10 Blood Type O Positive Antibody Screen Negative 07/31/18 15:00 WBC RBC Hgb Hct MCV MCH MCHC RDW Plt Count MPV Neut % (Auto) Lymph % (Auto) [place] % (Auto) Eos % (Auto) Baso % (Auto) Absolute Neuts (auto) Absolute Lymphs (auto) Absolute Monos (auto) Absolute Eos (auto) Absolute Basos (auto) Absolute Nucleated RBC Nucleated RBC % INR (Anticoag Therapy) APTT Sodium Potassium Chloride Carbon Dioxide Anion Gap BUN Creatinine Est GFR ( Amer) Est GFR (Non-Af Amer) BUN/Creatinine Ratio Glucose Lactic Acid Calcium Total Bilirubin AST ALT Alkaline Phosphatase Total Creatine Kinase Troponin I B-Natriuretic Peptide 907 H Total Protein Albumin Globulin Albumin/Globulin Ratio Urine Color Urine Appearance Urine pH Ur Specific [place] Urine Protein Urine Ketones Urine Blood Urine Nitrate Urine Bilirubin Urine Urobilinogen Ur Leukocyte Esterase Urine WBC (Auto) Urine RBC (Auto) Urine Bacteria Urine Glucose Serum Alcohol Blood Type Antibody Screen Plan: Cardiovascular: (1) Elevated troponin; (2) Acute on chronic diastolic CHF;(3) Chronic atrial fibrillation; (4) Aortic stenosis with plans for TAVR next month ; (5) Hypertension, chronic; (6) Hyperlipidemia; (7) hx of bradycardia -- HR 57-62 -- SBP 81-115 -- Telemetry -- Cardiac markers CK 958 Trop 0.29, follow trend BNP 907 -- Cardiology consulted (Nicko) Home meds: Pulmonary: (1) Pulmonary edema, cardiac cause -- RR 16-20 -- sats 88-99 on RA -- CXR: probable mild vascular congestion Home meds: Gastrointestinal: (1) hx of gastric ulcer -- diet: -- bowel regimen: -- ulcer prophylaxis: Home meds: Endocrine: (1) Diabetes mellitus, type 2; (2) Primary hyperparathyroidism -- monitor BGs Home meds: Renal: (1) Acute kidney injury; (2) Hypercalcemic crisis; (3) Primary hyperparathyroidism; (4) Hx of hypomagnesemia -- I/O: not yet recorded -- Cr 3.72 [baseline 0.88 on 06/28/2018] -- Lytes Na 137 K 3.5 Ca 16.5, follow trend. Hydrate. Endocrine consulted -- CK 958 -- Nephrology consulted Home meds: Infectious disease: (1) Leukocytosis -- Tmax 97.1 -- WBC 17.7 -- Micro 4/3 UA 2+ LE. 3+ WBC -- ABX Home meds: Neurologic: -- Alcohol level negative Home meds: Hematological: (1) Chronic iron deficiency anemia -- Hgb 12.9 -- Plt 278 -- Coags INR 1.44 APTT 29.7 -- DVT prophylaxis: Home meds: Metabolic: (1) Lactic acidosis -- Lactic acid 3.3, follow trend Home meds: Deep vein thrombosis prophylaxis: Dietary: Condition: Prognosis: Code status: Disposition: Family updated at bedside regarding interval events and plan of care Cumulative time spent in the care of this patient (excluding any procedure time) : at least minutes. Patient care included clinical interview (with patient and/or family), bedside exam of the patient, review of labs, x-rays, and other ancillary data, coordination of (respiratory, nursing care, review of patient's records, discussion regarding patients management with involved consultants, primary physician, pharmacists, and other healthcare personnel (dietary, case management , physical/occupational therapy etc.)
[2018-07-31] MEDS ORDERED: Dextrose 50% VIAL 50 ml ONE (17:17)
--- NOTE | 2018-07-31 17:38 | CONSULT ---
Consult Consult: [facility] Patient Name: NICOLE CROW Date of : 1935 Patient Status: Inpatient Attending Provider: Jovi Riggs Date: 07/31/18 17:01 Initialization Date: 07/31/18 17:01 Date of Service: 07/31/18 C/C: Fall HPI: 82 yo F with PMH notable for primary hyperparathyroidism and aortic stenosis presents to the ED on 07/31 after she was found down after a mechanical fall at home. No loss of consciousness. Unable to obtain further information from patient secondary to confusion and depressed cognition. Per her daughter they found her down but she is not able to give further details. She does state that her mother has not had any complaints recently, including no complaints of confusion and muscle rigidity/joint pain, and she states she has not seen any of the symptoms that she had last time her calcium level was high. She does report that her mother was complaining of urinary frequency for which she saw a PCP earlier. PMH: .Iron deficiency anemia Gastric ulcer Chronic atrial fibrillation Type 2 diabetes mellitus HTN HLD Chronic diastolic CHF bradycardia Primary hyperparathyroidism PSH: right hip replacement angiogram pacer placement Barium swallow FH: Cardiac disease SH: tobacco use. Lives alone ROS unable to obtain from patient secondary to depressed cognition and altered mental status Vital Signs: Temp Pulse Resp BP SpO2 FiO2 97.1 F 61 21 96/59 96 07/31/18 12:37 07/31/18 16:15 07/31/18 16:15 07/31/18 16:15 07/31/18 15:45 Physical Exam: Gen: resting comfortably HEENT: intact, dry mucus membranes Lungs: CTAB Cardiac: RRR Abdomen: soft, NTND Extremities: warm, dry. slightly stiff Neuro: alert, very slow in responding to questions and only using "yes/no". Not able to answer many questions. Fluid Balance (Past 24 Hours): I= O= Net Intake & Output 07/29/18 07/30/18 07/31/18 08/01/18 06:59 06:59 06:59 06:59 Intake Total 50 Balance 50 Weight 146 lb Intake: IV Fluids 50 Labs: Laboratory Results - last 24 hr 07/31/18 07/31/18 07/31/18 12:36 15:00 15:00 WBC 17.7 H RBC 4.67 Hgb 12.9 Hct 39 MCV 83 MCH 28 MCHC 33 RDW 16 H Plt Count 278 MPV 9.7 Neut % (Auto) 85.4 Lymph % (Auto) 7.1 [place] % (Auto) 6.8 Eos % (Auto) 0.1 Baso % (Auto) 0.6 Absolute Neuts (auto) 15.1 H Absolute Lymphs (auto) 1.3 Absolute Monos (auto) 1.2 H Absolute Eos (auto) 0 Absolute Basos (auto) 0.1 Absolute Nucleated RBC 0 Nucleated RBC % 0 INR (Anticoag Therapy) 1.44 H APTT 29.7 Sodium Potassium Chloride Carbon Dioxide Anion Gap BUN Creatinine Est GFR ( Amer) Est GFR (Non-Af Amer) BUN/Creatinine Ratio Glucose Lactic Acid Calcium Total Bilirubin AST ALT Alkaline Phosphatase Total Creatine Kinase Troponin I B-Natriuretic Peptide Total Protein Albumin Globulin Albumin/Globulin Ratio Urine Color Yellow Urine Appearance Turbid Urine pH 7.0 Ur Specific [place] 1.010 Urine Protein 2+(100 mg/dl) A Urine Ketones Negative Urine Blood 2+ A Urine Nitrate Negative Urine Bilirubin Negative Urine Urobilinogen Negative Ur Leukocyte Esterase 2+ A Urine WBC (Auto) 3+(>20/hpf) A Urine RBC (Auto) 3+(>10/hpf) A Urine Bacteria Absent Urine Glucose Negative Serum Alcohol Blood Type Antibody Screen 07/31/18 07/31/18 07/31/18 15:00 15:00 15:00 WBC RBC Hgb Hct MCV MCH MCHC RDW Plt Count MPV Neut % (Auto) Lymph % (Auto) [place] % (Auto) Eos % (Auto) Baso % (Auto) Absolute Neuts (auto) Absolute Lymphs (auto) Absolute Monos (auto) Absolute Eos (auto) Absolute Basos (auto) Absolute Nucleated RBC Nucleated RBC % INR (Anticoag Therapy) APTT Sodium 137 Potassium 3.5 Chloride 94 L Carbon Dioxide 30 Anion Gap 13 H BUN 59 H Creatinine 3.72 H Est GFR ( Amer) 14.2 Est GFR (Non-Af Amer) 11.7 BUN/Creatinine Ratio 15.9 Glucose 61 L Lactic Acid 3.3 H* Calcium 16.5 H* Total Bilirubin 0.60 AST 62 H ALT 30 Alkaline Phosphatase 70 Total Creatine Kinase 958 H Troponin I 0.29 H* B-Natriuretic Peptide Total Protein 8.2 Albumin 4.1 Globulin 4.1 H Albumin/Globulin Ratio 1.0 Urine Color Urine Appearance Urine pH Ur Specific [place] Urine Protein Urine Ketones Urine Blood Urine Nitrate Urine Bilirubin Urine Urobilinogen Ur Leukocyte Esterase Urine WBC (Auto) Urine RBC (Auto) Urine Bacteria Urine Glucose Serum Alcohol < 10 Blood Type O Positive Antibody Screen Negative 07/31/18 15:00 WBC RBC Hgb Hct MCV MCH MCHC RDW Plt Count MPV Neut % (Auto) Lymph % (Auto) [place] % (Auto) Eos % (Auto) Baso % (Auto) Absolute Neuts (auto) Absolute Lymphs (auto) Absolute Monos (auto) Absolute Eos (auto) Absolute Basos (auto) Absolute Nucleated RBC Nucleated RBC % INR (Anticoag Therapy) APTT Sodium Potassium Chloride Carbon Dioxide Anion Gap BUN Creatinine Est GFR ( Amer) Est GFR (Non-Af Amer) BUN/Creatinine Ratio Glucose Lactic Acid Calcium Total Bilirubin AST ALT Alkaline Phosphatase Total Creatine Kinase Troponin I B-Natriuretic Peptide 907 H Total Protein Albumin Globulin Albumin/Globulin Ratio Urine Color Urine Appearance Urine pH Ur Specific [place] Urine Protein Urine Ketones Urine Blood Urine Nitrate Urine Bilirubin Urine Urobilinogen Ur Leukocyte Esterase Urine WBC (Auto) Urine RBC (Auto) Urine Bacteria Urine Glucose Serum Alcohol Blood Type Antibody Screen Studies: 4/3 XR R Humerus - No fracture. Super subluxation of humberal head relative to gleniod and chronic remodelling consistent with chronic advance trotator cuff pathology 4/3 XR pelvis and L hip - no fracture. Seere osteoarthritis of left hip, unchanged from prior. 4/3 CT brain - no acute intracranial process 4/3 CXR - pulmonary edema Impression: 82 yo F with known primary hyperparathyroidism, aortic stenosis, chronic diastolic CHF, and diabetes mellitus who presents with hypercalcemia Plan: Cardiovascular: (1) Elevated troponin; (2) Acute on chronic diastolic CHF;(3) Hypotension; (4) Chronic atrial fibrillation; (5) Aortic stenosis with plans for TAVR next month; (6) Hypertension, chronic; (7) Hyperlipidemia; (8) hx of bradycardia -- HR 57-62 -- SBP 81-115 -- Telemetry -- Cardiac markers CK 958 Trop 0.29, follow trend BNP 907 -- apixaban -- Cardiology consulted (Nicko) Home meds: patient unable to provide at this time - as of 06/20/2018 on Atenolol and HCTZ, omega 3, apixaban Pulmonary: (1) Pulmonary edema, cardiac cause -- RR 16-20 -- sats 88-99 on RA -- CXR: probable mild vascular congestion -- monitor respiratory status closely. Given history of diastolic CHF, may need titration of fluid administration Home meds: patient unable to provide at this time Gastrointestinal: (1) hx of gastric ulcer -- diet: NPO until mental status improved -- bowel regimen: None -- ulcer prophylaxis: Pantoprazole -- PRN Zofran Home meds: patient unable to provide at this time - as of 06/20/2018 on Pantoprazole Endocrine: (1) Diabetes mellitus, type 2; (2) Primary hyperparathyroidism -- monitor BGs -- start SSI if BGs consistently > 180 -- Endocrinology consulted Home meds: patient unable to provide at this time - as of 06/20/2018 on sitagliptin Renal: (1) Acute kidney injury; (2) Hypercalcemia; (3) Primary hyperparathyroidism; (4) UTI; (5) Hx of hypomagnesemia -- I/O: not yet recorded -- Renal US ordered -- Cr 3.72 [baseline 0.88 on 06/28/2018] -- Lytes Na 137 K 3.5 Ca 16.5, follow trend. [baseline 11.2 on 06/28/2018] Volume expansion with target UOP 100-150 ml/hr Calcitonin -- IVF: NS @ 125 ml/hr -- CK 958 -- Cinacalcet -- Nephrology and Endocrine consulted Home meds: patient unable to provide at this time - as of 06/20/2018 on Cinacalcet, Vit D, Detrol, Mag ox Infectious disease: (1) Urinary tract infection -- Tmax 97.1 -- WBC 17.7 -- Micro 4/3 UA 2+ LE. 3+ WBC -- ABX Rocephin Nystatin topical -- Urine noted to be purulent on placement of trejo catheter Home meds: patient unable to provide at this time - as of 06/20/2018 on nystatin powder Neurologic: (1) Acute encephalopathy secondary to hypercalcemia -- Alcohol level negative -- Tylenol as needed -- cyclobenzaprine Home meds: patient unable to provide at this time - as of 06/20/2018 on tylenol with codiene, cyclobenzaprine Hematological: (1) Chronic iron deficiency anemia -- Hgb 12.9 -- Plt 278 -- Coags INR 1.44 APTT 29.7 -- DVT prophylaxis: Apixaban -- ferrous sulfate Home meds: patient unable to provide at this time - as of 06/20/2018 on ferrous sulfate, apixaban Metabolic: (1) Lactic acidosis -- Lactic acid 3.3, follow trend Home meds: patient unable to provide at this time Deep vein thrombosis prophylaxis: Apixaban Dietary: Pantoprazole Condition: serious Prognosis: guarded Code status: full Disposition: continue ICU Care Family updated at bedside regarding interval events and plan of care Cumulative time spent in the care of this patient (excluding any procedure time) : at least 65 minutes. Patient care included clinical interview (with patient and/or family), bedside exam of the patient, review of labs, x-rays, and other ancillary data, coordination of (respiratory, nursing care, review of patient's records, discussion regarding patients management with involved consultants, primary physician, pharmacists, and other healthcare personnel (dietary, case management , physical/occupational therapy etc.)
[2018-07-31 19:03] LABS: Troponin I 0.22 ng/mL (<0.04)
[2018-07-31 19:15] LABS: Magnesium 3.2 mg/dL (1.9-2.7); Phosphorus 4.3 mg/dL (2.5-5.0)
--- NOTE | 2018-07-31 19:40 | HP ---
CC: Dr. Margot Dolan * ADMISSION HISTORY AND PHYSICAL: DATE OF ADMISSION: 07/31/18 PRIMARY CARE PROVIDER: Dr. Margot Dolan. ATTENDING PHYSICIAN: Dr. Jovi Riggs.* (DICTATED BY STEPHEN TAVARES NP) HEALTHCARE PROXY: Her daughter, Ms. Mcclelland. CHIEF COMPLAINT: Fall. HISTORY OF PRESENT ILLNESS: This is an 82-year-old female patient known to our service from several admissions over the past 3 months, who presents with EMS today for report of a fall with an inability to get up off the floor. The patient was found by her family in the morning. EMS was called when they noted her to also be somewhat confused. Most of her history is obtained from her daughter as the patient is not able to answer questions appropriately at this time. The patient does have a recent history of being treated for hypercalcemia and hypoglycemia in the last 2 months. She also has significant cardiac history in the form of aortic stenosis. She is also found to be hypotensive and have a urinary tract infection. The rest of her ED lab work was also remarkable for increased calcium again, also renal failure, elevated troponin, and elevated BNP. For these reasons, we were asked to evaluate the patient for admission. The patient will be admitted to the ICU. PAST MEDICAL HISTORY: Significant for primary hyperparathyroidism; chronic atrial fibrillation; tachybrady syndrome with pacemaker insertion, on Eliquis; diabetes mellitus type 2 with hypoglycemia; severe osteoarthritis; congestive heart failure; severe aortic stenosis; history of GI bleeding; peripheral vascular disease; and hypertension. PAST SURGICAL HISTORY: Significant for cardiac cath in April, also history of right hip replacement, and some barium studies back in 2014. HOME MEDICATIONS: Include: 1. Detrol 4 mg p.o. daily. 2. Januvia 100 mg p.o. daily. 3. Protonix 40 mg p.o. daily. 4. [place]-3 fatty acids 2000 mg in the morning, 1000 mg in the evening. 5. Nystatin topical 2 times a day as needed. 6. Mag-Ox 400 mg p.o. b.i.d. 7. Hydrochlorothiazide 25 mg p.o. daily. 8. Ferrous sulfate 325 mg p.o. daily. 9. Flexeril 10 mg at bedtime as needed. 10. Vitamin B12 500 mcg p.o. daily. 11. Sensipar 60 mg p.o. b.i.d. 12. Vitamin D tablet 800 units p.o. daily. 13. Atorvastatin 10 mg at bedtime. 14. Atenolol 50 mg p.o. daily. 15. Apixaban 2.5 mg p.o. b.i.d. 16. Tylenol With Codeine 1 tab q.6 hours as needed for pain. ALLERGIES: The patient has allergy to PENICILLINS, also EGGS, CRAB. FAMILY HISTORY: Father at age 85, mother at age 65. Otherwise, no contributory family history is reported. SOCIAL HISTORY: The patient has a remote history of smoking, quit approximately 30 years ago. Denies any alcohol. No drug use. She does live by herself. REVIEW OF SYSTEMS: Unable to obtain secondary to the patient's altered mental status. PHYSICAL EXAMINATION GENERAL: Reveals a frail, ill-appearing, elderly woman. VITAL SIGNS: At this point, blood pressure 86/44; heart rate 60, paced; respiratory rate 18 to 20; O2 saturation 96% on room air with a temperature of 97.1. HEENT: The patient is atraumatic, normocephalic. PERRLA. Nonicteric sclerae. Oral mucosa is dry. Tongue is midline. Dentition is somewhat poor. NECK: Supple, nontender. No thyromegaly noted. No carotid bruits auscultated. LUNGS: Diminished at the apices with fine crackles noted bilaterally about care home up the bases. CARDIOVASCULAR: S1, S2 present. She does have a grade 3/6 systolic murmur. Rate is regular. She is paced on telemetry with a rate of 60. ABDOMEN: Soft, nontender, nondistended. No organomegaly noted. Positive bowel sounds in all 4 quadrants. : She now has a Chris catheter draining scant amounts of turbid yellow urine. MUSCULOSKELETAL: There is no clubbing, no cyanosis. There is no pedal edema. Skin is warm, dry, and intact. She does have +2 distal pulses palpable. Radial pulses are regular. NEUROLOGIC: She is confused. Does appear to be encephalopathic. Otherwise, no weakness or focal deficits are noted on exam. DIAGNOSTIC STUDIES/LAB DATA: WBCs 17.7, RBCs 4.67, hemoglobin 12.9, hematocrit 39, platelets 278. Sodium 137, potassium 3.5, chloride 94, CO2 of 30 , anion gap is 13, BUN 59, creatinine 3.72, GFR is 11.7. Glucose 61, recheck was 53. Lactic acid 3.3, calcium 16.5. Bilirubin 0.60, AST 62, ALT 30, alk phos 70. Total creatine kinase 958. Troponin is 0.29. BNP 907. Total protein 8.2, albumin 4.1, globulin 4.1, albumin/globulin ratio 1.0. Urinalysis shows yellow turbid urine with pH of 7, specific gravity of 1.010, 2+ protein, negative for ketones, 2+ blood; negative for nitrites, bilirubin, and urobilinogen. She has 2+ leukocyte esterase, 3+ wbc's, 3+ rbc's, absent bacteria, and negative for glucose. Toxicology: Serum alcohol is less than 10. Imaging: CT of the chest shows some vascular congestion, pacemaker is in place. There are no pleural effusions or pneumothorax noted. Hip and pelvis x-ray shows no radiographic evidence for left hip or pelvic fracture. There was severe osteoarthritis of the left hip without change. CT of the brain: No evidence for acute intracranial abnormality. X-ray of the humerus shows no evidence of right humerus fracture. There was osteoarthritis at the acromioclavicular and glenohumeral joints, superior subluxation of the humeral head relative to the glenoid with decreased acromiohumeral distance and chronic remodeling of the undersurface of the acromion process, strongly favoring chronic advanced rotator cuff pathology, otherwise unremarkable soft tissue. EKG: She is paced with underlying atrial fibrillation. IMPRESSION: This is an 82-year-old female with a known history of hyperparathyroidism and hypercalcemia, who now presents acutely decompensated requiring ICU admission. DIAGNOSES: 1. Hypercalcemia, severe. The patient is well known to Dr. Donte Jane. He has already been consulted on the patient and has seen her in the emergency department. She has received 2 L of IV fluids. IV fluids will be continued at 125 mL per hour. We will continue her Sensipar and give her 1 dose of calcitonin intramuscularly 250 immediately. Recheck an ionized calcium in 6 hours and continue to follow her course very closely. There is a question whether the patient would need dialysis in the setting of such an elevated calcium. Dr. Jane is going to reach out to Dr. Gallardo to discuss further. 2. Acute kidney injury. Etiology is unclear. This may be related to severe dehydration and urinary tract infection; however, she does have proteins in the urine, which appeared to be an acute glomerular nephropathy. We will obtain a renal ultrasound bilaterally. Also, her CPK is elevated, but is disproportionate to the amount of increasing creatinine at this time. She has not had multiple myeloma workup essentially because she does have known hyperparathyroidism. However, with the renal function being compromised now, it would be worth to check light chains and continue to follow this closely. 3. Severe aortic stenosis. Dr. Taylor Maharaj has already consulted on the patient. She did have an echo in April and a cardiac cath at that time. She was planned for evaluation at [facility] for a TAVR. At this point, with the aortic stenosis being so severe in the presence of acute illness, it is questionable if she has additional findings. We will repeat an echocardiogram to reevaluate her aortic valve and also ensure that there is no endocarditis or drop off in the ejection fraction. 4. Elevated troponin. The patient had a clean cardiac cath in April. She does not appear to have ischemic heart disease. The troponin is likely in the setting of demand ischemia secondary to profound dehydration and renal dysfunction. We will continue to trend q.3 hours. Again, Cardiology is following the patient as well. 5. Urinary tract infection with sepsis and profound dehydration. The patient is hypotensive; however, she is satting well, her heart rate is controlled. She has received IV fluids in the emergency department. This will be continued. She has already been given 1 dose of ceftriaxone and this will be continued daily. We will repeat the lactic acid in 2 hours and ensure that it is trending down. We will continue to follow urine cultures very closely. 6. Heart failure. The patient has had elevated BNP in the past secondary to her valvular dysfunction. The BNP is over 900. She will need diuretics; however, in the presence of hypotension, we would not be able to administer Lasix at this time. Echo is being repeated. We will also evaluate her ejection fraction at that time and obtain a repeat EKG in the morning. 7. Altered mental status. It is unclear whether this is a toxic metabolic encephalopathy secondary to hypoglycemia and hypercalcemia. At this point, we will continue her on neuro checks q.2 hours, continue to work towards reducing her calcium. She is also receiving 1 amp of dextrose now for a repeat sugar of 53. We will continue to monitor her sugars a.c. and h.s. and hold her diabetic medications. 8. Chronic atrial fibrillation with pacemaker insertion and history of tachybrady syndrome. The patient appears to be pacing at this time. Although she is confused, it does not appear that she has had any chest pain or any other anginal equivalents. We will continue her on telemetry in the ICU and watch her very closely. 9. Disposition: Admission to ICU. We have also requested Dr. Taveras from [facility] to consult on the patient. If in the case the patient does need pressors or an arterial line for further hemodynamic monitoring, we request that the ICU diabetes manager assist with this. The rest of the patient's course will be determined by further labs, diagnostics, and any other input from other specialties as warranted during this admission. We appreciate any recommendations from all disciplines regarding this very sick patient and we will continue to monitor her closely. This plan of care has been discussed with Dr. Jovi Riggs, the attending on this case. TIME SPENT: 75 minutes critical care. ADDENDUM: Patient was re-evaluated in the ICU regarding hypotension. Patient's urine output is poor <30/hr. Fluids were increased to 200ml/hr with no appreciable response. Cannot give lasix as yet secondary to hypotension. Levophed order at 5mcg continuous. Will continue to monitor. STEPHEN TAVARES NP [id number]/[facility] #: [id number] [place]
[2018-07-31] MEDS: NS 0.9% 1000 ML** 1,000 ML IV SCH (20:00)
--- NOTE | 2018-07-31 20:50 | CONSULT ---
Consult Consult: [facility] Inpatient Consult Note Date of Consult: 07/31/18 Reason for Consult: PTH-mediated hypercalcemia Reason for Admission: hypercalcemia, urinary sepsis, acute renal failure ASSESSMENT: 82 yo F with history of life-threatening PTH-mediated hypercalcemia , now presenting with acute AMS, acute renal failure and possible urinary sepsis. There are many potential etiologies of decompensated hypercalcemia in this case, including renal failure, rhabdomyolysis, dehydration, resumption of thiazide diuretic, occult malignancy or infection. Patient is acutely ill and should be aggressively treated with maximal therapies below to correct hypercalcemia as rapidly as possible. IV zoledronic acid is relatively contraindicated in the setting of renal failure. She does not appear to be volume overloaded at this time. RECOMMENDATIONS - check calcium every 6 hours - check PTH every 24 hours - start IV normal saline 200ml/hour to promote urinary output >100ml/hour - consider Lasix 40mg every 12 hours if urinary outpatient <100ml/hour - start Sensipar PO 90mg every 12 hours - start calcitonin SQ 200 units/kg every 12 hours - if calcium >14 within 24h despite above treatments: - start zoledronic acid 4mg IV once (if renal failure resolves) OR - denosumab 120mg SQ once (if renal failure persists) - case discussed with Dr. Gallardo SUBJECTIVE: History of Present Illness: 82 yo F with hyperparathyroidism and recent admissions for LGIB and CHF, the latter admission complicated by severe aortic stenosis and PTH-mediated hypercalcemia. She has long-standing, asymptomatic hypercalcemia (10.5-11.5) with inappropriately-normal PTH (~14), but no clinical syndromes of hyperparathyroidism (osteoporosis, kidney stones, renal failure) indicating need for parathyroidectomy. She was admitted in April 2018 for bleeding AVM and her thiazide diuretic was discontinued She then developed first-time HF and was re-admitted for IV diuresis. During the second admission, her calcium has acutely worsened (>12) with onset of hypercalcemia symptoms and increased iPTH (~23). Sensipar 60mg BID did not improve hypercalcemia (>13). Vitamin D-was 20-30 and D-1,25 were low ; Mg and Ph were slightly low. Creatinine was normal. Calcitonin was used briefly for 2-3 days. She received Zometa 4mg, along with IVF+Lasix to maintain 150ml/hr urine output. Calcium peaked at 14.8 and iPTH=59 with deteriorating clinical status, but her calcium normalized within 3 day of IV Zometa and she was discharged to rehab on 05/21/18 on Sensipar 30mg BID and vitamin D supplements. At her endocrine follow-up visit on 06/13/18, she was found to have calcium 11.8 with PTH 46 and creatine 0.8. Her Sensipar dose was increased to 60mg BID and her HCTZ 12.5mg was resumed with calcium 11.1 and 11.8 in the 2 weeks after this change. She had been referred to endovascular surgery for evaluation of TAVR and parathyroid ultrasound was recommended for evaluation of possible parathyroidectomy. According to her daughter, the patient was in her usual state of health until 3 days prior to admission. She had been receiving home health care for the past 6 weeks, but she had been refusing nurse visits most of this time for personal reasons. Her medication list was reviewed and up to date as above. Past Medical History: Primary hyperparathyroidism Chronic atrial fibrillation Osteoarthritis type 2 diabetes mellitus Essential hypertension Critical Medications Prior to Admission: Cyanocobalamin (Vitamin B-12) [Vitamin B-12] 500 mcg PO DAILY 10/23/14 [History Confirmed 07/31/18] Atorvastatin* [Lipitor 10 MG*] 10 mg PO BEDTIME 11/26/14 [History Confirmed 07/16] Cyclobenzaprine TAB* [Flexeril 10 MG TAB*] 10 mg PO BEDTIME PRN 04/29/18 [ History Confirmed 07/31/18] Apixaban* [Eliquis*] 2.5 mg PO BID tab 05/21/18 [Rx Confirmed 07/31/18] Magnesium Oxide TAB* [MagOx 400 TAB*] 400 mg PO BID tab 05/21/18 [Rx Confirmed 07/31/18] Acetaminophen with Codeine [Acetaminophen-Cod #3 Tablet] 1 tab PO Q6HR PRN 06/20 [History Confirmed 07/31/18] Atenolol TAB* [Tenormin TAB* 50 MG] 50 mg PO DAILY 06/20/18 [History Confirmed 07/31/18] Cholecalciferol TAB* [Vitamin D TAB*] 400 unit PO DAILY 06/20/18 [History Confirmed 07/31/18] Cinacalcet TAB* [Sensipar TAB*] 60 mg PO BID 06/20/18 [History Confirmed by home health nurse notes 07/31/18] Ferrous Sulfate TAB* 325 mg PO DAILY 06/20/18 [History Confirmed 07/31/18] Hydrochlorothiazide TAB* [Hydrodiuril TAB*] 25 mg PO DAILY 06/20/18 [History Confirmed 07/31/18] Nystatin TOP POWDER* 1 applic TOPICAL BID PRN 06/20/18 [History Confirmed ] [place]-3 Fatty Acids (Nf) [Fish Oil (NF)] 1,000 mg PO QPM 06/20/18 [History Confirmed 07/31/18] [place]-3 Fatty Acids (Nf) [Fish Oil (NF)] 2,000 mg PO QAM 06/20/18 [History Confirmed 07/31/18] Pantoprazole TAB * [Protonix TAB*] 40 mg PO DAILY 06/20/18 [History Confirmed ] SitaGLIPtin (NF) [Januvia (NF)] 100 mg PO DAILY 06/20/18 [History Confirmed 07/16] Tolterodine LA (NF) [Detrol LA (NF)] 4 mg PO DAILY 06/20/18 [History Confirmed 07/31/18] Inpatient Medications: Acetaminophen (Tylenol Tab*) 650 mg PO Q4H PRN PRN Reason: FEVER/PAIN Apixaban (Eliquis*) 2.5 mg PO BID [facility] Cinacalcet (Sensipar Tab*) 60 mg PO BID MELLISA Cyclobenzaprine HCl (Flexeril Tab*) 10 mg PO BEDTIME PRN PRN Reason: SPASMS Ferrous Sulfate (Ferrous Sulfate Tab*) 325 mg PO DAILY [facility] Ceftriaxone Sodium 1 gm/ (Sodium Chloride) 50 mls @ 200 mls/hr IVPB Q24H [facility] Sodium Chloride (Ns 0.9% 1000 Ml) 1,000 mls @ 200 mls/hr IV PER RATE [facility] Nystatin (Nystatin Top Powder*) 1 applic TOPICAL BID PRN PRN Reason: RASH Ondansetron HCl (Zofran Inj*) 4 mg IV Q4H PRN PRN Reason: NAUSEA/VOMITING Pantoprazole Sodium (Protonix Tab*) 40 mg PO DAILY [facility] Allergies/Intolerances: Penicillins, Lexiscan - asystole, Crab, Eggs or Egg- derived Products Social History: Lives alone. Daughter nearby. No history of substance abuse. Was working at [employer] until 2018. Family History: No known calcium disorders. Otherwise non-contributory. Review of Systems: Unable to obtain due to patient status. OBJECTIVE: Temp Pulse Resp BP Pulse Ox 97.3 F 60 paced 15 120/62 93 07/31/18 19:41 07/31/18 20:01 07/31/18 20:01 07/31/18 20:01 07/31/18 20:01 General: critically ill-appearing, ashen appearance, somnolent ENT: neck supple, no thyromegaly, no bruit is heard Chest: CTAB anteriorly, no wheezing or crackles CV: 60 paced, harsh systolic murmur Abdomen: soft, diffuse abdominal tenderness Extremities: trace edema, distal pulses intact Skin: warm, dry, no rash Neuro: somnolent, responsive to commands, limited interaction with examiner Psych: restricted affect Labs: - CXR mild edema - U/S kidney age-related changes - XR humeral, hip and pelvis no fracture WBC 17.7 10^3/uL (3.5-10.8) H 07/31/18 15:00 RBC 4.67 10^6 /uL (3.70-4.87) 07/31/18 15:00 Hgb 12.9 g/dL (12.0-16.0) 07/31/18 15:00 Hct 39 % (33-41) 07/31/18 15:00 MCV 83 fL (80-97) 07/31/18 15:00 MCH 28 pg (27-31) 07/31/18 15:00 MCHC 33 g/dL (31-36) 07/31/18 15:00 RDW 16 % (10.5-15) H 07/31/18 15:00 Plt Count 278 10^3/uL (150-450) 07/31/18 15:00 MPV 9.7 fL (7.4-10.4) 07/31/18 15:00 Neut % (Auto) 85.4 % 07/31/18 15:00 Lymph % (Auto) 7.1 % 07/31/18 15:00 Crowley % (Auto) 6.8 % 07/31/18 15:00 Eos % (Auto) 0.1 % 07/31/18 15:00 Baso % (Auto) 0.6 % 07/31/18 15:00 Absolute Neuts (auto) 15.1 10^3/ul (1.5-7.7) H 07/31/18 15:00 Absolute Lymphs (auto) 1.3 10^3/ul (1.0-4.8) 07/31/18 15:00 Absolute Monos (auto) 1.2 10^3/ul (0-0.8) H 07/31/18 15:00 Absolute Eos (auto) 0 10^3/ul (0-0.6) 07/31/18 15:00 Absolute Basos (auto) 0.1 10^3/ul (0-0.2) 07/31/18 15:00 Absolute Nucleated RBC 0 10^3/ul 07/31/18 15:00 Nucleated RBC % 0 07/31/18 15:00 INR (Anticoag Therapy) 1.44 (0.77-1.02) H 07/31/18 15:00 APTT 29.7 seconds (26.0-36.3) 07/31/18 15:00 Sodium 137 mmol/L (135-145) 07/31/18 15:00 Potassium 3.5 mmol/L (3.5-5.0) 07/31/18 15:00 Chloride 94 mmol/L (101-111) L 07/31/18 15:00 Carbon Dioxide 30 mmol/L (22-32) 07/31/18 15:00 Anion Gap 13 mmol/L (2-11) H 07/31/18 15:00 BUN 59 mg/dL (6-24) H 07/31/18 15:00 Creatinine 3.72 mg/dL (0.51-0.95) H 07/31/18 15:00 Est GFR ( Amer) 14.2 (>60) 07/31/18 15:00 Est GFR (Non-Af Amer) 11.7 (>60) 07/31/18 15:00 BUN/Creatinine Ratio 15.9 (8-20) 07/31/18 15:00 Glucose 61 mg/dL (70-100) L 07/31/18 15:00 POC Glucose (mg/dL) 137 mg/dL (70-100) H 07/31/18 18:18 Lactic Acid 2.9 mmol/L (0.5-2.0) H* 07/31/18 18:30 Calcium 16.5 mg/dL (8.6-10.3) H* 07/31/18 15:00 Phosphorus 4.3 mg/dL (2.5-5.0) 07/31/18 18:30 Magnesium 3.2 mg/dL (1.9-2.7) H 07/31/18 18:30 Total Bilirubin 0.60 mg/dL (0.2-1.0) 07/31/18 15:00 AST 62 U/L (13-39) H 07/31/18 15:00 ALT 30 U/L (7-52) 07/31/18 15:00 Alkaline Phosphatase 70 U/L (34-104) 07/31/18 15:00 Total Creatine Kinase 958 U/L (10-223) H 07/31/18 15:00 Troponin I 0.22 ng/mL (<0.04) H* 07/31/18 18:30 B-Natriuretic Peptide 907 pg/mL (<=100) H 07/31/18 15:00 Total Protein 8.2 g/dL (6.4-8.9) 07/31/18 15:00 Albumin 4.1 g/dL (3.2-5.2) 07/31/18 15:00 Globulin 4.1 g/dL (2-4) H 07/31/18 15:00 Albumin/Globulin Ratio 1.0 (1-3) 07/31/18 15:00 Urine Color Yellow 07/31/18 12:36 Urine Appearance Turbid 07/31/18 12:36 Urine pH 7.0 (5-9) 07/31/18 12:36 Ur Specific [place] 1.010 (1.010-1.030) 07/31/18 12:36 Urine Protein 2+(100 mg/dl) (Negative) A 07/31/18 12:36 Urine Ketones Negative (Negative) 07/31/18 12:36 Urine Blood 2+ (Negative) A 07/31/18 12:36 Urine Nitrate Negative (Negative) 07/31/18 12:36 Urine Bilirubin Negative (Negative) 07/31/18 12:36 Urine Urobilinogen Negative (Negative) 07/31/18 12:36 Ur Leukocyte Esterase 2+ (Negative) A 07/31/18 12:36 Urine WBC (Auto) 3+(>20/hpf) (Absent) A 07/31/18 12:36 Urine RBC (Auto) 3+(>10/hpf) (Absent) A 07/31/18 12:36 Urine Bacteria Absent (Absent) 07/31/18 12:36 Urine Glucose Negative (Negative) 07/31/18 12:36 Serum Alcohol < 10 mg/dL (<10) 07/31/18 15:00 Blood Type O Positive 07/31/18 15:00 Antibody Screen Negative 07/31/18 15:00
[2018-07-31] MEDS: Apixaban* 2.5 MG TAB PO SCH (20:57)
[2018-07-31] MEDS ORDERED: Cinacalcet TAB* 30 MG PO SCH (21:00)
[2018-07-31] MEDS ORDERED: Furosemide IV* 10 MG/ML VIAL (40 MG) IV ONE (22:07)
[2018-07-31] MEDS ORDERED: Norepinephrine 16MCG/ML IVPRE* 4,000 MCG/250 ML BAG IV ONE (22:54)
[2018-07-31] MEDS ORDERED: Norepinephrine 16MCG/ML IVPRE* 4,000 MCG/250 ML BAG IV SCH (23:00)
--- NOTE | 2018-07-31 23:00 | PN ---
Sepsis Event Evaluation Date of Evaluation: 07/31/18 Time of Evaluation: 22:56 Current Stage of Sepsis: Severe Sepsis Vital Signs - Last 12 Hours: Vital Signs - 12 hr Temp Pulse Resp BP Pulse Ox 07/31/18 22:00 60 13 94 07/31/18 21:30 118/40 07/31/18 21:28 21 68/62 07/31/18 21:17 61 14 94 07/31/18 21:00 61 15 88 07/31/18 20:35 62 18 114/42 92 07/31/18 20:16 60 15 84/49 94 07/31/18 20:01 60 15 120/62 93 07/31/18 20:00 60 16 91 07/31/18 19:46 60 18 94/62 87 07/31/18 19:41 97.3 F 07/31/18 19:31 60 19 106/41 94 07/31/18 19:15 60 16 110/50 90 07/31/18 19:01 12 94/50 07/31/18 19:00 15 07/31/18 18:46 60 15 104/37 89 07/31/18 18:30 60 15 104/45 91 07/31/18 18:19 58 16 124/50 91 07/31/18 18:00 60 17 95 07/31/18 17:52 97.5 F 60 16 112/64 95 07/31/18 17:44 59 18 112/64 92 07/31/18 17:15 17 114/33 07/31/18 17:00 60 16 97 07/31/18 16:49 97.5 F 60 16 104/45 96 07/31/18 16:44 17 89/54 07/31/18 16:15 61 21 96/59 07/31/18 16:00 18 07/31/18 15:45 60 20 86/44 96 07/31/18 15:42 16 07/31/18 15:14 57 18 98/44 99 07/31/18 15:07 19 84/54 07/31/18 15:00 60 20 95 07/31/18 14:44 59 18 115/65 92 07/31/18 14:08 59 93 07/31/18 13:56 83/46 07/31/18 13:26 81/44 07/31/18 13:16 59 94 07/31/18 12:41 22 88 07/31/18 12:37 97.1 F 62 18 108/60 93 Lactic Acid: 07/31/18 07/31/18 07/31/18 15:00 18:30 21:55 Lactic Acid 3.3 H* 2.9 H* 2.4 H* - Cardiopulmonary Exam Capillary Refill: Immediate Respiratory: Symmetrical Chest Expansion and Respiratory Effort Cardiovascular: RRR, No Edema, - - grade III/ murmur - Peripheral Pulse Exam Radial Pulses: Bilateral Normal - Skin Exam Skin Exam: Unremarkable - [place] Coma Scale Best Eye Response: 4 - Spontaneous Best Motor Response: 6 - Obeys Commands Best Verbal Response: 4 - Confused Coma Scale Total: 14 Assess/Plan/Problems-Billing Assessment: 82 y/o with hypercalcemia, renal failure, HF and hypotension, sepsis 2/2 UTI - Patient Problems (1) Sepsis associated hypotension Code(s): A41.9 - SEPSIS, UNSPECIFIED ORGANISM; I95.9 - HYPOTENSION, UNSPECIFIED SNOMED Code(s): 33654521 Comment: - Repeat lactic 2.4 - Remains hypotensive after 3L IVNS and 200ml/hr - Start levophed at 5mcg, titration orders in Status and Disposition: Inpatient critical
[2018-07-31 23:19] LABS: Calcium 13.3 mg/dL (8.6-10.3)
[2018-07-31 23:28] LABS: Troponin I 0.19 ng/mL (<0.04)
[2018-08-01] MEDS: NS 0.9% 1000 ML** 1,000 ML IV SCH ×4 (00:08→21:13)
--- NOTE | 2018-08-01 01:59 | CONS ---
CC: Dr. Margot Dolan; the hospitalist service; Dr. Jamie Kaminski, [facility] * CONSULTATION REPORT: DATE OF CONSULT: 07/31/18 REASON FOR CONSULTATION: Hypotension and known severe aortic stenosis. HISTORY OF PRESENT ILLNESS: Mrs. Coughlin was examined and seen in the presence of her daughter. Mrs. Coughlin was unable to provide history. According to the patient's daughter and other physicians' notes, the patient was found by her daughter this morning on the ground, was uncertain how long the patient was on the ground, her mother was not able to provide any history to her daughter or the emergency room. EMS and in the emergency room, she was found to be hypotensive consistent with SIRS or sepsis and labs suggestive of urinary tract infection. ED workup also showed elevated BUN and creatinine, hypercalcemia and elevation in BNP. The patient's daughter states that until several months ago, the patient was working at [employer], quite active, but she has had a rapid decline. She has continued to live independently. PAST MEDICAL HISTORY: The patient has a past medical history of: 1. Severe aortic stenosis, appointment made for TAVR with Dr. Kaminski next Sunday. 2. Congestive heart failure. 3. Negative for significant coronary artery disease (cath April 2018). 4. Hyperparathyroidism. 5. Chronic atrial fibrillation. 6. Tachy-aleks, status post pacemaker implantation. 7. Type 2 diabetes. 8. Degenerative arthritis. 9. Peripheral vascular disease. 10. Hypertension. 11. GI bleeding. PAST SURGICAL HISTORY: Includes right hip replacement. HOME MEDICATIONS: Included: 1. Januvia 100 mg a day. 2. Detrol 4 mg a day. 3. Protonix 40 mg a day. 4. Fish oil 1 g q.h.s. 5. Nystatin. 6. Magnesium oxide 400 mg b.i.d. 7. Hydrochlorothiazide 25 mg a day. 8. Iron sulfate 325 mg a day. 9. Flexeril 10 mg p.r.n. 10. Vitamin B12. 11. Sensipar 60 mg b.i.d. 12. Vitamin D 800 units daily. 13. Atorvastatin 10 mg a day. 14. Atenolol 50 mg a day. 15. Apixaban 2.5 mg a day. 16. Tylenol p.r.n. CURRENT INPATIENT MEDICATIONS: Include: 1. Tylenol p.r.n. 2. Eliquis 2.5 mg b.i.d. 3. Miacalcin 200 units subcutaneous b.i.d. 4. Ceftriaxone 1 g q.24 hours. 5. Sensipar 90 mg b.i.d. 6. Flexeril 10 mg q.h.s. p.r.n. spasm. 7. Iron sulfate 325 mg a day. 8. Norepinephrine drip. 9. Nystatin powder. 10. Zofran p.r.n. nausea, vomiting. 11. Protonix 40 mg a day. 12. Normal saline 200 cc an hour. ALLERGIES: Include PENICILLIN. FAMILY HISTORY: Both parents . Recently working at [employer], but currently unable to due to health issues. Supportive daughter in the area and another daughter lives out of town. SOCIAL HISTORY: No current smoking, distant smoking history, no alcohol intake. REVIEW OF SYSTEMS: Unable to be obtained other than that obtained from the patient's daughter above due to patient's change in mentation. PHYSICAL EXAM: On exam, the patient is 5 feet, weighs 146 pounds with a BMI of 28.5. Vitals in the emergency room on arrival: 81/44, pulse was 60, respiratory rate 18, temperature 97.1. At the time I saw her, blood pressure 112/64, pulse was 60, respiratory rate 18, oxygen saturation 92% to 97%. General Appearance: Short, elderly woman, lying in 30 degrees. Eyes open, but not reacting to the world around her, did not respond to verbal, does respond to noxious, unable to follow commands. Skin: Dry, warm. HEENT: Mucous membranes dehydrated. Neck without increased JVP, decreased carotid pulse and delayed compared with her heart sounds. Breath sounds laterally clear, free of wheezes or rales. Coronary: S1. No S2 heard in the upper sternal border. Soft heart sounds. Late peaking systolic murmur heard in the lower sternal border in apex. Abdomen: Active bowel sounds, soft, no hepatomegaly and lower extremities were free of edema and warm. DIAGNOSTIC STUDIES/LAB DATA: White count 17.7, hematocrit 39, platelets 278, INR 1.44, PTT 30. Sodium 137, potassium 3.5, chloride 94, bicarb 30, BUN 59, creatinine 3.7, glucose 61, lactic acid 3.3, calcium 16.5, magnesium 3.2. AST 62, ALT 30, CPK 958. Troponin #1 0.29, troponin #2 0.22. BNP 907. Total protein 8.2, albumin 4.1. Urinalysis 2+ protein, negative for ketones, 2+ blood , 2+ leukocyte esterase, negative for nitrates, white cells 3+, red cells 3+. Urine culture pending. Serul alcohol less than 10. Cardiac studies 2019 include cardiac catheterization 06/14/18 showed no evidence of significant coronary disease, left main no significant stenosis, heavy calcification of the ostium, LAD no stenosis, left circumflex no stenosis , right coronary artery no stenosis, moderate calcification in the proximal vessel. Echocardiogram from 06/09/18 showed a moderate left ventricular hypertrophy, ejection fraction 60% to 65%, septal flattening, right ventricle was moderately dilated and moderately decreased RV systolic function, calcific aortic sclerosis with severe aortic stenosis, mean gradient 27 mmHg, peak velocity across the aortic valve 4.1 meters/second and aortic DI was 0.22. PA pressure was 42 mmHg. Inpatient studies included a chest x-ray showing mild vascular congestion and EKG today shows atrial fibrillation with a left bundle-branch block compared with her EKG of 06/20/18, not significantly changed, resolution of PVC. CT of the brain, no evidence of acute intracranial process and humerus x-ray showed no evidence of fracture, evidence of chronic advanced rotator cuff pathology. IMPRESSION AND PLAN: In summary, Mrs. Avelina Coughlin is an 82-year-old woman presenting obtunded with evidence of infection with abnormal urinalysis, elevated white count, hypotensive with probable urinary tract infection, also has severe aortic stenosis and hypoglycemia, both of which are likely contributing to her mentation changes. Her hypercalcemia is being addressed by Dr. Jane. Mrs. Coughlin's severe aortic stenosis is contributing to her hypotension, but also to evidence of left heart failure. I agree with management of sepsis as the most important including IV fluids and antibiotics. This will undoubtedly lead to additional fluid overload in her lungs and I anticipate this will need diuretics once her infectious process is improved and volume status is improved. I made Dr. Kaminski aware of her admission, I hope she was scheduled to see him next Sunday and whether she is inpatient or outpatient, it is important that she get evaluated for possible TAVR. With the urinary tract infection and aortic stenosis, there is some risk of endocarditis and an echocardiogram was recommended and ordered, but results pending. We will also be able to ensure that her LV function remains strong, reevaluate LV function and RV function. Mrs. Coughlin is a very high risk patient due to her aortic stenosis, infection , and other ongoing medical issues including her hyperglycemia and diabetes. Addition recommendations will be made pending the results of her echo and her response to supportive measures and clinical course. The patient's troponins are noted, however, based on very recent catheterization , I do not feel they are due to large vessel disease, more likely they are due to poor cardiac output, or from her valvular heart disease and increased demand from her sepsis (demand/type 2 ischemia). Overall Mrs. Coughlin needs aggressive supportive care, evaluation for aortic valve replacement as soon as able. Thank you for allowing me to assist in this nice, sick woman's care. ADDENDUM: I did contact Dr Kaminski, he is aware the patient is admitted with the above acute medical issues. He is scheduled to see her in [place] this Sunday. [id number]/[facility] #: [id number] [facility]ITAL[facility]eg
[2018-08-01] MEDS: Calcitonin (Salmon) INJ* 200 UNITS/ML 2 ML VIAL SUBCUT SCH ×3 (04:24→21:12)
[2018-08-01] MEDS ORDERED: Dextrose 50% Syringe 50 ML* 25 GM/50 ML SYRINGE ONE (05:37)
[2018-08-01 05:38] LABS: Albumin 3.3 g/dL (3.2-5.2); CO2 Carbon Dioxide 22 mmol/L (22-32); Chloride 104 mmol/L (101-111); Sodium 139 mmol/L (135-145)
[2018-08-01 05:44] LABS: ALT 26 U/L (7-52); Albumin/Globulin Ratio 1.1 (1-3); Alkaline Phosphatase 72 U/L (34-104); BUN/Creatinine Ratio 19.3 (8-20); Blood Urea Nitrogen 59 mg/dL (6-24); EGFR African American 17.8 (>60); EGFR Non-African American 14.7 (>60); Globulin 3.1 g/dL (2-4); Glucose 58 mg/dL (70-100); Total Protein 6.4 g/dL (6.4-8.9)
[2018-08-01 05:47] LABS: Anion Gap 13 mmol/L (2-11)
[2018-08-01 07:37] LABS: ABS Basophils 0 10^3/ul (0-0.2); ABS Eosinophils 0 10^3/ul (0-0.6); ABS Lymphocytes 0.8 10^3/ul (1.0-4.8); ABS Neutrophils 14.3 10^3/ul (1.5-7.7); ABS Nucleated RBC 0 10^3/ul; Eosinophil % 0.1 %; Hematocrit 32 % (33-41); Hemoglobin 10.3 g/dL (12.0-16.0); Lymphocyte % 5.1 %; Mean Corpuscular HGB Conc 32 g/dL (31-36); Mean Corpuscular Hemoglobin 27 pg (27-31); Mean Corpuscular Volume 85 fL (80-97); Mean Platelet Volume 9.8 fL (7.4-10.4); Nucleated Red Blood Cells % 0; Platelet Count 188 10^3/uL (150-450); Red Blood Count 3.82 10^6 /uL (3.70-4.87); Red Cell Distribution Width 16 % (10.5-15); White Blood Count 16.2 10^3/uL (3.5-10.8)
[2018-08-01] MEDS: Ferrous Sulfate TAB* 325 MG PO SCH (08:51)
[2018-08-01] MEDS: Apixaban* 2.5 MG TAB PO SCH ×2 (08:51→21:09)
[2018-08-01] MEDS: Pantoprazole TAB * 40 MG TAB PO SCH (08:51)
[2018-08-01] MEDS: Cinacalcet TAB* 30 MG PO SCH ×2 (09:13→17:12)
--- NOTE | 2018-08-01 09:55 | ECHO ---
Patient: NICOLE CROW [facility] Rec#: [id number] : 1935 Date: 08/01/2018 Age: 82y Height: 152.4 cm / 60.0 in Weight: 66.22 kg / 145.9 lbs Sex: F BSA: 1.63 Room#: [facility] Admit Date#: 07/31/2018 Type: Inpatient Referring: Grace Emmanuel Reading: Anum Agarwal MD Police Det[employer] Attendant: Padmini Wiggins RDCS CC: Kelsi WILKINS, Margot CC: Jamie Kaminski MD Transthoracic Echocardiogram Indication: Congestive heart failure BP: 115/71 HR: 62 Rhythm: Paced Findings History: Severe , CHF, negative cardiac catheterization 05/18, a-fib, s/p pacer, HTN, HLD, hiatal hernia, former smoker. Technical Comments: The study quality is fair. Completed at 0900. Left Ventricle: The left ventricular chamber size is normal. Moderate concentric left ventricular hypertrophy is observed. Global left ventricular wall motion and contractility are within normal limits. There is normal left ventricular systolic function. The estimated ejection fraction is 55-60%. There is abnormal ventricular septal wall motion consistent with right ventricular pacemaker. The assessment of diastolic function is non-diagnostic. Left Atrium: The left atrium is severely dilated. Right Ventricle: Moderator Band present. The right ventricle is mildly dilated. The right ventricular global systolic function is low normal. A pacemaker wire is visualized in the right ventricle. Right Atrium: The right atrial cavity size is severely dilated. A pacemaker wire is visualized in the right atrium. Aortic Valve: The aortic valve is trileaflet. Moderate aortic leaflet calcification is visualized. Systolic excursion of the aortic valve cusps is reduced. There is mild aortic regurgitation. There is severe aortic stenosis. The mean gradient of the aortic valve is 32 mmHg. The peak instantaneous gradient of the aortic valve is 67 mmHg. The aortic valve area, by peak velocities, is calculated at 0.77 cm2. The aortic valve area, by VTI's, is calculated at 0.72 cm2. The measured aortic regurgitation pressure half-time is 564 msec. There is no aortic vegetation present. Mitral Valve: There is mitral annular calcification. Mild mitral leaflet calcification is visualized. There is mild to moderate mitral regurgitation. There is no evidence of mitral stenosis. No vegetation is observed on the mitral valve. Tricuspid Valve: The tricuspid valve leaflets are normal. There is moderate tricuspid regurgitation. The right ventricular systolic pressure is estimated at 55 mmHg. There is evidence of moderate pulmonary hypertension. There is no tricuspid stenosis. No vegetation is observed on the tricuspid valve. Pulmonic Valve: The pulmonic valve appears normal. There is a trace pulmonic regurgitation. There is no pulmonic stenosis. No vegetation is observed on the pulmonic valve. Pericardium: There is no significant pericardial effusion. Aorta: There is no dilatation of the ascending aorta. There is no dilatation of the aortic arch. The aortic root is normal in size. Pulmonary Artery: The main pulmonary artery appears normal. Venous: The inferior vena cava appears normal in size. There is a greater than 50% respiratory change in the inferior vena cava dimension. Summary: There are changes noted when compared to the previous study done on 05/09/2018, there is now mild increase of TR and PHTN. Conclusions The left ventricular chamber size is normal. Moderate concentric left ventricular hypertrophy is observed. There is normal left ventricular systolic function. The estimated ejection fraction is 55-60%. The assessment of diastolic function is non-diagnostic. The left atrium is severely dilated. The right ventricle is mildly dilated. A pacemaker wire is visualized in the right ventricle. A pacemaker wire is visualized in the right atrium. There is mild aortic regurgitation. There is severe aortic stenosis. There is mild to moderate mitral regurgitation. There is moderate tricuspid regurgitation. The right ventricular systolic pressure is estimated at 55 mmHg. There is a trace pulmonic regurgitation. Measurements Name Value Normal Range RVIDd (AP) 2D 3.3 cm (0.9 - 2.6) RVDdMajor (2D) 4.5 cm (2.2 - 4.4) RAd ISD 4CH 6.7 cm (3.4 - 4.9) RA (A4C)W 4.9 cm (2.9 - 4.6) IVSd (2D) 1.4 cm (0.6 - 1) LVPWd (2D) 1.3 cm (0.6 - 1) LVIDd (2D) 4.4 cm (3.6 - 5.4) LVIDs (2D) 3.2 cm - LV FS (2D) 27 % (25 - 45) Aortic Annulus 2.2 cm (1.4 - 2.6) Ao root diameter (2D) 2.7 cm (2.1 - 3.5) Ascending Ao 3 cm (2.1 - 3.4) Aortic arch 2.3 cm (1.8 - 3.4) LA dimension (AP) 2D 4.8 cm (2.3 - 3.8) LAd ISD 4CH 6.2 cm (2.9 - 5.3) LA ISD 4CH W 4.5 cm (2.5 - 4.5) Name Value Normal Range LA ESV SP 4CH (A/L) 83 ml - LA ESV SP 2CH (A/L) 122 ml - LA ESV BP (A/L) 106 ml - LA ESV BP (A/L) index 65 ml/m2 - LA ESV SP 4CH (MOD) 78 ml - LA ESV SP 2CH (MOD) 113 ml - Name Value Normal Range MV E-wave Vmax 0.94 m/sec - MV deceleration time 264 msec - MV A-wave Vmax 0.34 m/sec - MV E:A ratio 2.77 ratio - LV septal e' Vmax 0.04 m/sec - LV lateral e' Vmax 0.07 m/sec - LV E:e' septal ratio 22.5 ratio - LV E:e' lateral ratio 12.9 ratio - Name Value Normal Range AV Vmax 4.1 m/sec - AV VTI 91 cm - AV peak gradient 67 mmHg - AV mean gradient 32 mmHg - LVOT diameter 2 cm - LVOT Vmax 1 m/sec - LVOT VTI 21 cm - LVOT peak gradient 3.7 mmHg - LVOT mean gradient 2 mmHg - SADIE (continuity Vmax) 0.77 cm2 - SADIE (continuity VTI) 0.72 cm2 - AR PHT 564 msec - AR peak gradient 41.13 mmHg - IFTIKHAR Vmax 0.9 m/sec - Name Value Normal Range TR Vmax 3.6 m/sec - TR peak gradient 52 mmHg - RAP 3 mmHg - RVSP 55 mmHg - IVC diameter 1.9 cm - Name Value Normal Range PV Vmax 0.8 m/sec - PV peak gradient 2.69 mmHg - IA end-diastolic Vmax 1.44 m/sec -
[2018-08-01 10:23] LABS: Calcium 9.7 mg/dL (8.6-10.3)
--- NOTE | 2018-08-01 12:21 | PN ---
Date of Service: 08/01/18 - HD 2 Critical Care Services: 82 yo F with PMH notable for primary hyperparathyroidism and aortic stenosis presents to the ED on 07/31 after she was found down after a mechanical fall at home. No loss of consciousness. Unable to obtain further information from patient secondary to confusion and depressed cognition. Per her daughter they found her down but she is not able to give further details. She does state that her mother has not had any complaints recently, including no complaints of confusion and muscle rigidity/joint pain, and she states she has not seen any of the symptoms that she had last time her calcium level was high. She does report that her mother was complaining of urinary frequency for which she saw a PCP earlier. 08/01: Remains significantly lethargic and confused. UOP > 100 ml/hr. Calcium down to 13.0 after Calcitonin Vital Signs: Temp Pulse Resp BP SpO2 FiO2 98.4 F 60 16 92/33 97 08/01/18 12:00 08/01/18 12:00 08/01/18 12:00 08/01/18 11:46 08/01/18 12:00 Physical Exam: Gen: resting comfortably HEENT: intact Lungs: CTAB Cardiac: irregularly irregular Abdomen: soft, NTND Extremities: warm, dry, minimal edema Neuro: lethargic Fluid Balance (Past 24 Hours): I= O= Net Intake & Output 07/30/18 07/31/18 08/01/18 08/02/18 06:59 06:59 06:59 06:59 Intake Total 5679 112 Output Total 1524 1165 Balance 4155 -1053 Weight 144 lb 2.917 oz Intake: IV Fluids 5038 NS (0.9%) 1988 Medicated IV 41 CC - Norepinephrine/ 41 Levophed Oral 600 112 Output: Chris [id number] Labs: Laboratory Results - last 24 hr 07/31/18 07/31/18 07/31/18 12:36 15:00 15:00 WBC 17.7 H RBC 4.67 Hgb 12.9 Hct 39 MCV 83 MCH 28 MCHC 33 RDW 16 H Plt Count 278 MPV 9.7 Neut % (Auto) 85.4 Lymph % (Auto) 7.1 Hinds % (Auto) 6.8 Eos % (Auto) 0.1 Baso % (Auto) 0.6 Absolute Neuts (auto) 15.1 H Absolute Lymphs (auto) 1.3 Absolute Monos (auto) 1.2 H Absolute Eos (auto) 0 Absolute Basos (auto) 0.1 Absolute Nucleated RBC 0 Nucleated RBC % 0 INR (Anticoag Therapy) 1.44 H APTT 29.7 Sodium Potassium Chloride Carbon Dioxide Anion Gap BUN Creatinine Est GFR ( Amer) Est GFR (Non-Af Amer) BUN/Creatinine Ratio Glucose POC Glucose (mg/dL) Lactic Acid Calcium Ionized Calcium Phosphorus Magnesium Total Bilirubin AST ALT Alkaline Phosphatase Total Creatine Kinase Troponin I B-Natriuretic Peptide Total Protein Albumin Globulin Albumin/Globulin Ratio PTH Intact Calcium (PTH Intact) Urine Color Yellow Urine Appearance Turbid Urine pH 7.0 Ur Specific [place] 1.010 Urine Protein 2+(100 mg/dl) A Urine Ketones Negative Urine Blood 2+ A Urine Nitrate Negative Urine Bilirubin Negative Urine Urobilinogen Negative Ur Leukocyte Esterase 2+ A Urine WBC (Auto) 3+(>20/hpf) A Urine RBC (Auto) 3+(>10/hpf) A Urine Bacteria Absent Urine Glucose Negative Serum Alcohol Blood Type Antibody Screen 07/31/18 07/31/18 07/31/18 15:00 15:00 15:00 WBC RBC Hgb Hct MCV MCH MCHC RDW Plt Count MPV Neut % (Auto) Lymph % (Auto) [place] % (Auto) Eos % (Auto) Baso % (Auto) Absolute Neuts (auto) Absolute Lymphs (auto) Absolute Monos (auto) Absolute Eos (auto) Absolute Basos (auto) Absolute Nucleated RBC Nucleated RBC % INR (Anticoag Therapy) APTT Sodium 137 Potassium 3.5 Chloride 94 L Carbon Dioxide 30 Anion Gap 13 H BUN 59 H Creatinine 3.72 H Est GFR ( Amer) 14.2 Est GFR (Non-Af Amer) 11.7 BUN/Creatinine Ratio 15.9 Glucose 61 L POC Glucose (mg/dL) Lactic Acid 3.3 H* Calcium 16.5 H* Ionized Calcium Phosphorus Magnesium Total Bilirubin 0.60 AST 62 H ALT 30 Alkaline Phosphatase 70 Total Creatine Kinase 958 H Troponin I 0.29 H* B-Natriuretic Peptide Total Protein 8.2 Albumin 4.1 Globulin 4.1 H Albumin/Globulin Ratio 1.0 PTH Intact Calcium (PTH Intact) Urine Color Urine Appearance Urine pH Ur Specific [place] Urine Protein Urine Ketones Urine Blood Urine Nitrate Urine Bilirubin Urine Urobilinogen Ur Leukocyte Esterase Urine WBC (Auto) Urine RBC (Auto) Urine Bacteria Urine Glucose Serum Alcohol < 10 Blood Type O Positive Antibody Screen Negative 07/31/18 07/31/18 07/31/18 15:00 17:05 18:18 WBC RBC Hgb Hct MCV MCH MCHC RDW Plt Count MPV Neut % (Auto) Lymph % (Auto) [place] % (Auto) Eos % (Auto) Baso % (Auto) Absolute Neuts (auto) Absolute Lymphs (auto) Absolute Monos (auto) Absolute Eos (auto) Absolute Basos (auto) Absolute Nucleated RBC Nucleated RBC % INR (Anticoag Therapy) APTT Sodium Potassium Chloride Carbon Dioxide Anion Gap BUN Creatinine Est GFR ( Amer) Est GFR (Non-Af Amer) BUN/Creatinine Ratio Glucose POC Glucose (mg/dL) 53 L 137 H Lactic Acid Calcium Ionized Calcium Phosphorus Magnesium Total Bilirubin AST ALT Alkaline Phosphatase Total Creatine Kinase Troponin I B-Natriuretic Peptide 907 H Total Protein Albumin Globulin Albumin/Globulin Ratio PTH Intact Calcium (PTH Intact) Urine Color Urine Appearance Urine pH Ur Specific [place] Urine Protein Urine Ketones Urine Blood Urine Nitrate Urine Bilirubin Urine Urobilinogen Ur Leukocyte Esterase Urine WBC (Auto) Urine RBC (Auto) Urine Bacteria Urine Glucose Serum Alcohol Blood Type Antibody Screen 07/31/18 07/31/18 07/31/18 18:30 18:30 20:54 WBC RBC Hgb Hct MCV MCH MCHC RDW Plt Count MPV Neut % (Auto) Lymph % (Auto) [place] % (Auto) Eos % (Auto) Baso % (Auto) Absolute Neuts (auto) Absolute Lymphs (auto) Absolute Monos (auto) Absolute Eos (auto) Absolute Basos (auto) Absolute Nucleated RBC Nucleated RBC % INR (Anticoag Therapy) APTT Sodium Potassium Chloride Carbon Dioxide Anion Gap BUN Creatinine Est GFR ( Amer) Est GFR (Non-Af Amer) BUN/Creatinine Ratio Glucose POC Glucose (mg/dL) 77 Lactic Acid 2.9 H* Calcium Ionized Calcium Phosphorus 4.3 Magnesium 3.2 H Total Bilirubin AST ALT Alkaline Phosphatase Total Creatine Kinase Troponin I 0.22 H* B-Natriuretic Peptide Total Protein Albumin Globulin Albumin/Globulin Ratio PTH Intact Calcium (PTH Intact) Urine Color Urine Appearance Urine pH Ur Specific [place] Urine Protein Urine Ketones Urine Blood Urine Nitrate Urine Bilirubin Urine Urobilinogen Ur Leukocyte Esterase Urine WBC (Auto) Urine RBC (Auto) Urine Bacteria Urine Glucose Serum Alcohol Blood Type Antibody Screen 07/31/18 07/31/18 07/31/18 21:55 21:55 22:50 WBC RBC Hgb Hct MCV MCH MCHC RDW Plt Count MPV Neut % (Auto) Lymph % (Auto) [place] % (Auto) Eos % (Auto) Baso % (Auto) Absolute Neuts (auto) Absolute Lymphs (auto) Absolute Monos (auto) Absolute Eos (auto) Absolute Basos (auto) Absolute Nucleated RBC Nucleated RBC % INR (Anticoag Therapy) APTT Sodium Potassium Chloride Carbon Dioxide Anion Gap BUN Creatinine Est GFR ( Amer) Est GFR (Non-Af Amer) BUN/Creatinine Ratio Glucose POC Glucose (mg/dL) Lactic Acid 2.4 H* Calcium 13.3 H* Ionized Calcium 1.86 H* Phosphorus Magnesium Total Bilirubin AST ALT Alkaline Phosphatase Total Creatine Kinase Troponin I 0.19 H* B-Natriuretic Peptide Total Protein Albumin Globulin Albumin/Globulin Ratio PTH Intact Calcium (PTH Intact) Urine Color Urine Appearance Urine pH Ur Specific [place] Urine Protein Urine Ketones Urine Blood Urine Nitrate Urine Bilirubin Urine Urobilinogen Ur Leukocyte Esterase Urine WBC (Auto) Urine RBC (Auto) Urine Bacteria Urine Glucose Serum Alcohol Blood Type Antibody Screen 07/31/18 08/01/18 08/01/18 23:54 05:04 05:04 WBC RBC Hgb Hct MCV MCH MCHC RDW Plt Count MPV Neut % (Auto) Lymph % (Auto) [place] % (Auto) Eos % (Auto) Baso % (Auto) Absolute Neuts (auto) Absolute Lymphs (auto) Absolute Monos (auto) Absolute Eos (auto) Absolute Basos (auto) Absolute Nucleated RBC Nucleated RBC % INR (Anticoag Therapy) APTT Sodium 139 Potassium TNP Chloride 104 Carbon Dioxide 22 Anion Gap 13 H BUN 59 H Creatinine 3.05 H Est GFR ( Amer) 17.8 Est GFR (Non-Af Amer) 14.7 BUN/Creatinine Ratio 19.3 Glucose 58 L POC Glucose (mg/dL) 94 Lactic Acid Calcium 13.0 H Ionized Calcium Phosphorus Magnesium Total Bilirubin 0.50 AST TNP ALT 26 Alkaline Phosphatase 72 Total Creatine Kinase Troponin I B-Natriuretic Peptide Total Protein 6.4 Albumin 3.3 Globulin 3.1 Albumin/Globulin Ratio 1.1 PTH Intact 634.6 H Calcium (PTH Intact) 13.0 H Urine Color Urine Appearance Urine pH Ur Specific [place] Urine Protein Urine Ketones Urine Blood Urine Nitrate Urine Bilirubin Urine Urobilinogen Ur Leukocyte Esterase Urine WBC (Auto) Urine RBC (Auto) Urine Bacteria Urine Glucose Serum Alcohol Blood Type Antibody Screen 08/01/18 08/01/18 08/01/18 05:32 05:35 07:03 WBC 16.2 H RBC 3.82 Hgb 10.3 L Hct 32 L MCV 85 MCH 27 MCHC 32 RDW 16 H Plt Count 188 MPV 9.8 Neut % (Auto) 88.3 Lymph % (Auto) 5.1 Hinds % (Auto) 6.2 Eos % (Auto) 0.1 Baso % (Auto) 0.3 Absolute Neuts (auto) 14.3 H Absolute Lymphs (auto) 0.8 L Absolute Monos (auto) 1.0 H Absolute Eos (auto) 0 Absolute Basos (auto) 0 Absolute Nucleated RBC 0 Nucleated RBC % 0 INR (Anticoag Therapy) APTT Sodium Potassium Chloride Carbon Dioxide Anion Gap BUN Creatinine Est GFR ( Amer) Est GFR (Non-Af Amer) BUN/Creatinine Ratio Glucose POC Glucose (mg/dL) 41 L 59 L Lactic Acid Calcium Ionized Calcium Phosphorus Magnesium Total Bilirubin AST ALT Alkaline Phosphatase Total Creatine Kinase Troponin I B-Natriuretic Peptide Total Protein Albumin Globulin Albumin/Globulin Ratio PTH Intact Calcium (PTH Intact) Urine Color Urine Appearance Urine pH Ur Specific [place] Urine Protein Urine Ketones Urine Blood Urine Nitrate Urine Bilirubin Urine Urobilinogen Ur Leukocyte Esterase Urine WBC (Auto) Urine RBC (Auto) Urine Bacteria Urine Glucose Serum Alcohol Blood Type Antibody Screen 08/01/18 08/01/18 09:07 09:57 WBC RBC Hgb Hct MCV MCH MCHC RDW Plt Count MPV Neut % (Auto) Lymph % (Auto) [place] % (Auto) Eos % (Auto) Baso % (Auto) Absolute Neuts (auto) Absolute Lymphs (auto) Absolute Monos (auto) Absolute Eos (auto) Absolute Basos (auto) Absolute Nucleated RBC Nucleated RBC % INR (Anticoag Therapy) APTT Sodium Potassium Chloride Carbon Dioxide Anion Gap BUN Creatinine Est GFR ( Amer) Est GFR (Non-Af Amer) BUN/Creatinine Ratio Glucose POC Glucose (mg/dL) 152 H Lactic Acid Calcium 9.7 Ionized Calcium Phosphorus Magnesium Total Bilirubin AST 26 ALT Alkaline Phosphatase Total Creatine Kinase Troponin I B-Natriuretic Peptide Total Protein Albumin Globulin Albumin/Globulin Ratio PTH Intact Calcium (PTH Intact) Urine Color Urine Appearance Urine pH Ur Specific [place] Urine Protein Urine Ketones Urine Blood Urine Nitrate Urine Bilirubin Urine Urobilinogen Ur Leukocyte Esterase Urine WBC (Auto) Urine RBC (Auto) Urine Bacteria Urine Glucose Serum Alcohol Blood Type Antibody Screen Studies: 07/31 US renal - mild renal parenchymal disease and age-related cortical thining. Bosniak type 1 renal cyst 07/31 TTE - moderate concentric LVH LVEF 55-60% nondiagnostic for diastolic function left atrium severely dilated, right atrium mildly mild aortic regurg mild to moderate mitral regurg moderate tricuspid regurg RVSP 55 mmHg trace pulmonic regurg 07/31 XR R Humerus - No fracture. Super subluxation of humberal head relative to gleniod and chronic remodelling consistent with chronic advance trotator cuff pathology 07/31 XR pelvis and L hip - no fracture. Seere osteoarthritis of left hip, unchanged from prior. 07/31 CT brain - no acute intracranial process 07/31 CXR - pulmonary edema Nutrition: poor PO intake. add Boost or Ensure suppliment Impression: 82 yo F with known primary hyperparathyroidism, aortic stenosis, chronic diastolic CHF, and diabetes mellitus who presents with hypercalcemia, generalized weakness, and confusion. Plan: Cardiovascular: (1) Elevated troponin; (2) Acute on chronic diastolic CHF;(3) Hypotension; (4) Chronic atrial fibrillation; (5) Aortic stenosis with plans for TAVR next month; (6) Hypertension, chronic; (7) Hyperlipidemia; (8) hx of bradycardia -- HR 48-68 -- SBP 71-136 -- Telemetry -- TTE, 07/31: EF 55-60%. unable to assess diastolic function -- Cardiac markers troponin 0.19 from 0.22 from 0.29 -- Cardiology consulted (Nicko) Home meds: patient unable to provide at this time - as of 06/20/2018 on Atenolol and HCTZ, omega 3, apixaban Pulmonary: (1) Pulmonary edema, cardiac cause -- RR 12-23 -- sats 88-99 on NC -- monitor respiratory status closely. Given history of diastolic CHF, may need titration of fluid administration Home meds: patient unable to provide at this time Gastrointestinal: (1) hx of gastric ulcer -- diet: poor PO intake limited by mental status. Try adding supplimental shakes -- bowel regimen: None -- ulcer prophylaxis: Protonix -- Zofran as needed Home meds: patient unable to provide at this time - as of 06/20/2018 on Pantoprazole Endocrine: (1) Diabetes mellitus, type 2; (2) Primary hyperparathyroidism -- monitor BGs -- PTH 634.6, repeated 604.3 -- Cinecalcet -- Endocrinology consulted Home meds: patient unable to provide at this time - as of 06/20/2018 on sitagliptin and cinecalcet Renal: (1) Acute kidney injury; (2) Hypercalcemia; (3) Primary hyperparathyroidism; (4) UTI; (5) Hx of hypomagnesemia -- UOP: 127 ml/hr -- I/O:5679 ml in / 1524 ml out -- Cr 3.05 from 3.72 -- Lytes Na 139 from 137 K 2.7, replaced Ca 9.7 from 13.0 from 13.3 from 16.5, receiving calcitonin Mag 3.2, follow trend Phos 4.3 -- IVF: NS @ 200 ml/hr -- Cinecalcet -- Nephrology consulted Home meds: patient unable to provide at this time - as of 06/20/2018 on Cinacalcet, Vit D, Detrol, Mag ox Infectious disease: (1) Urinary tract infection -- Tmax 98.4 -- WBC 16.2 from 17.7 -- Micro 4/3 UA 2+ LE. 3+ WBC MRSA screen negative -- ABX Nystatin powder Rocephin Home meds: patient unable to provide at this time - as of 06/20/2018 on nystatin powder Neurologic: (1) Acute encephalopathy secondary to hypercalcemia -- Tylenol as needed -- Cyclobenzaprine Home meds: patient unable to provide at this time - as of 06/20/2018 on tylenol with codiene, cyclobenzaprine Hematological: (1) Chronic iron deficiency anemia -- Hgb 10.3 from 12.9, hemodilutional, follow trend -- Plt 188 from 278, hemodilutional, follow trend -- DVT prophylaxis: Apixaban -- Ferrous sulfate Home meds: patient unable to provide at this time - as of 06/20/2018 on ferrous sulfate, apixaban Metabolic: (1) Lactic acidosis -- Lactic acid 2.4 from 2.9 from 3.3. check repeat Home meds: patient unable to provide at this time Deep vein thrombosis prophylaxis: Apixaban Dietary: Protonix Condition: serious Prognosis: guarded Code status: full Disposition: continue ICU Care Family updated at bedside regarding interval events and plan of care Cumulative time spent in the care of this patient (excluding any procedure time) : at least 40 minutes. Patient care included clinical interview (with patient and/or family), bedside exam of the patient, review of labs, x-rays, and other ancillary data, coordination of (respiratory, nursing care, review of patient's records, discussion regarding patients management with involved consultants, primary physician, pharmacists, and other healthcare personnel (dietary, case management , physical/occupational therapy etc.)
[2018-08-01 12:34] LABS: Potassium 2.7 mmol/L (3.5-5.0)
--- NOTE | 2018-08-01 13:11 | CONS ---
CC: Margot Dolan* NEPHROLOGY CONSULTATION NOTE: DATE OF CONSULT: 08/01/18. HISTORY OF PRESENT ILLNESS: Ms. Coughlin is an 82-year-old female with a known history of hyperparathyroidism, who had been maintained on Sensipar recently. Apparently, she was off the Sensipar for a brief period of time, but we do not know how long. On the other hand, her home health aide told one of the staff here that she does not think she is taking her medications appropriately at all. In addition, she has been treated with hydrochlorothiazide for hypertension over the years and while that was stopped a couple of months ago, briefly it was reinitiated and she had been reasonably stable on it with calciums in the 11 range. She was found by her daughter. An EMS was called because she had fallen and could not get up. In the emergency room, she essentially was confused and uncommunicative. At the present time, she answers simple questions yes or no, but not appropriately so. Her previous medical history is significant for aortic stenosis. She has a history of diabetes mellitus type 2. 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 She has chronic atrial fibrillation. She has a history of gastrointestinal bleeding, peripheral vascular disease, and hypertension. MEDICATIONS: Her medications at home include: 1. Detrol 4 mg daily. 2. Januvia 100 mg daily. 3. Protonix 40 mg daily. 4. [place]-3 fatty acids 2000 mg in the morning, 1000 mg in the evening. 5. Nystatin topical twice a day as required. 6. Magnesium oxide 400 mg b.i.d. 7. Hydrochlorothiazide 25 mg daily. 8. Iron sulfate 325 mg daily. 9. Flexeril 10 mg at bedtime p.r.n. 10. Vitamin B12 500 mcg daily. 11. Sensipar 60 mg b.i.d. 12. Vitamin D 800 mg daily. 13. Atorvastatin 10 mg daily. 14. Atenolol 50 mg daily. 15. Apixaban 2.5 mg b.i.d. 16. Tylenol with Codeine every 6 hours p.r.n. for pain. ALLERGIES: She is allergic to PENICILLIN, EGGS, and CRABS. FAMILY HISTORY: Essentially unremarkable. SOCIAL HISTORY: She was living by herself. She does not use alcohol or tobacco at this point. REVIEW OF SYSTEMS: She was felt to have a significant urinary tract infection at the time of admission. PHYSICAL EXAM: At the present time, she is awake and responsive, but she does not answer questions logically at all and the history is actually taken from the record. She has reactive pupils. She is anicteric. Mucous membranes are moist. There is no jugular venous distention. She had bibasilar rales. The heart revealed a regular rhythm with a grade 3/6 systolic murmur. The abdomen is soft. She had no wincing on palpation. Her bone strength to extremities revealed no edema. Neurologic: She is confused, but she moves all 4 extremities. DIAGNOSTIC STUDIES/LAB DATA: A review of her laboratory studies reveals white count of 16.2, hemoglobin of 10.3, hematocrit of 32, platelet count of 180,000. INR of 1.44. Sodium 139. Her most recent potassium was 3.5. CO2 22, chloride 104, BUN 59, creatinine 3.05. She had a creatinine of 3.72 on presentation. Her baseline creatinine last month was 0.88. Glucose 58 and she has been supplemented since then. Her lactic acid is 2.4. She has some iron deficiency with an iron saturation of 8%. Her most recent calcium is 9.7. When she presented, it was 16.5. She had a PTH level of 634.6. Urinalysis revealed 2+ protein, 2+ blood, 2+ esterase, 3+ wbc's, 3+ rbc's. There were squamous epithelial cells and hyaline casts. IMPRESSION: 1. Acute renal injury. 2. Hypercalcemia. 3. Hyperparathyroidism. 4. Diabetes mellitus type 2. 5. Aortic stenosis. DISCUSSION: It is not clear what the mechanism of her hypercalcemia is at the present time, the most likely of course would be hyperparathyroidism. It is not clear at all that she was actually taking the previously prescribed Sensipar and that might account for the change in her parathyroid hormone level. On the other hand, she was on a thiazide diuretic, which would decrease her calcium excretion. In addition, she was getting vitamin D and fish oil and fish oil can occasionally cause hypervitaminosis A and there could be hyperabsorption of calcium. She has received some Miacalcin here in the hospital together with a saline diuresis and that has brought her calcium down to a much more reasonable level. At the present time, I would slow down her diuresis by reducing her IV administration rate. If her calcium comes into range without additional supplementation and if her parathyroid hormone level comes down, then this is most likely the fact that she was not taking her medications as prescribed. Also on the potential list would be parathyroid carcinoma that would account for the dramatic rise in her parathyroid hormone level. Because she has had issues with taking her medications as prescribed and has now had a life-threatening episode of hypercalcemia, there may be a reason to proceed on with a more urgent than previously planned parathyroidectomy. I have taken the liberty of going ahead and ordering up a parathyroid scan and an ultrasound of the neck as well as a repeat parathyroid hormone level. I have discussed the case with Dr. Donte Jane and with Dr. Taveras here in the intensive care unit. [id number]/[facility] #: [id number] LEMUEL
[2018-08-01] MEDS: KCL 10 MEQ/50 ML IVPREMIX* 10 MEQ/50 ML BAG IV SCH ×4 (13:18→17:04)
[2018-08-01] MEDS: cefTRIAXone(*) 1 GM in NS 0.9% 50 ML* 50 ML IVPB SCH (16:01)
[2018-08-01 16:29] LABS: BUN/Creatinine Ratio 21.8 (8-20); Calcium 11.4 mg/dL (8.6-10.3); EGFR African American 23.6 (>60); EGFR Non-African American 19.5 (>60); Potassium 3.3 mmol/L (3.5-5.0)
[2018-08-02] MEDS: NS 0.9% 1000 ML** 1,000 ML IV SCH (01:57)
[2018-08-02 05:37] LABS: Hematocrit 27 % (33-41); Mean Corpuscular HGB Conc 33 g/dL (31-36); Mean Corpuscular Hemoglobin 28 pg (27-31); Mean Corpuscular Volume 83 fL (80-97); Mean Platelet Volume 9.5 fL (7.4-10.4); Platelet Count 180 10^3/uL (150-450); Red Blood Count 3.28 10^6 /uL (3.70-4.87); Red Cell Distribution Width 16 % (10.5-15); White Blood Count 13.8 10^3/uL (3.5-10.8)
[2018-08-02 05:55] LABS: BUN/Creatinine Ratio 24.6 (8-20); Calcium 10.3 mg/dL (8.6-10.3); EGFR African American 31.3 (>60); EGFR Non-African American 25.9 (>60); Magnesium 1.8 mg/dL (1.9-2.7); Phosphorus 1.9 mg/dL (2.5-5.0); Potassium 3.2 mmol/L (3.5-5.0)
[2018-08-02] MEDS: Calcitonin (Salmon) INJ* 200 UNITS/ML 2 ML VIAL SUBCUT SCH ×2 (08:36→21:03)
[2018-08-02] MEDS: Pantoprazole TAB * 40 MG TAB PO SCH (08:38)
[2018-08-02] MEDS: Apixaban* 2.5 MG TAB PO SCH ×2 (08:38→21:03)
[2018-08-02] MEDS: Cinacalcet TAB* 30 MG PO SCH ×2 (08:38→17:24)
[2018-08-02] MEDS: Ferrous Sulfate TAB* 325 MG PO SCH (08:38)
--- NOTE | 2018-08-02 12:39 | PN ---
Date of Service: 08/02/18 - HD 3 Critical Care Services: 82 yo F with PMH notable for primary hyperparathyroidism and aortic stenosis presents to the ED on 07/31 after she was found down after a mechanical fall at home. No loss of consciousness. Unable to obtain further information from patient secondary to confusion and depressed cognition. Per her daughter they found her down but she is not able to give further details. She does state that her mother has not had any complaints recently, including no complaints of confusion and muscle rigidity/joint pain, and she states she has not seen any of the symptoms that she had last time her calcium level was high. She does report that her mother was complaining of urinary frequency for which she saw a PCP earlier. 08/01: Remains significantly lethargic and confused. UOP > 100 ml/hr. Calcium down to 13.0 after Calcitonin 08/02: Mental status improving. Calcium level back down to patient's baseline. Cleared for transfer to floor from endocrine standpoint. Vital Signs: Temp Pulse Resp BP SpO2 FiO2 96.7 F 64 16 108/47 98 08/02/18 08:00 08/02/18 10:03 08/02/18 10:03 08/02/18 10:03 08/02/18 10:03 Physical Exam: Gen:alert, resting comfortably in bed HEENT: intact, NC in place Lungs: nonlabored breathing Cardiac: irregularly irregular Abdomen: soft, NTND Extremities: moving equally, minimal edema Neuro: confused but more alert than yesterday Fluid Balance (Past 24 Hours): I= O= Net Intake & Output 07/31/18 08/01/18 08/02/18 08/03/18 06:59 06:59 06:59 06:59 Intake Total 5679 5272 Output Total 1524 4455 370 Balance 4155 817 -370 Weight 144 lb 2.917 oz 144 lb 1.6 oz Intake: IV Fluids 5038 3305 NS (0.9%) 1988 3305 IVPB 1655 KCL 55 NS (0.9%) 1600 Medicated IV 41 CC - Norepinephrine/ 41 Levophed Oral 600 312 Output: Urine 235 Chris 1524 4220 370 Labs: Laboratory Results - last 24 hr 08/01/18 08/01/18 08/01/18 09:57 11:04 15:56 WBC RBC Hgb Hct MCV MCH MCHC RDW Plt Count MPV Sodium 139 Potassium 2.7 L* 3.3 L Chloride 106 Carbon Dioxide 25 Anion Gap 8 BUN 52 H Creatinine 2.39 H Est GFR ( Amer) 23.6 Est GFR (Non-Af Amer) 19.5 BUN/Creatinine Ratio 21.8 H Glucose 125 H POC Glucose (mg/dL) Lactic Acid Calcium 11.4 H Ionized Calcium Phosphorus Magnesium Calcium (PTH Intact) 11.3 H D 08/01/18 08/01/18 08/01/18 15:56 18:42 19:55 WBC RBC Hgb Hct MCV MCH MCHC RDW Plt Count MPV Sodium Potassium Chloride Carbon Dioxide Anion Gap BUN Creatinine Est GFR ( Amer) Est GFR (Non-Af Amer) BUN/Creatinine Ratio Glucose POC Glucose (mg/dL) 85 Lactic Acid 1.9 1.2 Calcium Ionized Calcium Phosphorus Magnesium Calcium (PTH Intact) 08/02/18 08/02/18 08/02/18 00:56 05:00 05:00 WBC RBC Hgb Hct MCV MCH MCHC RDW Plt Count MPV Sodium 140 Potassium 3.2 L Chloride 108 Carbon Dioxide 26 Anion Gap 6 BUN 46 H Creatinine 1.87 H Est GFR ( Amer) 31.3 Est GFR (Non-Af Amer) 25.9 BUN/Creatinine Ratio 24.6 H Glucose 100 POC Glucose (mg/dL) 80 Lactic Acid Calcium 10.3 Ionized Calcium 1.52 H Phosphorus 1.9 L Magnesium 1.8 L Calcium (PTH Intact) 08/02/18 05:00 WBC 13.8 H RBC 3.28 L Hgb 9.0 L Hct 27 L MCV 83 MCH 28 MCHC 33 RDW 16 H Plt Count 180 MPV 9.5 Sodium Potassium Chloride Carbon Dioxide Anion Gap BUN Creatinine Est GFR ( Amer) Est GFR (Non-Af Amer) BUN/Creatinine Ratio Glucose POC Glucose (mg/dL) Lactic Acid Calcium Ionized Calcium Phosphorus Magnesium Calcium (PTH Intact) Studies: / US thyroid - no obvious parathyroid adenoma identified, however suboptimal study / US renal - mild renal parenchymal disease and age-related cortical thining. Bosniak type 1 renal cyst 07/31 TTE - moderate concentric LVH LVEF 55-60% nondiagnostic for diastolic function left atrium severely dilated, right atrium mildly mild aortic regurg mild to moderate mitral regurg moderate tricuspid regurg RVSP 55 mmHg trace pulmonic regurg 4/3 XR R Humerus - No fracture. Super subluxation of humberal head relative to gleniod and chronic remodelling consistent with chronic advance trotator cuff pathology 4/3 XR pelvis and L hip - no fracture. Seere osteoarthritis of left hip, unchanged from prior. 4/3 CT brain - no acute intracranial process 4/3 CXR - pulmonary edema Nutrition: Regular diet Impression: 82 yo F with known primary hyperparathyroidism, aortic stenosis, chronic diastolic CHF, and diabetes mellitus who presents with hypercalcemia, generalized weakness, and confusion. Improving after treatment with Calcitonin. Also found to have a UTI and on antibiotics Plan: Cardiovascular: (1) Elevated troponin, resolving; (2) Mild acute on chronic diastolic CHF, stable;(3) Hypotension; (4) Chronic atrial fibrillation; (5) Aortic stenosis with plans for TAVR; (6) Hypertension, chronic; (7) Hyperlipidemia; (8) hx of bradycardia -- HR 52-74 -- SBP 71-139 (low MAPs resolve spontaneously within minutes without intervention. Pt asymptomatic) -- Telemetry -- TTE, 07/31: EF 55-60%. unable to assess diastolic function -- Cardiac markers troponin 0.19 from 0.22 from 0.29 -- Cardiology consulted (Nicko) Home meds: patient unable to provide at this time - as of 06/20/2018 on Atenolol and HCTZ, omega 3, apixaban Pulmonary: (1) Pulmonary edema, cardiac cause -- RR 13-21 -- sats 89-99 on NC -- asymptomatic regarding pulmonary edema seen on CXR Home meds: patient unable to provide at this time Gastrointestinal: (1) hx of gastric ulcer -- diet: poor PO intake limited by mental status. Supplimental shakes -- bowel regimen: None -- ulcer prophylaxis: Protonix -- Zofran as needed Home meds: patient unable to provide at this time - as of 06/20/2018 on Pantoprazole Endocrine: (1) Diabetes mellitus, type 2; (2) Primary hyperparathyroidism -- monitor BGs -- PTH 634.6, repeated 604.3 -- Cinecalcet -- Endocrinology consulted -- Surgeon (Marcy) to evaluate on Sunday to discuss potential parathyroidectomy and timing procedure related to need for TAVR Home meds: patient unable to provide at this time - as of 06/20/2018 on sitagliptin and cinecalcet Renal: (1) Acute kidney injury, improving; (2) Hypercalcemia; (3) Primary hyperparathyroidism; (4) UTI; (5) Hx of hypomagnesemia -- UOP: 186 ml/hr -- I/O:5272 ml in / 4455 ml out -- Cr 3.05 from 3.72 -- Lytes Na 140 from 139 K 3.2, replaced Ca 10.3 Mag 1.8, replaced Phos 1.9, replaced -- IVF: NS @ 20 ml/hr -- Cinecalcet & Calcitonin (Nephrology and Endocrinology managing) -- Nephrology consulted Home meds: patient unable to provide at this time - as of 06/20/2018 on Cinacalcet, Vit D, Detrol, Mag ox Infectious disease: (1) Urinary tract infection, strepococcus -- Tmax 99.0 -- WBC 13.8 from 16.2 -- Micro 08/01 MRSA screen negative 07/31 Urine group B strep UA 2+ LE. 3+ WBC -- ABX Nystatin powder Rocephin Home meds: patient unable to provide at this time - as of 06/20/2018 on nystatin powder Neurologic: (1) Acute encephalopathy secondary to hypercalcemia -- Tylenol as needed -- Cyclobenzaprine Home meds: patient unable to provide at this time - as of 06/20/2018 on tylenol with codiene, cyclobenzaprine Hematological: (1) Chronic iron deficiency anemia -- Hgb 9.0 from 10.3 -- Plt 180 from 188 -- DVT prophylaxis: Apixaban -- Ferrous sulfate Home meds: patient unable to provide at this time - as of 06/20/2018 on ferrous sulfate, apixaban Metabolic: (1) Lactic acidosis, resolved -- Lactic acid 1.2 from 1.9 from 2.4 Home meds: patient unable to provide at this time Deep vein thrombosis prophylaxis: Apixaban Dietary: Protonix Condition: serious Prognosis: guarded Code status: full Disposition: transfer to floor. Cumulative time spent in the care of this patient (excluding any procedure time) : at least 40 minutes. Patient care included clinical interview (with patient and/or family), bedside exam of the patient, review of labs, x-rays, and other ancillary data, coordination of (respiratory, nursing care, review of patient's records, discussion regarding patients management with involved consultants, primary physician, pharmacists, and other healthcare personnel (dietary, case management , physical/occupational therapy etc.)
[2018-08-02] MEDS ORDERED: Potassium Chlor TAB* 20 MEQ TAB.ER PO ONE (13:36)
[2018-08-02] MEDS ORDERED: Potassium Acid Phosphate TAB* 500 MG PO ONE (13:38)
[2018-08-02] MEDS ORDERED: Magnesium Sulfate 1 GM IV* 1 GM/100 ML BAG IV ONE (14:00)
[2018-08-02] MEDS ORDERED: NS 0.9% 250 ML* 250 ML IV SCH (14:00)
[2018-08-02] MEDS: KCL 10 MEQ/50 ML IVPREMIX* 10 MEQ/50 ML BAG IV SCH ×2 (16:39→17:54)
[2018-08-02] MEDS: cefTRIAXone(*) 1 GM in NS 0.9% 50 ML* 50 ML IVPB SCH (17:43)
[2018-08-03 05:39] LABS: Hematocrit 25 % (33-41); Hemoglobin 8.2 g/dL (12.0-16.0); Mean Corpuscular HGB Conc 33 g/dL (31-36); Mean Corpuscular Hemoglobin 27 pg (27-31); Mean Corpuscular Volume 83 fL (80-97); Mean Platelet Volume 9.1 fL (7.4-10.4); Platelet Count 180 10^3/uL (150-450); Red Blood Count 2.99 10^6 /uL (3.70-4.87); Red Cell Distribution Width 16 % (10.5-15)
[2018-08-03 05:55] LABS: BUN/Creatinine Ratio 26.1 (8-20); Calcium 9.3 mg/dL (8.6-10.3); EGFR African American 52.8 (>60); EGFR Non-African American 43.6 (>60); Magnesium 1.4 mg/dL (1.9-2.7); Phosphorus 1.7 mg/dL (2.5-5.0); Potassium 3.1 mmol/L (3.5-5.0)
--- NOTE | 2018-08-03 07:10 | PN ---
Progress Note - Progress Note Date of Service: 08/02/18 Note: Endocrinology Catch-Up Note Date: 08/03/18 (Patient seen and examined 08/02/18) ASSESSMENT: 82 yo F presenting severe hypercalcemia, INNA and sepsis syndrome from presumed urinary source. Urine culture notable for GBS and clinical status has improved with treatment of presumed urinary sepsis. Calcium and renal function continue to improve with combination of hydration, Sensipar and calcitonin. Antiresorptive therapy (bisphosphonate, Prolia) has not been required this admission, although zoledronic acid was helpful for hypercalcemia during a previous admission. and could be used again if Ca>12. The ultrasound did not reveal an obvious parathyroid adenoma or carcinoma. She does not appear to be in heart failure at the present time. The case was discussed with cardiology, Dr. Maharaj, who saw patient on admission. The decision to perform urgent TAVR vs parathyroidectomy is difficult and should be made in consultation with interventional cardiology, Dr. Kaminski at , who is aware of patient's status. Previously, subtotal parathyroidectomy was considered optional for management of hyperparathyroidism. Given prior and current presentation with life-threatening hypercalcemia, however, I have recommended that she proceed with parathyroid surgery at earliest possible date. Anesthesia risks in setting of critical and anticoagulation are significant and will be discussed with Dr. Kaminski. For now, medical management of hypercalcemia seems adequate. PLAN: - d/c calcitonin (ineffective in long-term) - continue Sensipar - d/c IVF (risk of heart failure) - check PTH SUBJECTIVE: Improving overall. Delirium is improving. Transferred from ICU to floor on 08/02/18 Acetaminophen (Tylenol Tab*) 650 mg PO Q4H PRN PRN Reason: FEVER/PAIN Apixaban (Eliquis*) 2.5 mg PO BID [facility] Last Admin: 08/02/18 21:03 Dose: 2.5 mg Calcitonin [place] (Miacalcin Inj*) 200 units SUBCUT BID [facility] Last Admin: 08/02/18 21:03 Dose: 200 units Cinacalcet (Sensipar Tab*) 90 mg PO BID WITH MEALS [facility] Last Admin: 08/02/18 17:24 Dose: 90 mg Cyclobenzaprine HCl (Flexeril Tab*) 10 mg PO BEDTIME PRN PRN Reason: SPASMS Ferrous Sulfate (Ferrous Sulfate Tab*) 325 mg PO DAILY [facility] Last Admin: 08/02/18 08:38 Dose: 325 mg Ceftriaxone Sodium 1 gm/ (Sodium Chloride) 50 mls @ 200 mls/hr IVPB Q24H [facility] Last Admin: 08/02/18 17:43 Dose: 200 mls/hr Sodium Chloride (Ns 0.9% 250 Ml*) 250 mls @ 20 mls/hr IV .PER RATE [facility] Last Admin: 08/02/18 16:40 Dose: 20 mls/hr Nystatin (Nystatin Top Powder*) 1 applic TOPICAL BID PRN PRN Reason: RASH Ondansetron HCl (Zofran Inj*) 4 mg IV Q4H PRN PRN Reason: NAUSEA/VOMITING Pantoprazole Sodium (Protonix Tab*) 40 mg PO DAILY [facility] Last Admin: 08/02/18 08:38 Dose: 40 mg OBJECTIVE: Temp Pulse Resp BP Pulse Ox 97.5 F 69 17 103/45 96 08/03/18 03:54 08/03/18 03:54 08/03/18 03:54 08/03/18 03:54 08/03/18 03:54 WBC 12.0 10^3/uL (3.5-10.8) H 08/03/18 05:28 RBC 2.99 10^6 /uL (3.70-4.87) L 08/03/18 05:28 Hgb 8.2 g/dL (12.0-16.0) L 08/03/18 05:28 Hct 25 % (33-41) L 08/03/18 05:28 MCV 83 fL (80-97) 08/03/18 05:28 MCH 27 pg (27-31) 08/03/18 05:28 MCHC 33 g/dL (31-36) 08/03/18 05:28 RDW 16 % (10.5-15) H 08/03/18 05:28 Plt Count 180 10^3/uL (150-450) 08/03/18 05:28 MPV 9.1 fL (7.4-10.4) 08/03/18 05:28 Neut % (Auto) 88.3 % 08/01/18 07:03 Lymph % (Auto) 5.1 % 08/01/18 07:03 [place] % (Auto) 6.2 % 08/01/18 07:03 Eos % (Auto) 0.1 % 08/01/18 07:03 Baso % (Auto) 0.3 % 08/01/18 07:03 Absolute Neuts (auto) 14.3 10^3/ul (1.5-7.7) H 08/01/18 07:03 Absolute Lymphs (auto) 0.8 10^3/ul (1.0-4.8) L 08/01/18 07:03 Absolute Monos (auto) 1.0 10^3/ul (0-0.8) H 08/01/18 07:03 Absolute Eos (auto) 0 10^3/ul (0-0.6) 08/01/18 07:03 Absolute Basos (auto) 0 10^3/ul (0-0.2) 08/01/18 07:03 Absolute Nucleated RBC 0 10^3/ul 08/01/18 07:03 Nucleated RBC % 0 08/01/18 07:03 INR (Anticoag Therapy) 1.44 (0.77-1.02) H 07/31/18 15:00 APTT 29.7 seconds (26.0-36.3) 07/31/18 15:00 Sodium 137 mmol/L (135-145) 08/03/18 05:28 Potassium 3.1 mmol/L (3.5-5.0) L 08/03/18 05:28 Chloride 107 mmol/L (101-111) 08/03/18 05:28 Carbon Dioxide 22 mmol/L (22-32) 08/03/18 05:28 Anion Gap 8 mmol/L (2-11) 08/03/18 05:28 BUN 31 mg/dL (6-24) H 08/03/18 05:28 Creatinine 1.19 mg/dL (0.51-0.95) H 08/03/18 05:28 Est GFR ( Amer) 52.8 (>60) 08/03/18 05:28 Est GFR (Non-Af Amer) 43.6 (>60) 08/03/18 05:28 BUN/Creatinine Ratio 26.1 (8-20) H 08/03/18 05:28 Glucose 59 mg/dL (70-100) L 08/03/18 05:28 POC Glucose (mg/dL) 70 mg/dL (70-100) 08/03/18 06:06 Lactic Acid 1.2 mmol/L (0.5-2.0) 08/01/18 19:55 Calcium 9.3 mg/dL (8.6-10.3) 08/03/18 05:28 Ionized Calcium 1.33 mmol/L (1.16-1.32) H 08/03/18 05:28 Phosphorus 1.7 mg/dL (2.5-5.0) L 08/03/18 05:28 Magnesium 1.4 mg/dL (1.9-2.7) L 08/03/18 05:28 Total Bilirubin 0.50 mg/dL (0.2-1.0) 08/01/18 05:04 AST 26 U/L (13-39) 08/01/18 09:57 ALT 26 U/L (7-52) 08/01/18 05:04 Alkaline Phosphatase 72 U/L (34-104) 08/01/18 05:04 Total Creatine Kinase 958 U/L (10-223) H 07/31/18 15:00 Troponin I 0.19 ng/mL (<0.04) H* 07/31/18 22:50 B-Natriuretic Peptide 907 pg/mL (<=100) H 07/31/18 15:00 Total Protein 6.4 g/dL (6.4-8.9) 08/01/18 05:04 Albumin 3.3 g/dL (3.2-5.2) 08/01/18 05:04 Globulin 3.1 g/dL (2-4) 08/01/18 05:04 Albumin/Globulin Ratio 1.1 (1-3) 08/01/18 05:04 PTH Intact 604.3 pg/mL (12-88) H 08/01/18 11:04 Calcium (PTH Intact) 11.3 mg/dL (8.6-10.3) H D 08/01/18 11:04 Urine Color Yellow 07/31/18 12:36 Urine Appearance Turbid 07/31/18 12:36 Urine pH 7.0 (5-9) 07/31/18 12:36 Ur Specific [place] 1.010 (1.010-1.030) 07/31/18 12:36 Urine Protein 2+(100 mg/dl) (Negative) A 07/31/18 12:36 Urine Ketones Negative (Negative) 07/31/18 12:36 Urine Blood 2+ (Negative) A 07/31/18 12:36 Urine Nitrate Negative (Negative) 07/31/18 12:36 Urine Bilirubin Negative (Negative) 07/31/18 12:36 Urine Urobilinogen Negative (Negative) 07/31/18 12:36 Ur Leukocyte Esterase 2+ (Negative) A 07/31/18 12:36 Urine WBC (Auto) 3+(>20/hpf) (Absent) A 07/31/18 12:36 Urine RBC (Auto) 3+(>10/hpf) (Absent) A 07/31/18 12:36 Urine Bacteria Absent (Absent) 07/31/18 12:36 Urine Glucose Negative (Negative) 07/31/18 12:36 Serum Alcohol < 10 mg/dL (<10) 07/31/18 15:00 Blood Type O Positive 07/31/18 15:00 Antibody Screen Negative 07/31/18 15:00
[2018-08-03] MEDS ORDERED: Potassium Acid Phosphate TAB* 500 MG PO ONE (07:26)
[2018-08-03] MEDS ORDERED: Magnesium Sulf 4 GM/100 ML IV* 4,000 MG/100 ML BAG IVPB ONE (07:26)
[2018-08-03] MEDS: KCL 20 MEQ/100 ML IVPREMIX* 20 MEQ/100 ML BAG IV SCH ×3 (08:04→15:19)
[2018-08-03] MEDS: Cinacalcet TAB* 30 MG PO SCH ×2 (10:07→16:37)
[2018-08-03] MEDS: Ferrous Sulfate TAB* 325 MG PO SCH (10:07)
[2018-08-03] MEDS: Pantoprazole TAB * 40 MG TAB PO SCH (10:07)
[2018-08-03] MEDS: Apixaban* 2.5 MG TAB PO SCH ×2 (10:07→19:53)
--- NOTE | 2018-08-03 10:22 | PN ---
Subjective Date of Service: 08/03/18 Interval History: Patient is feeling well today. Patient denies F/C CP, SOB, N/V, abdominal pain, diarrhea or constipation. Patient is feeling weak and has not been walking around very much. Family History: Unchanged from Admission Social History: Unchanged from Admission Past Medical History: Unchanged from Admission Objective Active Medications: Acetaminophen (Tylenol Tab*) 650 mg PO Q4H PRN PRN Reason: FEVER/PAIN Apixaban (Eliquis*) 2.5 mg PO BID [facility] Last Admin: 08/03/18 10:07 Dose: 2.5 mg Cinacalcet (Sensipar Tab*) 90 mg PO BID WITH MEALS [facility] Last Admin: 08/03/18 10:07 Dose: 90 mg Cyclobenzaprine HCl (Flexeril Tab*) 10 mg PO BEDTIME PRN PRN Reason: SPASMS Ferrous Sulfate (Ferrous Sulfate Tab*) 325 mg PO DAILY [facility] Last Admin: 08/03/18 10:07 Dose: 325 mg Ceftriaxone Sodium 1 gm/ (Sodium Chloride) 50 mls @ 200 mls/hr IVPB Q24H [facility] Last Admin: 08/02/18 17:43 Dose: 200 mls/hr Sodium Chloride (Ns 0.9% 250 Ml*) 250 mls @ 20 mls/hr IV .PER RATE [facility] Last Admin: 08/02/18 16:40 Dose: 20 mls/hr Magnesium Sulfate (Magnesium Sulf 4 Gm/100 Ml Iv*) 4,000 mg in 100 mls @ 33.333 mls/hr IVPB ONCE ONE Stop: 08/03/18 10:25 Last Admin: 08/03/18 08:48 Dose: 33.333 mls/hr Potassium Chloride (Potassium Chloride 20 Meq/100 Ml Ivpremix*) 20 meq in 100 mls @ 50 mls/hr IV Q2H [facility] Stop: 08/03/18 13:59 Last Admin: 08/03/18 10:05 Dose: 50 mls/hr Nystatin (Nystatin Top Powder*) 1 applic TOPICAL BID PRN PRN Reason: RASH Ondansetron HCl (Zofran Inj*) 4 mg IV Q4H PRN PRN Reason: NAUSEA/VOMITING Pantoprazole Sodium (Protonix Tab*) 40 mg PO DAILY [facility] Last Admin: 08/03/18 10:07 Dose: 40 mg Vital Signs - 8 hr 08/03/18 08/03/18 03:54 07:58 Temperature 97.5 F 97.6 F Pulse Rate 69 75 Respiratory 17 16 Rate Blood Pressure 103/45 112/38 (mmHg) O2 Sat by Pulse 96 97 Oximetry Oxygen Devices in Use Now: None Appearance: Patient is an 82yo female who appears stated age and is sitting in the bed in NAD. Eyes: No Scleral Icterus, PERRLA Ears/Nose/Mouth/Throat: NL Teeth, Lips, Gums, Clear Oropharnyx, Mucous Membranes Moist Neck: NL Appearance and Movements; NL JVP, Trachea Midline Respiratory: Symmetrical Chest Expansion and Respiratory Effort, Clear to Auscultation Cardiovascular: RRR, No Edema, - - Grade 3/6 FANG at RUSB. Abdominal: NL Sounds; No Tenderness; No Distention, No Hepatosplenomegaly Extremities: No Edema, No Clubbing, Cyanosis Skin: No Rash or Ulcers, No Nodules or Sclerosis Neurological: Alert and Oriented x 3, NL Sensation, NL Muscle Strength and Tone , - - CN II-XII intact. Result Diagrams: 08/03/18 05:28 08/03/18 05:28 Microbiology and Other Data: Microbiology 07/31/18 12:36 Urine Culture - Final Urine Strep Group B 08/01/18 04:45 Nasal Screen MRSA (PCR) - Final Nasal Mrsa Not Detected Assess/Plan/Problems-Billing Assessment: 82 y/o with a PMH for DM II, Hyperparathyroidism with hypercalcemia, Severe , who presents with AMS and falls with severe hypercalcemia which is improving with treatment and who is now out of the ICU. - Patient Problems (1) Primary hyperparathyroidism Current Visit: No Status: Acute Priority: High Code(s): E21.0 - PRIMARY HYPERPARATHYROIDISM SNOMED Code(s): 11062079 Comment: - Presented with life threatening hypercalcemia, unclear if patient was taking medications - Followed by Dr. Jnae, apprecaite input, - Continue cinacalcet and stop calcitonin - Evaluation by endocrine surgeon inpatient pending. (2) Sepsis associated hypotension Current Visit: Yes Status: Acute Code(s): A41.9 - SEPSIS, UNSPECIFIED ORGANISM; I95.9 - HYPOTENSION, UNSPECIFIED SNOMED Code(s): 60096008 Comment: - Severe on admission, due to urinary source. - Required Pressors and fluids on admission - Resolved, continue ceftriaxone (3) Anemia Current Visit: No Status: Acute Code(s): D64.9 - ANEMIA, UNSPECIFIED SNOMED Code(s): 310647197 Comment: - AUGUSTUS and chronic blood loss - Trending down, no need for transfusion yet, monitor closely - Continue iron supplementation (4) Type 2 diabetes mellitus Current Visit: No Status: Chronic Comment: - Well controlled, last A1c 7.1% - Hold Januvia - BG trending low (5) Aortic stenosis Current Visit: No Status: Acute Priority: High Code(s): I35.0 - NONRHEUMATIC AORTIC (VALVE) STENOSIS SNOMED Code(s): 66680308 Comment: - Stable; severe on recent cath and echo - Has evaluation for TAVR on Friday 08/04 if able to be discharged - No CP or obvious signs of CHF exacerbation at this time (6) Elevated troponin Current Visit: No Status: Acute Code(s): R74.8 - ABNORMAL LEVELS OF OTHER SERUM ENZYMES SNOMED Code(s): 983899985 Comment: - Secondary to demand ischemia in setting of severe sepsis (7) Afib Current Visit: No Status: Chronic Code(s): I48.91 - UNSPECIFIED ATRIAL FIBRILLATION SNOMED Code(s): 70767405 Comment: - Rate controlled - Continue Eliquis, atenolol (8) HLD (hyperlipidemia) Current Visit: No Status: Chronic Code(s): E78.5 - HYPERLIPIDEMIA, UNSPECIFIED SNOMED Code(s): 31303529 Comment: - Continue atorvastatin (9) Electrolyte abnormality Current Visit: Yes Status: Acute Code(s): E87.8 - OTH DISORDERS OF ELECTROLYTE AND FLUID BALANCE, NEC SNOMED Code(s): 778509691 Comment: - Multiple, Hypokalemia, Hypomagnesemia and hypophosphatemia - Supplement all and stop calcitonin for hypophosphatemia - Recheck in AM - Calcium WNL at this time. (10) HTN (hypertension) Current Visit: No Status: Chronic Code(s): I10 - ESSENTIAL (PRIMARY) HYPERTENSION SNOMED Code(s): 65192846 Comment: - Low end of normotensive - Hold Antihypertensives for now, consider alternative medication to HCTZ due to hypercalcemia. (11) Full code status Current Visit: No Status: Acute Code(s): Z78.9 - OTHER SPECIFIED HEALTH STATUS SNOMED Code(s): 254964011 Comment: Status and Disposition: Inpatient, Hopeful discharge Sunday after evaluation by endocrine surgeon.
[2018-08-03] MEDS: cefTRIAXone(*) 1 GM in NS 0.9% 50 ML* 50 ML IVPB SCH (16:37)
[2018-08-03] MEDS: Magnesium Oxide TAB* 400 MG PO SCH (19:53)
[2018-08-03] MEDS: Atorvastatin* 10 MG TAB PO SCH (19:53)
[2018-08-04 07:52] LABS: Hematocrit 26 % (33-41); Hemoglobin 8.8 g/dL (12.0-16.0); Mean Corpuscular HGB Conc 34 g/dL (31-36); Mean Corpuscular Hemoglobin 28 pg (27-31); Mean Corpuscular Volume 82 fL (80-97); Mean Platelet Volume 8.2 fL (7.4-10.4); Platelet Count 185 10^3/uL (150-450); Red Blood Count 3.18 10^6 /uL (3.70-4.87); Red Cell Distribution Width 16 % (10.5-15); White Blood Count 10.8 10^3/uL (3.5-10.8)
[2018-08-04 08:07] LABS: BUN/Creatinine Ratio 23.1 (8-20); Calcium 9.7 mg/dL (8.6-10.3); EGFR African American 61.7 (>60); Magnesium 1.8 mg/dL (1.9-2.7); Phosphorus 1.7 mg/dL (2.5-5.0); Potassium 3.6 mmol/L (3.5-5.0)
[2018-08-04] MEDS ORDERED: Magnesium Sulfate IV* 3 GM in NS 0.9% 100 ML* 100 ML IVPB ONE (08:13)
[2018-08-04] MEDS ORDERED: Potassium Acid Phosphate TAB* 500 MG PO ONE (08:14)
[2018-08-04] MEDS ORDERED: NS 0.9% 100 ML* 100 ML ONE (08:51)
[2018-08-04] MEDS: Cinacalcet TAB* 30 MG PO SCH ×2 (08:57→17:21)
[2018-08-04] MEDS: Apixaban* 2.5 MG TAB PO SCH ×2 (08:59→20:55)
[2018-08-04] MEDS: Pantoprazole TAB * 40 MG TAB PO SCH (08:59)
[2018-08-04] MEDS: Ferrous Sulfate TAB* 325 MG PO SCH (08:59)
[2018-08-04] MEDS: Cyanocobalamin TAB* 500 MCG PO SCH (08:59)
[2018-08-04] MEDS: Magnesium Oxide TAB* 400 MG PO SCH ×2 (09:00→20:55)
--- NOTE | 2018-08-04 10:45 | PN ---
Subjective Date of Service: 08/04/18 Interval History: Patient is feeling very "down" today. Patient feels as if she doesn't understand why all these health problems are happening all at once. Patient denies CP, SOB, F/C, abdominal pain, constipation, N/V, passing out, or other pain. Family History: Unchanged from Admission Social History: Unchanged from Admission Past Medical History: Unchanged from Admission Objective Active Medications: Acetaminophen (Tylenol Tab*) 650 mg PO Q4H PRN PRN Reason: FEVER/PAIN Last Admin: 08/03/18 19:53 Dose: 650 mg Apixaban (Eliquis*) 2.5 mg PO BID [facility] Last Admin: 08/04/18 08:59 Dose: 2.5 mg Atorvastatin Calcium (Lipitor*) 10 mg PO BEDTIME [facility] Last Admin: 08/03/18 19:53 Dose: 10 mg Cinacalcet (Sensipar Tab*) 90 mg PO BID WITH MEALS [facility] Last Admin: 08/04/18 08:57 Dose: 90 mg Cyanocobalamin (Vitamin B12 Tab*) 500 mcg PO DAILY [facility] Last Admin: 08/04/18 08:59 Dose: 500 mcg Cyclobenzaprine HCl (Flexeril Tab*) 10 mg PO BEDTIME PRN PRN Reason: SPASMS Ferrous Sulfate (Ferrous Sulfate Tab*) 325 mg PO DAILY [facility] Last Admin: 08/04/18 08:59 Dose: 325 mg Ceftriaxone Sodium 1 gm/ (Sodium Chloride) 50 mls @ 200 mls/hr IVPB Q24H [facility] Last Admin: 08/03/18 16:37 Dose: 200 mls/hr Magnesium Oxide (Magox 400 Tab*) 400 mg PO BID [facility] Last Admin: 08/04/18 09:00 Dose: 400 mg Nystatin (Nystatin Top Powder*) 1 applic TOPICAL BID PRN PRN Reason: RASH Ondansetron HCl (Zofran Inj*) 4 mg IV Q4H PRN PRN Reason: NAUSEA/VOMITING Pantoprazole Sodium (Protonix Tab*) 40 mg PO DAILY [facility] Last Admin: 08/04/18 08:59 Dose: 40 mg Vital Signs - 8 hr 08/04/18 08/04/18 08/04/18 03:25 03:36 07:31 Temperature 97.1 F 97.1 F 97.1 F Pulse Rate 61 61 69 Respiratory 19 19 16 Rate Blood Pressure 126/34 126/34 111/59 (mmHg) O2 Sat by Pulse 98 98 98 Oximetry Oxygen Devices in Use Now: None Appearance: Patient is an 82yo female who appears stated age and is sitting in the bed in NAD. Eyes: No Scleral Icterus, PERRLA Ears/Nose/Mouth/Throat: NL Teeth, Lips, Gums, Clear Oropharnyx, Mucous Membranes Moist Neck: NL Appearance and Movements; NL JVP, Trachea Midline Respiratory: Symmetrical Chest Expansion and Respiratory Effort, Clear to Auscultation Cardiovascular: RRR, No Edema, - - Grade 3/6 FANG heard best at RUSB Abdominal: NL Sounds; No Tenderness; No Distention, No Hepatosplenomegaly Lymphatic: No Cervical Adenopathy Extremities: No Edema, No Clubbing, Cyanosis Skin: No Rash or Ulcers, No Nodules or Sclerosis Neurological: Alert and Oriented x 3, NL Sensation, NL Muscle Strength and Tone - CN II-XII intact, - Result Diagrams: 08/04/18 07:43 08/04/18 07:43 Microbiology and Other Data: Microbiology 07/31/18 12:36 Urine Culture - Final Urine Strep Group B 08/01/18 04:45 Nasal Screen MRSA (PCR) - Final Nasal Mrsa Not Detected Assess/Plan/Problems-Billing Assessment: 82 y/o with a PMH for DM II, Hyperparathyroidism with hypercalcemia, Severe , who presents with AMS and falls with severe hypercalcemia which is improving with treatment and who is now out of the ICU and doing well pending endocrine surgery consult. - Patient Problems (1) Primary hyperparathyroidism Current Visit: No Status: Acute Priority: High Code(s): E21.0 - PRIMARY HYPERPARATHYROIDISM SNOMED Code(s): 42716986 Comment: - Presented with life threatening hypercalcemia, unclear if patient was taking medications - Followed by Dr. Jane, appreciate input, - Continue cinacalcet and stop calcitonin - Monitor calcium closely. - Evaluation by endocrine surgeon inpatient pending. (2) Sepsis associated hypotension Current Visit: Yes Status: Acute Code(s): A41.9 - SEPSIS, UNSPECIFIED ORGANISM; I95.9 - HYPOTENSION, UNSPECIFIED SNOMED Code(s): 11384207 Comment: - Severe on admission, due to urinary source. - Required Pressors and fluids on admission - Resolved, continue ceftriaxone (3) Anemia Current Visit: No Status: Acute Code(s): D64.9 - ANEMIA, UNSPECIFIED SNOMED Code(s): 019486458 Comment: - AUGUSTUS and chronic blood loss - Stable - Continue iron supplementation (4) Type 2 diabetes mellitus Current Visit: No Status: Chronic Comment: - Well controlled, last A1c 7.1% - Hold Januvia - BG trending low (5) Aortic stenosis Current Visit: No Status: Acute Priority: High Code(s): I35.0 - NONRHEUMATIC AORTIC (VALVE) STENOSIS SNOMED Code(s): 17605526 Comment: - Stable; severe on recent cath and echo - Has evaluation for TAVR on Friday 08/04 if able to be discharged - No CP or obvious signs of CHF exacerbation at this time (6) Elevated troponin Current Visit: No Status: Acute Code(s): R74.8 - ABNORMAL LEVELS OF OTHER SERUM ENZYMES SNOMED Code(s): 923945679 Comment: - Secondary to demand ischemia in setting of severe sepsis (7) Afib Current Visit: No Status: Chronic Code(s): I48.91 - UNSPECIFIED ATRIAL FIBRILLATION SNOMED Code(s): 72409253 Comment: - Rate controlled - Continue Eliquis - Hold atenolol (8) HLD (hyperlipidemia) Current Visit: No Status: Chronic Code(s): E78.5 - HYPERLIPIDEMIA, UNSPECIFIED SNOMED Code(s): 07654026 Comment: - Continue atorvastatin (9) Electrolyte abnormality Current Visit: Yes Status: Acute Code(s): E87.8 - OTH DISORDERS OF ELECTROLYTE AND FLUID BALANCE, NEC SNOMED Code(s): 124487313 Comment: - Multiple, Hypokalemia, Hypomagnesemia and hypophosphatemia - Supplement all and stop calcitonin for hypophosphatemia - Recheck in AM - Calcium WNL at this time, trending up (10) HTN (hypertension) Current Visit: No Status: Chronic Code(s): I10 - ESSENTIAL (PRIMARY) HYPERTENSION SNOMED Code(s): 42536551 Comment: - Low end of normotensive - Hold Antihypertensives for now, consider alternative medication to HCTZ due to hypercalcemia. (11) Full code status Current Visit: No Status: Acute Code(s): Z78.9 - OTHER SPECIFIED HEALTH STATUS SNOMED Code(s): 358547819 Comment: Status and Disposition: Inpatient, Hopeful discharge Sunday after evaluation by endocrine surgeon.
[2018-08-04] MEDS: cefTRIAXone(*) 1 GM in NS 0.9% 50 ML* 50 ML IVPB SCH (17:21)
[2018-08-04] MEDS: Atorvastatin* 10 MG TAB PO SCH (20:55)
[2018-08-05 06:47] LABS: Hematocrit 25 % (33-41); Hemoglobin 8.3 g/dL (12.0-16.0); Mean Corpuscular HGB Conc 33 g/dL (31-36); Mean Corpuscular Hemoglobin 27 pg (27-31); Mean Corpuscular Volume 82 fL (80-97); Mean Platelet Volume 8.8 fL (7.4-10.4); Platelet Count 192 10^3/uL (150-450); Red Blood Count 3.04 10^6 /uL (3.70-4.87); Red Cell Distribution Width 16 % (10.5-15)
[2018-08-05 07:14] LABS: BUN/Creatinine Ratio 21.4 (8-20); Calcium 9.5 mg/dL (8.6-10.3); EGFR African American 66.1 (>60); EGFR Non-African American 54.6 (>60); Magnesium 1.7 mg/dL (1.9-2.7); Phosphorus 1.5 mg/dL (2.5-5.0); Potassium 3.2 mmol/L (3.5-5.0)
[2018-08-05] MEDS ORDERED: Magnesium Sulfate IV* 3 GM in NS 0.9% 100 ML* 100 ML IVPB ONE (08:00)
[2018-08-05] MEDS: Apixaban* 2.5 MG TAB PO SCH ×2 (08:05→22:20)
[2018-08-05] MEDS: Ferrous Sulfate TAB* 325 MG PO SCH (08:05)
[2018-08-05] MEDS: Cyanocobalamin TAB* 500 MCG PO SCH (08:05)
[2018-08-05] MEDS: Cinacalcet TAB* 30 MG PO SCH ×2 (08:05→17:19)
[2018-08-05] MEDS: Magnesium Oxide TAB* 400 MG PO SCH ×2 (08:05→22:20)
[2018-08-05] MEDS: Pantoprazole TAB * 40 MG TAB PO SCH (08:05)
[2018-08-05] MEDS ORDERED: Potassium Phosphate IV* 10 MMOLE in NS 0.9% 250 ML* 250 ML IVPB ONE (09:00)
[2018-08-05 12:02] LABS: Vitamin A, S 26.1 mcg/dL (32.5-78.0)
--- NOTE | 2018-08-05 14:20 | PN ---
Subjective Date of Service: 08/05/18 Interval History: Patient is feeling tired, but offers no other acute complaints. Patient denies CP, SOB, F/C, N/V, abdominal pain, diarrhea, dysuria. constipation, or other pain. Patient is concerned about urinary frequency which was present before coming into the hospital and states that she had a few episodes of a small amount of urine after her trejo was removed, but that has now improved. Family History: Unchanged from Admission Social History: Unchanged from Admission Past Medical History: Unchanged from Admission Objective Active Medications: Acetaminophen (Tylenol Tab*) 650 mg PO Q4H PRN PRN Reason: FEVER/PAIN Last Admin: 08/03/18 19:53 Dose: 650 mg Apixaban (Eliquis*) 2.5 mg PO BID [facility] Last Admin: 08/05/18 08:05 Dose: 2.5 mg Atorvastatin Calcium (Lipitor*) 10 mg PO BEDTIME [facility] Last Admin: 08/04/18 20:55 Dose: 10 mg Cefuroxime Axetil (Ceftin Tab(*)) 500 mg PO BID [facility] Cinacalcet (Sensipar Tab*) 90 mg PO BID WITH MEALS [facility] Last Admin: 08/05/18 08:05 Dose: 90 mg Cyanocobalamin (Vitamin B12 Tab*) 500 mcg PO DAILY [facility] Last Admin: 08/05/18 08:05 Dose: 500 mcg Cyclobenzaprine HCl (Flexeril Tab*) 10 mg PO BEDTIME PRN PRN Reason: SPASMS Ferrous Sulfate (Ferrous Sulfate Tab*) 325 mg PO DAILY [facility] Last Admin: 08/05/18 08:05 Dose: 325 mg Potassium Phosphate 10 mmole/ (Sodium Chloride) 253.3333 mls @ 42 mls/hr IVPB ONCE ONE Stop: 08/05/18 15:01 Last Admin: 08/05/18 09:40 Dose: 42 mls/hr Magnesium Oxide (Magox 400 Tab*) 400 mg PO BID [facility] Last Admin: 08/05/18 08:05 Dose: 400 mg Nystatin (Nystatin Top Powder*) 1 applic TOPICAL BID PRN PRN Reason: RASH Ondansetron HCl (Zofran Inj*) 4 mg IV Q4H PRN PRN Reason: NAUSEA/VOMITING Pantoprazole Sodium (Protonix Tab*) 40 mg PO DAILY [facility] Last Admin: 08/05/18 08:05 Dose: 40 mg Vital Signs - 8 hr 08/05/18 08/05/18 07:16 08:12 Temperature 97.8 F Pulse Rate 73 Respiratory 16 16 Rate Blood Pressure 136/49 (mmHg) O2 Sat by Pulse 98 Oximetry Oxygen Devices in Use Now: None Appearance: Patient is an 82yo female who appears stated age and is sitting in the bed in NAD. Eyes: No Scleral Icterus, PERRLA Ears/Nose/Mouth/Throat: NL Teeth, Lips, Gums, Clear Oropharnyx, Mucous Membranes Moist Neck: NL Appearance and Movements; NL JVP, Trachea Midline Respiratory: Symmetrical Chest Expansion and Respiratory Effort, Clear to Auscultation Cardiovascular: RRR, No Edema, - - Grade 3/6 FANG heard best at RUSB. Abdominal: NL Sounds; No Tenderness; No Distention, No Hepatosplenomegaly Lymphatic: No Cervical Adenopathy Extremities: No Edema, No Clubbing, Cyanosis Skin: No Rash or Ulcers, No Nodules or Sclerosis Neurological: Alert and Oriented x 3, NL Sensation, NL Muscle Strength and Tone , - - CN II-XII intact. Result Diagrams: 08/05/18 06:23 08/05/18 06:23 Microbiology and Other Data: Microbiology 07/31/18 12:36 Urine Culture - Final Urine Strep Group B 08/01/18 04:45 Nasal Screen MRSA (PCR) - Final Nasal Mrsa Not Detected Assess/Plan/Problems-Billing Assessment: 82 y/o with a PMH for DM II, Hyperparathyroidism with hypercalcemia, Severe , who presents with AMS and falls with severe hypercalcemia which is improving with treatment and who is now out of the ICU and doing well pending endocrine surgery consult. - Patient Problems (1) Primary hyperparathyroidism Current Visit: No Status: Acute Priority: High Code(s): E21.0 - PRIMARY HYPERPARATHYROIDISM SNOMED Code(s): 91113658 Comment: - Presented with life threatening hypercalcemia, unclear if patient was taking medications - Followed by Dr. Jane, appreciate input, - Continue cinacalcet and stop calcitonin - Monitor calcium closely. - Dicussed with Endocrine surgeon Dr. Yang, Recommended discussion with Anesthesiology about feasibility of general anesthesia with , Anesthesia rcommends transfer to another facility for surgery if needed to be done with expediency. Discussed with Dr. Vincent Nickerson of Cardiology who will attempt to contact Dr. Kaminski about possible transfer for TAVR prior to surgery - Ionized calcium only slightly high. - Given very high PTH and negative thyroid US, will order PTH-RP, repeat thyroid US, and CT Chest/Abdomen/Pelvis to look for occult malignancy. (2) Aortic stenosis Current Visit: No Status: Acute Priority: High Code(s): I35.0 - NONRHEUMATIC AORTIC (VALVE) STENOSIS SNOMED Code(s): 26080216 Comment: - Stable; severe on recent cath and echo, close to critical - Will attempt to transfer patient for TAVR prior to parathyroid surgery. - No CP or obvious signs of CHF exacerbation at this time (3) Sepsis associated hypotension Current Visit: Yes Status: Acute Code(s): A41.9 - SEPSIS, UNSPECIFIED ORGANISM; I95.9 - HYPOTENSION, UNSPECIFIED SNOMED Code(s): 72021053 Comment: - Severe on admission, due to urinary source. - Required Pressors and fluids on admission - Resolved, switch to Oral antibiotics to complete 7 day course. (4) Anemia Current Visit: No Status: Acute Code(s): D64.9 - ANEMIA, UNSPECIFIED SNOMED Code(s): 686791204 Comment: - AUGUSTUS and chronic blood loss - Stable - Continue iron supplementation (5) Type 2 diabetes mellitus Current Visit: No Status: Chronic Comment: - Well controlled, last A1c 7.1% - Hold Januvia - BG trending low (6) Elevated troponin Current Visit: No Status: Acute Code(s): R74.8 - ABNORMAL LEVELS OF OTHER SERUM ENZYMES SNOMED Code(s): 777134594 Comment: - Secondary to demand ischemia in setting of severe sepsis (7) Afib Current Visit: No Status: Chronic Code(s): I48.91 - UNSPECIFIED ATRIAL FIBRILLATION SNOMED Code(s): 36075955 Comment: - Rate controlled - Continue Eliquis - Hold atenolol (8) HLD (hyperlipidemia) Current Visit: No Status: Chronic Code(s): E78.5 - HYPERLIPIDEMIA, UNSPECIFIED SNOMED Code(s): 74910720 Comment: - Continue atorvastatin (9) Electrolyte abnormality Current Visit: Yes Status: Acute Code(s): E87.8 - OTH DISORDERS OF ELECTROLYTE AND FLUID BALANCE, NEC SNOMED Code(s): 521445423 Comment: - Multiple, Hypokalemia, Hypomagnesemia and hypophosphatemia - Continue to Supplement all - Recheck in AM - Calcium slightly evelated, but stable. (10) HTN (hypertension) Current Visit: No Status: Chronic Code(s): I10 - ESSENTIAL (PRIMARY) HYPERTENSION SNOMED Code(s): 54512063 Comment: - Low end of normotensive - Hold Antihypertensives for now, consider alternative medication to HCTZ due to hypercalcemia. (11) Full code status Current Visit: No Status: Acute Code(s): Z78.9 - OTHER SPECIFIED HEALTH STATUS SNOMED Code(s): 920415962 Comment: Status and Disposition: Inpatient, Will likely need to be transferred for TAVR prior to Endocrine surgery.
[2018-08-05] MEDS ORDERED: Iodixanol* (CONTRAST) 320 MG/ML 100 ML SDV IV ONE ×2 (15:31→19:51)
[2018-08-05 16:33] LABS: Albumin 2.7 g/dL (3.4-4.7); Albumin/Globulin Ratio 0.82
[2018-08-05 16:43] LABS: Albumin 23 %; Albumin/Globulin Ratio 0.29 %; Gamma Globulin 37 %; Total Protein(PEP) Urine 552 mg/dL
[2018-08-05] MEDS: ceFUROXime TAB(*) 250 MG PO SCH (22:19)
[2018-08-05] MEDS: Atorvastatin* 10 MG TAB PO SCH (22:19)
[2018-08-06 07:35] LABS: ABS Basophils 0 10^3/ul (0-0.2); ABS Eosinophils 0.4 10^3/ul (0-0.6); ABS Neutrophils 7.4 10^3/ul (1.5-7.7); ABS Nucleated RBC 0 10^3/ul; Eosinophil % 3.9 %; Hematocrit 24 % (33-41); Hemoglobin 8.3 g/dL (12.0-16.0); Mean Corpuscular HGB Conc 34 g/dL (31-36); Mean Corpuscular Hemoglobin 28 pg (27-31); Mean Corpuscular Volume 82 fL (80-97); Mean Platelet Volume 8.8 fL (7.4-10.4); Nucleated Red Blood Cells % 0; Platelet Count 199 10^3/uL (150-450); Red Blood Count 2.98 10^6 /uL (3.70-4.87); Red Cell Distribution Width 16 % (10.5-15); White Blood Count 9.8 10^3/uL (3.5-10.8)
[2018-08-06 07:46] LABS: Albumin 2.8 g/dL (3.2-5.2); Calcium 8.9 mg/dL (8.6-10.3); Magnesium 1.5 mg/dL (1.9-2.7); Total Bilirubin 0.6 mg/dL (0.2-1.0)
[2018-08-06 07:52] LABS: BUN/Creatinine Ratio 19.2 (8-20); EGFR Non-African American 71.1 (>60); Globulin 2.9 g/dL (2-4); Phosphorus 1.5 mg/dL (2.5-5.0); Total Protein 5.7 g/dL (6.4-8.9)
[2018-08-06] MEDS ORDERED: Potassium Chlor TAB* 20 MEQ TAB.ER PO ONE (08:27)
[2018-08-06] MEDS ORDERED: Magnesium Sulfate IV* 3 GM in NS 0.9% 100 ML* 100 ML IVPB ONE (08:28)
[2018-08-06] MEDS: KCL 10 MEQ/50 ML IVPREMIX* 10 MEQ/50 ML BAG IV SCH ×2 (09:42→11:32)
[2018-08-06] MEDS: Ferrous Sulfate TAB* 325 MG PO SCH (09:54)
[2018-08-06] MEDS: ceFUROXime TAB(*) 250 MG PO SCH (09:54)
[2018-08-06] MEDS: Pantoprazole TAB * 40 MG TAB PO SCH (09:54)
[2018-08-06] MEDS: Cyanocobalamin TAB* 500 MCG PO SCH (09:54)
[2018-08-06] MEDS: Magnesium Oxide TAB* 400 MG PO SCH (09:54)
[2018-08-06] MEDS: Apixaban* 2.5 MG TAB PO SCH (09:54)
[2018-08-06] MEDS: Cinacalcet TAB* 30 MG PO SCH (09:54)
--- NOTE | 2018-08-06 14:22 | TRS ---
CC: Dr. Higinio Yeager; Dr. Donte Jane; Dr. Maday Taveras; Dr. Vincent Nickerson; Dr. Margot Dolan; Dr. Kaminski, [facility]* DATE OF ADMISSION: 07/31/2018. DATE OF TRANSFER: Anticipated on 08/06/2018. ATTENDING PHYSICIAN FOR THIS TRANSFER: Dr. Higinio Yeager* (dictated by Stephen Lubin NP). HOSPITAL COURSE: Please refer to admitting history and physical that I dictated on 07/31/2018. In short, Ms. Coughlin is an 82-year-old female who presented to the emergency department with her daughter, status post fall. She had an unknown timeframe of which she was on the floor, but she was unable to ambulate, was very weak and confused. EMS services brought the patient to the emergency department. She was found at that time to have severe hypercalcemia. This is a known diagnosis from previous admissions for which she follows with Dr. Donte Jane for primary hyperparathyroidism. At this admission, the patient was significantly lethargic and confused and hypotensive. She was also found to have a urinary tract infection and was septic on admission. For these reasons, the patient was admitted to ICU. Concurrent with these diagnoses, patient has severe aortic stenosis and was also in acute renal failure of unclear etiology. Upon admission to the ICU, the patient had 3 liters of normal saline for fluid resuscitation under sepsis protocol and was started empirically on antibiotics. The patient was receiving Ceftriaxone and has now been placed on oral Cefuroxime. While the patient was in the ICU, imaging studies were performed. Thyroid ultrasound showed no obvious parathyroid adenoma; however, it was a suboptimal study. Renal ultrasound showed some mild renal parenchymal disease and some age - related cortical thickening with a Bosniak type 1 renal cyst. Transthoracic echocardiogram showed LV size is normal, moderate concentric left ventricular hypertrophy, normal EF of 55 to 60 percent, assessment of diastolic function was non-diagnostic, there is severe aortic stenosis, mild aortic regurgitation, mild to moderate mitral regurgitation, moderate tricuspid regurgitation, right ventricular systolic pressure is estimated at 55 mmHg, pacemaker wire is visualized in the right atrium and the right ventricle. Additional imaging was obtained secondary to the patient's fall. CT of the brain dated July 31 had no acute intracranial process. Chest x-ray showed some pulmonary edema. X-rays of the pelvis and hip showed no fracture, but she does have severe osteoarthritis of the left hip. An x-ray of the humerus showed no fracture. As well there is subluxation of the humeral head relative to the glenoid and chronic remodeling consistent with chronic advanced rotator cuff pathology. The patient, due to her severe sepsis, and failing fluid resuscitation was placed on pressors the night of July 31. The patient was on Levophed 5 mcg with good effect. She was titrated to a MAP of 65. The patient's calcium was treated per recommendations by Dr. Jane from Endocrinology. She was started on both Cinacalcet which was titrated up, Calcitonin initial dose of 250 at admission and then 200 q.12 hours. Calcium did normalize. We were rechecking q.6 hours while she was being treated with fluids and Calcitonin. Her calcium now for the last couple of days has been in the 9 to 10 range. In terms of her aortic stenosis, she was planned to go to [facility] to meet with Dr. Kaminski regarding a TAVR procedure; however, because she was acutely hospitalized with critical hypercalcemia secondary to the primary hyperparathyroidism, it was felt that she would not be able to undergo anesthesia for the procedures required to control her calcium until the aortic stenosis, which is now graded as severe to critical, is repaired first. Dr. Kaminski saw the patient after she was downgraded from ICU. She is on the general medical floor at this time. Her mentation has improved. Overall she has no complaints. Dr. Kaminski has identified that the patient does need to be transferred immediately to [facility] for TAVR which will be planned for of this week. Because the patient's calcium was so elevated, we did look for occult malignancy. The patient had a chest/abdomen/pelvis CT. Chest and abdomen were clear; however, it did appear that the patient may have some sort of mass-like formation in the rectum. Upon evaluation of colonoscopy from April, it did appear that she had multiple clot formations. We did ask GI to evaluate the film. It appears at this point that even if she does have some sort of malignancy or needs a biopsy, which is unlikely considering there was noted to be clots in April, this is something that can be followed up with as an outpatient after her TAVR is complete. Also noted, Dr. Jessie Yang of our Surgical Service was consulted for a possibility of performing the parathyroidectomy; however, given the severe nature of the aortic stenosis, Surgery and Anesthesia did not feel comfortable placing the patient under anesthesia for this procedure until the valve is fixed. Additional nuclear imaging of the parathyroids still need to be addressed, as there is still the possibility that her hypercalcemia iw secondary to a parathyroid malignancy. At this point, the patient is going to be transferred to [facility] to bed #5110B under Hospitalist Service with Dr. De La Cruz. Dr. Kaminski has planned for the TAVR on . In terms of the parathyroidectomy, this may be something that will be addressed at [facility] versus the patient being transferred back to [facility] after TAVR for Dr. Jessie Yang to perform parathyroidectomy and other required diagnostics. REVIEW OF SYSTEMS TODAY: The patient denies any fever, fatigue or chills. No chest pain, no shortness of breath. No abdominal pain, no nausea, no vomiting. No further constitutional complaints. PHYSICAL EXAMINATION TODAY: Vital Signs: Blood pressure 118/31, heart rate 84 , O2 saturation 99 percent on room air, respiratory rate 20, temperature of 98.1. HEENT: Patient is atraumatic, normocephalic. PERRLA. Nonicteric sclerae. Oral mucosa is moist. Tongue is midline. Neck: Supple, nontender. No JVD noted. No carotid bruits auscultated. Cardiovascular: S1, S2 present. Rate and rhythm are regular. She does have a grade 3/6 murmur noted. Lungs: Clear bilaterally to auscultation with no wheezing, rhonchi, or rales. Abdomen: Soft, nontender, nondistended. Positive bowel sounds in all four quadrants. No organomegaly noted. : Deferred. Musculoskeletal: There is no clubbing, no cyanosis, and no edema. She has nontender calves. +2 distal pulses palpable. Full range of motion. Gross motor and sensation are intact. Neurologic: She is grossly intact with no focal deficits noted. Psychiatric: She is cooperative and appropriate. LABORATORY DATA DATED TODAY: WBC 9.8, RBC 2.98, hemoglobin 8.3, hematocrit 24, platelets 199; sodium 135, potassium 3.0, chloride 104, CO2 26, BUN 15, creatinine 0.78, GFR 71.1, glucose 90, calcium 8.9, ionized calcium 1.35, phosphorus 1.5, magnesium 1.5, bilirubin 0.60, AST 20, ALT 20, alk phos 70, total protein 5.7, albumin 2.8, globulin 2.9, PTH 530.8, calcium PTH intact 9.5 , beta-1 globulin 1.0, gamma globulin 1.0, vitamin A 26.1. Urinalysis at admission showed yellow, turbid urine, pH 7.0, protein 2+, blood 2+, leukocyte esterase 2+, WBC 3+, RBC 3+, urine bacteria absent, urine glucose negative. INR at admission was 1.44. IMAGING: As noted above. TRANSFER DIAGNOSES: 1. Primary hyperparathyroidism. 2. Severe/critical aortic stenosis. 3. Sepsis at admission with associated hypotension, now resolved. 4. Anemia, acute on chronic, stable. 5. Type 2 diabetes mellitus, stable. 6. Elevated troponin secondary to demand ischemia in the setting of severe sepsis. 7. Chronic A-fib, rate controlled, on anticoagulation. 8. Hyperlipidemia, on a statin. 9. Multiple electrolyte abnormalities, currently being repleted. 10. Hypertension with hypotension at admission, now resolved. DISPOSITION: Transfer to [facility] when a bed is available. Accepting physician is Dr. Kaminski and Dr. De La Cruz MEDICATIONS ON TRANSFER: 1. Tylenol 650 mg p.o. q.4 hours as needed. 2. Apixaban 2.5 mg p.o. b.i.d. 3. Atorvastatin 10 mg in the evening. 4. Cefuroxime 500 mg p.o. b.i.d. for 4 more days. 5. Sensipar 90 mg p.o. b.i.d. 6. Cyanocobalamin 500 mcg p.o. daily. 7. Cyclobenzaprine 10 mg p.o. at bedtime. 8. Ferrous Sulfate 325 mg p.o. daily. 9. Mag Ox 400 mg p.o. b.i.d. 10. Nystatin topical b.i.d. 11. Zofran 4 mg IV as needed. 12. Protonix 40 mg p.o. daily. 13. K-Clor 20 mEq daily. HOME MEDICATIONS: 1. Detrol LA 4 mg p.o. daily. 2. Januvia 100 mg p.o. daily. 3. Pantoprazole 40 mg p.o. daily. 4. Eagar-3 Fatty Acids 2,000 mg in the morning, 1,000 mg in the evening. 5. Nystatin powder topical b.i.d. as needed. 6. Mag Ox 400 mg p.o. b.i.d. 7. Hydrochlorothiazide 25 mg p.o. daily. 8. Ferrous Sulfate 325 mg p.o. daily. 9. Flexeril 10 mg in the evening prn. 10. Vitamin B12 500 mcg p.o. daily. 11. Sensipar 60 mg p.o. b.i.d. 12. Vitamin D 800 units p.o. daily. 13. Atorvastatin 10 mg at bedtime. 14. Atenolol 50 mg p.o. daily. 15. Apixaban 2.5 mg p.o. b.i.d. 16. Tylenol with Codeine one tab p.o. q.6 hours as needed. FINAL DISPOSITION: The patient will be transferred via ALS transport to [facility]. She is currently in stable condition. FOLLOW-UP: The patient will need close follow-up with both Cardiology, Endocrine, and her primary care provider after her discharge from [facility]. STEPHEN LUBIN, BARBARA [id number]/[facility] #: [id number] LEMUEL
[2018-08-06 16:16] VITALS: BP 127/67
--- NOTE | 2018-08-06 17:10 | PN ---
Progress Note - Progress Note Date of Service: 08/06/18 Note: Surgery Progress Note Please see full dictated H&P but briefly patient is an 82 yo F with a history of aortic stenosis and primary hyperparathyroidism who presented with urinary sepsis and parathyroid crisis and significant altered mental status last week. She is currently normocalcemic after medical management but requires AVR for severe aortic stenosis prior to being considered an operative candidate. She is going to be transferred to [place] for a TAVR. I spoke to patient and her daughter regarding the next steps in work up which require localization of her parathyroid disease and then parathyroidectomy. I also explained the concern that this may be a parathyroid carcinoma given her extremely high calcium and PTH levels and her recurrent parathyroid crises when she has undergone systemic stress (LGIB, CHF, sepsis). I told them that there are excellent endocrine surgeons in [place] but I would also be very happy to take care of them if they wish to return to [place] for their care after undergoing the TAVR.
--- NOTE | 2018-08-06 18:58 | CONS ---
CONSULTATION REPORT: DATE OF CONSULT: 08/06/18 SERVICE: General Surgery. ATTENDING SURGEON: Jessie Yang MD REASON FOR CONSULT: Parathyroid crisis. HISTORY OF PRESENT ILLNESS: Ms. Coughlin is an 82-year-old female with a history of aortic stenosis and primary hyperparathyroidism, who had presented to the emergency room on 07/31/18 after a fall. She was found to be very weak and confused and during that workup, she was found to have a urinary tract infection as well as elevated white blood cell count and was empirically started on antibiotics. Of note, she was also found to have acute renal failure of unclear etiology. Further workup did show that she had extremely elevated calcium levels and parathyroid hormone levels as well. Once her calcium levels began to normalize with medical management, her mental status did improve and she then had imaging studies to try to localize parathyroid adenoma; however, the thyroid ultrasound was incomplete given how agitated the patient was while it was being performed. In order to be in operative care for parathyroidectomy , she required repair of her aortic stenosis and plans have been made for her to be transferred to [place] to undergo a TAVR procedure with Dr. Kaminski. PAST MEDICAL HISTORY: 1. Primary hyperparathyroidism. 2. Chronic atrial fibrillation. 3. Tachybrady syndrome with pacemaker insertion, on Eliquis. 4. Diabetes mellitus type 2. 5. Severe osteoarthritis. 6. Congestive heart failure. 7. Aortic stenosis. 8. History of GI bleeding. 9. Peripheral vascular disease. 10. Hypertension. PAST SURGICAL HISTORY: 1. Cardiac catheterization in April. 2. History of right hip replacement. MEDICATIONS: 1. Detrol. 2. Januvia. 3. Protonix. 4. Franklin-3 fatty acid. 5. Mag oxide. 6. Hydrochlorothiazide. 7. Ferrous sulfate. 8. Flexeril. 9. Vitamin B12. 10. Sensipar. 11. Vitamin D. 12. Atorvastatin. 13. Atenolol. 14. Eliquis 2.5 mg p.o. b.i.d. 15. Tylenol with Codeine. ALLERGIES: PENICILLIN, EGGS, and CRABS. FAMILY HISTORY: Parents have both . SOCIAL HISTORY: The patient has a history of smoking, quit approximately 30 years ago. She lives by herself. PHYSICAL EXAM: Vital Signs: Temperature is 98.3, pulse is 96, respiratory rate is 20, O2 sats 95% O2 on room air, and blood pressure is 127/67. General: This is an older-appearing woman, sitting comfortably up in a chair, in no apparent distress. HEENT is normocephalic, redundant. Neck: No palpable masses in the neck. DIAGNOSTIC STUDIES/LAB DATA: Laboratory values from 08/06/18: Sodium is 135, potassium is 3, chloride is 104, CO2 is 26, BUN is 15, creatinine is 0.78, iron calcium is 8.9. From 08/01/18, PTH is 634. From 08/04/18, PTH is 530.8 pg/mL. On 08/01/18, calcium was 13; on 08/01/18, calcium was 11.3; on 08/04/18, calcium was 9.5. Radiology studies: Thyroid ultrasound on 08/01/18, no obvious parathyroid adenoma, although evaluation is limited due to lack of cooperation of the patient. On 08/05/18, CT chest, abdomen and pelvis, slight peripancreatic induration suggesting minimal pancreatitis, prosthetic right hip, subcutaneous induration or infiltration of the gluteal fat was lobular, confluent to the left, which may reflect subcutaneous hematomas, minimal colonic diverticulosis, lobular prominence of the distal rectum which may reflect a rectal or renal mass. CT chest shows posterior extension of the right thyroid lobe to the anterior aspect of the lower cervical spine. ASSESSMENT AND PLAN: Ms. Coughlin is an 82-year-old female with history of multiple medical problems including critical aortic stenosis and primary hyperparathyroidism. Her primary hyperparathyroidism has largely been managed over the past 15 years as an outpatient given that she was asymptomatic and did not initially meet criteria for undergoing a parathyroidectomy. However, recently, her calcium levels have started to increase and she has had now 2 episodes of parathyroid crisis, one occur earlier this year in April. Per the patient and medical records, this occurred when she was hospitalized for a lower GI bleed and then also had to return with congestive heart failure. She then again presented with another parathyroid crisis at the same time that she was experiencing an episode of urinary sepsis, both of which have now resolved. The patient clearly has primary hyperparathyroidism also on the differential, which is very unlikely that she also concomitant malignancy or an ectopic source of PTH from an unusual tumor. PTHrP is pending at this moment. There are no occult lesions that were seen on her CT chest, abdomen and pelvis. Her thyroid ultrasound was limited given that it was performed when she was acutely delirious and needs to be repeated for localization. On the cuts of CT chest that did show her neck did indeed show normal appearance and likely a large parathyroid adenoma on her right side behind her thyroid. She will however still need localization studies. She is first undergoing a TAVR in order to become an operative candidate for parathyroidectomy. I explained all these things to the patient and her mother and explained the next steps. They preferred to return to [place] after the TAVR is performed because they would like to be local; however, I did tell them that there are excellent surgeons as well in [place] should they decide to continue with her care while there inpatient in [place]. Otherwise, I would be happy to see them either when if they get transferred back to [facility] or if they get discharge, they can come see me in the office for further workup. I did tell them also that there was definite concern that this could be a parathyroid carcinoma. They understand these things and all questions were answered. TIME SPENT: I spent a total of 30 minutes in the consultation and coordination of care with this patient, over half of which was [id number]. [id number]/[facility] #: [id number] LEMUEL
== END 2018-08-06 17:50 | disposition short-term general hospital (02) | DRG 871 ==
LOC: ED 12:13 → ICU 16:11 → MED 08-02 12:59
PROVIDERS: ADMIT Internal Medicine; ATTEND Student in an Organized Health Care Education/Training Program
DX: A41.9 Sepsis, unspecified organism (principal); G92 Toxic encephalopathy; I50.33 Acute on chronic diastolic (congestive) heart failure; N39.0 Urinary tract infection, site not specified; N17.9 Acute kidney failure, unspecified; I24.8 Other forms of acute ischemic heart disease; F41.9 Anxiety disorder, unspecified; I11.0 Hypertensive heart disease with heart failure; W01.0XXA Fall on same level from slipping, tripping and stumbling without subsequent striking against object, initial encounter; R40.2362 Coma scale, best motor response, obeys commands, at arrival to emergency department; R40.2142 Coma scale, eyes open, spontaneous, at arrival to emergency department; R40.2242 Coma scale, best verbal response, confused conversation, at arrival to emergency department; M16.12 Unilateral primary osteoarthritis, left hip; E83.52 Hypercalcemia; E21.3 Hyperparathyroidism, unspecified; I48.2 Chronic atrial fibrillation; I25.10 Atherosclerotic heart disease of native coronary artery without angina pectoris; E78.00 Pure hypercholesterolemia, unspecified; E11.51 Type 2 diabetes mellitus with diabetic peripheral angiopathy without gangrene; E86.0 Dehydration; E11.649 Type 2 diabetes mellitus with hypoglycemia without coma; N28.1 Cyst of kidney, acquired; I08.3 Combined rheumatic disorders of mitral, aortic and tricuspid valves; E83.42 Hypomagnesemia; R65.20 Severe sepsis without septic shock; D64.9 Anemia, unspecified; E78.5 Hyperlipidemia, unspecified; Z96.641 Presence of right artificial hip joint; Y92.009 Unspecified place in unspecified non-institutional (private) residence as the place of occurrence of the external cause; Z88.8 Allergy status to other drugs, medicaments and biological substances; Z91.012 Allergy to eggs; Z88.0 Allergy status to penicillin; Z91.013 Allergy to seafood; Z82.49 Family history of ischemic heart disease and other diseases of the circulatory system; Z87.891 Personal history of nicotine dependence; Z95.0 Presence of cardiac pacemaker; Z79.01 Long term (current) use of anticoagulants
CPT/HCPCS: 36415; 70450; 71045; 71260; 74177; 76536; 76775; 80048; 80053; 80320; 81003; 81015; 82310; 82330; 82397; 82550; 83605; 83735; 83880; 83970; 84100; 84132; 84155; 84156; 84165; 84166; 84450; 84484; 84590; 85025; 85027; 85610; 85730; 86850; 86900; 86901; 87077; 87086; 87641; 93005; 93306; 99285; A9270-GY; G0480; G8978-GP-CK; G8979-GP-CI; G8987-GO-CJ; G8988-GO-CI; J0630; J0696; J1940; J3475; J3480; Q9967

== ENCOUNTER 2018-08-19 14:04 | Inpatient (IN) | payer MEDICARE ==
[2018-08-19] MEDS ORDERED: NS 0.9% 1000 ML** 1,000 ML IV ONE ×2 (14:54→16:49)
--- NOTE | 2018-08-19 15:02 | ED ---
Complex/Multi-Sys Presentation - HPI Summary HPI Summary: Patient is a 82 y/o F presenting to ED with lethargy. Patient is scheduled for surgery in the next three days, states that she was asked by Dr. Pinzon to come in for possible admission for pending parathyroid surgery. PMHx of diabetes, afib, pacemaker, hypercalcium. BG are reported to have been running low in the 40s. Abdominal pain, fever are denied. She claims some SOB and dizziness when sitting down. Patient is on a water pill, reports increased frequency of urination. On triage, pain is denied. Nothing is noted to aggravate/alleviate Sx. Home medications, allergies, nurse's notes are reviewed. - History Of Current Complaint Time Seen by Provider: 08/19/18 14:13 Hx Obtained From: Patient Onset/Duration: Still Present Timing: Constant Severity Currently: None Aggravating Factor(s): nothing Alleviating Factor(s): nothing Associated Signs And Symptoms: Positive: Dizziness, SOB, Other - lethargy, increased frequency of urination. Negative: Abdominal Pain, Fever - Allergies/Home Medications Allergies/Adverse Reactions: Allergies Allergy/AdvReac Type Severity Reaction Status Date / Time regadenoson [From [employer]] Allergy See Comment Verified 08/19/18 14:19 Egg Derived AdvReac Intermediate Stomach Verified 08/19/18 14:19 Cramps Penicillins AdvReac Intermediate See Comment Verified 08/19/18 14:19 crab AdvReac Vomiting Verified 08/19/18 14:19 Home Medications: Home Medications Acetaminop/Codeine 30 MG TAB* [Tylenol/Codeine 30 MG TAB*] 1 tab PO Q6H PRN [History Confirmed 08/19/18] Aspirin EC TAB* [Ecotrin EC Low Dose 81 MG*] 81 mg PO DAILY 08/19/18 [History Confirmed 08/19/18] Atenolol TAB* [Tenormin TAB* 50 MG] 50 mg PO DAILY 08/19/18 [History Confirmed 08/19/18] Cholecalciferol TAB* [Vitamin D TAB*] 800 unit PO DAILY 08/19/18 [History Confirmed 08/19/18] Cinacalcet TAB* [Sensipar TAB*] 60 mg PO BID 08/19/18 [History Confirmed ] Furosemide TAB* [Lasix TAB*] 20 mg PO DAILY 08/19/18 [History Confirmed 08/19/18 ] Nystatin TOP POWDER* 1 applic TOPICAL QID 08/19/18 [History Confirmed 08/19/18] Cass[place]-3 Fatty Acids (Nf) [Fish Oil (NF)] 2,000 mg PO DAILY 08/19/18 [History Confirmed 08/19/18] SitaGLIPtin (NF) [Januvia (NF)] 100 mg PO DAILY 08/19/18 [History Confirmed ] Tolterodine LA (NF) [Detrol LA (NF)] 4 mg PO DAILY 08/19/18 [History Confirmed 08/19/18] PMH/Surg Hx/FS Hx/Imm Hx Endocrine/Hematology History: Reports: Hx Anticoagulant Therapy, Hx Blood Transfusions, Hx Diabetes, Hx Anemia, Hx Unexplained Bleeding - GI Bleed admission Dx Denies: Hx Systemic Lupus Erythematosus, Hx Sickle Cell Disease, Hx Thyroid Disease, Other Endocrine/Hematological Disorders Cardiovascular History: Reports: Hx Angioplasty, Hx Coronary Artery Disease, Hx Hypercholesterolemia, Hx Hypertension, Hx Pacemaker/ICD, Hx Peripheral Vascular Disease, Hx Valvular Heart Disease Denies: Hx Aneurysm, Hx Angina, Hx Auto Implanted Cardiovert Defib, Hx Cardiac Arrest, Hx Cardiomegaly, Hx Congenital Heart Disease, Hx Congestive Heart Failure, Hx Deep Vein Thrombosis, Hx Embolism, Hx Hypotension, Hx Rheumatic Fever, Hx Syncope Respiratory History: Reports: Hx Pneumonia Denies: Hx Asthma, Hx Chronic Bronchitis, Hx Chronic Obstructive Pulmonary Disease (COPD), Hx Cystic Fibrosis, Hx Lung Cancer, Hx Pleural Effusion, Hx Pulmonary Edema, Hx Pulmonary Embolism, Hx Seasonal Allergies, Hx Sleep Apnea, Other Respiratory Problems/Disorders GI History: Reports: Hx Gastrointestinal Bleed - Admission Dx, Hx Ulcer Denies: Hx Cirrhosis, Hx Crohn's Disease, Hx Diverticulosis, Hx Gall Bladder Disease, Hx Gastroesophageal Reflux Disease, Hx Hiatal Hernia, Hx Irritable Bowel, Hx Jaundice, Hx Obstructive Bowel, Hx Ileostomy, Hx Pyloric Stenosis, Other GI Disorders History: Reports: Other Problems/Disorders - urinary urgency Denies: Hx Acute Renal Failure, Hx Benign Prostatic Hyperplasia, Hx Chronic Renal Failure, Hx Dialysis, Hx Kidney Infection, Hx Kidney Stones Musculoskeletal History: Reports: Hx Arthritis, Hx Back Problems, Hx Bursitis Denies: Hx Rheumatoid Arthritis, Hx Congenital Bone Abnormalities, Hx Fibromyalgia, Hx Gout, Hx Orthopedic Injury - right hip replaced, Hx Osteoporosis, Hx Scoliosis, Hx Tendonitis Sensory History: Denies: Hx Cataracts, Hx Contacts or Glasses, Hx Eye Injury, Hx Eye Prosthesis, Hx Glaucoma, Hx Legally Blind, Hx Macular Degeneration, Hx Vision Problem, Hx Deafness, Hx Hearing Aid, Hx Hearing Problem, Other Sensory Impairments Opthamlomology History: Denies: Hx Cataracts, Hx Contacts or Glasses, Hx Eye Injury, Hx Eye Prosthesis, Hx Glaucoma, Hx Legally Blind, Hx Macular Degeneration, Hx Vision Problem, Other Sensory Impairments Psychiatric History: Reports: Hx Anxiety - Cancer History Hx Chemotherapy: No Hx Radiation Therapy: No Hx Palliative Cancer Treatment: No - Surgical History Surgery Procedure, Year, and Place: right hip replacement several years ago, angiogram. barium study of intestines 10/27/14 Hx Anesthesia Reactions: No Infectious Disease History: No Infectious Disease History: Denies: Hx Clostridium Difficile, Hx Hepatitis, Hx Human Immunodeficiency Virus (HIV), Hx of Known/Suspected MRSA, Hx Shingles, Hx Tuberculosis, Hx Known/ Suspected VRE, Hx Known/Suspected VRSA, History Other Infectious Disease, Traveled Outside the [place] in Last 30 Days - Family History Known Family History: Positive: Cardiac Disease - father Negative: Diabetes - Social History Alcohol Use: unknown Hx Substance Use: No Substance Use Type: Reports: None Hx Tobacco Use: Yes Smoking Status (MU): Former Smoker Type: Cigarettes Amount Used/How Often: 2 PPD Length of Time of Smoking/Using Tobacco: 15 years Have You Smoked in the Last Year: No Review of Systems Positive: Fatigue. Negative: Fever Positive: Shortness Of Breath Negative: Abdominal Pain Positive: frequency - increased Neurological: Other - POSITIVE - DIZZINESS All Other Systems Reviewed And Are Negative: Yes Physical Exam - Summary Physical Exam Summary: Appearance: well appearing, no pain distress Skin: warm, dry, reflects adequate perfusion Head/face: normal Eyes: EOMI, STEFANY ENT: mucous membranes moist Neck: supple, non-tender Respiratory: CTA, breath sounds present Cardiovascular: irregularly irregular, pulses symmetrical; left chest pacemaker noted Abdomen: non-tender, soft Bowel Sounds: present Musculoskeletal: normal, strength/ROM intact, no edema Neuro: normal, sensory motor intact, A&Ox3 Triage Information Reviewed: Yes Vital Signs On Initial Exam: Initial Vitals Temp Pulse Resp BP Pulse Ox 97.9 F 68 18 140/66 93 08/19/18 14:10 04/22/19 14:10 08/19/18 14:10 08/19/18 14:10 08/19/18 14:10 Vital Signs Reviewed: Yes Diagnostics - Vital Signs Vital Signs Temp Pulse Resp BP Pulse Ox 08/19/18 14:10 97.9 F 68 18 140/66 93 - Laboratory Result Diagrams: 08/19/18 14:55 08/19/18 14:55 Lab Statement: Any lab studies that have been ordered have been reviewed, and results considered in the medical decision making process. - EKG 1435 Cardiac Rate: Other Rate - afib with rate of 66 BPM EKG Rhythm: Atrial Fibrillation ST Segment: Non-Specific Summary of EKG Findings: EKG showed afib with rate of 66 BPM, intermittently paced beats, non-specific ST, normal axis. Complex Multi-Symp Course/Dx Course Of Treatment: Nurse's notes reviewed. Patient with known hyperparathyroidism and has had recurring hypercalcemia associated with that. Brought in for lethargy and concern for hypercalcemia. She has some bone pain in her hips and her calcium was found to be 12. Ionized calcium is elevated at 1.87. 2 L of IV fluids were given. She is here scheduled for parathyroidectomy -- admit for further. 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 Conn, Dr. Conn will admit patient. - Critical Care Time Critical Care Time: 30-74 min - Critical care time is exclusive of separately billable procedures Discharge - Sign-Out/Discharge Documenting (check all that apply): Patient Departure - admit Patient Received Moderate/Deep Sedation with Procedure: No - Discharge Plan Condition: Fair Disposition: ADMITTED TO [facility] Referrals: Margot Dolan MD [Primary Care Provider] - - Billing Disposition and Condition Condition: FAIR Disposition: Admitted to [facility] - Attestation Statements Document Initiated by Scribe: Yes Documenting Scribe: ERIC VINSON Provider For Whom Scribe is Documenting (Include Credential): NEFTALY CONNOR MD Scribe Attestation: ERIC Foss, scribed for NEFTALY CONNOR MD on 08/19/18 at 1649. Scribe Documentation Reviewed: Yes Provider Attestation: The documentation as recorded by the scribe, ERIC VINSON accurately reflects the service I personally performed and the decisions made by me, NEFTALY CONNOR MD Status of Scribe Document: Viewed
[2018-08-19 15:03] LABS: ABS Basophils 0.1 10^3/ul (0-0.2); ABS Eosinophils 0.4 10^3/ul (0-0.6); ABS Lymphocytes 0.7 10^3/ul (1.0-4.8); ABS Monocytes 0.8 10^3/ul (0-0.8); ABS Neutrophils 5.4 10^3/ul (1.5-7.7); ABS Nucleated RBC 0 10^3/ul; Hematocrit 31 % (33-41); Hemoglobin 10.1 g/dL (12.0-16.0); Mean Corpuscular HGB Conc 33 g/dL (31-36); Mean Corpuscular Hemoglobin 28 pg (27-31); Mean Corpuscular Volume 85 fL (80-97); Mean Platelet Volume 8.1 fL (7.4-10.4); Nucleated Red Blood Cells % 0; Platelet Count 276 10^3/uL (150-450); Red Blood Count 3.66 10^6 /uL (3.70-4.87); Red Cell Distribution Width 17 % (10.5-15); White Blood Count 7.4 10^3/uL (3.5-10.8)
[2018-08-19 15:13] LABS: INR 1.43 (0.82-1.09)
[2018-08-19 15:40] LABS: TSH (Thyroid Stimulating Horm) 3.95 mcIU/mL (0.34-5.60)
[2018-08-19 15:51] LABS: Albumin 3.3 g/dL (3.2-5.2); Albumin/Globulin Ratio 0.9 (1-3); EGFR African American 59.1 (>60); EGFR Non-African American 48.8 (>60); Globulin 3.8 g/dL (2-4); Phosphorus 2.6 mg/dL (2.5-5.0); Potassium 3.8 mmol/L (3.5-5.0); Total Bilirubin 0.7 mg/dL (0.2-1.0); Total Protein 7.1 g/dL (6.4-8.9)
[2018-08-19] MEDS ORDERED: Ondansetron INJ* 2 MG/ML VIAL IV PRN (16:50)
[2018-08-19] MEDS ORDERED: Dextrose 50% Syringe 50 ML* 25 GM/50 ML SYRINGE IV PUSH PRN (17:01)
[2018-08-19] MEDS: Cyclobenzaprine TAB* 10 MG PO PRN (20:53)
[2018-08-19] MEDS: Cinacalcet TAB* 30 MG PO SCH (20:53)
[2018-08-19] MEDS: Magnesium Oxide TAB* 400 MG PO SCH (20:54)
[2018-08-19] MEDS: Atorvastatin* 10 MG TAB PO SCH (20:54)
[2018-08-19] MEDS: Nystatin TOP POWDER* 15 GM BTL TOPICAL SCH ×2 (20:55→21:36)
[2018-08-19] MEDS: Insulin LISPRO* 1 UNITS UNIT SUBCUT SCH (20:57)
[2018-08-19] MEDS: Heparin VIAL(*) 5000 UNITS/ML VIAL (FIVE THOUSAND) SUBCUT SCH (20:57)
[2018-08-19] MEDS: NS 0.9% 1000 ML** 1,000 ML IV SCH (20:58)
--- NOTE | 2018-08-19 21:25 | HP ---
CC: Dr. Margot Dolan; Dr. Donte Jane; Dr. Jessie Yang; Dr. Vincent Nickerson * ADMISSION HISTORY AND PHYSICAL: DATE OF ADMISSION: 08/19/18 PRIMARY CARE PROVIDER: Dr. Margot Dolan. OUTPATIENT LEGAL BILLING ANALYST: Dr. Donte Jane. ENDOCRINE SURGEON: Dr. Jessie Yang. MY ATTENDING WHILE IN THE HOSPITAL: Dr. Yojana Conn.* (DICTATED BY BHUMIKA CASTAÑEDA) OUTPATIENT TAX DIRECTOR: Dr. Vincent Nickerson. CHIEF COMPLAINT: Weakness. HISTORY OF PRESENT ILLNESS: Ms. Coughlin is an 82-year-old female with a very complex recent past medical history significant for severe hyperparathyroidism; aortic stenosis, status post recent TAVR; heart failure, preserved ejection fraction; and atrial fibrillation with tachybrady syndrome, status post pacemaker earlier this year, who presents to the emergency department 1 week after her discharge from [facility] where she had a transaortic valve replacement for her aortic valve, which had no complications. The patient after getting home has been feeling progressively weaker, particularly in her muscles and she feels like she has no energy, no appetite. The patient is also bothered significantly by urinary frequency and incontinence related to furosemide that she was on for fluid overload from [facility]. 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 The patient did not improve with outpatient PT. The patient had her Sensipar decreased, but then as her calcium level increased again, it was increased again. The patient has noticed some swelling in her legs, but that is improving. The patient has pain in her back and hip from a fall prior to her previous hospitalization. The patient has noticed a decrease in her dyspnea on exertion. The patient does have occasional dizziness while lying flat, but this passes quickly. The patient denies fever, chills, or pain with urination. The patient does have frequency of urination and urinary incontinence. The patient has intermittent diarrhea, but no abdominal pain. The patient denies chest pain, shortness of breath, or cough. The patient has very poor appetite. She has, however, been taking significant amount of milkshakes. The patient was referred in today by her real time analyst for urgent parathyroidectomy due to difficult to control hyperparathyroidism. The patient in the emergency department today still had PTH greater than 300 and increased from her most recent level on 08/13/18. The patient's calcium is also again high at 12, and her ionized calcium is critically high at 1.67, significantly higher than almost any of her other readings. The patient will be admitted to the hospital for treatment of her hypercalcemia, physical therapy in preparation for her urgent parathyroidectomy and subsequent treatment of parathyroid adenoma. 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 PAST SURGICAL HISTORY: Recent TAVR, pacemaker insertion, recent catheterization , right hip replacement. MEDICATIONS: 1. Eliquis 2.5 mg p.o. b.i.d. The patient stopped taking this 2 days ago. 2. Lipitor 10 mg p.o. at bedtime. 3. Vitamin B12 500 mcg p.o. daily. 4. Cyclobenzaprine 10 mg p.o. at bedtime as needed. 5. Ferrous sulfate 325 mg p.o. daily. 6. Magnesium oxide 400 mg p.o. b.i.d. 7. Pantoprazole 40 mg p.o. daily. 8. Januvia 100 mg p.o. daily. 9. Furosemide 10 mg p.o. daily. 10. Felton-3 fatty acids 2000 mg p.o. daily. 11. Sensipar 60 mg p.o. b.i.d. 12. Vitamin D 1600 units p.o. daily. 13. Atenolol 50 mg p.o. daily. 14. Aspirin 81 mg p.o. daily. 15. Tylenol with Codeine 1 tab p.o. q.6 hours as needed. 16. Detrol 4 mg p.o. daily. 17. Nystatin 1 application topical q.i.d. ALLERGIES: Eggs, PENICILLINS, crabs. FAMILY HISTORY: The patient's father at age 85 of unknown cause. The patient's mother at age 65 of unknown cause. SOCIAL HISTORY: The patient quit smoking over 30 years ago. The patient denies any alcohol or illicit drug use. The patient has been living by herself generally, but has had occasional stints where she lived with her daughter, has been in and out of rehab and the hospital for most of this year. The patient's surrogate decision maker will be her daughter, Betty Mcclelland. The patient has a 15-pack- year history of smoking. REVIEW OF SYSTEMS: A 14-point review of systems was reviewed and is negative except as above in the HPI. PHYSICAL EXAMINATION GENERAL: The patient is an 82-year-old female who appears stated age and sitting comfortably in the bed, in no acute distress. VITAL SIGNS: Temperature 97.9, pulse rate 62, respiratory rate 23, oxygen saturation 94% on room air, blood pressure 148/84. HEENT: Head: Normocephalic, atraumatic. Sclerae anicteric. No conjunctival injection. Nasal mucosa moist. Oral mucosa moist. No pharyngeal erythema, discharge, or exudate. NECK: Supple, nontender. No lymphadenopathy. No carotid bruits auscultated. No JVD. RESPIRATORY: Clear to auscultation bilaterally. No wheezes, rales, or rhonchi. Good air exchange bilaterally. CARDIAC: Regular rate and rhythm. Grade 1/6 systolic ejection murmur, loud S2. 1+ pitting edema in bilateral lower extremities. ABDOMEN: Soft, nontender, nondistended. Bowel sounds present and normoactive in all 4 quadrants. No hepatosplenomegaly. No abdominal bruits auscultated. No hepatojugular reflux. GENITOURINARY: No suprapubic or CVA tenderness. NEURO: Cranial nerves II through XII intact. No focal deficits except for generalized weakness at 4-/5 with no focality. PSYCHIATRIC: Pleasant and cooperative. SKIN: Clean, dry, and intact. Bruising over the left lateral aspect of the hip and back, improved from previous exam. DIAGNOSTIC STUDIES/LAB DATA: White blood cell count 7.4, hemoglobin 10.1, platelet count 276. INR 1.43. Sodium 138, potassium 3.8, chloride 102, carbon dioxide 30, anion gap 6, BUN 13, creatinine 1.08, glucose 117, calcium 12.0, ionized calcium 1.67, phosphorus 2.6. Bilirubin 0.7, AST 15, ALT 8, alkaline phosphatase 81. Protein 7.1, albumin 3.3, globulin 3.8. TSH 3.95, vitamin D 22.2, PTH 343, PTH intact 11.7. Studies: EKG shows atrial fibrillation, intermittent pacing, left bundle- branch block morphology, T-wave inversions in the lateral and anterior leads, significant artifacts. Compared to previous exam, there are no significant changes. QTc of 388, rate of 66. ASSESSMENT AND PLAN: Impression: Ms. Coughlin is an 82-year-old female with past medical history significant for difficult to control hyperparathyroidism; aortic stenosis, status post transaortic valve replacement; heart failure, preserved ejection fraction; tachybrady syndrome with atrial fibrillation, status post pacemaker, who presents to the emergency department with weakness at home and worsening in her calcium despite medical therapy, who will be evaluated for emergent parathyroidectomy and will be inpatient until that point. 1. Hyperparathyroidism. The patient's parathyroid hormone is still climbing up at 343. This is despite being on 60 mg of cinacalcet daily. The patient will be seen in consultation when available by Dr. Donte Jane. The patient had a parathyroid adenoma by a nuclear medicine scan at [place]. These images will be uploaded in the computer. The patient will be seen in consultation by Dr. Jessie Yang, who will direct further preoperative imaging. The patient will also be seen in consultation by Dr. Vincent Nickerson of Cardiology to guide intraoperative pacemaker management as well as preoperative medical optimization given the patient's recent transaortic valve replacement and complex cardiac history. The patient's ionized calcium is still critically high. The patient has received 2 L of fluids in the emergency department. Due to concern for heart failure with preserved ejection fraction, we will continue slow fluids and low-dose Lasix, which the patient has a significant response to. The patient will have strict intake and output and daily weights. Increase in the patient's cinacalcet or repeat of bisphosphonate therapy may be indicated at the discretion of Endocrinology. 2. History of aortic stenosis, status post transaortic valve replacement. The patient feels less dyspneic on exertion. The patient will be seen in consultation by Dr. Vincent Nickerson. The patient will have a repeat echocardiogram. The patient appears slightly fluid overloaded. The patient will be given fluids and diuresis as above. The patient's diuresis should be increased, though she already complains of very frequent urination. 3. Diabetes mellitus type 2. The patient's blood glucose in the hospital is 117. The patient's recent hemoglobin A1c was 7.1, but that was last year. We will update this from now. 4. Anemia. The patient's anemia is likely still related to iron deficiency from the patient's slow gastrointestinal bleeding. The patient's Eliquis and aspirin have been stopped at this time in preparation for surgery. The patient will be maintained on iron supplementation. The patient has previously responded well to IV iron. In the future, this might be considered again. 5. Heart failure with preserved ejection fraction. The patient is slightly fluid overloaded. We will update echocardiogram, get strict I's and O's and daily weights. 6. Atrial fibrillation. The patient is currently rate controlled, not on medication. The patient has a pacemaker for tachy-aleks syndrome. 7. FEN: The patient will have a heart-healthy diet, caffeine okay. The patient will have gentle fluids and diuresis as above. 8. Disposition: The patient is admitted inpatient in anticipation of surgery while inpatient due to repeated failed outpatient therapy. 9. Code status: The patient will be a full code. TIME SPENT: Approximately 75 minutes was spent on the admission of this patient , 45 of which was spent [id number] with the patient obtaining history and physical and discussing treatment plan. This plan was discussed with my attending Dr. Yojana Conn, and she is in agreement. BHUMIKA CASTAÑEDA [id number]/CPS #: [id number]
[2018-08-20] MEDS: Heparin VIAL(*) 5000 UNITS/ML VIAL (FIVE THOUSAND) SUBCUT SCH ×3 (06:16→20:54)
[2018-08-20 08:29] LABS: ABS Basophils 0.1 10^3/ul (0-0.2); ABS Eosinophils 0.6 10^3/ul (0-0.6); ABS Lymphocytes 0.7 10^3/ul (1.0-4.8); ABS Monocytes 0.7 10^3/ul (0-0.8); ABS Neutrophils 4.1 10^3/ul (1.5-7.7); ABS Nucleated RBC 0 10^3/ul; Eosinophil % 9.2 %; Hematocrit 28 % (33-41); Hemoglobin 9.4 g/dL (12.0-16.0); Lymphocyte % 11.9 %; Mean Corpuscular HGB Conc 33 g/dL (31-36); Mean Corpuscular Hemoglobin 28 pg (27-31); Mean Corpuscular Volume 85 fL (80-97); Mean Platelet Volume 7.7 fL (7.4-10.4); Nucleated Red Blood Cells % 0; Platelet Count 240 10^3/uL (150-450); Red Blood Count 3.35 10^6 /uL (3.70-4.87); Red Cell Distribution Width 17 % (10.5-15); White Blood Count 6.2 10^3/uL (3.5-10.8)
[2018-08-20] MEDS: Insulin LISPRO* 1 UNITS UNIT SUBCUT SCH ×4 (08:29→20:37)
--- NOTE | 2018-08-20 08:32 | CONSULT ---
Consult Consult: [facility] Inpatient Consult Note Date of Consult: 08/20/18 Reason for Consult: primary hyperparathyroidism Reason for Admission: hypercalcemia, AF with pacemaker, recent TAVR ASSESSMENT: 82 yo F with history of life-threatening hypercalcemia as a result of severe hyperparathyroidism in setting of recent admissions for LGIB, decompensated heart failure and renal failure. Her cardiac status continues to improve after TAVR and she appears euvolemic at present time. Hypercalcemia has not responded to loop diuretics in the past and should be discontinued in favor of gentle IV fluids. Given severity of hypercalcemia presentations, she is indicated for parathyroid surgery. There is a suspicion for parathyroid carcinoma. The case has been discussed with Dr. Yang, who is willing to perform parathyroid surgery at earliest available date. Patient will need the items below prior to surgery on : PLAN: - check thyroid ultrasound for real-time localization of RIGHT neck anatomy - consult anesthesia for pre-op assessment - consult cardiology for pacemaker and AF - consult PT for deconditioning - stop furosemide - continue Sensipar through tomorrow, then stop - check calcium Q12H -- goal corrected Ca <12 - continue vitamin D supplements >1500 IU daily SUBJECTIVE: History of Present Illness: 82 yo F with severe hyperparathyroidism and presumed RIGHT parathyroid adenoma. She was recently discharged from after TAVR in order to have elective parathyroid surgery when possible. She has had a slow recovery and remains weak , with new incontinence after starting Lasix in place of HCTZ. Her calcium levels remain elevated, although not severely so. She notes depression and large muscle weakness, but mental status is good. Sensipar has been helpful and will be continued at 60mg BID. Patient is struggling with deconditioning and remains frustrated. She has had 3 admissions in the past 3 months and is increasingly weak. Hypercalcemia is likely contributing to her decline, although her most recent levels are not significantly different from prior years. Past Medical History: Primary hyperparathyroidism Chronic atrial fibrillation on anticoagulation Osteoarthritis Hypertension Dyslipidemia Mod-severe s/p TAVR July 2018 Type 2 diabetes mellitus - well-controlled Medications Prior to Admission: Apixaban* [Eliquis*] 2.5 mg PO BID tab 08/06/18 [Rx Confirmed 08/19/18] Atorvastatin* [Lipitor 10 MG*] 10 mg PO BEDTIME tab 08/06/18 [Rx Confirmed ] Cyanocobalamin TAB* [Vitamin B12 TAB*] 500 mcg PO DAILY tab 08/06/18 [Rx Confirmed 08/19/18] Cyclobenzaprine TAB* [Flexeril 10 MG TAB*] 10 mg PO BEDTIME PRN tab 08/06/18 [ Rx Confirmed 08/19/18] Ferrous Sulfate TAB* 325 mg PO DAILY tab 08/06/18 [Rx Confirmed 08/19/18] Magnesium Oxide TAB* [MagOx 400 TAB*] 400 mg PO BID tab 08/06/18 [Rx Confirmed 08/19/18] Pantoprazole TAB * [Protonix TAB*] 40 mg PO DAILY tab 08/06/18 [Rx Confirmed ] Acetaminop/Codeine 30 MG TAB* [Tylenol/Codeine 30 MG TAB*] 1 tab PO Q6H PRN [History Confirmed 08/19/18] Aspirin EC TAB* [Ecotrin EC Low Dose 81 MG*] 81 mg PO DAILY 08/19/18 [History Confirmed 08/19/18] Atenolol TAB* [Tenormin TAB* 50 MG] 50 mg PO DAILY 08/19/18 [History Confirmed 08/19/18] Cholecalciferol TAB* [Vitamin D TAB*] 800 unit PO DAILY 08/19/18 [History Confirmed 08/19/18] Cinacalcet TAB* [Sensipar TAB*] 60 mg PO BID 08/19/18 [History Confirmed ] Furosemide TAB* [Lasix TAB*] 20 mg PO DAILY 08/19/18 [History Confirmed 08/19/18 ] Nystatin TOP POWDER* 1 applic TOPICAL QID 08/19/18 [History Confirmed 08/19/18] Reading-3 Fatty Acids (Nf) [Fish Oil (NF)] 2,000 mg PO DAILY 08/19/18 [History Confirmed 08/19/18] SitaGLIPtin (NF) [Januvia (NF)] 100 mg PO DAILY 08/19/18 [History Confirmed ] Tolterodine LA (NF) [Detrol LA (NF)] 4 mg PO DAILY 08/19/18 [History Confirmed 08/19/18] Inpatient Medications: Acetaminophen (Tylenol Tab*) 650 mg PO Q6H PRN PRN Reason: FEVER/PAIN Atenolol (Tenormin Tab*) 50 mg PO DAILY [facility] Atorvastatin Calcium (Lipitor*) 10 mg PO BEDTIME [facility] Last Admin: 08/19/18 20:54 Dose: 10 mg Cholecalciferol (Vitamin D Tab*) 1,600 unit PO DAILY [facility] Cinacalcet (Sensipar Tab*) 60 mg PO BID [facility] Last Admin: 08/19/18 20:53 Dose: 60 mg Cyanocobalamin (Vitamin B12 Tab*) 500 mcg PO DAILY [facility] Cyclobenzaprine HCl (Flexeril Tab*) 10 mg PO BEDTIME PRN PRN Reason: SPASMS Last Admin: 08/19/18 20:53 Dose: 10 mg Dextrose (D50w Syringe 50 Ml*) 12.5 gm IV PUSH .FOR FS < 60 - SS PRN PRN Reason: FS < 60 Ferrous Sulfate (Ferrous Sulfate Tab*) 325 mg PO DAILY [facility] Fish Oil (Fish Oil (Nf)) 2,000 mg PO DAILY [facility]; Protocol Furosemide (Lasix Tab*) 10 mg PO DAILY [facility] Heparin Sodium (Porcine) (Heparin Vial(*)) 5,000 units SUBCUT Q8HR [facility] Last Admin: 08/20/18 06:16 Dose: 5,000 units Sodium Chloride (Ns 0.9% 1000 Ml) 1,000 mls @ 75 mls/hr IV PER RATE [facility] Stop: 08/21/18 06:34 Last Admin: 08/19/18 20:58 Dose: 75 mls/hr Insulin Human Lispro (Humalog*) 0 units SUBCUT ACHS [facility]; Protocol Last Admin: 08/19/18 20:57 Dose: 2 unit Magnesium Oxide (Magox 400 Tab*) 400 mg PO BID [facility] Last Admin: 08/19/18 20:54 Dose: 400 mg Nystatin (Nystatin Top Powder*) 1 applic TOPICAL QID [facility] Last Admin: 08/19/18 21:36 Dose: Not Given Ondansetron HCl (Zofran Inj*) 4 mg IV Q6H PRN PRN Reason: NAUSEA Oxybutynin Chloride (Ditropan Xl Tab*) 5 mg PO DAILY [facility]; Protocol Pantoprazole Sodium (Protonix Tab*) 40 mg PO DAILY [facility] Sitagliptin Phosphate (Januvia (Nf)) 100 mg PO DAILY [facility]; Protocol Allergies/Intolerances: egg, shellfish, PCN, technetium Social History: Lives alone. Daughter nearby. 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 No alcohol/tobacco. Family History: No history of calcium or bone disease. No endocrine tumor syndrome. Review of Systems: Overflow incontinence. Resolving edema. Persistent fatigue and malaise. 12 system review is otherwise negative. OBJECTIVE: Vital Signs: Temp Pulse Resp BP Pulse Ox 97.6 F 60 18 136/49 95 08/20/18 03:15 08/20/18 03:15 08/20/18 03:15 08/20/18 03:15 08/20/18 03:15 General: alert, pleasant, oriented, no distress ENT: neck supple, no thyromegaly, no bruit is heard Chest: CTAB, no wheezing or crackles CV: irreg irreg, very soft systolic murmur Abdomen: soft, non-tender Extremities: (+) non-pitting edema, distal pulses intact Skin: warm, dry, no rash Neuro: grossly intact motor/sensory in extremities Psych: restricted affect, pleasant Labs: WBC 7.4 10^3/uL (3.5-10.8) 08/19/18 14:55 RBC 3.66 10^6 /uL (3.70-4.87) L 08/19/18 14:55 Hgb 10.1 g/dL (12.0-16.0) L 08/19/18 14:55 Hct 31 % (33-41) L 08/19/18 14:55 MCV 85 fL (80-97) 08/19/18 14:55 MCH 28 pg (27-31) 08/19/18 14:55 MCHC 33 g/dL (31-36) 08/19/18 14:55 RDW 17 % (10.5-15) H 08/19/18 14:55 Plt Count 276 10^3/uL (150-450) 08/19/18 14:55 MPV 8.1 fL (7.4-10.4) 08/19/18 14:55 Neut % (Auto) 73.0 % 08/19/18 14:55 Lymph % (Auto) 9.0 % 08/19/18 14:55 [place] % (Auto) 11.2 % 08/19/18 14:55 Eos % (Auto) 6.0 % 08/19/18 14:55 Baso % (Auto) 0.8 % 08/19/18 14:55 Absolute Neuts (auto) 5.4 10^3/ul (1.5-7.7) 08/19/18 14:55 Absolute Lymphs (auto) 0.7 10^3/ul (1.0-4.8) L 08/19/18 14:55 Absolute Monos (auto) 0.8 10^3/ul (0-0.8) 08/19/18 14:55 Absolute Eos (auto) 0.4 10^3/ul (0-0.6) 08/19/18 14:55 Absolute Basos (auto) 0.1 10^3/ul (0-0.2) 08/19/18 14:55 Absolute Nucleated RBC 0 10^3/ul 08/19/18 14:55 Nucleated RBC % 0 08/19/18 14:55 INR (Anticoag Therapy) 1.43 (0.82-1.09) H 08/19/18 14:54 Sodium 138 mmol/L (135-145) 08/19/18 14:55 Potassium 3.8 mmol/L (3.5-5.0) 08/19/18 14:55 Chloride 102 mmol/L (101-111) 08/19/18 14:55 Carbon Dioxide 30 mmol/L (22-32) 08/19/18 14:55 Anion Gap 6 mmol/L (2-11) 08/19/18 14:55 BUN 13 mg/dL (6-24) 08/19/18 14:55 Creatinine 1.08 mg/dL (0.51-0.95) H 08/19/18 14:55 Est GFR ( Amer) 59.1 (>60) 08/19/18 14:55 Est GFR (Non-Af Amer) 48.8 (>60) 08/19/18 14:55 BUN/Creatinine Ratio 12.0 (8-20) 08/19/18 14:55 Glucose 117 mg/dL (70-100) H 08/19/18 14:55 POC Glucose (mg/dL) 155 mg/dL (70-100) H 08/19/18 19:35 Calcium 12.0 mg/dL (8.6-10.3) H 08/19/18 14:55 Ionized Calcium 1.67 mmol/L (1.16-1.32) H* 08/19/18 16:15 Phosphorus 2.6 mg/dL (2.5-5.0) 08/19/18 14:55 Total Bilirubin 0.70 mg/dL (0.2-1.0) 08/19/18 14:55 AST 15 U/L (13-39) 08/19/18 14:55 ALT 8 U/L (7-52) 08/19/18 14:55 Alkaline Phosphatase 81 U/L (34-104) 08/19/18 14:55 Total Protein 7.1 g/dL (6.4-8.9) 08/19/18 14:55 Albumin 3.3 g/dL (3.2-5.2) 08/19/18 14:55 Globulin 3.8 g/dL (2-4) 08/19/18 14:55 Albumin/Globulin Ratio 0.9 (1-3) L 08/19/18 14:55 25-OH Vitamin D Total 22.2 ng/mL (20-50) 08/19/18 14:54 TSH 3.95 mcIU/mL (0.34-5.60) 08/19/18 14:55 PTH Intact 343.6 pg/mL (12-88) H 08/19/18 14:54 Calcium (PTH Intact) 11.7 mg/dL (8.6-10.3) H 08/19/18 14:54
[2018-08-20 08:52] LABS: BUN/Creatinine Ratio 12.9 (8-20); Calcium 10.8 mg/dL (8.6-10.3); EGFR African American 77.9 (>60); EGFR Non-African American 64.4 (>60); Magnesium 1.8 mg/dL (1.9-2.7); Potassium 3.4 mmol/L (3.5-5.0)
[2018-08-20] MEDS ORDERED: Furosemide TAB* 20 MG PO SCH (09:00)
[2018-08-20] MEDS ORDERED: Cholecalciferol TAB* 400 UNIT PO SCH (09:00)
[2018-08-20] MEDS: Cinacalcet TAB* 30 MG PO SCH ×2 (09:36→20:55)
[2018-08-20] MEDS: Oxybutynin XL TAB* 5 MG PO SCH (09:37)
[2018-08-20] MEDS: Magnesium Oxide TAB* 400 MG PO SCH ×2 (09:37→20:55)
[2018-08-20] MEDS: Cholecalciferol TAB* 400 UNIT PO SCH (09:37)
[2018-08-20] MEDS: CMCS: OMEGA-3 FATTY ACIDS (NF) 1,000 MG CAP PO SCH (09:37)
[2018-08-20] MEDS: CMCS: SitaGLIPtin (NF) 100 MG TAB PO SCH (09:37)
[2018-08-20] MEDS: Cyanocobalamin TAB* 500 MCG PO SCH (09:38)
[2018-08-20] MEDS: Pantoprazole TAB * 40 MG TAB PO SCH (09:38)
[2018-08-20] MEDS: Ferrous Sulfate TAB* 325 MG PO SCH (09:38)
[2018-08-20] MEDS: Nystatin TOP POWDER* 15 GM BTL TOPICAL SCH ×4 (09:38→21:05)
[2018-08-20] MEDS: Atenolol TAB* 50 MG PO SCH (09:38)
--- NOTE | 2018-08-20 10:30 | PN ---
Progress Note - Progress Note Date of Service: 08/20/18 Note: Brief General Surgery Note: (full consult dictated; case discussed w/ Dr. Yang who also saw her this a.m.) 82 yo female admitted 08/19 to the hospitalist service in anticipation of surgery for parathyroidectomy on 08/22/18. Her history has been reviewed, including most recent US and labs. She has been seen by Dr. Jane (his consult was reviewed), cardiology (Krishan) and will be seen by anesthesia. She was examined by myself. A/P: hyperparathyroidism, primary, with suspect Right side parathyroid adenoma ( vs carcinoma) scheduled for OR 08/22/18.
[2018-08-20] MEDS: NS 0.9% 1000 ML** 1,000 ML IV SCH (10:36)
--- NOTE | 2018-08-20 11:42 | ECHO ---
*[facility]* [place] [address] Fax #: [phone] Transthoracic Echocardiogram Patient: Ced, Height: 60 in / Avelina Martell 152.4 cm : 1935 Weight: 141.7 lb / Study Date: 08/20/2018 64.4 kg Age: 82 BP: 136 / 49 Gender: F BMI/BSA: 27.7 kg/m^2 HR: 68 bpm / 1.61 m^2 *County Assessor: * Padmini Wiggins *Referring Physician: * Vladimir Boyd *Reading Physician: * Vincent Nickerson Indications: Congestive Heart Failure. History: Right superior thyroid adenoma. Atrial fibrillation. Congestive heart failure. Labs, prior tests, procedures, and surgery: Transvascular aortic valve replacement. Permanent pacemaker system implantation. Conclusions Summary: 1. Left ventricle: Systolic function is at the lower limits of normal. The estimated ejection fraction is 50-55%. 2. Right ventricle: Pacer wire noted in the right ventricle. Systolic function is low normal. Systolic pressure is severely increased. 3. Mitral valve: There is mild to moderate regurgitation. 4. Aortic valve: There is a bioprosthetic valve. Normnal function of TAVR. There is trace aortic regurgitation. 5. Tricuspid valve: There is moderate-severe regurgitation. The peak RV-RA systolic gradient is 67 mm Hg. 6. Pericardium, extracardiac: There is no pericardial effusion. 7. Study data: Comparison is made to the study of 07/31/2018. The aortic valve has beem replaced. Study data: Transthoracic echocardiogram. Procedure: Transthoracic echocardiography was performed. Image quality was fair. Complete 2D, spectral Doppler, and color flow Doppler. Location: Bedside. Patient status: Inpatient. Patient room number: 418-1. Comparison is made to the study of 07/31/2018. Rhythm: Paced rhythm. Findings Left ventricle: The cavity size is normal. Wall thickness is moderately increased. Systolic function is at the lower limits of normal. The estimated ejection fraction is 50-55%. Wall motion is low normal; there are no regional wall motion abnormalities. Left ventricular diastolic function parameters are indeterminate. Right ventricle: The cavity size is mildly dilated. Pacer wire noted in the right ventricle. Systolic function is low normal. Systolic pressure is severely increased. Ventricular septum: There is abnormal interventricular septal wall motion consistent with an RV pacemaker. Left atrium: The atrium is severely dilated. Right atrium: The atrium is severely dilated. Mitral valve: The leaflets are mildly thickened. There is no evidence of stenosis. There is mild to moderate regurgitation. The peak diastolic gradient is 5.1 mm Hg. Aortic valve: There is a bioprosthetic valve. The leaflets are normal thickness. Follow-up TAVR: There is trace aortic regurgitation. There is no evidence of stenosis. The valve area by the velocity-time integral method is 1.40 cm^2. The valve area index by the velocity-time integral method is 0.87 cm^2/m^2. The ratio of LVOT to aortic valve peak velocity is 0.47. The valve area by the peak velocity method is 1.48 cm^2. The valve area index by the peak velocity method is 0.92 cm^2/m^2. The ratio of LVOT to aortic valve mean velocity is 0.47. The valve area by the mean velocity method is 1.5 cm^2. The valve area index by the mean velocity method is 0.91 cm^2/m^2. The mean systolic gradient is 6.0 mm Hg. The peak systolic gradient is 14.0 mm Hg. Tricuspid valve: The leaflets are mildly thickened. There is no evidence of stenosis. There is moderate-severe regurgitation. Pulmonic valve: The leaflets are normal thickness. There is no evidence of stenosis. There is trivial regurgitation. The peak systolic gradient is 2.0 mm Hg. Aorta: Aortic arch: The aortic arch is appears normal. The aorta is normal. The aortic root is not dilated. Pericardium: There is no pericardial effusion. Pulmonary arteries: The main pulmonary artery is normal-sized. Systemic veins: Inferior vena cava: The vessel is dilated. The respirophasic diameter changes are blunted (< 50%). Measurements Left ventricle Value Ref Left atrium continued Value Ref GAVIN, LAX 4.1 cm 3.8 - 5.2 ML dim, A4C 6.0 cm -------- ESD, LAX 2.8 cm 2.2 - 3.5 Vol/bsa, ES, 1-p (H) 124 ml/m^2 11 - 40 ESD/bsa, LAX 1.7 cm/m^2 1.3 - 2.1 A4C FS, LAX 33 % 27 - 45 Vol/bsa, ES, A/L (H) 135 ml/m^2 16 - 34 PW, ED, LAX (H) 1.4 cm 0.6 - 0.9 PW/ID, ED, LAX 0.33 --------- Right atrium Value Ref GAVIN 4.1 cm 3.8 - 5.2 SI dim, ES (H) 6.7 cm 3.4 - ESD 2.8 cm 2.2 - 3.5 5.3 GAVIN/bsa 2.6 cm/m^2 2.3 - 3.1 SI dim/bsa, ES (H) 4.1 cm/m^2 1.9 - ESD/bsa 1.7 cm/m^2 1.3 - 2.1 3.1 FS 33 % 27 - 45 SI dim, ES, A4C (H) 6.7 cm 3.4 - Mid-wall FS 11 % --------- 5.3 PW, ED (H) 1.4 cm 0.6 - 0.9 SI dim/bsa, ES, (H) 4.1 cm/m^2 1.9 - IVS/PW, ED 0.99 --------- A4C 3.1 PW/ID, ED 0.33 --------- EF 62 % 54 - 74 Aortic valve Value Ref Mass (H) 206 g 66 - 150 Titus diam, ED 1.8 cm -------- Mass/bsa (H) 128 g/m^2 44 - 88 [place]itus diam/bsa, ED 1.1 cm/m^2 -------- Mass/ht 135.11 g/m --------- Peak v, S 1.88 m/sec -------- Mass/ht^2.7 66.01 g/m^2.7 --------- Mean v, S 1.2 m/sec -------- E', lat titus, TDI (L) 6.5 cm/sec >=10.0 VTI, S 39.2 cm -------- E/e', lat titus, 17 --------- Mean grad, S 6.0 mm Hg --- ----- TDI Peak grad, S 14.0 mm Hg -------- E', med titus, TDI (L) 3.5 cm/sec >=7.0 SADIE, VTI 1.40 cm^2 -------- E/e', med titus, 32 --------- LVOT/AV, Vpeak 0.47 --- ----- TDI ratio E', avg, TDI 5.0 cm/sec --------- SADIE, Vmax 1.48 cm^2 --- ----- E/e', avg, TDI (H) 23 <=14 Mitral valve Value Ref LVOT Value Ref Peak E 1.13 m/sec -------- Diam, S 2.00 cm --------- Peak A 0 m/sec -------- Area 3.1 cm^2 --------- Decel time 217 ms -------- Peak lino, S 0.89 m/sec --------- Peak grad, D 5.1 mm Hg -------- Mean lino, S 0.56 m/sec --------- Peak E/A ratio 376.7 -------- Mean grad, S 2 mm Hg --------- SV 54 ml --------- Tricuspid valve Value Ref SV/bsa 34 ml/m^2 --------- TR peak v (H) 4.1 m/sec <=2.8 Peak RV-RA grad, S 67 mm Hg -------- Ventricular septum Value Ref Max TR lino 4.14 m/sec -------- IVS, ED, LAX (H) 1.3 cm 0.6 - 0.9 IVS, ED (H) 1.3 cm 0.6 - 0.9 Aortic root Value Ref Root diam 2.5 cm <3.9 Right ventricle Value Ref GAVIN, LAX 3.7 cm --------- Ascending aorta Value Ref AGVIN minor ax, A4C (H) 4.5 cm 1.9 - 3.5 AAo AP diam, S 3.2 cm -------- mid AAo AP diam/bsa, S 2.0 cm/m^2 -------- Left atrium Value Ref Decending aorta Value Ref AP dim, ES (H) 5.20 cm 2.70 - Raven peak lino 0.71 m/sec -------- 3.80 Inferior vena cava Value Ref Diam 2.4 cm -------- Legend: (L) and (H) thee values outside specified reference range. Prepared and electronically signed by Vincent Nickerson 08/20/2018 11:41
--- NOTE | 2018-08-20 12:39 | CONS ---
CC: Dr. Donte Jane; Dr. Margot Dolan* SURGICAL CONSULTATION DATE OF CONSULT: 08/20/2018. ATTENDING SURGEON: Dr. Jessie Yang (BHUMIKA Giron dictating). CHIEF COMPLAINT: Primary hyperparathyroidism. HISTORY OF PRESENT ILLNESS: This is an 82-year-old female who has had known intermittent hypercalcemia for a number of years, even as far back as 2012, though with normal PTH levels in 2012 and 2014. She was found to have persistent mild elevation of PTH beginning 12/18/2017. There was more moderate elevation in April and May of this year and then she presented with severe hypercalcemia on 08/01/2018 with a PTH of 634. That admission was complicated by urinary tract infection and moderately severe aortic stenosis. She was transferred to [place] and did undergo TVAR on 08/08/18 for her aortic stenosis. She was recently discharged and returned to [place] to undergo further work-up and plans for parathyroidectomy. By Dr. Yang's history, a nuclear medicine study in [place] did locate a hyperactive area in the right neck consistent with parathyroid. Prior CT of the chest, abdomen, and pelvis had shown a lesion posterior to the right thyroid that could represent abnormal parathyroid. Ultrasound on 08/19/2018 showed a small hyperechoic nodule inferior and posterior to the right thyroid measuring 1.1 x 1.4 x 1.8, which likely represents the suspect parathyroid gland. There were no apparent enlarged lymph nodes on that study, though the patient is considered to be at risk for parathyroid carcinoma based on the severity of her hypercalcemia and hyperparathyroidism. She has been seen by Dr. Yang on a number of occasions, including today and has also been followed and worked up by Dr. Donte Jane from Endocrinology. Previous DEXA scan in November 2017 showed osteopenia, but she has no history of renal stones. She has a significant medical history as noted below. Dr. Yang has discussed with her the indications for surgery, and the risks, benefits and alternatives. At this point she is scheduled for parathyroidectomy on 08/22/2018. She has been seen by Dr. Jane and Dr. Nickerson from Cardiology. She will also be seen by Anesthesia for preop consultation. She was discharged from [place] on Eliquis, but that has been held since her admission yesterday. She is on subcutaneous Heparin. PAST MEDICAL HISTORY: Chronic atrial fibrillation (on anticoagulation), aortic stenosis, status post TVAR 08/08/2018, type 2 diabetes, hypertension, history of GI bleeding, the most recent from 04/29/2018 admission when her INR was elevated at 4.5. No definite source of the bleed on either EGD or colonoscopy and most likely bleeding complicated by supratherapeutic INR. Her other past medical history includes osteoarthritis, hypertension, and dyslipidemia. The remainder of her medical history is outline in her admission history and physical from yesterday. Family and social history are not repeated here. Review of systems as per the HPI, no additions. PREHOSPITAL MEDICATIONS: Eliquis, Atorvastatin, Pantoprazole, aspirin, Atenolol , Cinacalcet, Furosemide, Sitagliptin, Detrol, vitamin D, vitamin B12, Cyclobenzaprine prn, Ferrous Sulfate, Magnesium Oxide, Tylenol with Codeine. PHYSICAL EXAM: General: Well-nourished, elderly female in no acute distress. Vital Signs: She is afebrile. Blood pressure 141/44, pulse 59, respirations 16 , room air saturation 96 percent. SKIN: Warm and dry. HEENT: Unremarkable. Neck: No palpable mass, thyromegaly, or lymphadenopathy. Heart: There is a left upper chest wall pacemaker in place. Heart is irregularly irregular with soft, systolic murmur heard at both the left and right sternal borders. Lungs: Clear to auscultation. No rales or wheezes. The remainder of the physical exam is as per her admission history and physical. IMPRESSION: Primary hyperparathyroidism. PLAN: Parathyroidectomy on 08/22/[address] Yang[address] See also Dr. Jane's consult for preoperative recommendations. BHUMIKA GIRON [id number]/[facility] #: [id number] [place]
--- NOTE | 2018-08-20 13:25 | PN ---
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 She was most [place] on 07/31/18 [place] [facility] [place] status and urosepsis. Calcium levels on admission were 16 and PTH in the 600s. She was admitted to the ICU and evaluated by Dr. Jane from Endocrinology. Her calcium levels normalized after medical management with calcitonin and Sensipar and subsequently her mental status improved. Given the recent two episodes of parathyroid crisis in the setting of systemic decompensation, the suspicion for parathyroid carcinoma has been high. However, her severe aortic stenosis precluded her from being an immediate surgical candidate for parathyroidectomy. She was transferred to [facility] on 08/06/18 for a TAVR with Dr. Kaminski. Medical records from her hospitalization were reviewed. She underwent TAVR on 08/08. During her [facility] admission she was further evaluated by Endocrinology and Surgery. Her calcium levels were well controlled on sensipar. Imaging studies to localize her parathyroid disease were ordered and included a US thyroid as well as a NM sestamibi scan. Reports were reviewed. Imaging from the US was uploaded and reviewed. US thyroid identified an ill-defined heterogeneous hypoechoic mass measuring 20 x 14 x 14 mm which corresponded to the abnormality noted on the concurrent nuclear medicine parathyroid study. There was also a 6 x 5 x 5 mm right mid thyroid nodule, TI-RAD 2. The sestamibi study localized to right upper parathyroid adenoma. The patient and her daughter strongly preferred to return to [place] for her parathyroid surgery, therefore she was discharged on 08/12 and followed up by Dr. Jane last week in the office. Since her hospitalization the patient has been feeling very weak and has had a poor appetite. I saw her prior to her transfer to [facility] and discussed the necessity and urgency of parathyroidectomy to her and her daughter, Betty. She was discussed at [facility] on 08/07 and imaging was reviewed. Prior to her transfer she had had a thyroid US that was limited due to her agitation and AMS in the ICU (no adenoma was seen on those limited images). Given this, a CT chest/abd/pelvis was ordered for evaluation of occult ectopic PTH secreting tumor. Of note, her PTH-rP was <1. CT was reviewed at Tumor Board with radiology and notable for a mass posterior to the right thyroid lobe , most likely the parathyroid adenoma. (There was also a possibly lobular mass in the rectum but she had had a recent colonoscopy by Dr. Prescott on 05/01/18 during her hospitalization for GIB which did not show any masses, and Dr. Kilgore from GI had begun her evaluation but was unable to completely see her prior to her [facility] transfer. On further review this was likely a rectal mucosal fold). Patient was admitted through ED yesterday afternoon for weakness, hypercalcemia and pre operative work up for parathyroidectomy on 08/22. This morning she appears comfortable but tired. Her mental status is excellent and she is A+O x 3. Neck is soft and supple, no palpable masses or LAD. Vitals, labs and imaging reviewed. Ca this AM was 10.8, from 12 on admission. She is on Sensipar 60mg BID. She has had a repeat thyroid US that was reviewed, showing likely right sided parathyroid adenoma. Plan for cardiology and anesthesiology to evaluate patient pre op for optimization. Recommendations: - Cardiology (Dr. Nickerson evaluating patient) to please risk stratify and recommend intraop management of her pacemaker - Evaluation by anestheisia. I have been communicating with Dr. Wills who will be her anesthesiologist on . [facility] records sent for PAT evaluation. - Please upload Sestamibi images for review - Please obtain midline for IV access and intraop PTH draws - Please continue to hold Eliquis - Patient should have outpatient follow up with GI regarding the CT abd findings - I have reviewed surgery with the patient and her daughter previously and discussed the risks that include but are not limited to bleeding, infection, injury to nearby structures such as the recurrent laryngeal nerve, esophagus, trachea, hypoparathyroidism, anesthestic risks. Plan for RU parathyroidectomy and possible right hemithyroidectomy and right central neck dissection on 08/22. She should be NPO at midnight prior to surgery. I anticipate she should be able to be dc'ed on POD 1 from a surgical perspective, but she may require further PT and even rehab upon discharge.
--- NOTE | 2018-08-20 13:36 | CONS ---
CC: Dr. Dolan; Dr. Kent Coch* CARDIOLOGY CONSULTATION: DATE OF CONSULT: 08/20/18 INDICATION FOR CONSULTATION: Aortic valve replacement, chronic atrial fibrillation, preop for parathyroid surgery. HISTORY OF PRESENT ILLNESS: The patient is an 82-year-old female well known to me from previous admission. She has a history of chronic atrial fibrillation, history of sick sinus syndrome, tachybrady syndrome, status post pacemaker implantation, history of severe aortic stenosis, history of TAVR valve replacement last week at [facility]. The patient was admitted to the hospital because of failure to thrive at home. The patient has had multiple admissions over the last couple of months. She was admitted to the hospital in April. At that time, she had a permanent pacemaker placed and a cardiac catheterization showing no significant coronary artery disease. She was admitted to the hospital the beginning of July because of delirium and was found to have hypercalcemia and parathyroid issues. Through this, she had severe aortic stenosis. The patient was discharged from the hospital and admitted to [facility] last week where she underwent aortic valve replacement. The original schedule was for her to have parathyroid surgery up in [place] but the patient elected to come home. While she was at home, she was having difficulty caring for herself and came to the emergency room. She is now admitted to the hospital, potentially undergoing parathyroid surgery later this week. PAST MEDICAL HISTORY: Significant for aortic stenosis, TAVR of the aortic valve last week, congestive heart failure, noncritical coronary artery disease, chronic atrial fibrillation, history of pacemaker implantation, arthritis, type 2 diabetes, hypertension. OUTPATIENT MEDICATIONS: 1. Eliquis 2.5 mg b.i.d. 2. Atorvastatin 10 mg a day. 3. Flexeril 10 mg a day. 4. Magnesium oxide 400 mg a day. 5. Pantoprazole 40 mg a day. 6. Januvia 100 mg a day. 7. Lasix 20 mg a day. 8. Sensipar 30 mg b.i.d. 9. Calciferol 800 units daily. 10. Atenolol 50 mg a day. 11. Aspirin 81 mg a day. 12. Nystatin powder. ALLERGIES: PENICILLIN. FAMILY HISTORY: Noncontributory and reviewed in previous consultations. SOCIAL HISTORY: The patient lives alone. She is well cared for by her daughter. She denies tobacco or alcohol use. She is retired. REVIEW OF SYSTEMS: Negative for fever and chills. Negative for changes in bowel or bladder habits. She does have some degree of anorexia. Other 12- point review was unremarkable. PHYSICAL EXAMINATION: Height is 5 feet, weight is 160 pounds, temperature 97.8 , heart rate 60, blood pressure 141/55, respiratory rate is 18, oxygen saturation 99% on room air. Sclerae anicteric. Oropharynx is pink without erythema. Carotids are 2+ with soft bilateral bruits. JVD is normal. Thyroid is normal. Cardiac Exam: S1, S2 with a 1/6 systolic ejection murmur, heard best at the right upper sternal border. PMI is normal. Lungs are clear to auscultation bilaterally. There is no dullness to percussion. Abdomen is soft, nontender, nondistended with normoactive bowel sounds. Extremities: Show no edema. She has 2+ pulses throughout. Patient is awake, alert, and oriented. She moves all 4 extremities equally. DIAGNOSTIC STUDIES/LAB DATA: Laboratory Studies: CBC: White count 6.2, hemoglobin 9.4, hematocrit 28, platelet count 240. Chemistries: Potassium 3.4 , BUN and creatinine are normal. Calcium level 10.8, AST and ALT are normal. TSH 3.9. EKG shows atrial fibrillation with occasional ventricular pacing. IMPRESSION: An 82-year-old female with a history of chronic atrial fibrillation , history of pacemaker, history of aortic valve replacement, who was admitted to the hospital because of difficulty to caring for herself at home. Again, the patient is scheduled for parathyroid surgery later this week. Overall, I think the patient's cardiac status was quite stable. She denies any significant cardiac symptoms. She denies any chest pain. She denies any congestive heart failure. Currently, the patient is on Eliquis. She will need to stop that in preparation for her surgery. I do not think the patient needs heparin or Lovenox bridging with her surgery. The patient's cardiac status was stable for her parathyroid surgery. The patient's pacemaker should be placed in magnet mode during cautery use around the parathyroid. Otherwise, I will see the patient in followup as an outpatient. The patient did have an echocardiogram today, which demonstrated low normal LV systolic function, ejection fraction of 50%. Her aortic valve replacement is functioning normally. No significant mitral disease. She does have moderate tricuspid regurgitation with [id number] pulmonary hypertension, this is unchanged from previous echocardiograms. [id number]/[facility] #: [id number] LEMUEL
--- NOTE | 2018-08-20 14:11 | CONSULT ---
Consult Consult: Anesthesiology Consult History of Present Illness: Ms. Coughlin is an 82 y/o female with severe hypercalcemia secondary to primary hyperparathyroidism who is scheduled to undergo parathyroidectomy on 08/22/18. The pt has been maximized on medical therapy and requires surgical intervention to alleviate her primary hyperparathyroidsim. This pt has a complicated medical history of aortic stenosis s/p TAVR, iron deficiency anemia, diabetes mellitus type 2, atrial fibrillation, hyperlipidemia, hypertension, osteoarthritis, tachybrady syndrome s/p pacemaker placement, and diastolic heart failure. The pt had critical aortic stenosis that required surgical intervention before her parathyroidectomy. She underwent a TAVR in [place] on 08/15/18. She had no complications with anesthesia or the TAVR at the time and her has improved with recent echocardiography. The pt currently denies chest pain, dyspnea, or syncopal episodes. The pt however states that she gets dizzy when lying flat. These events last for a few seconds. Pt denies any stroke like symptoms. The pt also had a cardiac catheterization in Apr 2018. The pt was shown to have no coronary artery disease, however it was found that the pt had heavy calcification of the proximal left main and proximal right coronary artery along with severe stenosis of the innominate artery. The pt states her pain is well controlled and that she feels better since beginning treatment and receiving an aortic valve replacement. She still c/o of weakness and fatigue, but her cardiopulmonary status seems to have improved since surgical intervention for her aortic valve. Pt denies stridor or dysphagia. Endocrinology has been managing her calcium and would like her corrected calcium to be <12. They have also recommended to stop diuresis to maintain euvolemia. Past Medical History: Aortic stenosis s/p TAVR, iron deficiency anemia, diabetes mellitus type 2, atrial fibrillation, hyperlipidemia, hypertension, osteoarthritis, tachybrady syndrome s/p pacemaker placement, and diastolic heart failure. Past Surgical History: Recent TAVR, Pacemaker Insertion, Recent Catheterization , Right Hip Replacement Medications: Acetaminophen (Tylenol Tab*) 650 mg PO Q6H PRN PRN Reason: FEVER/PAIN Atenolol (Tenormin Tab*) 50 mg PO DAILY [facility] Last Admin: 08/20/18 09:38 Dose: 50 mg Atorvastatin Calcium (Lipitor*) 10 mg PO BEDTIME [facility]LLISA Last Admin: 08/19/18 20:54 Dose: 10 mg Cholecalciferol (Vitamin D Tab*) 1,600 unit PO DAILY [facility] Last Admin: 08/20/18 09:37 Dose: 1,600 unit Cinacalcet (Sensipar Tab*) 60 mg PO BID [facility] Last Admin: 08/20/18 09:36 Dose: 60 mg Cyanocobalamin (Vitamin B12 Tab*) 500 mcg PO DAILY [facility] Last Admin: 08/20/18 09:38 Dose: 500 mcg Cyclobenzaprine HCl (Flexeril Tab*) 10 mg PO BEDTIME PRN PRN Reason: SPASMS Last Admin: 08/19/18 20:53 Dose: 10 mg Dextrose (D50w Syringe 50 Ml*) 12.5 gm IV PUSH .FOR FS < 60 - SS PRN PRN Reason: FS < 60 Ferrous Sulfate (Ferrous Sulfate Tab*) 325 mg PO DAILY [facility] Last Admin: 08/20/18 09:38 Dose: 325 mg Fish Oil (Fish Oil (Nf)) 2,000 mg PO DAILY [facility]; Protocol Last Admin: 08/20/18 09:37 Dose: 2,000 mg Furosemide (Lasix Tab*) 10 mg PO DAILY [facility] Last Admin: 08/20/18 09:38 Dose: 10 mg Heparin Sodium (Porcine) (Heparin Vial(*)) 5,000 units SUBCUT Q8HR [facility] Last Admin: 08/20/18 06:16 Dose: 5,000 units Sodium Chloride (Ns 0.9% 1000 Ml) 1,000 mls @ 75 mls/hr IV PER RATE [facility] Stop: 08/21/18 06:34 Last Admin: 08/20/18 10:36 Dose: 75 mls/hr Insulin Human Lispro (Humalog*) 0 units SUBCUT ACHS [facility]; Protocol Last Admin: 08/20/18 11:43 Dose: Not Given Magnesium Oxide (Magox 400 Tab*) 400 mg PO BID [facility] Last Admin: 08/20/18 09:37 Dose: 400 mg Nystatin (Nystatin Top Powder*) 1 applic TOPICAL QID [facility] Last Admin: 08/20/18 09:38 Dose: 1 applic Ondansetron HCl (Zofran Inj*) 4 mg IV Q6H PRN PRN Reason: NAUSEA Oxybutynin Chloride (Ditropan Xl Tab*) 5 mg PO DAILY [facility]; Protocol Last Admin: 04/23/19 09:37 Dose: 5 mg Pantoprazole Sodium (Protonix Tab*) 40 mg PO DAILY [facility] Last Admin: 08/20/18 09:38 Dose: 40 mg Potassium Chloride (Klor Con Er Tab*) 40 meq PO ONCE ONE Stop: 08/21/18 09:01 Sitagliptin Phosphate (Januvia (Nf)) 100 mg PO DAILY [facility]; Protocol Last Admin: 08/20/18 09:37 Dose: 100 mg Allergies: regadenoson [From Lexiscan] Allergy (Verified 08/19/18 14:19) See Comment CARDIAC ISSUE FLATLINED Egg Derived Adverse Reaction (Intermediate, Verified 08/19/18 14:19) Stomach Cramps Penicillins Adverse Reaction (Intermediate, Verified 08/19/18 14:19) See Comment syncope crab Adverse Reaction (Verified 08/19/18 14:19) Vomiting Social Hx: Quit smoking 30 years ago, denies alcohol and recreational drug use. ROS: Reviewed, wnl except what was mentioned in HPI. Physical Exam: Vitals: Temp Pulse Resp BP Pulse Ox 36.5 C 70 16 147/45 97 08/20/18 11:11 08/20/18 11:11 08/20/18 11:11 08/20/18 11:11 08/20/18 11:11 General: Alert, NAD HEENT: Normocephalic. No goiter, tracheal deviation or JVD present. CV: RRR, Grade I systolic murmur Resp: CTAB no rhonchi or wheezing Abd: Soft, non-tender Ext: Pt has bilateral palpable radial pulses. Right slightly weaker than left, possibly due to stenosis of innominate artery. Pt also has small palpable hematoma over left wrist. Possibly previous a-line placement for TAVR. Diagnostic Studies: EKG: Atrial fibrillation, intermittent pacing, left bundle-branch block, T-wave inversions in lateral and anterior leads Echo: LVEF 55-60% Pacer wire noted in Right Ventricle Mild to moderate MR, Prosthetic AV with mild AR with no stenosis (SADIE 1.40 cm2) Severe triscuspid valve regurgitation and severely elevated RV systolic pressures (Possible pulmonary HTN?) Laboratory Last Values WBC 6.2 10^3/uL (3.5-10.8) 08/20/18 08:17 RBC 3.35 10^6 /uL (3.70-4.87) L 08/20/18 08:17 Hgb 9.4 g/dL (12.0-16.0) L 08/20/18 08:17 Hct 28 % (33-41) L 08/20/18 08:17 MCV 85 fL (80-97) 08/20/18 08:17 MCH 28 pg (27-31) 08/20/18 08:17 MCHC 33 g/dL (31-36) 08/20/18 08:17 RDW 17 % (10.5-15) H 08/20/18 08:17 Plt Count 240 10^3/uL (150-450) 08/20/18 08:17 MPV 7.7 fL (7.4-10.4) 08/20/18 08:17 Neut % (Auto) 66.0 % 08/20/18 08:17 Lymph % (Auto) 11.9 % 08/20/18 08:17 [place] % (Auto) 11.5 % 08/20/18 08:17 Eos % (Auto) 9.2 % 08/20/18 08:17 Baso % (Auto) 1.4 % 08/20/18 08:17 Absolute Neuts (auto) 4.1 10^3/ul (1.5-7.7) 08/20/18 08:17 Absolute Lymphs (auto) 0.7 10^3/ul (1.0-4.8) L 08/20/18 08:17 Absolute Monos (auto) 0.7 10^3/ul (0-0.8) 08/20/18 08:17 Absolute Eos (auto) 0.6 10^3/ul (0-0.6) 08/20/18 08:17 Absolute Basos (auto) 0.1 10^3/ul (0-0.2) 08/20/18 08:17 Absolute Nucleated RBC 0 10^3/ul 08/20/18 08:17 Nucleated RBC % 0 08/20/18 08:17 INR (Anticoag Therapy) 1.43 (0.82-1.09) H 08/19/18 14:54 Sodium 139 mmol/L (135-145) 08/20/18 08:17 Potassium 3.4 mmol/L (3.5-5.0) L 08/20/18 08:17 Chloride 105 mmol/L (101-111) 08/20/18 08:17 Carbon Dioxide 28 mmol/L (22-32) 08/20/18 08:17 Anion Gap 6 mmol/L (2-11) 08/20/18 08:17 BUN 11 mg/dL (6-24) 08/20/18 08:17 Creatinine 0.85 mg/dL (0.51-0.95) 08/20/18 08:17 Est GFR ( Amer) 77.9 (>60) 08/20/18 08:17 Est GFR (Non-Af Amer) 64.4 (>60) 08/20/18 08:17 BUN/Creatinine Ratio 12.9 (8-20) 08/20/18 08:17 Glucose 62 mg/dL (70-100) L 08/20/18 08:17 POC Glucose (mg/dL) 107 mg/dL (70-100) H 08/20/18 11:36 Hemoglobin A1c 5.8 % (4.0-5.6) H 08/20/18 08:17 Calcium 10.8 mg/dL (8.6-10.3) H 08/20/18 08:17 Ionized Calcium 1.56 mmol/L (1.16-1.32) H 08/20/18 08:17 Phosphorus 2.6 mg/dL (2.5-5.0) 08/19/18 14:55 Magnesium 1.8 mg/dL (1.9-2.7) L 08/20/18 08:17 Total Bilirubin 0.70 mg/dL (0.2-1.0) 08/19/18 14:55 AST 15 U/L (13-39) 08/19/18 14:55 ALT 8 U/L (7-52) 08/19/18 14:55 Alkaline Phosphatase 81 U/L (34-104) 08/19/18 14:55 Total Protein 7.1 g/dL (6.4-8.9) 08/19/18 14:55 Albumin 3.3 g/dL (3.2-5.2) 08/19/18 14:55 Globulin 3.8 g/dL (2-4) 08/19/18 14:55 Albumin/Globulin Ratio 0.9 (1-3) L 08/19/18 14:55 25-OH Vitamin D Total 22.2 ng/mL (20-50) 08/19/18 14:54 TSH 3.95 mcIU/mL (0.34-5.60) 08/19/18 14:55 PTH Intact 343.6 pg/mL (12-88) H 08/19/18 14:54 Calcium (PTH Intact) 11.7 mg/dL (8.6-10.3) H 08/19/18 14:54 Assessment: 82 y/o female with severe hypercalcemia secondary to primary hyperparathyroidism who is scheduled to undergo parathyroidectomy on 08/22/18. Plan: 1. The pt will undergo a general anesthetic with endotracheal tube intubation ( possibly NIMS tube for monitoring recurrent laryngeal nerves during procedure). Per anesthetic record from [place], pt required video laryngoscopy for airway management. Will perform same technique to secure patient's airway. 2. The pt has a complicated cardiac history. Recent AV replacement, tachybrady syndrome requiring pacemaker, and possibly pulmonary hypertension. Will place magnet on pacemaker per cardiology recommendations to set pacemaker into asynchronous mode. Electrocautery will be near pacemaker site and magnet will help prevent electrical interference of pacemaker. An arterial line placement and adequate IV access will also be recommended for this case. Will possibly place in left radial artery, as innominate artery has baseline stenosis and may give falsified BP readings in the RUE. An arterial line will also help facilitate laboratory draws intra-operatively. Would appreciate a cardiology consultation for pre-operative optimization. 3. Would appreciate endocrinology recommendations on electrolyte and glucose and insulin management for day of surgery. 4. Will refer to general surgery and cardiology for recommendations on anticoagulation for day of surgery 5. Recommend pt have CBC, BMP, Ionized Ca, Mg, and Type and Screen for day of surgery. Pt has a baseline anemia and blood bank should have a sample for a type and screen for this surgical procedure. 6. Recommend pt be NPO 8 hours for solid foods and 2 hours for clear liquids. Would recommend to avoid diuretics while pt is NPO so pt is not hypovolemic on day of surgery. Please page or call me with any questions regarding the anesthetic management of this patient. Moe Wills MD
[2018-08-20] MEDS: Acetaminophen TAB* 325 MG PO PRN (16:47)
[2018-08-20] MEDS: Atorvastatin* 10 MG TAB PO SCH (20:55)
[2018-08-20] MEDS: Cyclobenzaprine TAB* 10 MG PO PRN (20:55)
--- NOTE | 2018-08-20 22:27 | PN ---
Subjective Interval History: Pt with mild weakness, states it's from so many people in at out of her room and that she is just tired. States she is hopeful about surgery. Objective Active Medications: Acetaminophen (Tylenol Tab*) 650 mg PO Q6H PRN PRN Reason: FEVER/PAIN Last Admin: 08/20/18 16:47 Dose: 650 mg Atenolol (Tenormin Tab*) 50 mg PO DAILY [facility] Last Admin: 08/20/18 09:38 Dose: 50 mg Atorvastatin Calcium (Lipitor*) 10 mg PO BEDTIME [facility] Last Admin: 08/20/18 20:55 Dose: 10 mg Cholecalciferol (Vitamin D Tab*) 1,600 unit PO DAILY [facility] Last Admin: 08/20/18 09:37 Dose: 1,600 unit Cinacalcet (Sensipar Tab*) 60 mg PO BID [facility] Stop: 08/21/18 21:00 Last Admin: 08/20/18 20:55 Dose: 60 mg Cyanocobalamin (Vitamin B12 Tab*) 500 mcg PO DAILY [facility] Last Admin: 08/20/18 09:38 Dose: 500 mcg Cyclobenzaprine HCl (Flexeril Tab*) 10 mg PO BEDTIME PRN PRN Reason: SPASMS Last Admin: 08/20/18 20:55 Dose: 10 mg Dextrose (D50w Syringe 50 Ml*) 12.5 gm IV PUSH .FOR FS < 60 - SS PRN PRN Reason: FS < 60 Ferrous Sulfate (Ferrous Sulfate Tab*) 325 mg PO DAILY [facility] Last Admin: 08/20/18 09:38 Dose: 325 mg Fish Oil (Fish Oil (Nf)) 2,000 mg PO DAILY [facility]; Protocol Last Admin: 08/20/18 09:37 Dose: 2,000 mg Heparin Sodium (Porcine) (Heparin Vial(*)) 5,000 units SUBCUT Q8HR [facility] Last Admin: 08/20/18 20:54 Dose: 5,000 units Sodium Chloride (Ns 0.9% 1000 Ml) 1,000 mls @ 75 mls/hr IV PER RATE [facility] Stop: 08/21/18 06:34 Last Admin: 08/20/18 10:36 Dose: 75 mls/hr Insulin Human Lispro (Humalog*) 0 units SUBCUT ACHS [facility]; Protocol Last Admin: 08/20/18 20:37 Dose: Not Given Magnesium Oxide (Magox 400 Tab*) 400 mg PO BID [facility] Last Admin: 08/20/18 20:55 Dose: 400 mg Nystatin (Nystatin Top Powder*) 1 applic TOPICAL QID [facility] Last Admin: 08/20/18 21:05 Dose: Not Given Oxybutynin Chloride (Ditropan Xl Tab*) 5 mg PO DAILY [facility]; Protocol Last Admin: 08/20/18 09:37 Dose: 5 mg Pantoprazole Sodium (Protonix Tab*) 40 mg PO DAILY [facility] Last Admin: 08/20/18 09:38 Dose: 40 mg Potassium Chloride (Klor Con Er Tab*) 40 meq PO ONCE ONE Stop: 08/21/18 09:01 Sitagliptin Phosphate (Januvia (Nf)) 100 mg PO DAILY [facility]; Protocol Last Admin: 08/20/18 09:37 Dose: 100 mg Vital Signs - 8 hr 08/20/18 08/20/18 08/20/18 15:04 19:50 20:00 Temperature 98.6 F 97.2 F Pulse Rate 63 62 Respiratory 16 18 18 Rate Blood Pressure 105/34 97/46 (mmHg) O2 Sat by Pulse 96 96 Oximetry 08/20/18 20:55 Temperature Pulse Rate Respiratory 18 Rate Blood Pressure (mmHg) O2 Sat by Pulse Oximetry Oxygen Devices in Use Now: None Appearance: tired-appearing elderly woman, in no acute distress Ears/Nose/Mouth/Throat: Mucous Membranes Moist Respiratory: Clear to Auscultation Cardiovascular: RRR Extremities: No Edema Neurological: Alert and Oriented x 3 Result Diagrams: 08/20/18 08:17 08/20/18 08:17 Assess/Plan/Problems-Billing Assessment: 82W with severe hyperparathyroidism, severe s/p TAVR (08/08), recent admissions for LGIB, HFrEF 50-55%, CKD, afib on Eliquis, DM2, HTN, presenting with weakness while pending hyperparathyroid surgery on 08/22. Admission for pre- op management and IVF. - Patient Problems (1) Primary hyperparathyroidism Comment: - appreciate Dr. Jane input - stopping cinacalcet after last dose tomorrow, stopping furosemide - cont IVF with Calcium check bid - Endocrine surgeon Dr. Yang planning for OR on 08/22, recommending anesthesiology /cards/endo input - midline ordered for intra-op monitoring of PTH (2) Afib Comment: - holding eliquis for procedure - cont atenolol - Dr. Nickerson following (3) Acute diastolic (congestive) heart failure Comment: Now also with slightly reduced EF. - holding furosemide, monitor volume status closely - Dr. Nickerson following (4) Aortic stenosis Comment: s/p TAVR on 08/08 (5) Diabetes 1.5, managed as type 2 Comment: - cont sitagliptin, short acting ISS with meals, and atorvastatin
[2018-08-21 00:28] LABS: BUN/Creatinine Ratio 13.3 (8-20); Calcium 10.3 mg/dL (8.6-10.3); EGFR African American 66.1 (>60); EGFR Non-African American 54.6 (>60); Potassium 3.3 mmol/L (3.5-5.0)
[2018-08-21] MEDS: Heparin VIAL(*) 5000 UNITS/ML VIAL (FIVE THOUSAND) SUBCUT SCH ×2 (05:14→14:13)
[2018-08-21 08:09] LABS: BUN/Creatinine Ratio 12.9 (8-20); Calcium 10.8 mg/dL (8.6-10.3); EGFR African American 70.2 (>60); Magnesium 1.7 mg/dL (1.9-2.7); Phosphorus 2.2 mg/dL (2.5-5.0); Potassium 3.3 mmol/L (3.5-5.0)
[2018-08-21] MEDS: Insulin LISPRO* 1 UNITS UNIT SUBCUT SCH ×4 (08:27→20:21)
[2018-08-21] MEDS: Cholecalciferol TAB* 400 UNIT PO SCH (08:27)
[2018-08-21] MEDS: Cinacalcet TAB* 30 MG PO SCH ×2 (08:28→20:24)
[2018-08-21] MEDS: Magnesium Oxide TAB* 400 MG PO SCH ×2 (08:28→20:24)
[2018-08-21] MEDS: Cyanocobalamin TAB* 500 MCG PO SCH (08:28)
[2018-08-21] MEDS: Oxybutynin XL TAB* 5 MG PO SCH (08:28)
[2018-08-21] MEDS: CMCS: SitaGLIPtin (NF) 100 MG TAB PO SCH (08:28)
[2018-08-21] MEDS: Acetaminophen TAB* 325 MG PO PRN (08:28)
[2018-08-21] MEDS: Pantoprazole TAB * 40 MG TAB PO SCH (08:28)
[2018-08-21] MEDS: Atenolol TAB* 50 MG PO SCH (08:29)
[2018-08-21] MEDS: CMCS: OMEGA-3 FATTY ACIDS (NF) 1,000 MG CAP PO SCH (08:29)
[2018-08-21] MEDS: Ferrous Sulfate TAB* 325 MG PO SCH (08:29)
[2018-08-21] MEDS ORDERED: Potassium Chlor TAB* 20 MEQ TAB.ER PO ONE ×2 (08:30→09:00)
[2018-08-21] MEDS: Nystatin TOP POWDER* 15 GM BTL TOPICAL SCH ×4 (08:30→20:37)
[2018-08-21] MEDS ORDERED: Magnesium Sulfate 1 GM IV* 1 GM/100 ML BAG IV ONE (08:30)
[2018-08-21] MEDS ORDERED: Buffered Lidocaine 1% SYRIN* 1 ML/SYRINGE INTRADERM ONE (10:46)
--- NOTE | 2018-08-21 11:53 | PN ---
Progress Note - Progress Note Date of Service: 08/21/18 Note: Surgery Progress Note I saw patient today and again discussed surgery. She was seen by Drs. Wills and Krishan yesterday (anesthesia and cardiology) for pre operative risk stratification and optimization. Patient feels very weak and tired today but no other complaints. Calcium this morning is 10.8. Recommendations: - Plan for surgery 08/22, late morning - Dr. Wills plans to place a line intraoperatively so midline is not necessarily required unless she needs it for further lab draws - NPO after midnight - Should be able to resume Eliquis one or two days after surgery. She may have an element of hungry bone syndrome after surgery. Post op calcium/calcitriol regimen will be determined based on her post op calcium and PTH levels. - Discussed surgery again with patient and discussed risks. All questions answered.
--- NOTE | 2018-08-21 13:02 | PN ---
Subjective Date of Service: 08/21/18 - CC: weak, dizzy Interval History: Brief dizziness when lies down. Denies SOB, orthopnea at rest. Still feels weak, no perceived improvement post AVR. Medications Active Medications: Acetaminophen (Tylenol Tab*) 650 mg PO Q6H PRN PRN Reason: FEVER/PAIN Last Admin: 08/21/18 08:28 Dose: 650 mg Atenolol (Tenormin Tab*) 50 mg PO DAILY [facility] Last Admin: 08/21/18 08:29 Dose: 50 mg Atorvastatin Calcium (Lipitor*) 10 mg PO BEDTIME [facility] Last Admin: 08/20/18 20:55 Dose: 10 mg Cholecalciferol (Vitamin D Tab*) 1,600 unit PO DAILY [facility] Last Admin: 08/21/18 08:27 Dose: 1,600 unit Cinacalcet (Sensipar Tab*) 60 mg PO BID [facility] Stop: 08/21/18 21:00 Last Admin: 08/21/18 08:28 Dose: 60 mg Cyanocobalamin (Vitamin B12 Tab*) 500 mcg PO DAILY [facility] Last Admin: 08/21/18 08:28 Dose: 500 mcg Cyclobenzaprine HCl (Flexeril Tab*) 10 mg PO BEDTIME PRN PRN Reason: SPASMS Last Admin: 08/20/18 20:55 Dose: 10 mg Dextrose (D50w Syringe 50 Ml*) 12.5 gm IV PUSH .FOR FS < 60 - SS PRN PRN Reason: FS < 60 Ferrous Sulfate (Ferrous Sulfate Tab*) 325 mg PO DAILY [facility] Last Admin: 08/21/18 08:29 Dose: 325 mg Fish Oil (Fish Oil (Nf)) 2,000 mg PO DAILY [facility]; Protocol Last Admin: 08/21/18 08:29 Dose: 2,000 mg Heparin Sodium (Porcine) (Heparin Vial(*)) 5,000 units SUBCUT Q8HR [facility] Stop: 08/21/18 23:00 Last Admin: 08/21/18 05:14 Dose: 5,000 units Lactated Ringer's (Lactated Ringers 1000 Ml Bag*) 1,000 mls @ 125 mls/hr IV PER RATE [facility] Insulin Human Lispro (Humalog*) 0 units SUBCUT ACHS [facility]; Protocol Last Admin: 08/21/18 12:09 Dose: Not Given Magnesium Oxide (Magox 400 Tab*) 400 mg PO BID [facility] Last Admin: 08/21/18 08:28 Dose: 400 mg Metoclopramide HCl (Reglan Iv*) 10 mg IV SLOW PU ONCE ONE Stop: 08/22/18 06:01 Nystatin (Nystatin Top Powder*) 1 applic TOPICAL QID [facility] Last Admin: 08/21/18 08:30 Dose: 1 applic Oxybutynin Chloride (Ditropan Xl Tab*) 5 mg PO DAILY [facility]; Protocol Last Admin: 08/21/18 08:28 Dose: 5 mg Pantoprazole Sodium (Protonix Tab*) 40 mg PO DAILY [facility] Last Admin: 08/21/18 08:28 Dose: 40 mg Sitagliptin Phosphate (Januvia (Nf)) 100 mg PO DAILY [facility]; Protocol Last Admin: 08/21/18 08:28 Dose: 100 mg Objective Vital Signs: Temp Pulse Resp BP Pulse Ox 98.1 F 61 18 131/43 95 08/21/18 07:54 08/21/18 07:54 08/21/18 07:54 08/21/18 07:54 08/21/18 07:54 Oxygen Devices in Use Now: None Appearance: Elderly female lying on right side, awoke easily. Eyes: No Scleral Icterus Ears/Nose/Mouth/Throat: Mucous Membranes Moist Neck: NL Appearance and Movements; NL JVP Respiratory: Symmetrical Chest Expansion and Respiratory Effort - rare crackle bases. Cardiovascular: - - pacer site unremarkable, S1, S2, irregular, soft SM USB, early peaking. Abdominal: NL Sounds; No Tenderness; No Distention Extremities: No Edema Neurological: Alert and Oriented x 3 Laboratory Results: 08/20/18 08:17 08/21/18 07:22 INR (Anticoag Therapy) 1.43 (0.82-1.09) H 08/19/18 14:54 Total Bilirubin 0.70 mg/dL (0.2-1.0) 08/19/18 14:55 AST 15 U/L (13-39) 08/19/18 14:55 ALT 8 U/L (7-52) 08/19/18 14:55 Alkaline Phosphatase 81 U/L (34-104) 08/19/18 14:55 Total Protein 7.1 g/dL (6.4-8.9) 08/19/18 14:55 Albumin 3.3 g/dL (3.2-5.2) 08/19/18 14:55 Globulin 3.8 g/dL (2-4) 08/19/18 14:55 Albumin/Globulin Ratio 0.9 (1-3) L 08/19/18 14:55 TSH 3.95 mcIU/mL (0.34-5.60) 08/19/18 14:55 Diagnostic Imaging: *[facility]* [place] [address] Fax #: [phone] Transthoracic Echocardiogram Patient: Ced, Height: 60 in / Avelina A 152.4 cm : 1935 Weight: 141.7 lb / Study Date: 08/20/2018 Indications: Congestive Heart Failure. History: Right superior thyroid adenoma. Atrial fibrillation. Congestive heart failure. Labs, prior tests, procedures, and surgery: Transvascular aortic valve replacement. Permanent pacemaker system implantation. Conclusions Summary: 1. Left ventricle: Systolic function is at the lower limits of normal. The estimated ejection fraction is 50-55%. 2. Right ventricle: Pacer wire noted in the right ventricle. Systolic function is low normal. Systolic pressure is severely increased. 3. Mitral valve: There is mild to moderate regurgitation. 4. Aortic valve: There is a bioprosthetic valve. Normnal function of TAVR. There is trace aortic regurgitation. This report is only to be considered final once signed by the Provider(s) as displayed in the "<Electronically Signed by >" field (s). Absence of a signature indicates the report is in a draft status and still needs to be finalized. In the event this document was created by someone other than the signing Provider, the individual initiating the document will be listed in the "Entered by:" or "Dictated by:" ivy. EKG Data: Telemetry: afib, [place] QRS alternating with paced beats, controlled V. rate. Assessment/Plan 82 yo female admitted with weakness, difficulty taking care of herself independently with a PMHx of aortic stenosis, TAVR of the aortic valve last week , congestive heart failure, noncritical coronary artery disease, chronic atrial fibrillation, history of pacemaker implantation, arthritis, type 2 diabetes, hypertension and significant hyperparathyroid scheduled for parathyroid surgery tomorrow 08/22/18. Afib NOAC has been stopped as per Dr Nickerson. OK to stop SQ heparin at any time as preferred by surgery. AVR: Remains hemodynamically stable, no evidence of CHF. Pacer: Not pacer dependant, anaesthesia plans for pacer intraop reviewed, appropriate. Dizziness may be mild vertigo as positional, occurs when lying down. Recommend keeping KCl about 4-5. Anemia noted, chronic 2018, 2019.
[2018-08-21 16:20] LABS: EGFR African American 59.1 (>60); EGFR Non-African American 48.8 (>60)
[2018-08-21 16:22] LABS: Potassium 5.1 mmol/L (3.5-5.0)
--- NOTE | 2018-08-21 20:17 | PN ---
Subjective Date of Service: 08/21/18 Interval History: Pt off furosemide and now off cinacalcet, per Endo. Calcium remains near goal. Pt looking forward to surgery and has no complaints. Admits to baseline weakness , unchanged. Pt received midline today per surgery request for PTH monitoring intra-op. Objective Active Medications: Acetaminophen (Tylenol Tab*) 650 mg PO Q6H PRN PRN Reason: FEVER/PAIN Last Admin: 08/21/18 08:28 Dose: 650 mg Atenolol (Tenormin Tab*) 50 mg PO DAILY [facility] Last Admin: 08/21/18 08:29 Dose: 50 mg Atorvastatin Calcium (Lipitor*) 10 mg PO BEDTIME [facility] Last Admin: 08/20/18 20:55 Dose: 10 mg Cholecalciferol (Vitamin D Tab*) 1,600 unit PO DAILY [facility] Last Admin: 08/21/18 08:27 Dose: 1,600 unit Cinacalcet (Sensipar Tab*) 60 mg PO BID [facility] Stop: 08/21/18 21:00 Last Admin: 08/21/18 08:28 Dose: 60 mg Cyanocobalamin (Vitamin B12 Tab*) 500 mcg PO DAILY [facility] Last Admin: 08/21/18 08:28 Dose: 500 mcg Cyclobenzaprine HCl (Flexeril Tab*) 10 mg PO BEDTIME PRN PRN Reason: SPASMS Last Admin: 08/20/18 20:55 Dose: 10 mg Dextrose (D50w Syringe 50 Ml*) 12.5 gm IV PUSH .FOR FS < 60 - SS PRN PRN Reason: FS < 60 Ferrous Sulfate (Ferrous Sulfate Tab*) 325 mg PO DAILY [facility] Last Admin: 08/21/18 08:29 Dose: 325 mg Fish Oil (Fish Oil (Nf)) 2,000 mg PO DAILY [facility]; Protocol Last Admin: 08/21/18 08:29 Dose: 2,000 mg Heparin Sodium (Porcine) (Heparin Vial(*)) 5,000 units SUBCUT Q8HR [facility] Stop: 08/21/18 23:00 Last Admin: 08/21/18 14:13 Dose: 5,000 units Heparin Sodium (Porcine) (Heparin Flush Picc/Ml/Cvc(*)) 1 - 3 ml FLUSH 0600, 1800 [facility]; Protocol Last Admin: 08/21/18 17:37 Dose: 1 ml Lactated Ringer's (Lactated Ringers 1000 Ml Bag*) 1,000 mls @ 125 mls/hr IV PER RATE [facility] Insulin Human Lispro (Humalog*) 0 units SUBCUT ACHS [facility]; Protocol Last Admin: 08/21/18 17:37 Dose: 4 unit Magnesium Oxide (Magox 400 Tab*) 400 mg PO BID [facility] Last Admin: 08/21/18 08:28 Dose: 400 mg Metoclopramide HCl (Reglan Iv*) 10 mg IV SLOW PU ONCE ONE Stop: 08/22/18 06:01 Nystatin (Nystatin Top Powder*) 1 applic TOPICAL QID [facility] Last Admin: 08/21/18 17:41 Dose: Not Given Oxybutynin Chloride (Ditropan Xl Tab*) 5 mg PO DAILY [facility]; Protocol Last Admin: 08/21/18 08:28 Dose: 5 mg Pantoprazole Sodium (Protonix Tab*) 40 mg PO DAILY [facility] Last Admin: 08/21/18 08:28 Dose: 40 mg Sitagliptin Phosphate (Januvia (Nf)) 100 mg PO DAILY [facility]; Protocol Last Admin: 08/21/18 08:28 Dose: 100 mg Vital Signs - 8 hr 08/21/18 08/21/18 13:53 15:25 Temperature 97.6 F 97.4 F Pulse Rate 61 73 Respiratory 19 24 Rate Blood Pressure 139/48 116/93 (mmHg) O2 Sat by Pulse 98 100 Oximetry Oxygen Devices in Use Now: None Appearance: tired appearing, resting comfortably lying flat on side Respiratory: Clear to Auscultation Cardiovascular: RRR Extremities: No Edema Neurological: Alert and Oriented x 3 Result Diagrams: 08/20/18 08:17 08/21/18 15:42 Assess/Plan/Problems-Billing Assessment: 82W with severe hyperparathyroidism, severe s/p TAVR (08/08), recent admissions for LGIB, HFrEF 50-55%, CKD, afib on Eliquis, DM2, HTN, presenting with weakness while pending hyperparathyroid surgery on 08/22. Admission for pre- op management and IVF. - Patient Problems (1) Primary hyperparathyroidism Comment: - appreciate Dr. Jane input - DC cinacalcet and furosemide - cont IVF with Calcium check bid - Endocrine surgeon Dr. Yang planning for OR on 08/22 (2) Afib Comment: - holding eliquis for procedure, restart Eliquis 1-2 days after procedure, per surgery - cont atenolol - Dr. Nickerson following (3) Acute diastolic (congestive) heart failure Comment: Now also with slightly reduced EF. - holding furosemide, monitor volume status closely - cardiology following (4) Aortic stenosis Comment: s/p TAVR on 08/08 (5) Diabetes 1.5, managed as type 2 Comment: - cont sitagliptin, short acting ISS with meals, and atorvastatin
[2018-08-21] MEDS: Atorvastatin* 10 MG TAB PO SCH (20:24)
[2018-08-22] MEDS ORDERED: Metoclopramide IV* 5 MG/ML 2 ML VIAL IV SLOW PU ONE (06:00)
[2018-08-22] MEDS ORDERED: Lactated Ringers 1000 ML Bag* 1,000 ML IV SCH (06:00)
[2018-08-22 06:14] LABS: Hematocrit 27 % (33-41); Hemoglobin 8.9 g/dL (12.0-16.0); Mean Corpuscular HGB Conc 34 g/dL (31-36); Mean Corpuscular Hemoglobin 28 pg (27-31); Mean Corpuscular Volume 84 fL (80-97); Mean Platelet Volume 8.1 fL (7.4-10.4); Platelet Count 241 10^3/uL (150-450); Red Blood Count 3.16 10^6 /uL (3.70-4.87); Red Cell Distribution Width 17 % (10.5-15); White Blood Count 6.6 10^3/uL (3.5-10.8)
[2018-08-22] MEDS ORDERED: Calcium Gluconate INJ* 2 GM in NS 0.9% 100 ML* 100 ML IV ONE (06:19)
--- NOTE | 2018-08-22 06:29 | PN ---
Progress Note - Progress Note Date of Service: 08/22/18 Note: Paged for low ionized calcium. Calcium gluconate 2 gm ordered. Mg and BMP still not resulted.
[2018-08-22 06:36] LABS: Calcium 11.2 mg/dL (8.6-10.3); Magnesium 1.9 mg/dL (1.9-2.7); Potassium 4.1 mmol/L (3.5-5.0)
[2018-08-22 06:42] LABS: BUN/Creatinine Ratio 13.5 (8-20); EGFR African American 67.7 (>60); EGFR Non-African American 55.9 (>60)
[2018-08-22] MEDS: Insulin LISPRO* 1 UNITS UNIT SUBCUT SCH (07:18)
[2018-08-22] MEDS: CMCS: SitaGLIPtin (NF) 100 MG TAB PO SCH (07:18)
[2018-08-22] MEDS: Pantoprazole TAB * 40 MG TAB PO SCH (07:26)
[2018-08-22] MEDS: Atenolol TAB* 50 MG PO SCH (07:28)
[2018-08-22] MEDS: Oxybutynin XL TAB* 5 MG PO SCH (07:29)
[2018-08-22] MEDS: Magnesium Oxide TAB* 400 MG PO SCH (07:29)
[2018-08-22] MEDS: Ferrous Sulfate TAB* 325 MG PO SCH (07:30)
[2018-08-22] MEDS: Cholecalciferol TAB* 400 UNIT PO SCH (07:30)
[2018-08-22] MEDS: Cyanocobalamin TAB* 500 MCG PO SCH (07:30)
[2018-08-22] MEDS: CMCS: OMEGA-3 FATTY ACIDS (NF) 1,000 MG CAP PO SCH (07:31)
[2018-08-22] MEDS ORDERED: HYDROmorphone INJ1* 1 MG/ML SYRINGE ONE (07:58)
[2018-08-22] MEDS ORDERED: Propofol* 10 MG/ML 20 ML BTL ONE (07:59)
[2018-08-22] MEDS ORDERED: Phenylephrine 10 MG/ML VIAL* 1 ML VIAL ONE ×3 (07:59→16:22)
[2018-08-22] MEDS ORDERED: fentaNYL* 50 MCG/ML 2 ML VIAL (100 MCG VIAL) ONE ×2 (07:59→17:14)
[2018-08-22] MEDS ORDERED: Midazolam* 1 MG/ML 2 ML VIAL (2 MG) ONE ×2 (07:59→13:47)
[2018-08-22] MEDS ORDERED: Etomidate* 2 MG/ML 10 ML VIAL ONE (07:59)
[2018-08-22] MEDS ORDERED: Succinylcholine* 20 MG/ML 10 ML VIAL ONE (07:59)
[2018-08-22] MEDS ORDERED: Lidocaine 2% PF * 5 ML VIAL ONE (07:59)
[2018-08-22] MEDS ORDERED: Clindamycin 900 MG IVPREMIX(* 900 MG/50 ML SDV IV ONE (08:40)
[2018-08-22] MEDS ORDERED: Ciprofloxacin 400MG IVPREMIX(* 400 MG/200 ML BAG ONE (08:40)
[2018-08-22] MEDS: Nystatin TOP POWDER* 15 GM BTL TOPICAL SCH (08:45)
[2018-08-22] MEDS ORDERED: Lidocaine 1% INJ* 10 MG/ML 30 ML SDV ONE (08:51)
[2018-08-22] MEDS ORDERED: Bupivacaine 0.25% SDV PF* 10 ML VIAL INJ ONE (08:51)
[2018-08-22] MEDS ORDERED: fentaNYL* 50 MCG/ML 2 ML VIAL (100 MCG VIAL) IV PRN (11:58)
[2018-08-22] MEDS ORDERED: oxyCODONE/Acetamin 5/325 MG* TAB PO PRN ×2 (11:58→13:19)
[2018-08-22] MEDS ORDERED: Naloxone* 0.4 MG/ML 1 ML VIAL IV PRN (11:58)
[2018-08-22] MEDS ORDERED: PROCHLORPERAZINE INJ 5 MG/ML 2 ML VIAL IV PRN (11:58)
[2018-08-22] MEDS ORDERED: HYDROmorphone INJ1* 1 MG/ML SYRINGE IV PRN (11:58)
[2018-08-22] MEDS ORDERED: DiMENhydriNATE IV* 50 MG/ML VIAL IV PUSH PRN (11:58)
[2018-08-22] MEDS ORDERED: Ondansetron INJ* 2 MG/ML VIAL ONE (12:56)
[2018-08-22] MEDS ORDERED: Dextrose 50% VIAL 50 ml IV PRN (13:53)
[2018-08-22] MEDS ORDERED: Midazolam* 1 MG/ML 2 ML VIAL (2 MG) IV ONE (13:53)
[2018-08-22] MEDS ORDERED: Dextrose 50% Syringe 50 ML* 25 GM/50 ML SYRINGE ONE ×2 (13:54→17:14)
--- NOTE | 2018-08-22 14:00 | PN ---
Progress Note - Progress Note Date of Service: 08/22/18 Note: Surgery Progress Note Patient underwent uneventful right upper parathyroidectomy and right thyroid lobectomy. Patient can resume a regular diet as tolerated immediately. Calcium carbonate 1250mg PO QID ordered to start tonight. Will check PTH and calcium in PACU and tomorrow AM. Should monitor neck for bleeding. From surgical perspective patient can be discharged tomorrow.
[2018-08-22] MEDS ORDERED: hydrALAZINE IV* 20 MG/ML VIAL IV SLOW PU ONE (14:15)
[2018-08-22] MEDS ORDERED: hydrALAZINE IV* 20 MG/ML VIAL ONE (14:25)
[2018-08-22 14:51] LABS: Hematocrit 30 % (33-41); Hemoglobin 9.7 g/dL (12.0-16.0); Mean Corpuscular HGB Conc 33 g/dL (31-36); Mean Corpuscular Hemoglobin 28 pg (27-31); Mean Corpuscular Volume 85 fL (80-97); Mean Platelet Volume 8.2 fL (7.4-10.4); Platelet Count 292 10^3/uL (150-450); Red Blood Count 3.48 10^6 /uL (3.70-4.87); Red Cell Distribution Width 17 % (10.5-15); White Blood Count 10.5 10^3/uL (3.5-10.8)
[2018-08-22 15:14] LABS: BUN/Creatinine Ratio 12.2 (8-20); Calcium 10.4 mg/dL (8.6-10.3); EGFR African American 66.1 (>60); EGFR Non-African American 54.6 (>60)
[2018-08-22] MEDS ORDERED: Phenylephrine 10 MG/ML VIAL* 50 MG in NS 0.9% 250 ML* 245 ML IV ONE (16:32)
[2018-08-22] MEDS ORDERED: Calcium Carbonate LIQ* 1,250 MG/5 ML UDC PO SCH (17:00)
[2018-08-22] MEDS ORDERED: Dextrose 50% Syringe 50 ML* 25 GM/50 ML SYRINGE IV PUSH PRN (17:12)
[2018-08-22] MEDS ORDERED: Acetaminophen IV 1GM/100ML * 1,000 MG/100 ML VIAL IVPB ONE (17:25)
[2018-08-22] MEDS ORDERED: Acetaminophen IV 1GM/100ML * 100 ML ONE (17:26)
[2018-08-22 19:38] LABS: Urine Appearance Turbid; Urine Bacteria 3+ (Absent); Urine Bilirubin Negative (Negative); Urine Blood 2+ (Negative); Urine Color Yellow; Urine Glucose Negative (Negative); Urine Ketones Negative (Negative); Urine Nitrite Negative (Negative); Urine Protein 2+(100 mg/dL) (Negative); Urine Red Blood Cell 3+(>10/hpf) (Absent); Urine Specific Gravity 1.009 (1.010-1.030); Urine Urobilinogen Negative (Negative); Urine White Blood Cell 3+(>20/hpf) (Absent)
--- NOTE | 2018-08-22 19:41 | PN ---
Subjective Date of Service: 08/22/18 Interval History: Pt with post-op complications in PACU after right upper parathyroidectomy and R thyroid lobectomy. She was noted to have severe hypertension and urinary retention (1L drained). She had hydralazine and Chris placed and then had persistent hypotension requiring pressors. She had over 2.5L IVF intra-op and seemed grossly volume overloaded on exam - noted that she has a history of heart failure. Currently with good SaO2 on 2 L NC. Her BP is currently being monitored with an A-line, given difficulty with cuff measurements (mid-line in LUE, ?stenosis in RUE?). Her mental status was slow to recover after anaesthesia and she was agitated and unable to follow commands. While initially moving all 4 extremities spontaneously, she eventually was noted to have a L-sided facial droop, with inability to move LUE, and impaired movement of LLE. By this time, she could minimally follow commands and a CODE ROBERTO was called. Blood glucose normal. CT is pending. Dr. Yang was contacted by PACU team. Objective Active Medications: Acetaminophen (Tylenol Tab*) 650 mg PO Q6H PRN PRN Reason: FEVER/PAIN Last Admin: 08/21/18 08:28 Dose: 650 mg Atenolol (Tenormin Tab*) 50 mg PO DAILY [facility] Last Admin: 08/22/18 07:28 Dose: 50 mg Atorvastatin Calcium (Lipitor*) 10 mg PO BEDTIME [facility] Last Admin: 08/21/18 20:24 Dose: 10 mg Calcium Carbonate (Calcium Carbonate Liq*) 1,250 mg PO QID [facility] Cholecalciferol (Vitamin D Tab*) 1,600 unit PO DAILY [facility] Last Admin: 08/22/18 07:30 Dose: 1,600 unit Cyanocobalamin (Vitamin B12 Tab*) 500 mcg PO DAILY [facility] Last Admin: 08/22/18 07:30 Dose: 500 mcg Cyclobenzaprine HCl (Flexeril Tab*) 10 mg PO BEDTIME PRN PRN Reason: SPASMS Last Admin: 08/20/18 20:55 Dose: 10 mg Dextrose (D50w Syringe 50 Ml*) 12.5 gm IV PUSH .FOR FS < 60 - SS PRN PRN Reason: FS < 60 Dextrose (D50w Syringe 50 Ml*) 12.5 gm IV PUSH ONCE PRN PRN Reason: AGITATION Last Admin: 08/22/18 17:20 Dose: 12.5 gm Dimenhydrinate (Dramamine Iv*) 25 mg IV PUSH ONCE PRN PRN Reason: NAUSEA/VOMITING Fentanyl Citrate (Fentanyl*) 25 mcg IV Q2M PRN PRN Reason: PAIN - MODERATE Last Admin: 08/22/18 17:20 Dose: 25 mcg Ferrous Sulfate (Ferrous Sulfate Tab*) 325 mg PO DAILY [facility] Last Admin: 08/22/18 07:30 Dose: 325 mg Fish Oil (Fish Oil (Nf)) 2,000 mg PO DAILY [facility]; Protocol Last Admin: 08/22/18 07:31 Dose: 2,000 mg Heparin Sodium (Porcine) (Heparin Flush Picc/Ml/Cvc(*)) 1 - 3 ml FLUSH 0600, 1800 [facility]; Protocol Last Admin: 08/22/18 05:43 Dose: 1 ml Hydromorphone HCl (Dilaudid Inj1s*) 0.2 mg IV Q10M PRN PRN Reason: PAIN - SEVERE Lactated Ringer's (Lactated Ringers 1000 Ml Bag*) 1,000 mls @ 125 mls/hr IV PER RATE [facility] Last Admin: 08/22/18 07:21 Dose: 125 mls/hr Phenylephrine HCl 50 mg/ (Sodium Chloride) 250 mls @ 12 mls/hr IV ED ONCE ONE; Protocol Stop: 08/23/18 13:21 Last Admin: 08/22/18 16:32 Dose: 12 mls/hr Insulin Human Lispro (Humalog*) 0 units SUBCUT ACHS [facility]; Protocol Last Admin: 08/22/18 07:18 Dose: Not Given Magnesium Oxide (Magox 400 Tab*) 400 mg PO BID [facility] Last Admin: 08/22/18 07:29 Dose: 400 mg Midazolam HCl (Versed 2mg/2ml*) 2 mg IV ONCE ONE Stop: 08/22/18 13:54 Naloxone HCl (Narcan*) 0.08 mg IV Q2M PRN PRN Reason: severe induced resp depression Nystatin (Nystatin Top Powder*) 1 applic TOPICAL QID [facility] Last Admin: 08/22/18 08:45 Dose: Not Given Oxybutynin Chloride (Ditropan Xl Tab*) 5 mg PO DAILY [facility]; Protocol Last Admin: 04/25/19 07:29 Dose: 5 mg Oxycodone/Acetaminophen (Percocet 5/325 Tab*) 1 tab PO ONCE PRN PRN Reason: PAIN - MODERATE Oxycodone/Acetaminophen (Percocet 5/325 Tab*) 1 tab PO Q4H PRN PRN Reason: PAIN Pantoprazole Sodium (Protonix Tab*) 40 mg PO DAILY [facility] Last Admin: 08/22/18 07:26 Dose: 40 mg Prochlorperazine Edisylate (Compazine Inj*) 10 mg IV ONCE PRN PRN Reason: NAUSEA/VOMITING Sitagliptin Phosphate (Januvia (Nf)) 100 mg PO DAILY [facility]; Protocol Last Admin: 08/22/18 07:18 Dose: Not Given Vital Signs - 8 hr 08/22/18 08/22/18 08/22/18 13:40 13:41 13:46 Temperature 97.5 F Pulse Rate 94 80 88 Respiratory 12 13 Rate Blood Pressure 111/88 111/88 (mmHg) O2 Sat by Pulse 97 86 100 Oximetry 08/22/18 08/22/18 08/22/18 13:50 13:56 14:01 Temperature Pulse Rate 78 75 73 Respiratory 13 7 12 Rate Blood Pressure 152/116 134/58 137/87 (mmHg) O2 Sat by Pulse 98 100 100 Oximetry 08/22/18 08/22/18 08/22/18 14:06 14:09 14:10 Temperature Pulse Rate 68 74 Respiratory 13 14 17 Rate Blood Pressure 95/71 107/72 113/81 (mmHg) O2 Sat by Pulse 100 100 Oximetry 08/22/18 08/22/18 08/22/18 14:20 14:26 14:31 Temperature Pulse Rate 88 72 66 Respiratory 14 13 16 Rate Blood Pressure 109/79 146/63 80/65 (mmHg) O2 Sat by Pulse 100 100 100 Oximetry 08/22/18 08/22/18 08/22/18 14:36 14:40 14:46 Temperature Pulse Rate 66 72 Respiratory 15 14 23 Rate Blood Pressure 127/82 132/88 113/42 (mmHg) O2 Sat by Pulse 100 100 Oximetry 08/22/18 08/22/18 08/22/18 14:51 14:54 15:00 Temperature Pulse Rate 70 72 78 Respiratory 14 9 19 Rate Blood Pressure 135/109 109/80 142/64 (mmHg) O2 Sat by Pulse 99 100 99 Oximetry 08/22/18 08/22/18 08/22/18 15:10 15:22 15:51 Temperature Pulse Rate 85 94 77 Respiratory 17 17 22 Rate Blood Pressure 122/95 111/66 129/65 (mmHg) O2 Sat by Pulse 99 98 94 Oximetry 08/22/18 08/22/18 08/22/18 16:00 16:01 16:05 Temperature Pulse Rate 74 76 70 Respiratory 11 11 9 Rate Blood Pressure 89/50 94/56 (mmHg) O2 Sat by Pulse 97 96 98 Oximetry 08/22/18 08/22/18 08/22/18 16:11 16:18 16:21 Temperature Pulse Rate 69 63 69 Respiratory 18 8 9 Rate Blood Pressure 94/30 64/32 76/43 (mmHg) O2 Sat by Pulse 98 98 98 Oximetry 08/22/18 08/22/18 08/22/18 16:31 16:41 16:45 Temperature Pulse Rate 67 64 68 Respiratory 8 9 10 Rate Blood Pressure 81/33 101/40 115/50 (mmHg) O2 Sat by Pulse 98 97 97 Oximetry 08/22/18 08/22/18 08/22/18 16:50 16:56 17:00 Temperature Pulse Rate 63 65 72 Respiratory 8 18 19 Rate Blood Pressure 111/57 92/58 (mmHg) O2 Sat by Pulse 99 99 99 Oximetry 08/22/18 08/22/18 08/22/18 17:01 17:11 17:20 Temperature Pulse Rate 74 Respiratory 20 13 20 Rate Blood Pressure 62/48 139/103 (mmHg) O2 Sat by Pulse 100 Oximetry 08/22/18 08/22/18 08/22/18 17:21 17:25 17:31 Temperature Pulse Rate 85 84 75 Respiratory 19 15 9 Rate Blood Pressure 131/103 88/61 129/41 (mmHg) O2 Sat by Pulse 95 96 99 Oximetry 08/22/18 08/22/18 08/22/18 17:36 17:38 17:40 Temperature Pulse Rate 71 71 66 Respiratory 10 13 10 Rate Blood Pressure 82/47 101/38 112/35 (mmHg) O2 Sat by Pulse 99 100 99 Oximetry 08/22/18 17:46 Temperature Pulse Rate 66 Respiratory 18 Rate Blood Pressure (mmHg) O2 Sat by Pulse 98 Oximetry Oxygen Devices in Use Now: OxyMask Appearance: minimally responsive to commands, newly with facial edema Ears/Nose/Mouth/Throat: Mucous Membranes Moist Neck: - - new surgical bandage over anterior neck c/d/i Neurological: - - not moving LUE, can minimally wiggle toes on L, RUE/RLE movement preserved; L facial droop noted involving forehead/eyebrow/mouth Result Diagrams: 08/22/18 14:44 08/22/18 14:44 Assess/Plan/Problems-Billing Assessment: 82W with severe hyperparathyroidism, severe s/p TAVR (08/08), recent admission for LGIB, HFrEF 50-55%, CKD, afib on Eliquis, DM2, HTN, presenting with weakness while pending hyperparathyroid surgery on 08/22. Now s/p R upper parathyroidectomy and right thyroid lobectomy with post-op complications of AMS , hypotension, and focal neuro deficits. - Patient Problems (1) Focal neurological deficit Comment: Acutely in the PACU after surgical procedure. Pt is altered and newly with facial droop and motor deficit of LUE and partially of LLE. Glucose normal. Code roberto. - f/u STAT head CT, Neuro - surgery made aware of post-procedural acute change - monitor blood pressure closely - has intermitently required pressors (2) Primary hyperparathyroidism Comment: now s/p R upper parathyroidectomy and R thyroid lobectomy with post-op complications. - appreciate Dr. Jane input - Endocrine surgeon Dr. Yang following (3) Afib Comment: - held Eliquis for procedure, restart Eliquis on Sunday, although this may change given recent acute issues - cont atenolol - Dr. Nickerson following (4) Acute diastolic (congestive) heart failure Comment: Now also with slightly reduced EF. - furosemide was held prior to procedure, and now pt is with low BP and requiring pressors but appears volume overloaded - will continue to follow BP closely and restart diuretics as able, monitor respiratory status closely - cardiology following (5) Aortic stenosis Comment: s/p TAVR on 08/08 (6) Diabetes 1.5, managed as type 2 Comment: - cont sitagliptin, short acting ISS with meals, and atorvastatin
--- NOTE | 2018-08-22 19:49 | PN ---
Progress Note - Progress Note Date of Service: 08/22/18 Note: Code Evans in PACU - Patient post op from parathyroidectomy for primary hyperparathyroidism. Hx of Afib on Eliquis that had been held. In PACU patient noted to have left sided facial droop and left sided paralysis. Patient able to wake and tell me her name with noted left sided facial droop. Minimal subtle movement of LUE and LLE. Head CT: negative Spoke with Dr. Choe CTA of Head/Neck ordered Dr. Choe to touch base with Dr. Yang regarding surgery, if she is a candidate for aspirin. Unlikely a candidate for tPA with recent surgery and also with recent TAVR on 08/08. U/A - Concerning for UTI. Bld Cx ordered. Will start Ceftriaxone. 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 Dr. Choe at bedside. Spoke with daughter. Patient able to have ASA 300 mg ID - per Dr. Yang ok to give. Patient accepted by [facility] via helicopter - transfer in stable condition. Patient started on Normal Saline and levophed to keep SBPs >140. Please see transfer summary and Dr. Choe's consult note for further details.
[2018-08-22 19:52] LABS: Hematocrit 26 % (33-41); Hemoglobin 8.6 g/dL (12.0-16.0); Mean Corpuscular HGB Conc 33 g/dL (31-36); Mean Corpuscular Hemoglobin 28 pg (27-31); Mean Corpuscular Volume 85 fL (80-97); Mean Platelet Volume 7.6 fL (7.4-10.4); Platelet Count 238 10^3/uL (150-450); Red Blood Count 3.08 10^6 /uL (3.70-4.87); Red Cell Distribution Width 16 % (10.5-15); White Blood Count 12.2 10^3/uL (3.5-10.8)
[2018-08-22 20:01] LABS: Activated Partial Thrombo Time 31.3 seconds (26.0-36.3); INR 1.52 (0.82-1.09)
--- NOTE | 2018-08-22 20:01 | PN ---
Progress Note - Progress Note Date of Service: 08/22/18 Note: Anesthesia Post-operative course: Ms. Coughlin underwent her surgical procedure without any intra-operative events. She was hemodynamically stable throughout the intra-operative course. Her baseline rhythm was atrial fibrillation, but due to the nature of the surgical procedure and location of electrocautery a magnet needed to be placed on her pacemaker, converting the rhythm into an asynchronous mode with HR of 85. Pt was extubated in the OR and taken to PACU. The pt was delirious, which can be common for a patient this age and co-moribidities. A stat CBC, BMP, ABG, and POC glucose was sent. CBC showed mild anemia, BMP showed electrolytes wnl and Ca beginning to decline, ABG showed mild mixed acidosis with base deficit of -3 , and her POC glucose showed a mild hypoglycemia which was treated with an ampule of D50. The pt remain confused and significantly hypertensive. 10 mg of IV hydralazine was administered to decrease BP. It was then thought that the confusion could be secondary to a full bladder. The pt was urged to urinate on her own. ~1000 mL of urine was expelled and the pt's BP began to decrease and the pt began to have ease in her agitation. Her BP temporarily required a fluid bolus and a phenylephrine infusion for a short period of time. At this time I had a discussion with Dr. Yang and Dr. Ibanez that this patient should be admitted to the ICU for observation. Throughout her PACU course she remain agitated and confused possibly secondary to pain. Her pain was treated and she began to rest. Her vital signs remained to be wnl. The pt was seen at bedside in PACU by Dr. Ibanez. The pt was signed out of PACU at this time as this patient was stable and pain controlled. When I returned from another operative case around 1900, the pt still remained confused and now had a fever in PACU. A trejo catheter was placed and cloudy urine emerged. I began to evaluate the pt and per PACU nurse, the pt acutely had difficulty moving left extremities and had left facial droop. The PACU nurse stated these findings were new, estimated around 10 minutes. I called a stroke code and emergently the neurology team arrived to take the pt to CT scan to evaluate patient for stroke. Moe Wills MD
[2018-08-22] MEDS ORDERED: Iohexol 350* (CONTRAST) 500 ML MDV IV ONE (20:07)
[2018-08-22 20:09] LABS: Albumin 2.7 g/dL (3.2-5.2); Albumin/Globulin Ratio 0.8 (1-3); BUN/Creatinine Ratio 12.1 (8-20); Calcium 10.1 mg/dL (8.6-10.3); EGFR African American 54.4 (>60); Globulin 3.5 g/dL (2-4); Potassium 3.5 mmol/L (3.5-5.0); Total Bilirubin 0.8 mg/dL (0.2-1.0); Total Protein 6.2 g/dL (6.4-8.9)
[2018-08-22 20:13] LABS: ABS Basophils 0.1 10^3/ul (0-0.2); ABS Eosinophils 0.2 10^3/ul (0-0.6); ABS Lymphocytes 0.6 10^3/ul (1.0-4.8); ABS Monocytes 1.6 10^3/ul (0-0.8); ABS Neutrophils 9.7 10^3/ul (1.5-7.7); ABS Nucleated RBC 0 10^3/ul; Lymphocyte % 4.9 %; Nucleated Red Blood Cells % 0
[2018-08-22] MEDS ORDERED: cefTRIAXone(*) 1 GM in NS 0.9% 50 ML* 50 ML IVPB SCH (21:00)
[2018-08-22] MEDS ORDERED: Norepinephrine 16MCG/ML IVPRE* 4,000 MCG/250 ML BAG IV SCH (21:00)
[2018-08-22] MEDS ORDERED: NS 0.9% 1000 ML** 1,000 ML IV SCH (21:00)
[2018-08-22] MEDS ORDERED: Aspirin SUPP* 300 MG PR ONE (21:04)
[2018-08-22] MEDS ORDERED: Norepinephrine 16MCG/ML IVPRE* 4,000 MCG/250 ML BAG IV ONE (21:21)
--- NOTE | 2018-08-22 22:03 | PN ---
Progress Note - Progress Note Date of Service: 08/22/18 Note: Surgery Progress Note Events over last several hours have been reviewed and I have discussed them with Drs. Langford and . I talked to patient's daughter, Betty. Patient developed new onset left sided neurologic deficits at approximatley 6:30pm in the PACU. CTA head showed right MCA infarct. Plan is to transfer to [place] for interventional neuroradiology/neurosurgery and possible thrombectomy.
[2018-08-22 22:34] VITALS: BP 71/61
--- NOTE | 2018-08-22 23:07 | OP ---
OPERATIVE REPORT: DATE OF OPERATION: DATE OF : 39 SERVICE: General Surgery. ATTENDING SURGEON: Jessie Yang MD RESEARCH CHEMICAL ENGINEER: BHUMIKA Giron ANESTHESIOLOGIST: Dr. Rock Wills. ANESTHESIA: General endotracheal anesthesia. PRE-OPERATIVE DIAGNOSES: Primary hyperparathyroidism, possible parathyroid carcinoma. POST-OPERATIVE DIAGNOSES: Primary hyperparathyroidism, possible parathyroid carcinoma. OPERATIVE PROCEDURE: Right upper parathyroidectomy, right thyroid lobectomy. ESTIMATED BLOOD LOSS: 10 cc. SPECIMEN: Right upper parathyroid and right thyroid lobe. INDICATIONS FOR SURGERY: Ms. 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 These parathyroid crises were precipitated by systemic decompensation for which she had been hospitalized twice in the past four months. Localization studies identified a very large right upper parathyroid adenoma that appeared abnormal on ultrasound. Given her whole history and the imaging studies, there was concern about parathyroid carcinoma. She, therefore gave consent for a parathyroidectomy and possible right hemithyroidectomy and possible central neck dissection on the right. She understands the risks, benefits, and alternatives of the procedure and she wished to proceed. DESCRIPTION OF PROCEDURE: The patient was brought back to the operating room and placed on the operating table in the supine position. Sequential compression devices were placed on the bilateral lower extremities for DVT prophylaxis. Antibiotics were administered to the patient. The patient underwent general endotracheal anesthesia. The NIM nerve monitor and electrodes were attached. Anesthesia placed a left radial arterial line for monitoring and her arms were tucked. Her neck was placed in an extended position and then her neck was prepped and draped in normal sterile fashion. Prior to beginning the procedure, a time-out was performed verifying the patient 's name, MRN number, and the procedure to be performed. Local anesthesia was administered to the anterior neck using 1% lidocaine and 0.25% Marcaine. Next, approximately 4-cm transverse incision was made in the mid neck approximately two fingerbreadths above the sternal notch. The skin was divided down to subcutaneous tissue. The platysma was divided and the inferior and superior platysma flaps were then developed. The median raphe was identified and divided and strap muscles were retracted sides laterally. Next, attention was turned for retracting the right strap muscles off of the right thyroid lobe. Once this was done, the space lateral to the right thyroid lobe was developed with careful blunt dissection and the thyroid lobe was lifted up and out of the neck using two peanuts and immediately a very large parathyroid adenoma was identified posterior to the right thyroid lobe. Imaging had indicated that this was a posterior right upper gland that had descended in the neck. With great care, the parathyroid adenoma was dissected out laterally. There were medial attachments to the thyroid lobe that were difficult to separate. Given the concern for parathyroid carcinoma, the decision was made then to perform a right thyroid lobectomy with a right upper parathyroidectomy en bloc. Therefore , attention was turned towards the anterior neck. The isthmus was divided off of the the trachea after creating a tunnel beneath the isthmus anterior to the trachea. The HANNAH veins were divided and then the medial attachments of the thyroid lobe to the trachea were then divided. The space of Bryant was developed and then the superior pole vessels were taken down using combination of LigaSure and 2-0 silk ties. After this was done, the thyroid lobe was again lifted up and out of the neck, which was done with some difficulty given that the adenoma was very posterior and difficult to lift out of the neck. However, the right recurrent laryngeal nerve was identified and confirmed with the nerve monitor. Its course was traced out to the insertion at the cricothyroid muscle. It notably was very close to the parathyroid adenoma and had to be carefully dissected off of it. The right lower parathyroid was also identified near the inferior aspect of the thyroid lobe, in the thyrothymic ligament. Once this was done, the right upper lobe was then taken off of the trachea with great care using LigaSure, making sure to avoid any injury to the right recurrent laryngeal nerve. After this was done, the specimen was removed and consisted of the right thyroid lobe with the right upper parathyroid removed en bloc. A stitch was used to thee the right upper pole. At this point, Anesthesia obtained time zero for the PTH and then subsequently obtained time 5 and 10. The baseline was drawn earlier prior to beginning the surgery. The parathyroid hormone levels returned as the baseline at greater than 404.3. Time 0 was 23.3, time 5 was 20.2 and time 10 was 19.3. At this point, the Grayling criterion had been met and attention was turned towards closing the neck. The right thyroid space was investigated and irrigated using sterile water. Hemostasis was obtained and Tisseel was placed into the lateral neck. After this was done, the strap muscles were reapproximated using interrupted 3-0 Vicryl sutures and then the platysma was reapproximated using interrupted 3-0 Vicryl sutures. The skin was closed using a running 4-0 Prolene suture and after this was done, sterile dressing was then placed. The patient's anesthesia was reversed and she was taken to the PACU in stable condition. At the end of the case, all counts were correct and I was present during the entirety of the case. [id number]/[facility] #: [id number] LEMUEL
--- NOTE | 2018-08-23 00:13 | CONS ---
CC: Dr. Donte Jane; Dr. Vincent Nickerson; Dr. Michael Choe; Dr. Margot Dolan* CONSULTATION REPORT: DATE OF ADMISSION: 08/19/18 DATE OF CONSULTATION: 08/22/18 LOCATION: She is an 82-year-old female currently in ICU bed 7. REASON FOR CONSULTATION: Acute onset of left-sided hemiparesis. HISTORY OF PRESENT ILLNESS: Ms. Coughlin is an 82-year-old female with a very complicated medical history. She has a history of hyperparathyroidism secondary to a parathyroid adenoma, aortic stenosis; status post recent TAVR on 08/08/18, history of chronic GI bleeding, diabetes, atrial fibrillation; on Eliquis; off for the last 2 days, hyperlipidemia, hypertension, osteoarthritis, pacemaker for tachy- aleks syndrome, heart failure who is followed by the stain applicator Dr. Donte Jane. She was recently in the [facility] for a TAVR procedure for her stenotic aortic valve and did well, but during that time began feeling progressively weaker. She was found to have a thyroid adenoma and was discharged home, but over the last few weeks has worsened with swelling in her legs, worsening weakness, some dizziness , intermittent diarrhea and abdominal pain, poor appetite. She was brought in on 08/19/18 for an urgent parathyroidectomy due to [id number] hyperparathyroidism with elevated PTH and elevated calcium. She has been off of her Eliquis for 2 days. Today, she underwent a parathyroidectomy by Dr. Jessie Yang. I spoke with Dr. Yang. The surgery went very well. There were no complications. The patient was in the PACU doing well, recovering, waking up when at 6:30, the PACU nurse noted that she developed left facial droop and left arm and leg weakness, which progressed. The patient had a harder time communicating and I was called for possible stroke. The patient was brought from the PACU to the ICU. I arrived at about 8 o'clock, was initially contacted at around 7:30, NIH stroke scale was done at 8:15. She scored a 17 with the following results: 1A she scored 1, 1B is 0, 1C is 0, 2 she scored 2, 3 she scored 1, 4 she scored 2, 5A she scored 4, 5B she scored 0, 6A she scored 3, 6B she scored 0, 7 she scored 0, 8 she scored 1, 9 she scored 1, 10 she scored 1, 11 she scored 1 giving her a total of 17. At the time of my evaluation, I suspected a large-vessel MCA stroke/occlusion. She had an initial CT scan done, which showed no obvious changes, but subsequent CT angiogram showed a right M2 segment occlusion with a large developing right MCA stroke. [facility] was contacted and accepted the patient via transfer. The patient is being transferred by helicopter for possible thrombectomy. Unfortunately, after discussion with Dr. Yang, it was felt that given the recent parathyroidectomy today; the location of the incision, she would not be a good candidate for tPA, but due to the fact that she was well within the 24-hour window and developed this large-vessel occlusion, we thought that she would be a good candidate for possible thrombectomy. I spoke with Dr. Parker on the phone, neurosurgeon at [facility], who agreed and accepted the patient. PAST MEDICAL HISTORY: As noted above. PAST SURGICAL HISTORY: Includes pacemaker, catheterization, right hip replacement, TAVR. MEDICATIONS: The patient's current medication list. 1. Tylenol p.r.n. 2. Aspirin 300 mg SC x1 given today after the symptoms started. 3. Atenolol 50 mg p.o. daily. 4. Atorvastatin 10 mg p.o. at bedtime. 5. Calcium carbonate 1250 p.o. q.i.d. 6. Ceftriaxone 500 x1. 7. Vitamin D. 8. Vitamin B12. 9. Flexeril tab p.r.n. 10. Dramamine p.r.n. 11. [place] p.r.n. 12. Ferrous sulfate 325 daily. 13. Fish oil. 14. Heparin flush. 15. Dilaudid p.r.n. 16. Insulin sliding scale. 17. Magnesium oxide. 18. Levophed was started in the ICU for low blood pressure. 19. Oxybutynin/oxycodone p.r.n. 20. Protonix. 21. Januvia. ALLERGIES: Eggs, PENICILLIN, and crabs. FAMILY HISTORY: Father at 85 of unknown cause. Mother at 65 of unknown cause. SOCIAL HISTORY: Prior smoker, quit 30 years ago. No alcohol use. Lives by herself prior to this. Daughter states that she uses a walker. Her daughter is the decision maker. REVIEW OF SYSTEMS: A 14-point review of systems was difficult due to the patient's mental status. PHYSICAL EXAM: Vital Signs: The patient has been somewhat hypotensive - 112/ 39 to 97/34, fever to 102.4, pulse rate of 79, respiratory rate of 18, oxygen saturation 92% on 3 L. In general, she is a well-nourished, well-developed obese female, lying in the hospital bed. Her daughter is at the bedside. HEENT : She is normocephalic, atraumatic. Sclerae are anicteric. She has pterygium bilaterally. Mucous membranes are dry. She has a bandaged neck incision that is clean, dry, and intact. She is clear to auscultation bilaterally. Irregularly irregular without significant murmurs. Abdomen is obese, nontender. Extremities: There is 1+ edema in her leg bilaterally. Neurologic Exam: She is awake. She is somnolent, but arousable. She has dysarthric speech, although there does not appear to be any significant aphasia. She is able to communicate some. Pupils are equally round and reactive. Extraocular muscles, she has a right gaze preference. Visual ivy, she appears to have some left-sided hemianopsia, difficult to determine, but she did not blink on the left side. Her face, she has significant drooping of the left lower face. Tongue is midline. Palate appears symmetric. Motor Exam: She has spontaneous movement of the right upper and lower extremities with good resistance. She has dense hemiparesis of the left upper extremity and dense hemiparesis with some trace movement of the left toes on the left lower extremity. DTRs were down throughout, 1+ at the biceps bilaterally, 1+ at the patella, absent at the ankles. She had upgoing Babinski's on the left and equivocal on the right. [id number]-ft-[id number] on the right seemed to be intact, but slow. She could not perform on the left. She had extinction to double simultaneous stimulation on the left. She seemed to be neglecting the left as well. DIAGNOSTIC STUDIES/LAB DATA: Lab work includes a white count of 12.2 today, hemoglobin of 8.6, hematocrit of 26. INR of 1.52, PTT of 31.3. Chemistry: Creatinine of 1.16, glucose of 61, total protein of 6.2, albumin of 2.7. Urine showed 3+ leukocyte esterase, 3+ bacteria, 3+ white blood cells. Imaging: As noted above. ASSESSMENT AND PLAN: Ms. Coughlin is an 82-year-old female who has a history of aortic stenosis, tachy-aleks syndrome; status post pacemaker placement, atrial fibrillation; previously on Eliquis; off for the last 2 days, status post a TAVR procedure earlier this month at [facility]. She has a history of hyperparathyroidism and underwent parathyroidectomy today around 1 p.m., was in the PACU when she developed sudden onset of left face, arm and leg weakness around 6:[address] scan showed no major changes, but subsequent CT angiogram showed a right M2 segment occlusion with a developing right middle cerebral artery infarct consistent with her physical exam findings. In the ICU, her blood pressure was noted to be low. We bolused her on normal saline and I also started to her on some Levophed to keep her systolic blood pressure in the 160s over diastolics in the 80s to 90s. For now , pending transfer. I spoke with Dr. Parker at the [facility] who has accepted the patient for possible thrombectomy. Unfortunately, despite the fact that she has an NIH of 17, she is not a candidate for tPA due to her surgery today, but may be a good candidate for thrombectomy pending further workup at [facility]. She will be transferred by helicopter in the next [address] did [address] Dr[address] Jane about her condition. I did notify and spoke with Dr. Yang on several occasions tonight about her condition. The patient was given aspirin 300 mg rectally before transfer. [id number]/[facility] #: [id number] [facility]
--- NOTE | 2018-08-23 03:37 | TRS ---
CC: Dr. Margot Dolan; Dr. Jessie Yang; Dr. Michael Choe; Dr. Donte Jane* TRANSFER SUMMARY: DATE OF ADMISSION: 08/19/18 DATE OF TRANSFER: Patient airlifted to [facility] on 08/22/18. PRIMARY CARE PHYSICIAN: Margot Dolan MD. SURGEON: Jessie Yang MD. NEUROLOGIST: Michael Choe MD. RADIO EQUIPMENT REPAIRER: Donte Jane MD. 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 MEDICATIONS ON TRANSFER: 1. The patient is started on ceftriaxone 1 g q.24 on 08/22/18. 2. One dose of aspirin 300 RI on 08/22/18. 3. Normal saline at 125 cc an hour. 4. Levophed to maintain blood pressure in the 140s to 160s. 5. Tylenol 650 mg every 6 hours. 6. Atenolol 50 mg p.o. daily. 7. Atorvastatin 10 mg p.o. at bedtime. 8. Calcium carbonate 1250 mg p.o. 4 times a day. 9. Vitamin D 1600 mg p.o. daily. 10. Vitamin B12 at 500 mcg daily. 11. Cyclobenzaprine 10 mg p.o. at bedtime as needed. 12. Ferrous sulfate 325 mg p.o. daily. 13. Fish oil 2000 mg p.o. daily. 14. Dilaudid 2 mg as needed. 15. Lispro sliding scale. 16. Magnesium oxide 400 mg p.o. b.i.d. 17. Nystatin topical 4 times a day. 18. Oxybutynin 5 mg p.o. daily. 19. Percocet 1 tab q.4 hours as needed. 20. Pantoprazole 40 mg p.o. daily. 21. Compazine 10 mg IV q.8 hours as needed. HOSPITAL COURSE: This is an 82-year-old female with a past medical history of atrial fibrillation, who discontinued her Eliquis on 08/17/18, who presented to the emergency room with weakness. She has known primary hyperparathyroidism and plan was for her to be admitted for a parathyroidectomy. The patient also has a history of known aortic stenosis, status post transaortic valve replacement on 08/08/18 at [facility]. The patient was seen on admission by cardiology for preop consultation stating her cardiac status was stable. They did not feel that she needed to be bridged for her surgery and they recommended putting the pacemaker at magnet mode during cautery. She had an echo that showed EF of 50% and her aortic valve functioning normally. She was also noted to have [id number] pulmonary hypertension and moderate TR that was unchanged. The patient went to the OR on 08/22/18 in the afternoon and had a right upper parathyroidectomy and a right thyroid lobectomy. In the PACU, the patient had some issues with urinary retention and hypertension and some confusion. She had a Chris placed with more than 1 L of output. Her blood pressure then dropped requiring a fluid bolus and a phenylephrine infusion. In the PACU, she became agitated and confused and she was seen by Dr. Gagnon around 1900. She was noted to remain confused and now with a fever. She also appeared to have a left facial droop and difficulty moving the left side. A code wick was called. The patient had a head CT done that was read as no acute intracranial abnormality. Head CTA showed 80% stenosis involving the proximal left cervical ICA, in the right MCA M2 thrombus occlusion and associated large acute right MCA infarct. At this point, Dr. Choe from neurology was at the bedside evaluating the patient. Due to the time and recent surgery, the patient was not a tPA candidate, but he spoke with [facility] and she was a candidate for transfer to [facility] for possible thrombectomy for a large-vessel occlusion. The patient was given per rectal aspirin, started on normal saline and Levophed to keep her blood pressures elevated. Her daughter was at the bedside and aware of the situation and the reason indicated for transferring her via helicopter to [facility]. [facility], Dr. Parker, accepted the patient for possible thrombectomy. Dr. Yang and Dr. Jane have both been notified of the patient's transfer. The patient was transferred in stable, but critical, condition to [facility], clipped by Dr. Parker. PHYSICAL EXAMINATION: On exam on discharge, the patient was dysarthric, but alert and oriented. Minimal movement, 1/5 of her left upper and left lower extremity, and noted left facial droop. PATIENT TIME: Greater than 30 minutes was spent doing the discharge summary and more than half the time was spent in direct patient contact. [id number]/[facility] #: [id number] [facility]
[2018-08-23] MEDS ORDERED: Insulin LISPRO* 1 UNITS UNIT SUBCUT SCH (07:30)
== END 2018-08-22 22:15 | disposition short-term general hospital (02) | DRG 625 ==
LOC: ED 14:04 → MED 16:50 → ICU 08-22 19:46
PROVIDERS: ADMIT Internal Medicine; ATTEND Internal Medicine
PROC: 05HY33Z Insertion of Infusion Device into Upper Vein, Percutaneous Approach (ICD-10-PCS; 2018-08-21)
PROC: 0GTH0ZZ Resection of Right Thyroid Gland Lobe, Open Approach (ICD-10-PCS; 2018-08-22)
PROC: 0GTL0ZZ Resection of Right Superior Parathyroid Gland, Open Approach (ICD-10-PCS; principal; 2018-08-22 08:30)
DX: E21.0 Primary hyperparathyroidism (principal); I50.31 Acute diastolic (congestive) heart failure; I63.511 Cerebral infarction due to unspecified occlusion or stenosis of right middle cerebral artery; K92.2 Gastrointestinal hemorrhage, unspecified; I13.0 Hypertensive heart and chronic kidney disease with heart failure and stage 1 through stage 4 chronic kidney disease, or unspecified chronic kidney disease; G81.94 Hemiplegia, unspecified affecting left nondominant side; N39.0 Urinary tract infection, site not specified; I48.91 Unspecified atrial fibrillation; I49.5 Sick sinus syndrome; D34 Benign neoplasm of thyroid gland; E13.9 Other specified diabetes mellitus without complications; E78.5 Hyperlipidemia, unspecified; M19.90 Unspecified osteoarthritis, unspecified site; D50.9 Iron deficiency anemia, unspecified; N18.9 Chronic kidney disease, unspecified; R32 Unspecified urinary incontinence; R35.0 Frequency of micturition; I08.3 Combined rheumatic disorders of mitral, aortic and tricuspid valves; R29.810 Facial weakness; I44.7 Left bundle-branch block, unspecified; B96.20 Unspecified Escherichia coli [E. coli] as the cause of diseases classified elsewhere; R79.1 Abnormal coagulation profile; Z96.641 Presence of right artificial hip joint; Z95.0 Presence of cardiac pacemaker; Z95.2 Presence of prosthetic heart valve; Z79.01 Long term (current) use of anticoagulants; Z79.84 Long term (current) use of oral hypoglycemic drugs; Z79.1 Long term (current) use of non-steroidal anti-inflammatories (NSAID); Z79.82 Long term (current) use of aspirin; Z79.899 Other long term (current) drug therapy; Z91.012 Allergy to eggs; Z88.0 Allergy status to penicillin; Z91.013 Allergy to seafood; Z87.891 Personal history of nicotine dependence
CPT/HCPCS: 36415; 36600; 70450; 70496; 70498; 71046; 76536; 80048; 80053; 81003; 81015; 82306; 82310; 82330; 82803; 83036; 83735; 83970; 84100; 84443; 85025; 85027; 85610; 85730; 86850; 86900; 86901; 87077; 87086; 87186; 88307; 93005; 93306; 99284; A9270-GY; C1776; G8978-GP-CK; G8979-GP-CI; G8987-GO-CJ; G8988-GO-CI; J0330; J0360; J0696; J0744; J1170; J1644; J2250; J2405; J2704; J2765; J3010; J3475; J3490; Q9967

== ENCOUNTER 2018-11-13 21:52 | Inpatient (IN) | payer MEDICARE ==
--- NOTE | 2018-11-13 22:34 | ED ---
Complex/Multi-Sys Presentation - HPI Summary HPI Summary: 83 year old F brought by EMS to [facility] accompanied by daughter with a chief complaint of weakness/edema/ difficulty ambulating at home with onset of 2 days , per triage. Patient reports episode of diarrhea earlier today, 11/13/18, which has since been resolved. Patient reports she can walk at home with walker and she lives with daughter. Patient denies pain except in neck due to urine tests and SOB. Patient reports she has left rehab last week. Symptoms aggravated by nothing. Symptoms alleviated by nothing. - History Of Current Complaint Chief Complaint: EDWeakness Time Seen by Provider: 11/13/18 22:01 Hx Obtained From: Patient Onset/Duration: Lasting Days - 2, Still Present Aggravating Factor(s): nothing Alleviating Factor(s): nothing Associated Signs And Symptoms: Positive: Weakness, Edema, Diarrhea, Other - difficulty ambulating. Negative: SOB - Allergies/Home Medications Allergies/Adverse Reactions: Allergies Allergy/AdvReac Type Severity Reaction Status Date / Time regadenoson [From Lexiscan] Allergy See Comment Verified 08/19/18 14:19 Penicillins AdvReac Intermediate See Comment Verified 08/19/18 14:19 crab AdvReac Vomiting Verified 08/19/18 14:19 PMH/Surg Hx/FS Hx/Imm Hx Endocrine/Hematology History: Reports: Hx Anticoagulant Therapy, Hx Blood Transfusions, Hx Diabetes, Hx Anemia, Hx Unexplained Bleeding - GI Bleed admission Dx Denies: Hx Systemic Lupus Erythematosus, Hx Sickle Cell Disease, Hx Thyroid Disease, Other Endocrine/Hematological Disorders Cardiovascular History: Reports: Hx Angioplasty, Hx Coronary Artery Disease, Hx Hypercholesterolemia, Hx Hypertension, Hx Pacemaker/ICD, Hx Peripheral Vascular Disease, Hx Valvular Heart Disease Denies: Hx Aneurysm, Hx Angina, Hx Auto Implanted Cardiovert Defib, Hx Cardiac Arrest, Hx Cardiomegaly, Hx Congenital Heart Disease, Hx Congestive Heart Failure, Hx Deep Vein Thrombosis, Hx Embolism, Hx Hypotension, Hx Rheumatic Fever, Hx Syncope Respiratory History: Reports: Hx Pneumonia Denies: Hx Asthma, Hx Chronic Bronchitis, Hx Chronic Obstructive Pulmonary Disease (COPD), Hx Cystic Fibrosis, Hx Lung Cancer, Hx Pleural Effusion, Hx Pulmonary Edema, Hx Pulmonary Embolism, Hx Seasonal Allergies, Hx Sleep Apnea, Other Respiratory Problems/Disorders GI History: Reports: Hx Gastrointestinal Bleed - Admission Dx, Hx Ulcer Denies: Hx Cirrhosis, Hx Crohn's Disease, Hx Diverticulosis, Hx Gall Bladder Disease, Hx Gastroesophageal Reflux Disease, Hx Hiatal Hernia, Hx Irritable Bowel, Hx Jaundice, Hx Obstructive Bowel, Hx Ileostomy, Hx Pyloric Stenosis, Other GI Disorders History: Reports: Other Problems/Disorders - urinary urgency Denies: Hx Acute Renal Failure, Hx Benign Prostatic Hyperplasia, Hx Chronic Renal Failure, Hx Dialysis, Hx Kidney Infection, Hx Kidney Stones Musculoskeletal History: Reports: Hx Arthritis, Hx Back Problems, Hx Bursitis Denies: Hx Rheumatoid Arthritis, Hx Congenital Bone Abnormalities, Hx Fibromyalgia, Hx Gout, Hx Orthopedic Injury - right hip replaced, Hx Osteoporosis, Hx Scoliosis, Hx Tendonitis Sensory History: Reports: Hx Contacts or Glasses Denies: Hx Cataracts, Hx Eye Injury, Hx Eye Prosthesis, Hx Glaucoma, Hx Legally Blind, Hx Macular Degeneration, Hx Vision Problem, Hx Deafness, Hx Hearing Aid, Hx Hearing Problem, Other Sensory Impairments Opthamlomology History: Reports: Hx Contacts or Glasses Denies: Hx Cataracts, Hx Eye Injury, Hx Eye Prosthesis, Hx Glaucoma, Hx Legally Blind, Hx Macular Degeneration, Hx Vision Problem, Other Sensory Impairments Psychiatric History: Reports: Hx Anxiety - Cancer History Hx Chemotherapy: No Hx Radiation Therapy: No Hx Palliative Cancer Treatment: No - Surgical History Surgery Procedure, Year, and Place: right hip replacement several years ago, angiogram. barium study of intestines 10/27/14 Hx Anesthesia Reactions: No Infectious Disease History: Unable to Obtain/Confirm Infectious Disease History: Denies: Hx Clostridium Difficile, Hx Hepatitis, Hx Human Immunodeficiency Virus (HIV), Hx of Known/Suspected MRSA, Hx Shingles, Hx Tuberculosis, Hx Known/ Suspected VRE, Hx Known/Suspected VRSA, History Other Infectious Disease, Traveled Outside the [place] in Last 30 Days - Family History Known Family History: Positive: Cardiac Disease - father Negative: Diabetes - Social History Alcohol Use: None Hx Substance Use: No Substance Use Type: Reports: None Hx Tobacco Use: Yes Smoking Status (MU): Former Smoker Type: Cigarettes Amount Used/How Often: 2 PPD Length of Time of Smoking/Using Tobacco: 15 years Have You Smoked in the Last Year: No Review of Systems Positive: Fatigue - weakness Negative: Shortness Of Breath Positive: Diarrhea Positive: Edema, Other - difficulty ambulating All Other Systems Reviewed And Are Negative: Yes Physical Exam - Summary Physical Exam Summary: VITAL SIGNS: Reviewed. GENERAL: Patient is a well-developed and nourished FEMALE who is lying comfortable in the stretcher. Patient is not in any acute respiratory distress. HEAD AND FACE: No signs of trauma. No ecchymosis, hematomas or skull depressions. No sinus tenderness. EYES: PERRLA, EOMI x 2, No injected conjunctiva, no nystagmus. EARS: Hearing grossly intact. Ear canals and tympanic membranes are within normal limits. MOUTH: Oropharynx within normal limits. NECK: Supple, trachea is midline, no adenopathy, no JVD, no carotid bruit, no c- spine tenderness, neck with full ROM CHEST: Symmetric, no tenderness at palpation LUNGS: Clear to auscultation bilaterally. No wheezing or crackles. CVS: Regular rate and irregular heart rhythm, S1 and S2 present, no murmurs or gallops appreciated. ABDOMEN: Soft, non-tender. Abdominal distension. No rebound no guarding, and no masses palpated. Bowel sounds are normal. EXTREMITIES: Bilateral extremity edema with venous stasis NEURO: Alert and oriented x 3. No acute neurological deficits. Speech is normal and follows commands. SKIN: Dry and warm Triage Information Reviewed: Yes Vital Signs On Initial Exam: Initial Vitals Temp Pulse Resp BP Pulse Ox 99 F 98 20 98/49 93 11/13/18 21:55 11/13/18 21:55 11/13/18 21:55 11/13/18 21:55 11/13/18 21:55 Vital Signs Reviewed: Yes Diagnostics - Vital Signs Vital Signs Temp Pulse Resp BP Pulse Ox 11/13/18 21:55 99 F 98 20 98/49 93 - Laboratory Result Diagrams: 11/13/18 23:00 11/13/18 23:00 Lab Statement: Any lab studies that have been ordered have been reviewed, and results considered in the medical decision making process. - Radiology Chest X-Ray Radiology Interpretation Completed By: ED Physician Summary of Radiographic Findings: Poor inspiratory effort, no acute process. Pending official report. - EKG 2308 Cardiac Rate: NL - 83 BPM EKG Rhythm: Atrial Fibrillation EKG Comparison: No Significant Change Summary of EKG Findings: Atrial fibrillation, 83 BPM, Non specific ST changes, No specific changes from 08/22/18 Complex Multi-Symp Course/Dx Course Of Treatment: 74 year old F brought by EMS to [facility] with a chief complaint of constant abdomen pain since this morning, 11/13/18 at around 1000, per triage, rated pain 4/10 in severity, per triage. Patient reports that her stomach has been hurting all day across her lower abdomen since waking up. Patient reports nausea but denies vomiting. Patient denies fever and chills, per triage. Physical exam shows no abnormalities except for abdomen distended with hypoactive bowel sounds. Rectal exam showed normal rectal tone no masses, brown stool, and send for occult blood. Blood work shows no abnormalities except INR 3.18 H, APTT 44.6 H, Sodium 132 L, Chloride 100 L, BUN 32 H, Creatinine 1.25 H, BUN/Creatinine Ratio 25.6 H, Glucose 187 H, Albumin 3.0 L, and Albumin/Globulin Ratio 0.8 L. Urinalysis shows no abnormalities except for Urine Protein 1+ (30 mg/dl) A, Urine Ketones Trace A, and Ur Squamous Epith Cells Present A. No medications were given in the ED. Chest X-Ray shows poor inspiratory effort and no acute process. EKG reveals Atrial fibrillation, 83 BPM , Non specific ST changes, and No specific changes from 08/22/18. We discussed patient care with Dr. Troncoso, hospitalist, at 0009, Dr. Troncoso accepts for admission. Patient agrees with plan and will be admitted. - Diagnoses Provider Diagnoses: Impaired ambulation, Weakness - Physician Notifications Discussed Care Of Patient With: Ervin Troncoso Time Discussed With Above Provider: 00:09 Instructed by Provider To: Admit As Inpatient Discharge - Sign-Out/Discharge Documenting (check all that apply): Patient Departure - Admit Patient Received Moderate/Deep Sedation with Procedure: No - Discharge Plan Condition: Stable Disposition: ADMITTED TO [facility] Referrals: Margot Dolan MD [Primary Care Provider] - - Attestation Statements Document Initiated by Scribe: Yes Documenting Scribe: Ginger Garner Provider For Whom Vicibgladis is Documenting (Include Credential): Sukumar Thomas MD Scribe Attestation: Thom Foss Alison Kim, scribed for Sukumar Thomas MD on 11/14/18 at 0050. Status of Scribe Document: Ready
[2018-11-13 23:11] LABS: ABS Lymphocytes 0.8 10^3/ul (1.0-4.8); ABS Monocytes 0.8 10^3/ul (0-0.8); ABS Neutrophils 7.9 10^3/ul (1.5-7.7); Eosinophil % 0.1 %; Hematocrit 26 % (35-47); Hemoglobin 8.5 g/dL (12.0-16.0); Lymphocyte % 8.5 %; Mean Corpuscular HGB Conc 32 g/dL (31-36); Mean Corpuscular Hemoglobin 27 pg (27-31); Mean Corpuscular Volume 85 fL (80-97); Mean Platelet Volume 8.6 fL (7.4-10.4); Platelet Count 192 10^3/uL (150-450); Red Blood Count 3.13 10^6 /uL (3.70-4.87); Red Cell Distribution Width 16 % (10-15); White Blood Count 9.6 10^3/uL (3.5-10.8)
[2018-11-13 23:21] LABS: Activated Partial Thrombo Time 44.6 seconds (26.0-38.0); INR 3.18 (0.82-1.09)
[2018-11-13 23:29] LABS: Albumin/Globulin Ratio 0.8 (1-3); BUN/Creatinine Ratio 25.6 (8-20); Calcium 8.6 mg/dL (8.6-10.3); EGFR African American 49.8 (>60); EGFR Non-African American 41.1 (>60); Globulin 3.8 g/dL (2-4); Potassium 4.7 mmol/L (3.5-5.0); Total Protein 6.8 g/dL (6.4-8.9)
[2018-11-14 00:04] LABS: Urine Appearance Clear; Urine Bacteria Absent (Absent); Urine Bilirubin Negative (Negative); Urine Blood Negative (Negative); Urine Color Amber; Urine Glucose Negative (Negative); Urine Ketones Trace (Negative); Urine Nitrite Negative (Negative); Urine Protein 1+(30 mg/dL) (Negative); Urine Red Blood Cell Absent (Absent); Urine Specific Gravity 1.019 (1.010-1.030); Urine Squamous Epithelial Cell Present (Absent); Urine Urobilinogen Negative (Negative); Urine White Blood Cell Trace(0-5/hpf) (Absent)
--- NOTE | 2018-11-14 00:25 | HP ---
History of Present Illness - History of Present Illness Reason for Visit: Difficulty walking History of Present Illness: Ms. Coughlin is an 82-year-old female with a very complex recent past medical history significant for severe hyperparathyroidism; aortic stenosis, status post recent TAVR; heart failure, preserved ejection fraction; and atrial fibrillation with tachybrady syndrome, status post pacemaker earlier this year, recent stroke in July when she was sent to [facility] without any residual deficit here due to difficulty walking and lower extremity edema. Denies any other symptoms except form some diarrhea she had this afternoon that has resolved. Was complaining of leg and neck pain. She said her lower extremity edema is chronic. Patient is not a good historian and kept saying to just speak to the daughter. I called [phone] however no answer. 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 -Family History The patient's father at age 85 of unknown cause. The patient's mother at age 65 of unknown cause. -Social History The patient quit smoking over 30 years ago. The patient denies any alcohol or illicit drug use. The patient has been living by herself generally, but has had occasional stints where she lived with her daughter, has been in and out of rehab and the hospital for most of this year. The patient's surrogate decision maker will be her daughter, Betty Mcclelland. The patient has a 15-pack- year history of smoking. -Allergies Allergy/AdvReac Type Severity Reaction Status Date / Time regadenoson [From Lexiscan] Allergy See Comment Verified 08/19/18 14:19 Penicillins AdvReac Intermediate See Comment Verified 08/19/18 14:19 crab AdvReac Vomiting Verified 08/19/18 14:19 Review of Systems - Measurements Intake and Output: Intake and Output Last 24 Hours 11/11/18 11/12/18 11/13/18 11/14/18 06:59 06:59 06:59 06:59 Weight 180 lb - Review of Systems General Comments: Unable to obtain properly as she says to just talk to her daughter. And kept denying any symptoms other than cramps in her legs, neck pain and episode of diarrhea. Objective Vital Signs - 8 hr 11/13/18 21:55 Temperature 99 F Pulse Rate 98 Respiratory 20 Rate Blood Pressure 98/49 (mmHg) O2 Sat by Pulse 93 Oximetry Oxygen Devices in Use Now: None Eyes: No Scleral Icterus, PERRLA Ears/Nose/Mouth/Throat: NL Teeth, Lips, Gums, Clear Oropharnyx, Mucous Membranes Moist Respiratory: Clear to Auscultation Cardiovascular: NL Sounds; No Murmurs; No JVD, RRR Extremities: - - Bilateral LE pitting edema up to the thigh Skin: No Rash or Ulcers Neurological: - - Unsure of place thought she was at [facility], thought it was november of 2018. Nutrition: Taking PO's Result Diagrams: 11/13/18 23:00 11/13/18 23:00 Diagnostic Imaging: Portable CXR shows single lead pacemaker in place with prominent pulmonary vessels. Official radiology read is pending. EKG Data: Shows A. Fib with rate of 83bpm without any change in wave form compared to old EKG. Assess/Plan/Problems-Billing Assessment: Ms. Coughlin is an 82-year-old female with a very complex recent past medical history significant for severe hyperparathyroidism; aortic stenosis, status post recent TAVR; heart failure, preserved ejection fraction; and atrial fibrillation with tachybrady syndrome, status post pacemaker earlier this year, recent stroke in July when she was sent to [facility] without any residual deficit here due to difficulty walking. Noted have have elevated creatinine. Home medication list still needs to be obtained as patient unable to recall and daughter not answering the phone. ER nurse tried to contact [facility] where she was discharged from but failed to get medication list. Will try again in AM. - Patient Problems (1) Ambulatory dysfunction Current Visit: Yes Status: Acute Code(s): R26.2 - DIFFICULTY IN WALKING, NOT ELSEWHERE CLASSIFIED SNOMED Code(s): 072629128 Comment: ?Debilty due to age relaved vs CHF. Recently discharged from rehab. Will get PT evaluation and SW for placement. (2) Acute kidney injury Current Visit: Yes Status: Acute Code(s): N17.9 - ACUTE KIDNEY FAILURE, UNSPECIFIED SNOMED Code(s): 79523621 Comment: ?Cardio-renal given the lower extremity edema. Check Urine lytes to calculate FeNa although might be abnormal due to lasix use. Will start with diuretic therapy and repeat labs in AM. If creatinine doesn't improve consider nephrology consult. (3) Acute diastolic (congestive) heart failure Current Visit: No Status: Chronic Code(s): I50.31 - ACUTE DIASTOLIC ( CONGESTIVE) HEART FAILURE SNOMED Code(s): 547803486 Comment: On lasix. (4) Anemia Current Visit: No Status: Acute Code(s): D64.9 - ANEMIA, UNSPECIFIED SNOMED Code(s): 804724160 Comment: AUGUSTUS and chronic blood loss. Hb minimally lower than baseline. (5) Afib Current Visit: No Status: Chronic Code(s): I48.91 - UNSPECIFIED ATRIAL FIBRILLATION SNOMED Code(s): 19533407 Comment: Previously noted to be on eliquis however home med list is still not confirmed. (6) HLD (hyperlipidemia) Current Visit: No Status: Chronic Code(s): E78.5 - HYPERLIPIDEMIA, UNSPECIFIED SNOMED Code(s): 70895067 Comment: Restart home meds once confirmed. (7) HTN (hypertension) Current Visit: No Status: Chronic Code(s): I10 - ESSENTIAL (PRIMARY) HYPERTENSION SNOMED Code(s): 88926696 Comment: Awaiting home med list. However BP currently soft so will home meds with the exception of lasix (8) Type 2 diabetes mellitus Current Visit: No Status: Chronic Comment: Home med list pending. Start Insulin sliding scale for now.
[2018-11-14] MEDS ORDERED: Furosemide IV* 10 MG/ML VIAL (40 MG) IV SLOW PU ONE (01:33)
[2018-11-14] MEDS ORDERED: Dextrose 50% Syringe 50 ML* 25 GM/50 ML SYRINGE IV PUSH PRN (01:34)
[2018-11-14] MEDS ORDERED: Albuterol/Ipratropium NEB.SOL* Albuterol 2.5 MG/Ipratropium 0.5 MG 3 ML INH ONE (05:50)
[2018-11-14 06:43] LABS: ABS Eosinophils 0.1 10^3/ul (0-0.6); ABS Lymphocytes 1.2 10^3/ul (1.0-4.8); ABS Monocytes 0.9 10^3/ul (0-0.8); ABS Neutrophils 6.6 10^3/ul (1.5-7.7); Eosinophil % 0.7 %; Hematocrit 24 % (35-47); Lymphocyte % 13.5 %; Mean Corpuscular HGB Conc 33 g/dL (31-36); Mean Corpuscular Hemoglobin 28 pg (27-31); Mean Corpuscular Volume 85 fL (80-97); Mean Platelet Volume 8.9 fL (7.4-10.4); Nucleated Red Blood Cells % 0.1; Platelet Count 180 10^3/uL (150-450); Red Blood Count 2.83 10^6 /uL (3.70-4.87); Red Cell Distribution Width 16 % (10-15); White Blood Count 8.8 10^3/uL (3.5-10.8)
[2018-11-14 07:05] LABS: BUN/Creatinine Ratio 26.4 (8-20); Calcium 8.4 mg/dL (8.6-10.3); EGFR Non-African American 39.7 (>60); Potassium 4.5 mmol/L (3.5-5.0)
[2018-11-14] MEDS: Insulin LISPRO* 1 UNITS UNIT SUBCUT SCH ×4 (10:47→20:58)
[2018-11-14] MEDS ORDERED: NS 0.9% 500 ML* 500 ML IV ONE (12:01)
[2018-11-14 12:43] LABS: Hematocrit 26 % (35-47); Hemoglobin 8.4 g/dL (12.0-16.0)
--- NOTE | 2018-11-14 15:34 | PN ---
Subjective Date of Service: 11/14/18 Interval History: Pt states that she is here due to generalized weakness and LE edema. She states she is feeling a little better today. She notes she had diarrhea x2 episodes and weakness x2 days. She worked with PT this morning and is 2 max assist stand/pivot. Prior to this, patient states she has been ambulating on own with walker within house. She notes she has decreased PO intake recently and has lost her appetite. Unable to reach daughter for more information at this time. Patient denies CP, SOB, abd pain, n/v. She denies focal weakness. Objective Active Medications: Dextrose (D50w Syringe 50 Ml*) 12.5 gm IV PUSH .FOR FS < 60 - SS PRN Insulin Human Lispro (Humalog*) 0 units SUBCUT [facility]; Protocol Vital Signs: Temp Pulse Resp BP Pulse Ox 98.6 F 79 16 89/42 94 11/14/18 15:13 11/14/18 15:13 11/14/18 15:13 11/14/18 15:13 11/14/18 15:13 Oxygen Devices in Use Now: None Appearance: Pt is sitting up in bed with HOB elevated. She appears chronically ill. She appears tired, but is awake and responsive, cooperative, in no acute distress. Eyes: No Scleral Icterus, PERRLA Ears/Nose/Mouth/Throat: NL Teeth, Lips, Gums, Clear Oropharnyx Neck: NL Appearance and Movements; NL JVP, Trachea Midline Respiratory: Symmetrical Chest Expansion and Respiratory Effort, Clear to Auscultation Cardiovascular: NL Sounds; No Murmurs; No JVD, - - Murmur noted; irregular rhythm with rate control. B/l LE 2+ pitting edema. Abdominal: NL Sounds; No Tenderness; No Distention, No Hepatosplenomegaly Extremities: No Clubbing, Cyanosis, - - B/L LE 2+ pitting edema. Neurological: Alert and Oriented x 3, NL Sensation, NL Muscle Strength and Tone Result Diagrams: 11/14/18 19:30 11/14/18 06:17 Diagnostic Imaging: Portable CXR shows single lead pacemaker in place with prominent pulmonary vessels. Official radiology read is pending. EKG Data: Shows A. Fib with rate of 83bpm without any change in wave form compared to old EKG. Assess/Plan/Problems-Billing Assessment: Ms. Coughlin is an 82-year-old female with a very complex recent past medical history significant for severe hyperparathyroidism; aortic stenosis, status post recent TAVR; heart failure, preserved ejection fraction; and atrial fibrillation with tachybrady syndrome, status post pacemaker earlier this year, recent stroke in July when she was sent to [facility] without any residual deficit here due to difficulty walking. Noted have have elevated creatinine. - Patient Problems (1) Ambulatory dysfunction Comment: -Debilty due to age related vs CHF. Recently discharged from rehab. -PT/OT ordered -SW consulted, as patient will likely need placement (2) Acute kidney injury Comment: -Cr with slight increase overnight. Pt reports h/o diarrhea and decreased PO intake with dry oral mucosa; ? prerenal due to hypovolemia -IVF 125cc/h x1L and recheck in a.m. -Check Urine lytes to calculate FeNa although might be abnormal due to lasix use -If creatinine doesn't improve consider nephrology consult (3) Anemia Comment: -AUGUSTUS noted from previous lab data -Hgb minimally lower than baseline -Stool for blood ordered -Will continue to monitor H/H for need for transfusion (4) HTN (hypertension) Comment: -Low-normal blood pressure which improved minimally from 0.5L fluid bolus -Holding home medications furosemide, lisinopril (5) Diastolic heart failure Comment: -Echo from 09/17/2018 with preserved EF -Holding home medications in light of hypotension -Will monitor for need for restart (6) Diabetes mellitus Comment: -Hold Januvia -Lispro SS with AC fingersticks (7) Afib Comment: -Eliquis on hold until stool for blood resulted -Atenolol in a.m. with hold parameters (8) HLD (hyperlipidemia) Comment: -Continue atorvastatin (9) DVT prophylaxis Comment: -Apixiban for AF being hold until stool for occult blood done, resulted (10) Full code status Comment: Status and Disposition: Inpatient. Discharge when stable. Likely to need placement.
[2018-11-14] MEDS ORDERED: Calcium Carbonate CHEW TAB* 500 MG (TUMS) PO PRN (16:17)
[2018-11-14] MEDS ORDERED: NS 0.9% 1000 ML** 1,000 ML IV SCH (17:00)
[2018-11-14] MEDS: Atorvastatin* 10 MG TAB PO SCH (17:38)
[2018-11-14 19:51] LABS: Hematocrit 26 % (35-47); Hemoglobin 8.3 g/dL (12.0-16.0)
[2018-11-14] MEDS: Lidocaine Patch REMOVE* 1 NOTE MISC PATCH OFF SCH (20:49)
[2018-11-14] MEDS ORDERED: Furosemide TAB* 20 MG PO SCH (21:00)
[2018-11-14] MEDS ORDERED: Apixaban* 5 MG TAB PO SCH (21:00)
[2018-11-14] MEDS: traMADol TAB* 50 MG PO PRN (22:04)
[2018-11-15] MEDS ORDERED: Albuterol 2.5 MG/3 ML NEB.SOL* (0.083%) INH PRN (02:28)
[2018-11-15 06:53] LABS: ABS Basophils 0.1 10^3/ul (0-0.2); ABS Eosinophils 0.2 10^3/ul (0-0.6); ABS Neutrophils 4.6 10^3/ul (1.5-7.7); BUN/Creatinine Ratio 29.1 (8-20); Calcium 8.1 mg/dL (8.6-10.3); EGFR African American 53.7 (>60); EGFR Non-African American 44.4 (>60); Eosinophil % 3.5 %; Hematocrit 26 % (35-47); Hemoglobin 8.4 g/dL (12.0-16.0); Lymphocyte % 14.2 %; Mean Corpuscular HGB Conc 32 g/dL (31-36); Mean Corpuscular Hemoglobin 27 pg (27-31); Mean Corpuscular Volume 84 fL (80-97); Mean Platelet Volume 8.8 fL (7.4-10.4); Platelet Count 194 10^3/uL (150-450); Potassium 4.2 mmol/L (3.5-5.0); Red Blood Count 3.12 10^6 /uL (3.70-4.87); Red Cell Distribution Width 16 % (10-15); White Blood Count 6.9 10^3/uL (3.5-10.8)
[2018-11-15] MEDS: Insulin LISPRO* 1 UNITS UNIT SUBCUT SCH ×4 (07:36→21:50)
[2018-11-15] MEDS: Calcitriol CAP* 0.25 MCG PO SCH (09:21)
[2018-11-15] MEDS: Cyanocobalamin TAB* 500 MCG PO SCH (09:21)
[2018-11-15] MEDS: Aspirin 81 mg CHEW TAB* 81 MG TAB.CHEW PO SCH (09:22)
[2018-11-15] MEDS: Cholecalciferol TAB* 400 UNIT PO SCH (09:22)
[2018-11-15] MEDS: Magnesium Oxide TAB* 400 MG PO SCH (09:22)
[2018-11-15] MEDS: Lidocaine PATCH 5%* 1 PATCH TRANSDERM SCH (09:23)
[2018-11-15] MEDS ORDERED: NS 0.9% 1000 ML** 1,000 ML IV SCH (09:45)
[2018-11-15] MEDS ORDERED: Furosemide IV* 10 MG/ML 2 ML VIAL (20 MG) IV ONE (10:18)
[2018-11-15] MEDS: Atenolol TAB* 50 MG PO SCH (10:19)
[2018-11-15] MEDS: Atorvastatin* 10 MG TAB PO SCH (17:54)
--- NOTE | 2018-11-15 19:34 | PN ---
Subjective Date of Service: 11/15/18 Interval History: LATE ENTRY: Pt continues to feel weak. She states that last July she fell and went to [facility] for 1 year, she states. She was recently d/c'd and has been living with her daughter for approximately 2 weeks. She has not been able to walk without a walker since her fall, and has slowly deconditioned. Pt has SOB at rest and is requiring 2L O2; she has no baseline requirements for O2. Pt states SOB is worse with laying flat and she admits to orthopnea. No chest wall tenderness, no chest pain. She has a chronic cough, with no change in cough, no fever. Objective Active Medications: Albuterol (Ventolin 2.5 Mg/3 Ml Neb.Meenu*) 2.5 mg INH Q4H PRN Apixaban (Eliquis*) 5 mg PO BID MELLISA Aspirin (Aspirin 81 Mg Chew Tab*) 81 mg PO QAM [facility] Atenolol (Tenormin Tab*) 75 mg PO QAM [facility] Atorvastatin Calcium (Lipitor*) 10 mg PO QPM MELLISA Calcitriol (Rocaltrol Cap*) 0.5 mcg PO DAILY MELLISA Calcium Carbonate (Tums*) 500 mg PO DAILY PRN Cholecalciferol (Vitamin D Tab*) 800 unit PO QAM MELLISA Cyanocobalamin (Vitamin B12 Tab*) 500 mcg PO QAM [facility] Dextrose (D50w Syringe 50 Ml*) 12.5 gm IV PUSH .FOR FS < 60 - SS PRN Insulin Human Lispro (Humalog*) 0 units SUBCUT ACHS [facility]; Protocol Lidocaine (Lidoderm 5% Patch*) 1 patch TRANSDERM DAILY [facility] Magnesium Oxide (Magox 400 Tab*) 400 mg PO QAM [facility] Pharmacy Profile Note (Lidocaine Patch Remove*) 1 note PATCH OFF 2100 MELLISA Tramadol HCl (Ultram*) 50 mg PO TID PRN Vital Signs: Temp Pulse Resp BP Pulse Ox 97.3 F 83 20 92/74 100 11/15/18 15:15 11/15/18 15:15 11/15/18 15:15 11/15/18 15:15 11/15/18 15:15 Oxygen Devices in Use Now: Nasal Cannula Appearance: Pt sitting in recliner chair with LE elevated. She is alert, cooperative, talkative. She is wearing O2, breathing well with O2 in place. She is in no acute distress. Eyes: No Scleral Icterus, PERRLA Ears/Nose/Mouth/Throat: NL Teeth, Lips, Gums, Clear Oropharnyx, Mucous Membranes Moist Neck: NL Appearance and Movements; NL JVP, Trachea Midline Respiratory: Symmetrical Chest Expansion and Respiratory Effort, - - Crackles at R base Cardiovascular: NL Sounds; No Murmurs; No JVD, RRR Abdominal: NL Sounds; No Tenderness; No Distention, No Hepatosplenomegaly Extremities: No Clubbing, Cyanosis, - - B/L LE edema 2+ pitting without s/s cellulitis. Ecchymosis to b/l UE Neurological: Alert and Oriented x 3 Result Diagrams: 11/15/18 06:00 11/15/18 06:00 Microbiology and Other Data: Microbiology 11/13/18 23:30 Urine Culture - Final Urine No Growth (<1,000 CFU/mL) Diagnostic Imaging: Portable CXR shows single lead pacemaker in place with prominent pulmonary vessels. Official radiology read is pending. EKG Data: Shows A. Fib with rate of 83bpm without any change in wave form compared to old EKG. Assess/Plan/Problems-Billing Assessment: Ms. Coughlin is an 82-year-old female with a very complex recent past medical history significant for severe hyperparathyroidism; aortic stenosis, status post recent TAVR; heart failure, preserved ejection fraction; and atrial fibrillation with tachybrady syndrome, status post pacemaker earlier this year, recent stroke in July when she was sent to [facility] without any residual deficit here due to difficulty walking. Noted have have elevated creatinine. - Patient Problems (1) Ambulatory dysfunction Comment: -Debilty due to age related vs CHF. Recently discharged from rehab. Notes decline in activity and ability to ambulate since fall in July 2017. -PT/OT ordered -SW consulted, as patient will likely need placement; plan is CM, daughter, pt will meet today to discuss (2) Shortness of breath Comment: -Increased SOB after 1.5L IVF administered yesterday; denies change in cough, fever -CXR WNL -Likely pulmonary edema -Lasix 20 IV now; reassess in a.m. (3) Acute kidney injury Comment: -Cr improving. Pt reports h/o diarrhea and decreased PO intake with dry oral mucosa; ? prerenal due to hypovolemia -1.5L IVF given yesterday; now patient with SOB -Check Urine lytes to calculate FeNa although might be abnormal due to lasix use -If creatinine doesn't improve consider nephrology consult -Will recheck in a.m. (4) Anemia Comment: -AUGUSTUS noted from previous lab data -Hgb minimally lower than baseline, but stable -Stool for blood ordered -Will continue to monitor H/H for need for transfusion (5) HTN (hypertension) Comment: -Low-normal blood pressure which improved minimally with fluids yesterday -Continue holding home medications furosemide, lisinopril (6) Diastolic heart failure Comment: -Echo from 09/17/2018 with preserved EF -Holding home medications in light of hypotension -Will monitor for need for restart (7) Diabetes mellitus Comment: -Well controlled -Hold Januvia -Lispro SS with AC fingersticks (8) Afib Comment: -Restart Eliquis -Atenolol in a.m. with hold parameters (9) HLD (hyperlipidemia) Comment: -Continue atorvastatin (10) DVT prophylaxis Comment: -Eliquis (11) Full code status Comment: Status and Disposition: Inpatient. Discharge when stable. Likely to need placement.
[2018-11-15] MEDS: Apixaban* 5 MG TAB PO SCH (21:49)
[2018-11-15] MEDS: traMADol TAB* 50 MG PO PRN (21:49)
[2018-11-15] MEDS: Lidocaine Patch REMOVE* 1 NOTE MISC PATCH OFF SCH (21:50)
[2018-11-16 06:18] LABS: ABS Eosinophils 0.2 10^3/ul (0-0.6); ABS Lymphocytes 0.8 10^3/ul (1.0-4.8); ABS Neutrophils 4.8 10^3/ul (1.5-7.7); Eosinophil % 2.7 %; Hematocrit 28 % (35-47); Hemoglobin 8.8 g/dL (12.0-16.0); Mean Corpuscular HGB Conc 32 g/dL (31-36); Mean Corpuscular Hemoglobin 27 pg (27-31); Mean Corpuscular Volume 84 fL (80-97); Mean Platelet Volume 8.4 fL (7.4-10.4); Platelet Count 206 10^3/uL (150-450); Red Cell Distribution Width 16 % (10-15); White Blood Count 6.9 10^3/uL (3.5-10.8)
[2018-11-16 06:40] LABS: BUN/Creatinine Ratio 28.4 (8-20); Calcium 8.3 mg/dL (8.6-10.3); EGFR African American 74.6 (>60); EGFR Non-African American 61.7 (>60); Potassium 3.5 mmol/L (3.5-5.0)
[2018-11-16] MEDS: Insulin LISPRO* 1 UNITS UNIT SUBCUT SCH ×4 (08:18→21:36)
[2018-11-16] MEDS: Atenolol TAB* 50 MG PO SCH (09:13)
[2018-11-16] MEDS: Cholecalciferol TAB* 400 UNIT PO SCH (09:14)
[2018-11-16] MEDS: Cyanocobalamin TAB* 500 MCG PO SCH (09:15)
[2018-11-16] MEDS: Magnesium Oxide TAB* 400 MG PO SCH (09:15)
[2018-11-16] MEDS: Apixaban* 5 MG TAB PO SCH ×2 (09:15→21:02)
[2018-11-16] MEDS: Calcitriol CAP* 0.25 MCG PO SCH (09:15)
[2018-11-16] MEDS: Aspirin 81 mg CHEW TAB* 81 MG TAB.CHEW PO SCH (09:15)
[2018-11-16] MEDS: Lidocaine PATCH 5%* 1 PATCH TRANSDERM SCH (09:22)
[2018-11-16] MEDS: traMADol TAB* 50 MG PO PRN (12:12)
[2018-11-16] MEDS ORDERED: Furosemide IV* 10 MG/ML 2 ML VIAL (20 MG) IV ONE (12:57)
--- NOTE | 2018-11-16 16:45 | PN ---
Subjective Date of Service: 11/16/18 Interval History: c/o shortness of breath this AM lungs with exp wheezes bilat Denies chest pain. Denies abd pain n/v/d. denies fever or chills. denies cough or congestion. Family History: Unchanged from Admission Social History: Unchanged from Admission Past Medical History: Unchanged from Admission Objective Active Medications: Albuterol (Ventolin 2.5 Mg/3 Ml Neb.Meenu*) 2.5 mg INH Q4H PRN PRN Reason: SHORTNESS OF BREATH Last Admin: 11/15/18 20:01 Dose: 2.5 mg Apixaban (Eliquis*) 5 mg PO BID [facility] Last Admin: 11/16/18 09:15 Dose: 5 mg Atenolol (Tenormin Tab*) 75 mg PO QAM [facility] Last Admin: 11/16/18 09:13 Dose: 75 mg Atorvastatin Calcium (Lipitor*) 10 mg PO QPM [facility] Last Admin: 11/15/18 17:54 Dose: 10 mg Calcitriol (Rocaltrol Cap*) 0.5 mcg PO DAILY [facility] Last Admin: 11/16/18 09:15 Dose: 0.5 mcg Calcium Carbonate (Tums*) 500 mg PO DAILY PRN PRN Reason: HEARTBURN Cholecalciferol (Vitamin D Tab*) [facility] Last Admin: 11/16/18 09:14 Dose: 800 unit Cyanocobalamin (Vitamin B12 Tab*) 500 mcg PO QAM [facility] Last Admin: 11/16/18 09:15 Dose: 500 mcg Dextrose (D50w Syringe 50 Ml*) 12.5 gm IV PUSH .FOR FS < 60 - SS PRN PRN Reason: FS < 60 Insulin Human Lispro (Humalog*) 0 units SUBCUT [facility]; Protocol Last Admin: 11/16/18 16:12 Dose: Not Given Lidocaine (Lidoderm 5% Patch*) 1 patch TRANSDERM DAILY [facility] Last Admin: 11/16/18 09:22 Dose: 1 patch Magnesium Oxide (Magox 400 Tab*) 400 mg PO QAM [facility] Last Admin: 11/16/18 09:15 Dose: 400 mg Pharmacy Profile Note (Lidocaine Patch Remove*) 1 note PATCH OFF 2100 [facility] Last Admin: 11/15/18 21:50 Dose: 1 note Tramadol HCl (Ultram*) 50 mg PO TID PRN PRN Reason: PAIN Last Admin: 11/16/18 12:12 Dose: 50 mg Vital Signs - 8 hr 11/16/18 11/16/18 11/16/18 12:12 12:15 15:12 Temperature 97.9 F Pulse Rate 78 Respiratory 18 16 22 Rate Blood Pressure 123/64 (mmHg) O2 Sat by Pulse 100 Oximetry 11/16/18 15:30 Temperature 98.5 F Pulse Rate 84 Respiratory 18 Rate Blood Pressure 105/76 (mmHg) O2 Sat by Pulse 99 Oximetry Oxygen Devices in Use Now: Nasal Cannula Appearance: appears anxious - mild respiratory distress alert and oriented. Eyes: No Scleral Icterus Ears/Nose/Mouth/Throat: Clear Oropharnyx, Mucous Membranes Moist Neck: NL Appearance and Movements; NL JVP, Trachea Midline Respiratory: Symmetrical Chest Expansion and Respiratory Effort, - - wheezes bilat Cardiovascular: NL Sounds; No Murmurs; No JVD, No Edema Abdominal: NL Sounds; No Tenderness; No Distention Extremities: No Clubbing, Cyanosis, - - bilat lower ext with + 3 pitting edema Skin: No Rash or Ulcers Neurological: Alert and Oriented x 3 Nutrition: Taking PO's Result Diagrams: 11/16/18 05:57 11/16/18 05:57 Microbiology and Other Data: Microbiology 11/13/18 23:30 Urine Culture - Final Urine No Growth (<1,000 CFU/mL) Diagnostic Imaging: Portable CXR shows single lead pacemaker in place with prominent pulmonary vessels. Official radiology read is pending. EKG Data: Shows A. Fib with rate of 83bpm without any change in wave form compared to old EKG. Assess/Plan/Problems-Billing Assessment: Ms. Coughlin is an 82-year-old female with a very complex recent past medical history significant for severe hyperparathyroidism; aortic stenosis, status post recent TAVR; heart failure, preserved ejection fraction; and atrial fibrillation with tachybrady syndrome, status post pacemaker earlier this year, recent stroke in July when she was sent to [facility] without any residual deficit here due to difficulty walking. Noted have have elevated creatinine. - Patient Problems (1) Ambulatory dysfunction Current Visit: Yes Status: Acute Code(s): R26.2 - DIFFICULTY IN WALKING, NOT ELSEWHERE CLASSIFIED SNOMED Code(s): 255991730 Comment: -suspect this is related to age vs CHF vs deconditioning. Recently discharged from rehab 2 weeks ago after a year long stay. -PT/OT ordered -SW consulted, as patient will likely need placement; plan is CM, daughter, pt will meet today to discuss (2) Acute kidney injury Current Visit: Yes Status: Acute Code(s): N17.9 - ACUTE KIDNEY FAILURE, UNSPECIFIED SNOMED Code(s): 64940333 Comment: -Cr improved. normalized -Pt reports h/o diarrhea and decreased PO intake with dry oral mucosa; ? prerenal due to hypovolemia -1.5L IVF given yesterday; now patient with SOB- received lasix - patient with +3 pitting edmea to lower extremities. (3) Diabetes mellitus Current Visit: Yes Status: Acute Code(s): E11.9 - TYPE 2 DIABETES MELLITUS WITHOUT COMPLICATIONS SNOMED Code(s): 17033281 Comment: -Well controlled -Hold Januvia -Lispro SS with AC fingersticks (4) Diastolic heart failure Current Visit: Yes Status: Acute Code(s): I50.30 - UNSPECIFIED DIASTOLIC ( CONGESTIVE) HEART FAILURE SNOMED Code(s): 909877496 Comment: -Echo from 09/17/2018 with preserved EF -will give dose of lasix today - daily weights and i/o's (5) Shortness of breath Current Visit: Yes Status: Acute Code(s): R06.02 - SHORTNESS OF BREATH SNOMED Code(s): 677743672 Comment: -Increased SOB today -lung with exp wheezes -lower ext with + 3 pitting edema - will give dose lasix today 20 mg IV (6) Anemia Current Visit: No Status: Acute Code(s): D64.9 - ANEMIA, UNSPECIFIED SNOMED Code(s): 222911802 Comment: -AUGUSTUS noted from previous lab data -Hgb minimally lower than baseline, but stable -Stool for blood ordered- positive - will stop aspirin continue Eliquis for now - patient denies abd pain or bright red blood from the recturm, black or tarry stools -Will continue to monitor H/H for need for transfusion - INR 3.18 on 11/13 - will repeat in the AM - may need to decrease dose as patient is hypercoagulable (7) HLD (hyperlipidemia) Current Visit: No Status: Chronic Code(s): E78.5 - HYPERLIPIDEMIA, UNSPECIFIED SNOMED Code(s): 61638826 Comment: -Continue atorvastatin (8) Type 2 diabetes mellitus Current Visit: No Status: Chronic Comment: -will hold januvia - continue lispro sliding scale - finger sticks ac/hs (9) DVT prophylaxis Current Visit: Yes Status: Acute Code(s): Z29.9 - ENCOUNTER FOR PROPHYLACTIC MEASURES, UNSPECIFIED SNOMED Code(s): 498183464 Comment: -Juwan (10) DVT prophylaxis Current Visit: No Status: Acute Priority: Low Code(s): PMZ5399 - SNOMED Code(s): 019037937 Comment: - Juwan (11) Full code status Current Visit: No Status: Acute Code(s): Z78.9 - OTHER SPECIFIED HEALTH STATUS SNOMED Code(s): 844856740 Comment: Status and Disposition: Inpatient. Discharge when stable. Likely need placement.
[2018-11-16] MEDS: Atorvastatin* 10 MG TAB PO SCH (18:22)
[2018-11-16] MEDS: Lidocaine Patch REMOVE* 1 NOTE MISC PATCH OFF SCH (21:11)
[2018-11-17 06:50] LABS: INR 3.35 (0.82-1.09)
[2018-11-17 06:51] LABS: Hematocrit 30 % (35-47); Hemoglobin 9.7 g/dL (12.0-16.0); Mean Corpuscular HGB Conc 33 g/dL (31-36); Mean Corpuscular Hemoglobin 27 pg (27-31); Mean Corpuscular Volume 83 fL (80-97); Mean Platelet Volume 8.8 fL (7.4-10.4); Platelet Count 245 10^3/uL (150-450); Red Blood Count 3.55 10^6 /uL (3.70-4.87); Red Cell Distribution Width 16 % (10-15); White Blood Count 6.3 10^3/uL (3.5-10.8)
[2018-11-17 06:59] LABS: BUN/Creatinine Ratio 25.3 (8-20); Calcium 8.5 mg/dL (8.6-10.3); EGFR African American 89.7 (>60); EGFR Non-African American 74.2 (>60); Potassium 3.4 mmol/L (3.5-5.0)
[2018-11-17] MEDS: Insulin LISPRO* 1 UNITS UNIT SUBCUT SCH ×4 (07:56→22:54)
[2018-11-17] MEDS ORDERED: Potassium Chlor TAB* 20 MEQ TAB.ER PO ONE (08:50)
[2018-11-17] MEDS ORDERED: Apixaban* 2.5 MG TAB PO SCH (09:00)
[2018-11-17] MEDS: Calcitriol CAP* 0.25 MCG PO SCH (10:40)
[2018-11-17] MEDS: Cholecalciferol TAB* 400 UNIT PO SCH (10:40)
[2018-11-17] MEDS: Atenolol TAB* 50 MG PO SCH (10:41)
[2018-11-17] MEDS: Cyanocobalamin TAB* 500 MCG PO SCH (10:42)
[2018-11-17] MEDS: Magnesium Oxide TAB* 400 MG PO SCH (10:42)
[2018-11-17] MEDS: Lidocaine PATCH 5%* 1 PATCH TRANSDERM SCH ×2 (10:42→10:47)
[2018-11-17] MEDS ORDERED: Furosemide TAB* 40 MG PO ONE (12:20)
--- NOTE | 2018-11-17 15:39 | PN ---
Subjective Date of Service: 11/17/18 Interval History: patient reports that her breathing is better. Denies chest pain or shortness of breath. Denies abd pain n/v/d. PT evaluation : on 11/14 recommended STR at discharge - patient refused PT on - Family History: Unchanged from Admission Social History: Unchanged from Admission Past Medical History: Unchanged from Admission Objective Active Medications: Albuterol (Ventolin 2.5 Mg/3 Ml Neb.Meenu*) 2.5 mg INH Q4H PRN PRN Reason: SHORTNESS OF BREATH Last Admin: 11/15/18 20:01 Dose: 2.5 mg Atenolol (Tenormin Tab*) 75 mg PO QAM [facility] Last Admin: 11/17/18 10:41 Dose: 75 mg Atorvastatin Calcium (Lipitor*) 10 mg PO QPM [facility] Last Admin: 11/16/18 18:22 Dose: 10 mg Calcitriol (Rocaltrol Cap*) 0.5 mcg PO DAILY [facility] Last Admin: 11/17/18 10:40 Dose: 0.5 mcg Calcium Carbonate (Tums*) 500 mg PO DAILY PRN PRN Reason: HEARTBURN Cholecalciferol (Vitamin D Tab*) [facility] Last Admin: 11/17/18 10:40 Dose: 800 unit Cyanocobalamin (Vitamin B12 Tab*) [facility] Last Admin: 11/17/18 10:42 Dose: 500 mcg Dextrose (D50w Syringe 50 Ml*) 12.5 gm IV PUSH .FOR FS < 60 - SS PRN PRN Reason: FS < 60 Furosemide (Lasix Tab*) 20 mg PO 0800,1700 [facility] Insulin Human Lispro (Humalog*) 0 units SUBCUT ACHS [facility]; Protocol Last Admin: 11/17/18 13:02 Dose: 1 unit Lidocaine (Lidoderm 5% Patch*) 1 patch TRANSDERM DAILY [facility] Last Admin: 11/17/18 10:47 Dose: Not Given Magnesium Oxide (Magox 400 Tab*) [facility] Last Admin: 11/17/18 10:42 Dose: 400 mg Pharmacy Profile Note (Lidocaine Patch Remove*) 1 note PATCH OFF 2100 [facility] Last Admin: 11/16/18 21:11 Dose: 1 note Tramadol HCl (Ultram*) 50 mg PO TID PRN PRN Reason: PAIN Last Admin: 11/16/18 12:12 Dose: 50 mg Vital Signs - 8 hr 11/17/18 11/17/18 07:56 11:15 Temperature 97.9 F Pulse Rate 83 Respiratory 20 20 Rate Blood Pressure 154/84 (mmHg) Oxygen Devices in Use Now: Nasal Cannula Appearance: appears comfortable , sitting in the chair , no acute distress Eyes: No Scleral Icterus Ears/Nose/Mouth/Throat: Clear Oropharnyx, Mucous Membranes Moist Neck: NL Appearance and Movements; NL JVP, Trachea Midline Respiratory: Symmetrical Chest Expansion and Respiratory Effort, - - diminished t/o bilat Cardiovascular: NL Sounds; No Murmurs; No JVD Abdominal: NL Sounds; No Tenderness; No Distention Extremities: No Clubbing, Cyanosis, - - +2-3 pitting edema to bilat lower legs, slight improvement Skin: No Rash or Ulcers Neurological: Alert and Oriented x 3 Nutrition: Taking PO's Result Diagrams: 11/17/18 05:48 11/17/18 05:48 Microbiology and Other Data: Microbiology 11/13/18 23:30 Urine Culture - Final Urine No Growth (<1,000 CFU/mL) Diagnostic Imaging: Portable CXR shows single lead pacemaker in place with prominent pulmonary vessels. Official radiology read is pending. EKG Data: Shows A. Fib with rate of 83bpm without any change in wave form compared to old EKG. Assess/Plan/Problems-Billing Assessment: Ms. Coughlin is an 82-year-old female with a very complex recent past medical history significant for severe hyperparathyroidism; aortic stenosis, status post recent TAVR; heart failure, preserved ejection fraction; and atrial fibrillation with tachybrady syndrome, status post pacemaker earlier this year, recent stroke in July when she was [facility] without any residual deficit here due to difficulty walking. Noted have have elevated creatinine. - Patient Problems (1) Ambulatory dysfunction Current Visit: Yes Status: Acute Code(s): R26.2 - DIFFICULTY IN WALKING, NOT ELSEWHERE CLASSIFIED SNOMED Code(s): 759589454 Comment: -suspect this is related to age vs CHF vs deconditioning. Recently discharged from rehab 2 weeks ago after a year long stay. -PT/OT ordered -SW consulted, as patient will likely need placement; plan is CM, daughter, pt will meet today to discuss (2) Acute kidney injury Current Visit: Yes Status: Acute Code(s): N17.9 - ACUTE KIDNEY FAILURE, UNSPECIFIED SNOMED Code(s): 25073832 Comment: -Patient with elevated BUN/Creatinine on admission now resolved - received fluids and then Lasix d/t fluid overload. (3) Diabetes mellitus Current Visit: Yes Status: Acute Code(s): E11.9 - TYPE 2 DIABETES MELLITUS WITHOUT COMPLICATIONS SNOMED Code(s): 69871925 Comment: -controlled -Hold Januvia -Lispro SS with AC fingersticks (4) Diastolic heart failure Current Visit: Yes Status: Acute Code(s): I50.30 - UNSPECIFIED DIASTOLIC ( CONGESTIVE) HEART FAILURE SNOMED Code(s): 072462834 Comment: -Echo from 09/17/2018 with preserved EF - will given 40mg of lasix po today and resume home dose 20mg BID tomorrow - lower ext edema slowly improving - daily weights and i/o's (5) Shortness of breath Current Visit: Yes Status: Acute Code(s): R06.02 - SHORTNESS OF BREATH SNOMED Code(s): 831512533 Comment: - SOB improved today -lung diminished -lower ext with +2-3 pitting edema - will give dose lasix 40mg PO today and then resume home dose pf lasix 20mg BID (6) Anemia Current Visit: No Status: Acute Code(s): D64.9 - ANEMIA, UNSPECIFIED SNOMED Code(s): 227742887 Comment: -AUGUSTUS noted from previous lab data -Hgb improving, stable -Stool occult- positive - will stop aspirin and Eliquis for now - patient denies abd pain or bright red blood from the recturm, black or tarry stools -Will continue to monitor H/H for need for transfusion - INR 3.35- will repeat in the AM - patient is hypercoagulable- will hold Eliquis (7) HLD (hyperlipidemia) Current Visit: No Status: Chronic Code(s): E78.5 - HYPERLIPIDEMIA, UNSPECIFIED SNOMED Code(s): 82571748 Comment: -Continue atorvastatin (8) Type 2 diabetes mellitus Current Visit: No Status: Chronic Comment: -will hold januvia - continue lispro sliding scale - finger sticks ac/hs (9) DVT prophylaxis Current Visit: Yes Status: Acute Code(s): Z29.9 - ENCOUNTER FOR PROPHYLACTIC MEASURES, UNSPECIFIED SNOMED Code(s): 086584010 Comment: -Juwan (10) Full code status Current Visit: No Status: Acute Code(s): Z78.9 - OTHER SPECIFIED HEALTH STATUS SNOMED Code(s): 364682724 Comment: Status and Disposition: Inpatient. Discharge when stable. Likely need placement.
[2018-11-17] MEDS: Atorvastatin* 10 MG TAB PO SCH (17:20)
[2018-11-17] MEDS: Lidocaine Patch REMOVE* 1 NOTE MISC PATCH OFF SCH (22:12)
[2018-11-18 06:44] LABS: INR 2.26 (0.82-1.09)
[2018-11-18 06:53] LABS: Hematocrit 31 % (35-47); Hemoglobin 10.2 g/dL (12.0-16.0); Mean Corpuscular HGB Conc 33 g/dL (31-36); Mean Corpuscular Hemoglobin 28 pg (27-31); Mean Corpuscular Volume 83 fL (80-97); Mean Platelet Volume 8.1 fL (7.4-10.4); Platelet Count 282 10^3/uL (150-450); Red Blood Count 3.71 10^6 /uL (3.70-4.87); Red Cell Distribution Width 16 % (10-15); White Blood Count 7.5 10^3/uL (3.5-10.8)
[2018-11-18 06:55] LABS: BUN/Creatinine Ratio 21.5 (8-20); Calcium 8.7 mg/dL (8.6-10.3); EGFR African American 84.5 (>60); EGFR Non-African American 69.8 (>60); Potassium 3.4 mmol/L (3.5-5.0)
[2018-11-18] MEDS ORDERED: Potassium Chlor TAB* 20 MEQ TAB.ER PO ONE (08:03)
[2018-11-18] MEDS: Insulin LISPRO* 1 UNITS UNIT SUBCUT SCH ×4 (08:17→22:56)
[2018-11-18] MEDS: Lidocaine PATCH 5%* 1 PATCH TRANSDERM SCH (08:58)
[2018-11-18] MEDS: Calcitriol CAP* 0.25 MCG PO SCH (09:00)
[2018-11-18] MEDS: Furosemide TAB* 20 MG PO SCH ×2 (09:00→17:23)
[2018-11-18] MEDS: Cyanocobalamin TAB* 500 MCG PO SCH (09:00)
[2018-11-18] MEDS: Magnesium Oxide TAB* 400 MG PO SCH (09:00)
[2018-11-18] MEDS: Atenolol TAB* 50 MG PO SCH (09:01)
[2018-11-18] MEDS: Cholecalciferol TAB* 400 UNIT PO SCH (09:01)
[2018-11-18] MEDS: Atorvastatin* 10 MG TAB PO SCH (17:23)
--- NOTE | 2018-11-18 22:34 | PN ---
Subjective Date of Service: 11/18/18 Interval History: Patient reports that she is feeling better today, walked with PT but still is concerned about weakness. Reports that she has difficulty getting in and out of bed and performing daily activities. is concerned about returning home and walking up stairs to get in the house. Reports that breathing is improved, denies shortness of breath or chest pain. Denies abd pain n/v/d. Denies fever or chills or cough or congestion. Family History: Unchanged from Admission Social History: Unchanged from Admission Past Medical History: Unchanged from Admission Objective Active Medications: Albuterol (Ventolin 2.5 Mg/3 Ml Neb.Meenu*) 2.5 mg INH Q4H PRN PRN Reason: SHORTNESS OF BREATH Last Admin: 11/15/18 20:01 Dose: 2.5 mg Atenolol (Tenormin Tab*) 75 mg PO QAM [facility] Last Admin: 11/18/18 09:01 Dose: 75 mg Atorvastatin Calcium (Lipitor*) 10 mg PO QPM [facility] Last Admin: 11/18/18 17:23 Dose: 10 mg Calcitriol (Rocaltrol Cap*) 0.5 mcg PO DAILY [facility] Last Admin: 11/18/18 09:00 Dose: 0.5 mcg Calcium Carbonate (Tums*) 500 mg PO DAILY PRN PRN Reason: HEARTBURN Cholecalciferol (Vitamin D Tab*) [facility] Last Admin: 11/18/18 09:01 Dose: 800 unit Cyanocobalamin (Vitamin B12 Tab*) 500 [facility]cg [facility] [place] Last Admin: 11/18/18 09:00 Dose: 500 mcg Dextrose (D50w Syringe 50 Ml*) 12.5 gm IV PUSH .FOR FS < 60 - SS PRN PRN Reason: FS < 60 Furosemide (Lasix Tab*) 20 mg PO 0800,1700 [facility] Last Admin: 11/18/18 17:23 Dose: 20 mg Insulin Human Lispro (Humalog*) 0 units SUBCUT [facility]; Protocol Last Admin: 11/18/18 17:22 Dose: 1 unit Lidocaine (Lidoderm 5% Patch*) 1 patch TRANSDERM DAILY [facility] Last Admin: 11/18/18 08:58 Dose: 1 patch Magnesium Oxide (Magox 400 Tab*) [facility] Last Admin: 11/18/18 09:00 Dose: 400 mg Pharmacy Profile Note (Lidocaine Patch Remove*) 1 note PATCH OFF [address] [facility] Last Admin: 11/17/18 22:12 Dose: Not Given Tramadol HCl (Ultram*) 50 mg PO TID PRN PRN Reason: PAIN Last Admin: 11/16/18 12:12 Dose: 50 mg Vital Signs - 8 hr 11/18/18 15:15 Temperature 97.5 F Pulse Rate 60 Respiratory 18 Rate Blood Pressure 112/56 (mmHg) O2 Sat by Pulse 98 Oximetry Oxygen Devices in Use Now: None Appearance: alert , no acute distress Eyes: No Scleral Icterus Ears/Nose/Mouth/Throat: Clear Oropharnyx, Mucous Membranes Moist Respiratory: Symmetrical Chest Expansion and Respiratory Effort, Clear to Auscultation, - - in the bases bilat Cardiovascular: NL Sounds; No Murmurs; No JVD Abdominal: NL Sounds; No Tenderness; No Distention Extremities: No Clubbing, Cyanosis, - - +2 pitting edema to bilat lower legs Skin: No Rash or Ulcers Neurological: Alert and Oriented x 3 Nutrition: Taking PO's Result Diagrams: 11/18/18 06:26 11/18/18 06:26 Microbiology and Other Data: Microbiology 11/13/18 23:30 Urine Culture - Final Urine No Growth (<1,000 CFU/mL) Diagnostic Imaging: Portable CXR shows single lead pacemaker in place with prominent pulmonary vessels. Official radiology read is pending. EKG Data: Shows A. Fib with rate of 83bpm without any change in wave form compared to old EKG. Assess/Plan/Problems-Billing Assessment: Ms. Coughlin is an 82-year-old female with a very complex recent past medical history significant for severe hyperparathyroidism; aortic stenosis, status post recent TAVR; heart failure, preserved ejection fraction; and atrial fibrillation with tachybrady syndrome, status post pacemaker earlier this year, recent stroke in July when she was sent to [facility] without any residual deficit here due to difficulty walking. Noted have have elevated creatinine. - Patient Problems (1) Ambulatory dysfunction Current Visit: Yes Status: Acute Code(s): R26.2 - DIFFICULTY IN WALKING, NOT ELSEWHERE CLASSIFIED SNOMED Code(s): 204870760 Comment: -suspect this is related to age vs CHF vs deconditioning. Recently discharged from rehab 2 weeks ago after a year long stay. -PT/OT ordered -SW consulted, as patient will need placement (2) Acute kidney injury Current Visit: Yes Status: Acute Code(s): N17.9 - ACUTE KIDNEY FAILURE, UNSPECIFIED SNOMED Code(s): 35360859 Comment: -Patient with elevated BUN/Creatinine on admission now resolved - received fluids and then Lasix d/t fluid overload. (3) Diabetes mellitus Current Visit: Yes Status: Acute Code(s): E11.9 - TYPE 2 DIABETES MELLITUS WITHOUT COMPLICATIONS SNOMED Code(s): 87719704 Comment: -controlled -Hold Januvia -Lispro SS with AC fingersticks (4) Diastolic heart failure Current Visit: Yes Status: Acute Code(s): I50.30 - UNSPECIFIED DIASTOLIC ( CONGESTIVE) HEART FAILURE SNOMED Code(s): 398679866 Comment: -Echo from 09/17/2018 with preserved EF - will continue home dose 20mg BID - lower ext edema slowly improving - daily weights and i/o's (5) Shortness of breath Current Visit: Yes Status: Acute Code(s): R06.02 - SHORTNESS OF BREATH SNOMED Code(s): 563597982 Comment: - SOB improved today -lung sounda diminished -lower ext with +2 pitting edema - lasix 20mg BID (6) Anemia Current Visit: No Status: Acute Code(s): D64.9 - ANEMIA, UNSPECIFIED SNOMED Code(s): 353230898 Comment: -AUGUSTUS noted from previous lab data -Hgb improving, stable -Stool occult- positive - will stop aspirin and Eliquis for now - patient denies abd pain or bright red blood from the recturm, black or tarry stools can follow up outpatient with GI for positive occult stool -Will continue to monitor H/H for need for transfusion - INR 2.35- will repeat in the AM - patient is hypercoagulable- will resume eliquis at a lower dose 2.5 bid (7) HLD (hyperlipidemia) Current Visit: No Status: Chronic Code(s): E78.5 - HYPERLIPIDEMIA, UNSPECIFIED SNOMED Code(s): 91815186 Comment: -Continue atorvastatin (8) Type 2 diabetes mellitus Current Visit: No Status: Chronic Comment: -will hold januvia - continue lispro sliding scale - finger sticks ac/hs (9) DVT prophylaxis Current Visit: Yes Status: Acute Code(s): Z29.9 - ENCOUNTER FOR PROPHYLACTIC MEASURES, UNSPECIFIED SNOMED Code(s): 684030701 Comment: -held eliquis d/t INR 3.35 - down to 2.35 today - will resume tomorrow (10) Full code status Current Visit: No Status: Acute Code(s): Z78.9 - OTHER SPECIFIED HEALTH STATUS SNOMED Code(s): 768898676 Comment: Status and Disposition: Inpatient. Discharge when stable. will need placement.
[2018-11-18] MEDS: Lidocaine Patch REMOVE* 1 NOTE MISC PATCH OFF SCH (22:38)
[2018-11-18 23:43] LABS: Urine Potassium Concentration 17.7 mmol/L
[2018-11-19 07:39] LABS: INR 1.78 (0.82-1.09)
[2018-11-19 08:01] LABS: Calcium 8.8 mg/dL (8.6-10.3); Potassium 3.3 mmol/L (3.5-5.0)
[2018-11-19 08:07] LABS: BUN/Creatinine Ratio 23.4 (8-20); EGFR African American 87.1 (>60); EGFR Non-African American 71.9 (>60)
[2018-11-19] MEDS ORDERED: Potassium Chlor TAB* 20 MEQ TAB.ER PO ONE (08:20)
[2018-11-19] MEDS: Insulin LISPRO* 1 UNITS UNIT SUBCUT SCH ×4 (08:47→21:36)
[2018-11-19] MEDS ORDERED: Apixaban* 2.5 MG TAB PO SCH (09:00)
[2018-11-19] MEDS: Cholecalciferol TAB* 400 UNIT PO SCH (09:06)
[2018-11-19] MEDS: Calcitriol CAP* 0.25 MCG PO SCH (09:06)
[2018-11-19] MEDS: Furosemide TAB* 20 MG PO SCH ×2 (09:07→17:48)
[2018-11-19] MEDS: Cyanocobalamin TAB* 500 MCG PO SCH (09:07)
[2018-11-19] MEDS: Magnesium Oxide TAB* 400 MG PO SCH (09:07)
[2018-11-19] MEDS: Atenolol TAB* 50 MG PO SCH (09:08)
[2018-11-19] MEDS: Lidocaine PATCH 5%* 1 PATCH TRANSDERM SCH (09:08)
[2018-11-19] MEDS ORDERED: Furosemide IV* 10 MG/ML 2 ML VIAL (20 MG) IV ONE (12:39)
--- NOTE | 2018-11-19 17:21 | PN ---
Subjective Date of Service: 11/19/18 Interval History: Patient reports that she feels anxious about sleeping in the bed. States that she prefers to sleep in the chair. States that he breathing feels better. Denies chest pain or shortness of breath. Denies abd pain n/v/d. denies fever or chills. Family History: Unchanged from Admission Social History: Unchanged from Admission Past Medical History: Unchanged from Admission Objective Active Medications: Albuterol (Ventolin 2.5 Mg/3 Ml Neb.Meenu*) 2.5 mg INH Q4H PRN PRN Reason: SHORTNESS OF BREATH Last Admin: 11/15/18 20:01 Dose: 2.5 mg Apixaban (Eliquis*) 2.5 mg PO BID [facility] Last Admin: 11/19/18 09:07 Dose: 2.5 mg Atenolol (Tenormin Tab*) 75 mg PO QAM [facility] Last Admin: 11/19/18 09:08 Dose: 75 mg Atorvastatin Calcium (Lipitor*) 10 mg PO QPM [facility] Last Admin: 11/18/18 17:23 Dose: 10 mg Calcitriol (Rocaltrol Cap*) 0.5 mcg PO DAILY [facility] Last Admin: 11/19/18 09:06 Dose: 0.5 mcg Calcium Carbonate (Tums*) 500 mg PO DAILY PRN PRN Reason: HEARTBURN Cholecalciferol (Vitamin D Tab*) [facility] Last Admin: 11/19/18 09:06 Dose: 800 unit Cyanocobalamin (Vitamin B12 Tab*) 500 [facility]cg [facility] Last Admin: 11/19/18 09:07 Dose: 500 mcg Dextrose (D50w Syringe 50 Ml*) 12.5 gm IV PUSH .FOR FS < 60 - SS PRN PRN Reason: FS < 60 Furosemide (Lasix Tab*) 20 mg PO 0800,1700 [facility] Last Admin: 11/19/18 09:07 Dose: 20 mg Insulin Human Lispro (Humalog*) 0 units SUBCUT [facility]; Protocol Last Admin: 11/19/18 12:06 Dose: 1 unit Lidocaine (Lidoderm 5% Patch*) 1 patch TRANSDERM DAILY [facility] Last Admin: 11/19/18 09:08 Dose: 1 patch Magnesium Oxide (Magox 400 Tab*) [facility] Last Admin: 11/19/18 09:07 Dose: 400 mg Pharmacy Profile Note (Lidocaine Patch Remove*) 1 note PATCH OFF [address] [facility] Last Admin: 11/18/18 22:38 Dose: 1 note Potassium Chloride (Klor Con Er Tab*) 20 meq PO 0900,1700 [facility] Tramadol HCl (Ultram*) 50 mg PO TID PRN PRN Reason: PAIN Last Admin: 11/16/18 12:12 Dose: 50 mg Vital Signs - 8 hr 11/19/18 11/19/18 11/19/18 11:15 13:34 15:15 Temperature 97.8 F 98.2 F Pulse Rate 57 69 Respiratory 16 16 Rate Blood Pressure 92/71 98/58 138/48 (mmHg) O2 Sat by Pulse 96 99 Oximetry Oxygen Devices in Use Now: None Result Diagrams: 11/18/18 06:26 11/19/18 07:00 Microbiology and Other Data: Microbiology 11/13/18 23:30 Urine Culture - Final Urine No Growth (<1,000 CFU/mL) Diagnostic Imaging: Portable CXR shows single lead pacemaker in place with prominent pulmonary vessels. Official radiology read is pending. EKG Data: Shows A. Fib with rate of 83bpm without any change in wave form compared to old EKG. Assess/Plan/Problems-Billing Assessment: Ms. Coughlin is an 82-year-old female with a very complex recent past medical history significant for severe hyperparathyroidism; aortic stenosis, status post recent TAVR; heart failure, preserved ejection fraction; and atrial fibrillation with tachybrady syndrome, status post pacemaker earlier this year, recent stroke in July when she was sent to [facility] without any residual deficit here due to difficulty walking. Noted have have elevated creatinine. - Patient Problems (1) Ambulatory dysfunction Current Visit: Yes Status: Acute Code(s): R26.2 - DIFFICULTY IN WALKING, NOT ELSEWHERE CLASSIFIED SNOMED Code(s): 614591267 Comment: -suspect this is related to age vs CHF vs deconditioning. Recently discharged from rehab 2 weeks ago after a year long stay. -PT/OT ordered -SW consulted, as patient will need placement (2) Acute kidney injury Current Visit: Yes Status: Acute Code(s): N17.9 - ACUTE KIDNEY FAILURE, UNSPECIFIED SNOMED Code(s): 15589474 Comment: -Patient with elevated BUN/Creatinine on admission now resolved - received fluids and then Lasix d/t fluid overload. (3) Diabetes mellitus Current Visit: Yes Status: Acute Code(s): E11.9 - TYPE 2 DIABETES MELLITUS WITHOUT COMPLICATIONS SNOMED Code(s): 29442563 Comment: -controlled -Hold Januvia -Lispro SS with AC fingersticks (4) Diastolic heart failure Current Visit: Yes Status: Acute Code(s): I50.30 - UNSPECIFIED DIASTOLIC ( CONGESTIVE) HEART FAILURE SNOMED Code(s): 685026506 Comment: -Echo from 09/17/2018 with preserved EF - will continue home dose 20mg BID - lower ext edema slowly improving - daily weights and i/o's (5) Shortness of breath Current Visit: Yes Status: Acute Code(s): R06.02 - SHORTNESS OF BREATH SNOMED Code(s): 780140526 Comment: - SOB improved today -lung sounda diminished -lower ext with +2 pitting edema - lasix 20mg BID (6) Anemia Current Visit: No Status: Acute Code(s): D64.9 - ANEMIA, UNSPECIFIED SNOMED Code(s): 083355104 Comment: -AUGUSTUS noted from previous lab data -Hgb improving, stable -Stool occult- positive - will stop aspirin and Eliquis for now - patient denies abd pain or bright red blood from the recturm, black or tarry stools can follow up outpatient with GI for positive occult stool -Will continue to monitor H/H for need for transfusion - INR 2.35- will repeat in the AM - patient is hypercoagulable- will resume eliquis at a lower dose 2.5 bid (7) HLD (hyperlipidemia) Current Visit: No Status: Chronic Code(s): E78.5 - HYPERLIPIDEMIA, UNSPECIFIED SNOMED Code(s): 77316539 Comment: -Continue atorvastatin (8) Type 2 diabetes mellitus Current Visit: No Status: Chronic Comment: -will hold januvia - continue lispro sliding scale - finger sticks ac/hs (9) DVT prophylaxis Current Visit: Yes Status: Acute Code(s): Z29.9 - ENCOUNTER FOR PROPHYLACTIC MEASURES, UNSPECIFIED SNOMED Code(s): 697460826 Comment: -held eliquis d/t INR 3.35 - down to 2.35 today - will resume tomorrow (10) Full code status Current Visit: No Status: Acute Code(s): Z78.9 - OTHER SPECIFIED HEALTH STATUS SNOMED Code(s): 357688323 Comment: Status and Disposition: Inpatient. Discharge when stable. will need placement.
[2018-11-19] MEDS: Atorvastatin* 10 MG TAB PO SCH (17:48)
[2018-11-19] MEDS: Potassium Chlor TAB* 20 MEQ TAB.ER PO SCH (17:48)
[2018-11-19] MEDS: Lidocaine Patch REMOVE* 1 NOTE MISC PATCH OFF SCH (20:12)
[2018-11-19] MEDS: Apixaban* 5 MG TAB PO SCH (20:12)
--- NOTE | 2018-11-19 23:25 | PN ---
Subjective Date of Service: 11/19/18 Interval History: Patient reports breathing feels slightly better. denies chest pain or shortness of breath. denies abd pain, n/v/d. Continue to c/o leg swelling. denies fever or chills Patient has a bed offer at [facility] - will discharge tomorrow for sub acute rehab Family History: Unchanged from Admission Social History: Unchanged from Admission Past Medical History: Unchanged from Admission Objective Active Medications: Albuterol (Ventolin 2.5 Mg/3 Ml Neb.Meenu*) 2.5 mg INH Q4H PRN PRN Reason: SHORTNESS OF BREATH Last Admin: 11/15/18 20:01 Dose: 2.5 mg Apixaban (Eliquis*) 5 mg PO BID [facility] Last Admin: 11/19/18 20:12 Dose: 5 mg Atenolol (Tenormin Tab*) 75 mg PO QAM [facility] Last Admin: 11/19/18 09:08 Dose: 75 mg Atorvastatin Calcium (Lipitor*) 10 mg PO QPM [facility] Last Admin: 11/19/18 17:48 Dose: 10 mg Calcitriol (Rocaltrol Cap*) 0.5 mcg PO DAILY [facility] Last Admin: 11/19/18 09:06 Dose: 0.5 mcg Calcium Carbonate (Tums*) 500 mg PO DAILY PRN PRN Reason: HEARTBURN Cholecalciferol (Vitamin D Tab*) 800 unit PO QAM [facility] Last Admin: 11/19/18 09:06 Dose: 800 unit Cyanocobalamin (Vitamin B12 Tab*) 500 mcg PO QAM [facility] Last Admin: 11/19/18 09:07 Dose: 500 mcg Dextrose (D50w Syringe 50 Ml*) 12.5 gm IV PUSH .FOR FS < 60 - SS PRN PRN Reason: FS < 60 Furosemide (Lasix Tab*) 20 mg PO 0800,1700 [facility] Last Admin: 11/19/18 17:48 Dose: 20 mg Insulin Human Lispro (Humalog*) 0 units [facility]BCUT [facility]; Protocol Last Admin: 11/19/18 21:36 Dose: 2 unit Lidocaine (Lidoderm 5% Patch*) 1 patch TRANSDERM DAILY [facility] Last Admin: 11/19/18 09:08 Dose: 1 patch Magnesium Oxide (Magox 400 Tab*) [facility] Last Admin: 11/19/18 09:07 Dose: 400 mg Pharmacy Profile Note (Lidocaine Patch Remove*) 1 note PATCH OFF 2100 [facility] Last Admin: 11/19/18 20:12 Dose: 1 note Potassium Chloride (Klor Con Er Tab*) 20 meq PO 0900,1700 [facility] Last Admin: 11/19/18 17:48 Dose: 20 meq Tramadol HCl (Ultram*) 50 mg PO TID PRN PRN Reason: PAIN Last Admin: 11/16/18 12:12 Dose: 50 mg Vital Signs - 8 hr 11/19/18 19:21 Temperature 98.2 F Pulse Rate 62 Respiratory 18 Rate Blood Pressure 125/76 (mmHg) O2 Sat by Pulse 98 Oximetry Oxygen Devices in Use Now: None Appearance: appear comfortable sitting in the chair, no acute distress Eyes: No Scleral Icterus Ears/Nose/Mouth/Throat: Mucous Membranes Moist Neck: NL Appearance and Movements; NL JVP, Trachea Midline Respiratory: Symmetrical Chest Expansion and Respiratory Effort, Clear to Auscultation Cardiovascular: NL Sounds; No Murmurs; No JVD, No Edema Abdominal: NL Sounds; No Tenderness; No Distention Extremities: No Edema, No Clubbing, Cyanosis Skin: No Rash or Ulcers Neurological: Alert and Oriented x 3 Nutrition: Taking PO's Result Diagrams: 11/18/18 06:26 11/19/18 07:00 Microbiology and Other Data: Microbiology 11/13/18 23:30 Urine Culture - Final Urine No Growth (<1,000 CFU/mL) Diagnostic Imaging: Portable CXR shows single lead pacemaker in place with prominent pulmonary vessels. Official radiology read is pending. EKG Data: Shows A. Fib with rate of 83bpm without any change in wave form compared to old EKG. Assess/Plan/Problems-Billing Assessment: Ms. Coughlin is an 82-year-old female with a very complex recent past medical history significant for severe hyperparathyroidism; aortic stenosis, status post recent TAVR; heart failure, preserved ejection fraction; and atrial fibrillation with tachybrady syndrome, status post pacemaker earlier this year, recent stroke in July when she was sent to [facility] without any residual deficit here due to difficulty walking. Noted have have elevated creatinine. - Patient Problems (1) Ambulatory dysfunction Current Visit: Yes Status: Acute Code(s): R26.2 - DIFFICULTY IN WALKING, NOT ELSEWHERE CLASSIFIED SNOMED Code(s): 481104783 Comment: -suspect this is related to age vs CHF vs deconditioning. Recently discharged from rehab 2 weeks ago after a year long stay. -PT/OT ordered -SW consulted, as patient will need placement- [facility] tomorrow (2) Acute kidney injury Current Visit: Yes Status: Acute Code(s): N17.9 - ACUTE KIDNEY FAILURE, UNSPECIFIED SNOMED Code(s): 28038587 Comment: -Patient with elevated BUN/Creatinine on admission now resolved - received fluids and then Lasix d/t fluid overload. (3) Diabetes mellitus Current Visit: Yes Status: Acute Code(s): E11.9 - TYPE 2 DIABETES MELLITUS WITHOUT COMPLICATIONS SNOMED Code(s): 31015776 Comment: -controlled -Hold Januvia -Lispro SS with AC fingersticks (4) Diastolic heart failure Current Visit: Yes Status: Acute Code(s): I50.30 - UNSPECIFIED DIASTOLIC ( CONGESTIVE) HEART FAILURE SNOMED Code(s): 503480366 Comment: -Echo from 09/17/2018 with preserved EF - will continue home dose 20mg BID - lower ext edema slowly improving - daily weights and i/o's (5) Shortness of breath Current Visit: Yes Status: Acute Code(s): R06.02 - SHORTNESS OF BREATH SNOMED Code(s): 714228713 Comment: - SOB improved today -lung sounds- diminished bilat -lower ext with +2 pitting edema - lasix 20mg BID (6) Anemia Current Visit: No Status: Acute Code(s): D64.9 - ANEMIA, UNSPECIFIED SNOMED Code(s): 197599602 Comment: -AUGUSTUS noted from previous lab data -Hgb improving, stable -Stool occult- positive - will continue to hold aspirin - patient denies abd pain or bright red blood from the recturm, black or tarry stools can follow up outpatient with GI for positive occult stool -Will continue to monitor H/H for need for transfusion - INR 1.78- will resume eliquis at 5mg bid (7) HLD (hyperlipidemia) Current Visit: No Status: Chronic Code(s): E78.5 - HYPERLIPIDEMIA, UNSPECIFIED SNOMED Code(s): 65266067 Comment: -Continue atorvastatin (8) Type 2 diabetes mellitus Current Visit: No Status: Chronic Comment: -will hold januvia - continue lispro sliding scale - finger sticks ac/hs (9) DVT prophylaxis Current Visit: Yes Status: Acute Code(s): Z29.9 - ENCOUNTER FOR PROPHYLACTIC MEASURES, UNSPECIFIED SNOMED Code(s): 487891515 Comment: -held eliquis d/t INR 3.35 - down to 1.78 today - will resume eliquis (10) Full code status Current Visit: No Status: Acute Code(s): Z78.9 - OTHER SPECIFIED HEALTH STATUS SNOMED Code(s): 805126053 Comment: Status and Disposition: Inpatient. Discharge to [facility] in the AM
--- NOTE | 2018-11-20 01:26 | DS ---
DISCHARGE SUMMARY: DATE OF ADMISSION: 11/14/18 DATE OF DISCHARGE: 11/20/18 PROVIDER: Nkechi Hernadez NP PRIMARY CARE PROVIDER: Dr. Margot Dolan. ATTENDING PHYSICIAN WHILE IN THE HOSPITAL: Dr. Sudarshan Lai * (dictated by Nkechi Hernadez NP). PRIMARY DIAGNOSES: 1. Weakness, ambulatory dysfunction. 2. Acute kidney injury. 3. Anemia. SECONDARY DIAGNOSES: 1. Diabetes type 2. 2. Diastolic congestive heart failure. 3. Hyperlipidemia. 4. Atrial fibrillation, on chronic anticoagulation. 5. Aortic stenosis, status post transcatheter aortic valve replacement. 6. Hypertension. 7. Osteoarthritis. 8. Tachybrady syndrome, status post pacemaker. 9. Anxiety. 10. Stroke in July 2018 without residual deficit. STUDIES COMPLETED WHILE IN THE HOSPITAL: She had a chest x-ray on 11/13/18, no evidence of acute cardio-pulmonary disease. She had a repeat chest x-ray on , radiologist's impression: No active cardiopulmonary disease. She had an electrocardiogram, which showed atrial fibrillation at a rate of 83. DISCHARGE MEDICATIONS: No new home medications. Continued medications: 1. Eliquis 5 mg p.o. b.i.d. 2. Atenolol 75 mg p.o. q.a.m. 3. Atorvastatin 10 mg q.p.m. 4. Rocaltrol 0.5 mcg p.o. daily. 5. Calcium carbonate 500 mg p.o. daily p.r.n. 6. Vitamin D 800 units p.o. q.a.m. 7. Vitamin B12 500 mcg p.o. daily. 8. Furosemide 20 mg p.o. b.i.d. 9. Magnesium oxide 400 mg p.o. q.a.m. 10. Potassium chloride 20 mEq p.o. b.i.d. 11. Tramadol 50 mg p.o. t.i.d. p.r.n. pain. 12. Januvia 100 mg p.o. q.a.m. 13. Detrol LA 4 mg p.o. daily. 14. Lidocaine patch 1 patch transdermally daily. 15. [place]-3 fatty acids 2000 mg p.o. t.i.d. Discontinued medications: Lisinopril 10 mg. HISTORY OF PRESENT ILLNESS AND HOSPITAL COURSE: Ms. 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 She denied any other symptoms other than 1 episode of diarrhea prior to arrival to the hospital. The patient does report that the lower extremity edema is chronic. Due to her generalized weakness, shortness of breath, and lower extremity edema, the patient was admitted to the hospital for further evaluation. During this hospitalization, the patient was seen and evaluated by physical therapy, who recommended skilled PT for further strength and gait training prior to returning home. The patient did have Lasix during this hospitalization with good output and improvement of her symptoms. She does continue to have lower extremity edema but has improved slightly since admission. At this time, the patient is stable for discharge to subacute rehab. She will be discharged to [facility]. VITAL SIGNS: Blood pressure 125/76, heart rate 62, respirations 18, O2 saturation 98%, temperature was 98.2. DISCHARGE PLAN: Ms. Coughlin will be discharged to [facility]. Activity: As tolerated. 1. Ambulatory dysfunction. The patient did have generalized weakness. The patient was just recently admitted to skilled rehab for approximately 1 year and was recently discharged approximately 2 weeks ago to home, had some deconditioning and became progressively weak and had increased leg edema. Due to these findings, the patient presented to the emergency room for further evaluation. She did receive Lasix IV during her hospitalization. Her edema did improve. Her shortness of breath also improved. At this time, the recommendation is to continue with skilled rehab physical therapy for gait and strength training. 2. History of diastolic congestive heart failure. The patient should continue on Lasix 20 mg p.o. b.i.d. She should have a repeat BNP in 4 days. She should follow up with her primary care provider for further recommendations, on diuretic therapy for her lower extremity edema. The patient will be placed on potassium 20 mEq p.o. b.i.d. as well. 3. Hypokalemia. The patient did have hypokalemia during this hospitalization. She did receive potassium supplementation and we will continue potassium supplementation at 20 mEq p.o. b.i.d. at discharge. 4. Diabetes. The patient should resume her Januvia as previously prescribed. She should have Accu-Cheks a.c. and h.s. 5. Hypertension. The patient should continue on atenolol 75 mg p.o. daily. I did discontinue her lisinopril as her blood pressure were low normotensive during this hospitalization. 6. Atrial fibrillation. The patient should continue on Eliquis 5 mg p.o. b.i.d. I would repeat INR in 4 days. She should continue on atenolol 75 mg p.o. daily. 7. Hyperlipidemia. She should continue atorvastatin 10 mg p.o. daily. 8. Anemia. The patient did have anemia during this hospitalization that did improve. She had a guaiac-positive stool. I would recommend that she be referred to GI as an outpatient for followup of her positive guaiac stool. Her CBC was trended during this hospitalization. Her H and H did improve from 8. to 10.2/. She had no signs or symptoms of acute bleeding. Again, I would recommend she follow up with GI as an outpatient. FOLLOWUP: The patient should follow up with her primary care provider in 4 to 7 days. She should continue with skilled PT at discharge for gait and strength training prior to returning home. The patient was instructed to return to the emergency room for any chest pain, increasing shortness of breath, weakness on one side, or any other concerning symptoms. I have discussed this with my attending, Dr. Sudarshan Lai. He is in agreement with my plan. Condition on discharge: stable Disposition: [facility] NKECHI HERNADEZ, BARBARA [id number]/[facility] #: [id number] LEMUEL
[2018-11-20 07:32] LABS: BUN/Creatinine Ratio 20.5 (8-20); EGFR African American 85.8 (>60); EGFR Non-African American 70.9 (>60); Potassium 3.6 mmol/L (3.5-5.0)
[2018-11-20] MEDS: Calcitriol CAP* 0.25 MCG PO SCH (08:25)
[2018-11-20] MEDS: Potassium Chlor TAB* 20 MEQ TAB.ER PO SCH (08:26)
[2018-11-20] MEDS: Cholecalciferol TAB* 400 UNIT PO SCH (08:26)
[2018-11-20] MEDS: Atenolol TAB* 50 MG PO SCH (08:27)
[2018-11-20] MEDS: Apixaban* 5 MG TAB PO SCH (08:28)
[2018-11-20] MEDS: Cyanocobalamin TAB* 500 MCG PO SCH (08:28)
[2018-11-20] MEDS: Magnesium Oxide TAB* 400 MG PO SCH (08:28)
[2018-11-20] MEDS: Furosemide TAB* 20 MG PO SCH (08:29)
[2018-11-20] MEDS: Lidocaine PATCH 5%* 1 PATCH TRANSDERM SCH (08:29)
[2018-11-20] MEDS: Insulin LISPRO* 1 UNITS UNIT SUBCUT SCH (08:30)
[2018-11-20 10:17] VITALS: BP 136/63
== END 2018-11-20 12:50 | DRG 292 ==
LOC: ED 21:52 → MEDTELE 11-14 01:38
PROVIDERS: ADMIT Internal Medicine; ATTEND Internal Medicine
DX: I11.0 Hypertensive heart disease with heart failure (principal); N17.9 Acute kidney failure, unspecified; R26.2 Difficulty in walking, not elsewhere classified; R53.1 Weakness; I48.91 Unspecified atrial fibrillation; E11.9 Type 2 diabetes mellitus without complications; E78.5 Hyperlipidemia, unspecified; M19.90 Unspecified osteoarthritis, unspecified site; I50.33 Acute on chronic diastolic (congestive) heart failure; I49.5 Sick sinus syndrome; D50.0 Iron deficiency anemia secondary to blood loss (chronic); F41.9 Anxiety disorder, unspecified; R19.5 Other fecal abnormalities; E78.00 Pure hypercholesterolemia, unspecified; E21.3 Hyperparathyroidism, unspecified; D50.9 Iron deficiency anemia, unspecified; E87.6 Hypokalemia; Z96.641 Presence of right artificial hip joint; Z87.891 Personal history of nicotine dependence; Z88.8 Allergy status to other drugs, medicaments and biological substances; Z88.0 Allergy status to penicillin; Z95.2 Presence of prosthetic heart valve; Z95.0 Presence of cardiac pacemaker; Z86.73 Personal history of transient ischemic attack (TIA), and cerebral infarction without residual deficits; Z79.01 Long term (current) use of anticoagulants; Z79.84 Long term (current) use of oral hypoglycemic drugs; Z91.013 Allergy to seafood; Z87.01 Personal history of pneumonia (recurrent); Z95.5 Presence of coronary angioplasty implant and graft; Z82.49 Family history of ischemic heart disease and other diseases of the circulatory system
CPT/HCPCS: 36415; 71045; 80048; 80053; 81003; 81015; 82272; 82436; 84133; 84300; 85014; 85018; 85025; 85027; 85610; 85730; 87086; 93005; 99284; A9270-GY; G8978-GP-CL; G8979-GP-CI; G8987-GO-CK; G8988-GO-CJ; J1940

== ENCOUNTER 2018-12-04 19:47 | Emergency (ER) | payer MEDICARE ==
--- NOTE | 2018-12-04 19:54 | ED ---
Adult Trauma - HPI Summary HPI Summary: An 83 y/o female presents to [facility] with a chief complaint of a fall today. She says that she got up off of the toilet and felt woozy then fell. She was able to get back up with the help of her friends and was able to walk a little bit saying that she may have taken a few steps. She denies neck pain, CP, SOB or diarrhea. Per triage note she denies LOC. She says that she has been constipated but had a BM after taking suppositories. Her fall happened after urinating. She denies any blurred vision but notes that she hit her forehead and has a 2-3 cm laceration. She denies any arm pain. Her legs are swollen and says that she is on water pills. She denies any pain in her hips. She notes that she has not been eating well. She is unsure if she is UTD on tetanus. - History of Current Complaint Stated Complaint: FALL, HEAD LACERATION PER EMS Hx Obtained From: Patient, EMS Loss of Consciousness: no loss of consciousness Onset/Duration: Started Minutes Ago Onset of Pain: Immediate, Post Accident, Prior to Arrival Onset Severity: Mild Current Severity: Mild Pain Intensity: 0 Pain Scale Used: 0-10 Numeric Location: Head Aggravating Factor(s): Nothing Alleviating Factor(s): Nothing Associated Signs & Symptoms: Negative: SOB, Chest Pain, Fever, Loss of Consciousness - Additional Pertinent History Primary Care Physician: [email or web address] - Allergy/Home Medications Allergies/Adverse Reactions: Allergies Allergy/AdvReac Type Severity Reaction Status Date / Time regadenoson [From Lexiscan] Allergy See Comment Verified 11/14/18 01:19 Penicillins AdvReac Intermediate See Comment Verified 11/14/18 01:19 crab AdvReac Vomiting Verified 11/14/18 01:19 PMH/Surg Hx/FS Hx/Imm Hx Endocrine/Hematology History: Reports: Hx Anticoagulant Therapy, Hx Blood Transfusions, Hx Diabetes, Hx Anemia, Hx Unexplained Bleeding - GI Bleed admission Dx Denies: Hx Systemic Lupus Erythematosus, Hx Sickle Cell Disease, Hx Thyroid Disease, Other Endocrine/Hematological Disorders Cardiovascular History: Reports: Hx Angioplasty, Hx Coronary Artery Disease, Hx Hypercholesterolemia, Hx Hypertension, Hx Pacemaker/ICD, Hx Peripheral Vascular Disease, Hx Valvular Heart Disease Denies: Hx Aneurysm, Hx Angina, Hx Auto Implanted Cardiovert Defib, Hx Cardiac Arrest, Hx Cardiomegaly, Hx Congenital Heart Disease, Hx Congestive Heart Failure, Hx Deep Vein Thrombosis, Hx Embolism, Hx Hypotension, Hx Rheumatic Fever, Hx Syncope Respiratory History: Reports: Hx Pneumonia Denies: Hx Asthma, Hx Chronic Bronchitis, Hx Chronic Obstructive Pulmonary Disease (COPD), Hx Cystic Fibrosis, Hx Lung Cancer, Hx Pleural Effusion, Hx Pulmonary Edema, Hx Pulmonary Embolism, Hx Seasonal Allergies, Hx Sleep Apnea, Other Respiratory Problems/Disorders GI History: Reports: Hx Gastrointestinal Bleed - Admission Dx, Hx Ulcer Denies: Hx Cirrhosis, Hx Crohn's Disease, Hx Diverticulosis, Hx Gall Bladder Disease, Hx Gastroesophageal Reflux Disease, Hx Hiatal Hernia, Hx Irritable Bowel, Hx Jaundice, Hx Obstructive Bowel, Hx Ileostomy, Hx Pyloric Stenosis, Other GI Disorders History: Reports: Other Problems/Disorders - urinary urgency Denies: Hx Acute Renal Failure, Hx Benign Prostatic Hyperplasia, Hx Chronic Renal Failure, Hx Dialysis, Hx Kidney Infection, Hx Kidney Stones Musculoskeletal History: Reports: Hx Arthritis, Hx Back Problems, Hx Bursitis Denies: Hx Rheumatoid Arthritis, Hx Congenital Bone Abnormalities, Hx Fibromyalgia, Hx Gout, Hx Osteoporosis, Hx Scoliosis, Hx Tendonitis Comment Only: Hx Orthopedic Injury - right hip replaced Sensory History: Reports: Hx Contacts or Glasses - not with pt Denies: Hx Cataracts, Hx Eye Injury, Hx Eye Prosthesis, Hx Glaucoma, Hx Legally Blind, Hx Macular Degeneration, Hx Vision Problem, Hx Deafness, Hx Hearing Aid, Hx Hearing Problem, Other Sensory Impairments Opthamlomology History: Reports: Hx Contacts or Glasses - not with pt Denies: Hx Cataracts, Hx Eye Injury, Hx Eye Prosthesis, Hx Glaucoma, Hx Legally Blind, Hx Macular Degeneration, Hx Vision Problem, Other Sensory Impairments Psychiatric History: Reports: Hx Anxiety - Cancer History Hx Chemotherapy: No Hx Radiation Therapy: No Hx Palliative Cancer Treatment: No - Surgical History Surgery Procedure, Year, and Place: right hip replacement several years ago, angiogram. barium study of intestines 10/27/14 Hx Anesthesia Reactions: No Infectious Disease History: Denies: Hx Clostridium Difficile, Hx Hepatitis, Hx Human Immunodeficiency Virus (HIV), Hx of Known/Suspected MRSA, Hx Shingles, Hx Tuberculosis, Hx Known/ Suspected VRE, Hx Known/Suspected VRSA, History Other Infectious Disease - Family History Known Family History: Positive: Cardiac Disease - father Negative: Diabetes - Social History Alcohol Use: Rare Hx Substance Use: No Substance Use Type: Reports: None Hx Tobacco Use: Yes Smoking Status (MU): Former Smoker Type: Cigarettes Amount Used/How Often: 2 PPD Length of Time of Smoking/Using Tobacco: 15 years Have You Smoked in the Last Year: No Review of Systems Negative: Fever Negative: Chest Pain Negative: Shortness Of Breath Negative: Abdominal Pain, Diarrhea Positive: Other - negative: neck pain Neurological: Other - negative: LOC All Other Systems Reviewed And Are Negative: Yes Physical Exam - Summary Physical Exam Summary: Constitutional: Well-developed, Well-nourished, Alert. (-) Distressed Skin: Warm, Dry HENT: Normocephalic; laceration over left forehead, no stepoff, Eyes: Conjunctiva normal Neck: Musculoskeletal ROM normal neck. (-) JVD, (-) Stridor, (-) Tracheal deviation Cardio: Rhythm regular, rate normal, Heart sounds normal; Intact distal pulses; The pedal pulses are 2+ and symmetric. Radial pulses are 2+ and symmetric. (-) Murmur Pulmonary/Chest wall: Effort normal. (-) Respiratory distress, (-) Wheezes, (-) Rales Abd: Soft, (-) tenderness, (-) Distension, (-) Guarding, (-) Rebound Musculoskeletal: (-) Edema, no c-spine tenderness and the rest of the spine is nontender, Left leg is shortened, neurovascularly intact distally Lymph: (-) Cervical adenopathy Neuro: Alert, Oriented x3 Psych: Mood and affect Normal Triage Information Reviewed: Yes Vital Signs Reviewed: Yes Procedures - Laceration/Wound Repair 1 Location: face Anesthesia: 1.0%, Lido - 5ccs Suture Type: Prolene - 3-0, Other - moderate amount of irrigation with syringe Number of Sutures: 6 - interrupted Diagnostics - Laboratory Result Diagrams: 12/04/18 21:27 12/04/18 21:27 Lab Statement: Any lab studies that have been ordered have been reviewed, and results considered in the medical decision making process. - Radiology CXR Radiology Interpretation Completed By: ED Physician Summary of Radiographic Findings: Persistent elevated right hemidiaphram, no acute process. Pending official imaging report. - CT maxillofacial CT Interpretation Completed By: Radiologist Summary of CT Findings: Left frontal contusion/laceration with no acute facial bone fractures. ED physician has reviewed this imaging report. Brain CT Interpretation Completed By: Radiologist Summary of CT Findings: 1. Left frontal contusion/laceration. No traumatic intracranial abnormalities. 2. 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 ED physician has reviewed this imaging report. - EKG 20:16 Cardiac Rate: Other Rate - paced rhythm at 64 bpm Summary of EKG Findings: paced rhythm at 64 bpm, QRS is prolonged, normal QTcs. Re-Evaluation - Re-Evaluation First Eval Re-Evaluation Time: 12:50 Change: Unchanged Comment: lac repair, reports hip pain in right hip Adult Trauma Course/Dx - Course Course Of Treatment: An 83 y/o female presents to [facility] with a chief complaint of a fall today. She says that she got up off of the toilet and felt woozy then fell. The physical exam revealed laceration over left forehead, no stepoff, no c-spine tenderness and the rest of the spine is nontender, Left leg is shortened , neurovascularly intact distally. Laceration was repaired. See procedure note. EKG at 20:16 showed paced rhythm at 64 bpm, QRS is prolonged, normal QTcs. In the ED course the patient was given Tylenol PO. Bloodwork and chemistries obtained and are WNL. Maxillofacial CT impression: Left frontal contusion/ laceration with no acute facial bone fractures. Brain CT impression: 1. Left frontal contusion/laceration. No traumatic intracranial abnormalities. 2. 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 CXR showed Persistent elevated right hemidiaphram, no acute process. The patient will be discharged home and follow up with her PCP. She is agreeable with this plan. - Diagnoses Provider Diagnoses: Syncope, Facial laceration Discharge - Sign-Out/Discharge Documenting (check all that apply): Patient Departure - DC Patient Received Moderate/Deep Sedation with Procedure: No - Discharge Plan Condition: Stable Disposition: HOME Patient Education Materials: Laceration (ED), Syncope (ED), Head Injury (ED) Print Language: SOU[place] KORE[place] Referrals: Margot Dolan MD [Primary Care Provider] - Additional Instructions: Your stitches need to be removed in 7-10d. Keep them dry for 24h, then you can wash in the shower. - Billing Disposition and Condition Condition: STABLE Disposition: Home - Attestation Statements Document Initiated by Scribe: Yes Documenting Scribe: Abdiel Velázquez Provider For Whom Lady is Documenting (Include Credential): Karina Anton MD Scribe Attestation: IAbdiel, scribed for Karina Desouza MD on 12/05/18 at 0749. Scribe Documentation Reviewed: Yes Provider Attestation: The documentation as recorded by the Abdiel blancas accurately reflects the service I personally performed and the decisions made by me, Karina Desouza MD Status of Scribe Document: Viewed
[2018-12-04 21:36] LABS: ABS Basophils 0.1 10^3/ul (0-0.2); ABS Eosinophils 0.1 10^3/ul (0-0.6); ABS Lymphocytes 1.2 10^3/ul (1.0-4.8); ABS Monocytes 0.8 10^3/ul (0-0.8); ABS Neutrophils 5.9 10^3/ul (1.5-7.7); Eosinophil % 1.8 %; Hematocrit 30 % (35-47); Hemoglobin 9.5 g/dL (12.0-16.0); Lymphocyte % 14.8 %; Mean Corpuscular HGB Conc 32 g/dL (31-36); Mean Corpuscular Hemoglobin 26 pg (27-31); Mean Corpuscular Volume 81 fL (80-97); Mean Platelet Volume 8.4 fL (7.4-10.4); Nucleated Red Blood Cells % 0.1; Platelet Count 239 10^3/uL (150-450); Red Blood Count 3.66 10^6 /uL (3.70-4.87); Red Cell Distribution Width 17 % (10-15); White Blood Count 8.1 10^3/uL (3.5-10.8)
[2018-12-04 21:53] LABS: Albumin 3.4 g/dL (3.2-5.2); Albumin/Globulin Ratio 0.8 (1-3); BUN/Creatinine Ratio 23.4 (8-20); Calcium 11.3 mg/dL (8.6-10.3); EGFR African American 50.2 (>60); EGFR Non-African American 41.5 (>60); Globulin 4.4 g/dL (2-4); Potassium 3.8 mmol/L (3.5-5.0); Total Bilirubin 0.7 mg/dL (0.2-1.0); Total Protein 7.8 g/dL (6.4-8.9)
[2018-12-04 21:56] LABS: Troponin I 0.03 ng/mL (<0.04)
[2018-12-04 21:57] LABS: Myoglobin 56.9 ng/mL (14.3-65.8)
[2018-12-05] MEDS ORDERED: Acetaminophen / Codeine* #3 (300 MG/30 MG) TAB PO ONE (01:06)
[2018-12-05 03:30] VITALS: BP 102/58
== END 2018-12-05 04:04 | disposition home or self-care (01) ==
LOC: ED 19:47
DX: S01.81XA Laceration without foreign body of other part of head, initial encounter (principal); R55 Syncope and collapse; W18.12XA Fall from or off toilet with subsequent striking against object, initial encounter; Y92.89 Other specified places as the place of occurrence of the external cause; Z88.0 Allergy status to penicillin; Z88.8 Allergy status to other drugs, medicaments and biological substances; E11.9 Type 2 diabetes mellitus without complications; I25.10 Atherosclerotic heart disease of native coronary artery without angina pectoris; E78.00 Pure hypercholesterolemia, unspecified; I10 Essential (primary) hypertension; Z95.810 Presence of automatic (implantable) cardiac defibrillator; F41.9 Anxiety disorder, unspecified; Z87.891 Personal history of nicotine dependence; Z79.899 Other long term (current) drug therapy
CPT/HCPCS: 12011; 36415; 70450; 70486; 71045; 80053; 83605; 83874; 84484; 85025; 93005; 99284; A9270-GY